=== PATIENT | female | born 1940 | race Caucasian/White ===

== ENCOUNTER → 2016-07-19 | Outpatient (CLI) | payer MEDICARE, OTHER ==
[2016-07-19 15:33] LABS: CH 29.2; CHCM 33.2; HCT 36.2 % (34.0-46.0); HDW 2.39; HGB 12.5 gm/dL (11.4-16.0); MCH 30.4 pg (25.0-35.0); MCHC 34.5 g/dL (31.0-37.0); MCV 88.3 fL (80.0-100.0); Mean Platelet Volume 9.2; RDW 14.2 % (11.5-15.5); WBC 9.3 k/uL (3.8-10.6)
[2016-07-19 15:50] LABS: Anion Gap 10 mmol/L; Blood Urea Nitrogen 36 mg/dL (7-17); Calcium 9.1 mg/dL (8.4-10.2); Carbon Dioxide 27 mmol/L (22-30); Chloride 105 mmol/L (98-107); Glucose 101 mg/dL (74-99); Non-African American GFR(MDRD) >60 (>60 ml/min/1.73 sqM); Potassium 4.3 mmol/L (3.5-5.1); Sodium 142 mmol/L (137-145)
== END | disposition home or self-care (01) ==
LOC: LABWHC1 14:57
PROVIDERS: ATTEND Psychiatry & Neurology Neurology
DX: Z51.81 Encounter for therapeutic drug level monitoring (principal); Z79.899 Other long term (current) drug therapy
CPT/HCPCS: 36415; 80048; 84439; 84443; 85027

== ENCOUNTER 2016-09-16 05:46 | Day surgery (SDC) | payer MEDICARE, OTHER ==
[2016-09-12 16:19] VITALS: BMI 24.5
[~2016-09-16 05:46] MED LIST: DEXAMETHASONE SOD PHOSPHATE 10 MG/ML 1 ML VIAL IV ONE; HEPARIN SODIUM,PORCINE 5,000 UNIT/ML 1 ML VIAL SQ ONE; HYDROmorphone 1 MG/ML 1 ML SYRINGE IVP PRN; LIDOCAINE 1% 20 ML VIAL (10MG/ML) FOR IV START INTRADERMA PRN; ONDANSETRON 4 MG/2 ML VIAL IVP ONE; ceFAZolin 2 GM in SODIUM CHLORIDE 0.9% 100 ML IVPB ONE
[2016-09-16] MEDS: LACTATED RINGERS 1,000 ML IV SCH ×2 (06:36→15:49)
[2016-09-16] MEDS ORDERED: LACTATED RINGERS 1,000 ML IV ONE (06:36)
[2016-09-16] MEDS ORDERED: LIDOCAINE 1% 20 ML VIAL (10MG/ML) FOR IV START INTRADERMA ONE (06:37)
--- NOTE | 2016-09-16 07:44 | P.GSHP ---
History of Present Illness H&P Date: 09/16/16 Chief Complaint: Right inguinal hernia 76 years old female presents with right groin bulge which is reducible. She also notices a bulge in the left groin. No history of bowel obstruction. No nausea or vomiting. - Review of Systems Comment: All negative except stated in history of present illness Past Medical History Past Medical History: Osteoarthritis (OA), Thyroid Disorder Additional Past Medical History / Comment(s): PARKINSONS, LIGHTHEADED AT TIMES, USES CANE FOR BALANCE. History of Any Multi-Drug Resistant Organisms: None Reported Past Surgical History: Hernia Repair, Joint Replacement, Tubal Ligation Additional Past Surgical History / Comment(s): DEIRDRE TOTAL KNEES, UMBILICAL HERNIA , VARICOSE VEINS, PARTIAL THYROIDECTOMY. Nasal surgery. Past Anesthesia/Blood Transfusion Reactions: Previous Problems w/ Anesthesia Additional Past Anesthesia/Blood Transfusion Reaction / Comment(s): STATES KNEE REPLACEMENT MAR 2010 SHE WAS "DELERIOUS ". KNEE REPLACEMENT FEB 2011 HER BLOOD PRESSURE DROPPED AND SHE WAS IN BED FOR 5 DAYS. Smoking Status: Never smoker - Past Family History Sister(s) Family Medical History: Cancer Additional Family Medical History / Comment(s): Melanoma Medications and Allergies Home Medications Medication Instructions Recorded Confirmed Type Carbidopa-Levodopa 25-100 mg 1.5 tab PO TID 08/20/15 09/16/16 History [Sinemet 25-100] Levothyroxine Sodium [Synthroid] 88 mcg PO DAILY 08/20/15 09/16/16 History Allergies Allergy/AdvReac Type Severity Reaction Status Date / Time hydromorphone [From Dilaudid] AdvReac Severe Unknown Verified 09/16/16 07:10 Surgical - Exam Vital Signs Temp Pulse Resp BP Pulse Ox 97.1 F L 71 16 126/65 99 09/16/16 06:26 09/16/16 06:26 09/16/16 06:26 09/16/16 06:26 09/16/16 06:26 General: Patient is alert and oriented to time, place and person and cooperative with exam. HEENT: No pallor, no icterus, Chest: Bilateral equal breath sounds present. No wheezes, no crackles. Cardiovascular: Regular rate and rhythm. Abdomen: Soft, nontender, nondistended. Right inguinal hernia possible left Integumentary: No active ulcers or discharge. Neurologic: Cranial nerves II-XII intact. Strength upper and lower extremities 5/5. No focal neurologic deficits. Gait is normal. Assessment and Plan (1) Inguinal hernia Status: Acute (2) Parkinson disease Status: Acute Plan: 1. Right inguinal hernia possible left 2. Informed consent obtained for robotic-assisted laparoscopic right inguinal hernia repair possible bilateral with mesh and all indicated procedures. 3. The risks, benefits and potential complications including bleeding, infection, possibility of converting to open were discussed with the patient 4. Preoperative antibiotics 5. Bilateral SCDs.
[2016-09-16] MEDS ORDERED: NEOSTIGMINE 1 MG/ML 10 ML VIAL ONE (07:51)
[2016-09-16] MEDS ORDERED: LIDOCAINE 1% INJ 10MG/ML (20 ML MDV) ONE (07:51)
[2016-09-16] MEDS ORDERED: ePHEDrine 50 MG/ML 1 ML AMP ONE (07:51)
[2016-09-16] MEDS ORDERED: GLYCOPYRROLATE 0.2 MG/ML 2 ML VIAL ONE (07:51)
[2016-09-16] MEDS ORDERED: MIDAZOLAM 2 MG/2 ML VIAL ONE (07:51)
[2016-09-16] MEDS ORDERED: PROPOFOL 10 MG/ML 20 ML VIAL IV ONE (07:51)
[2016-09-16] MEDS ORDERED: ROCURONIUM BROMIDE 10 MG/ML 10 ML VIAL IV ONE (07:51)
[2016-09-16] MEDS ORDERED: PHENYLEPHRINE-0.9% NACL SYG 1 MG/10 ML SYRINGE ONE (07:51)
[2016-09-16] MEDS ORDERED: SUCCINYLCHOLINE CHLORIDE 100 MG/5 ML SYR IV ONE (07:51)
[2016-09-16] MEDS ORDERED: fentaNYL (PF) 50 MCG/ML 2 ML AMP ONE (07:51)
[2016-09-16] MEDS ORDERED: ACETAMINOPHEN IV (For NPO) 1,000 MG/100 ML VIAL ONE (07:51)
[2016-09-16] MEDS ORDERED: BUPIVACAIN-EPI 0.5%-1:200,000 30 ML VIAL SQ ONE (08:22)
[2016-09-16] MEDS ORDERED: ACETAMINOPHEN IV (For NPO) 1,000 MG in EMPTY BAG 1 BAG IVPB STA (10:28)
[2016-09-16] MEDS ORDERED: SODIUM CHLORIDE 0.9% 500 ML IV ONE (10:28)
[2016-09-16 11:38] VITALS: RESP 16
[2016-09-16] MEDS ORDERED: ONDANSETRON 4 MG/2 ML VIAL IVP PRN (14:54)
[2016-09-16] MEDS ORDERED: ACETAMINOPHEN TAB 325 MG TAB PO PRN (14:55)
--- NOTE | 2016-09-16 15:11 | P.OP ---
Date of Procedure: 09/16/16 Preoperative Diagnosis: Right inguinal hernia History of Parkinson's disease Postoperative Diagnosis: Bilateral inguinal hernias History of Parkinson disease Procedure(s) Performed: Robotic-assisted laparoscopic bilateral inguinal hernia repair with mesh Implants: Covidien Progrip Lot # [id number] Covidien Progrip Lot # [id number] Anesthesia: GETA, local Estimated Blood Loss (ml): 10 Pathology: none sent Condition: stable Disposition: PACU Indications for Procedure: 76 years old female presents with right inguinal all checked which is reducible. She has recently noticed left inguinal bulge. Informed consent. Patient elected to undergo robotic-assisted laparoscopic bilateral inguinal hernia repair with mesh. Operative Findings: Bilateral inguinal hernia, right larger than left. Both hernias had direct and indirect complement Description of Procedure: The patient was brought to the operating room and placed in supine position. General anesthesia with endotracheal intubation was performed as per anesthesia team. Both arms were tucked against the abdominal wall and a shunt was positioned in lithotomy using yellowfin stirrups. A hollingsworth catheter was inserted under sterile aseptic precautions. Chlorhexidine was used to prep the skin followed by application of sterile drapes and Ioban dressing. A timeout was performed to verify correct patient, correct procedure and correct side. Patient was confirmed to receive perioperative IV antibiotics, subcutaneous heparin 5000 units and bilateral SCDs were placed. A 2 mm skin incision was made in the left subcostal area and Veress needle was inserted to establish pneumoperitoneum to a pressure of 15 mmHg. A 1.5 cm supraumbilical incision was made which was deepened through the subcutaneous tissue . Two additional 8 mm skin incisions were made on either side of the midline approximately 8 cm away. A 5 mm 30 laparoscope was used to enter the peritoneum using direct Optiview technique. A 12 mm robotic trocar was inserted in the supraumbilical area and 8 mm robotic trocars were inserted on either side of the midline. The patient was placed in Trendelenburg position and the robot was brought in between the legs. The robotic arms including the camera arm were docked on the trocars. The robotic prograsp and monopolar scissors were introduced via arm 1 and 2 respectively. Upon inspection of the peritoneal cavity, bilateral direct and indirect inguinal hernias identified. The right indirect hernia was the largest. The guido anatomical landmarks including the pubic symphysis, median and medial umbilical ligaments and bilateral epigastric vessels were identified. Attention was focused on the right side first. Using monopolar scissors a peritoneal flap was created extending medially from the median umbilical ligament and laterally to the direct hernia space. Using gentle traction and countertraction the flap was developed posteriorly. Loose fibrofatty tissue was bluntly dissected. Medially the dissection was carried along the Victoriano's ligament till pubic tubercle was identified. Care was taken to stay away from the urinary bladder. Dissection was carried out to leave the epigastric vessels against the anterior abdominal wall and laterally beyond the hernia defect. The indirect hernia sac was completely reduced. The iliofemoral vessels were identified. The peritoneal reflection overlying the round ligament was also dissected off. Enough inferior dissection was carried out 2 cm below the hernia defect. No direct hernia containing fat was noted. Attention was then focused on the left side where similar dissection was performed to identify the above-mentioned guido anatomical landmarks. Gentle traction and countertraction helped in reduction of the hernia sac. No bleeding was encountered. The iliofemoral vessels, spermatic cord and vas deferens were protected at all times. Covidien progrip mesh was rolled and introduced through the 12mm camera port. The right mesh was placed in the preperitoneal cavity with green portion overlying the pubic tubercle . The mesh was rolled upwards so that the mesh covered the direct , indirect inguinal hernia and the femoral hernia space without any kinks or folds. Similarly left progrip mesh was rolled and introduced through the 8mm camera port and secured over the right direct, indirect and femoral hernia space. The peritoneal flap was then sutured to the cut edge of the peritoneum using continuous 2-0 V lock sutures. The hernia sacs were completely reduced and the mesh lay flat without any kinks or folds. The robotic arms were then undocked and 30 degree laparoscope was inserted. All the needles were removed from the abdominal cavity. The 8mm camera trocar site was closed with 2 transfascial sutures of 0 Vicryl. The sponge, instrument and needle count were correct x2. The skin was closed with interrupted sutures of 4-0 Monocryl. Dermabond skin glue was applied followed by Telfa and Tegaderm dressing. Hollingsworth catheter was removed. .
[2016-09-16] MEDS: KETOROLAC 30 MG/ML 1 ML VIAL IVP SCH (17:28)
[2016-09-17] MEDS: KETOROLAC 30 MG/ML 1 ML VIAL IVP SCH ×2 (02:25→06:29)
[2016-09-17 08:08] VITALS: BP 117/56; PULSE 67; TEMP 97.5
== END 2016-09-17 09:27 | disposition home or self-care (01) ==
LOC: OR 05:46 → 3SUR 11:07 → OR 09-17 09:27
PROVIDERS: ATTEND Surgery
DX: K40.20 Bilateral inguinal hernia, without obstruction or gangrene, not specified as recurrent (principal); M19.90 Unspecified osteoarthritis, unspecified site; E07.9 Disorder of thyroid, unspecified; G20 Parkinson's disease; Z98.51 Tubal ligation status; Z79.899 Other long term (current) drug therapy
CPT/HCPCS: 49650; C1781; J2250; J1644; J1100; J2710; J0690; J2405; J2001; J3010; J1885 ×2; J0131; J2370; J0330; J2704

== ENCOUNTER → 2016-10-06 | Outpatient (CLI) | payer MEDICARE, OTHER ==
[2016-10-06 11:40] LABS: Anion Gap 10 mmol/L; Blood Urea Nitrogen 24 mg/dL (7-17); Calcium 8.9 mg/dL (8.4-10.2); Carbon Dioxide 25 mmol/L (22-30); Chloride 108 mmol/L (98-107); Glucose 71 mg/dL (74-99); Non-African American GFR(MDRD) >60 (>60 ml/min/1.73 sqM); Potassium 4.1 mmol/L (3.5-5.1); Sodium 143 mmol/L (137-145)
[2016-10-06 11:45] LABS: CH 28.9; HCT 36.6 % (34.0-46.0); HDW 2.45; HGB 12.3 gm/dL (11.4-16.0); MCH 29.6 pg (25.0-35.0); MCHC 33.5 g/dL (31.0-37.0); MCV 88.2 fL (80.0-100.0); Mean Platelet Volume 8.7; RBC 4.15 m/uL (3.80-5.40); RDW 14.5 % (11.5-15.5); WBC 10.9 k/uL (3.8-10.6)
== END | disposition home or self-care (01) ==
LOC: LABWHC1 11:07
PROVIDERS: ATTEND Psychiatry & Neurology Neurology
DX: I95.1 Orthostatic hypotension (principal); R53.83 Other fatigue; M62.81 Muscle weakness (generalized)
CPT/HCPCS: 36415; 80048; 85027

== ENCOUNTER → 2016-12-23 | Outpatient (CLI) | payer MEDICARE, OTHER | END | disposition home or self-care (01) | LOC: LABPAT 10:31 | PROVIDERS: ATTEND Obstetrics & Gynecology | DX: Z01.812 Encounter for preprocedural laboratory examination (principal); N81.3 Complete uterovaginal prolapse | CPT/HCPCS: 87086 ==

== ENCOUNTER → 2017-01-31 | Outpatient (CLI) | payer MEDICARE, OTHER ==
--- NOTE | 2017-01-31 15:14 | XR ---
EXAMINATION TYPE: XR facial bones complete DATE OF EXAM: 01/31/2017 COMPARISON: NONE HISTORY: Fall hitting above right orbit, pain TECHNIQUE: Facial bones are examined in 3 projections. These includes the orbits within the field-of- view. FINDINGS: Bilateral hearing aids are evident. Orbits appear intact. There is a left septal deviation. Acute fractures are not identified. Nasal bon e appears intact. Maxillary spine appears intact. Dental fixation metallic areas are present. Sella a ppears unremarkable. IMPRESSION: 1. Facial bones and orbits appear intact
== END ==
LOC: RADXRMAIN 14:24
PROVIDERS: ATTEND Family Medicine
DX: S09.93XA Unspecified injury of face, initial encounter (principal)
CPT/HCPCS: 70150

== ENCOUNTER 2017-02-06 04:52 | Inpatient (IN) | payer MEDICARE, OTHER ==
[2017-02-06] MEDS ORDERED: SODIUM CHLORIDE 0.9% 1,000 ML IV STA (05:25)
--- NOTE | 2017-02-06 05:30 | ED ---
General Adult HPI - General Chief complaint: Syncope Stated complaint: low BP Time Seen by Provider: 02/06/17 04:59 Source: patient, RN notes reviewed Mode of arrival: ambulatory Limitations: no limitations - History of Present Illness Initial comments: 76-year-old female presents with syncopal episode and head injury. Patient states that this evening she collapsed striking the back of her head. She was rushing to the bathroom, raised quickly from sleeping. Patient does have history of multiple falls secondary to orthostatic hypotension. She is on Midrin. Patient has additional past medical history of Parkinson's disease. She is also currently being treated for urinary tract infection with Levaquin. She denies dysuria. Denies fever or chills. Denies diarrhea. States she's had some nausea, no significant vomiting. Patient has had a decreased appetite for the past several weeks. She reports falling approximately one week ago striking the front of her head. Patient has remote history of intracranial hemorrhage status post fall. She is not currently on any anticoagulation. - Related Data Home Medications Medication Instructions Recorded Confirmed Carbidopa-Levodopa 25-100 mg 1.5 tab PO TID 08/20/15 02/06/17 [Sinemet 25-100 mg] Levothyroxine Sodium [Synthroid] 88 mcg PO QAM 08/20/15 02/06/17 Levofloxacin [Levaquin] 500 mg PO DAILY 02/06/17 02/06/17 Midodrine HCl [ProAmatine] 10 mg PO TID 02/06/17 02/06/17 Allergies Allergy/AdvReac Type Severity Reaction Status Date / Time hydromorphone [From Dilaudid] AdvReac Intermediate poss low Verified 02/06/17 04 :59 b/p,confusion post operatively Review of Systems ROS Statement: Those systems with pertinent positive or pertinent negative responses have been documented in the HPI. ROS Other: All systems not noted in ROS Statement are negative. Past Medical History Past Medical History: GERD/Reflux, Hearing Disorder / Deafness, Memory Impairment, Neurologic Disorder, Osteoarthritis (OA), Syncope, Thyroid Disorder Additional Past Medical History / Comment(s): uterine prolapse,having a hard time with uriating and constipation,states "has a sore on uterine prolapse", PARKINSONS, LIGHTHEADED AT TIMES, USES CANE FOR BALANCE,varicose veins, dysautonomia, GERD, syncope, overactive bladder, hypothyroidism, goiter post thyroidectomy. History of Any Multi-Drug Resistant Organisms: None Reported Past Surgical History: Hernia Repair, Hysterectomy, Joint Replacement, Tubal Ligation Additional Past Surgical History / Comment(s): Jean-Paul inguinal hernias repair - 2016,JEAN-PAUL TOTAL KNEES, UMBILICAL HERNIA, PARTIAL THYROIDECTOMY. Hysterectomy 11/2016 Past Anesthesia/Blood Transfusion Reactions: Previous Problems w/ Anesthesia Additional Past Anesthesia/Blood Transfusion Reaction / Comment(s): STATES KNEE REPLACEMENT MAR 2010 SHE WAS "DELERIOUS ". KNEE REPLACEMENT FEB 2011 HER BLOOD PRESSURE DROPPED AND SHE WAS IN BED FOR 5 DAYS. Past Psychological History: Anxiety, Depression Smoking Status: Never smoker Past Alcohol Use History: None Reported Past Drug Use History: None Reported - Past Family History Sister(s) Family Medical History: Cancer, Coronary Artery Disease (CAD) (patient has 2 sisters one of them with cancer the other one with CABG.) Mother Family Medical History: Diabetes Mellitus, Hypertension (mother at age of 73 from acute renal failure she had diabetes hypertension and obesity.), Renal Disease Father Family Medical History: Pneumonia (father at age of 73 from pneumonia.) Daughter(s) Family Medical History: No Reported History (patient has 2 daughters no major medical problems.) Son(s) Family Medical History: No Reported History (patient has 2 sons no major medical problems.) General Exam Limitations: no limitations General appearance: alert, in no apparent distress Head exam: Present: other (Occipital hematoma, forehead ecchymosis) Eye exam: Present: normal appearance, PERRL ENT exam: Present: normal exam, mucous membranes moist Neck exam: Present: normal inspection, full ROM. Absent: tenderness Respiratory exam: Present: normal lung sounds bilaterally. Absent: respiratory distress, wheezes Cardiovascular Exam: Present: regular rate, normal rhythm GI/Abdominal exam: Present: soft. Absent: distended, tenderness Extremities exam: Present: normal inspection, full ROM, normal capillary refill. Absent: pedal edema Neurological exam: Present: alert, oriented X3, CN II-XII intact. Absent: motor sensory deficit Psychiatric exam: Present: normal affect, normal mood Skin exam: Present: warm, dry, intact. Absent: cyanosis, diaphoretic Course Vital Signs 02/06/17 02/06/17 02/06/17 04:55 05:19 06:07 Temperature 97.1 F L Pulse Rate 82 65 Pulse Rate [ 81 Right Sitting Pulse Oximetery ] Pulse Rate [ 89 Right Standing Pulse Oximetery ] Pulse Rate [ 78 Right Supine Pulse Oximetery ] Respiratory 18 18 Rate Blood Pressure 119/56 177/69 Blood Pressure 107/62 [Right Arm Sitting] Blood Pressure 70/47 [Right Arm Standing] Blood Pressure 129/60 [Right Arm Supine] O2 Sat by Pulse 98 95 Oximetry 02/06/17 06:43 Temperature Pulse Rate 71 Pulse Rate [ Right Sitting Pulse Oximetery ] Pulse Rate [ Right Standing Pulse Oximetery ] Pulse Rate [ Right Supine Pulse Oximetery ] Respiratory 18 Rate Blood Pressure 155/67 Blood Pressure [Right Arm Sitting] Blood Pressure [Right Arm Standing] Blood Pressure [Right Arm Supine] O2 Sat by Pulse 98 Oximetry EKG Findings - EKG Comments: EKG Findings:: EKG shows normal sinus rhythm, ventricular rate 60, NJ interval 132, castration 74, QTC 433 no signs of acute ischemia Medical Decision Making - Medical Decision Making 76-year-old female presents with syncopal episode and head injury. Patient is found to have orthostatic hypotension with standing blood pressure in the 70s systolic. Patient is currently taking midodrine 10 mg [address] is obtained, negative for intracranial hemorrhage, CT scan of the cervical spine is negative for fracture or subluxation. Chest x-ray shows no acute process. Laboratory studies reveal normal white blood cell count 9.3, stable hemoglobin 12.4, creatinine is normal 1.0. Troponin negative. EKG shows no arrhythmia or ischemia. Urinalysis does show 9 WBCs, patient is currently being treated for UTI. Patient's is concerned given the multiple falls over the past week. Patient will be admitted for IV hydration, reevaluation, and cardiology consult. Diagnosis: Severe orthostatic hypotension, syncope, closed head injury - Lab Data Result diagrams: 02/06/17 05:09 02/06/17 05:09 Lab Results 02/06/17 02/06/17 02/06/17 Range/Units 05:09 05:09 05:09 WBC 9.3 (3.8-10.6) k/uL RBC 4.28 (3.80-5.40) m/uL Hgb 12.4 (11.4-16.0) gm/dL Hct 37.3 (34.0-46.0) % MCV 87.2 (80.0-100.0) fL MCH 29.0 (25.0-35.0) pg MCHC 33.3 (31.0-37.0) g/dL RDW 15.0 (11.5-15.5) % Plt Count 111 L (150-450) k/uL Neutrophils % 50 % Lymphocytes % 28 % Monocytes % 18 % Eosinophils % 1 % Basophils % 1 % Neutrophils # 4.7 (1.3-7.7) k/uL Lymphocytes # 2.6 (1.0-4.8) k/uL Monocytes # 1.6 H (0-1.0) k/uL Eosinophils # 0.1 (0-0.7) k/uL Basophils # 0.1 (0-0.2) k/uL Manual Slide Review Performed Large Platelets Present PT (9.0-12.0) sec INR (<1.2) APTT (22.0-30.0) sec Sodium 141 (137-145) mmol/L Potassium 4.2 (3.5-5.1) mmol/L Chloride 106 (98-107) mmol/L Carbon Dioxide 26 (22-30) mmol/L Anion Gap 9 mmol/L BUN 35 H (7-17) mg/dL Creatinine 1.00 (0.52-1.04) mg/dL Est GFR (MDRD) Af Amer >60 (>60 ml/min/1.73 sqM) Est GFR (MDRD) Non-Af 54 (>60 ml/min/1.73 sqM) Glucose 97 (74-99) mg/dL Calcium 9.7 (8.4-10.2) mg/dL Magnesium 2.0 (1.6-2.3) mg/dL Total Bilirubin 0.4 (0.2-1.3) mg/dL AST 20 (14-36) U/L ALT 13 (9-52) U/L Alkaline Phosphatase 82 (38-126) U/L Total Creatine Kinase 24 L (30-135) U/L CK-MB (CK-2) 0.9 (0.0-2.4) ng/mL CK-MB (CK-2) Rel Index 3.8 Troponin I <0.012 (0.000-0.034) ng/mL Total Protein 7.4 (6.3-8.2) g/dL Albumin 4.3 (3.5-5.0) g/dL TSH 2.240 (0.465-4.680) mIU/L Urine Color Urine Appearance (Clear) Urine pH (5.0-8.0) Ur Specific [place] (1.001-1.035) Urine Protein (Negative) Urine Glucose (UA) (Negative) Urine Ketones (Negative) Urine Blood (Negative) Urine Nitrite (Negative) Urine Bilirubin (Negative) Urine Urobilinogen (<2.0) mg/dL Ur Leukocyte Esterase (Negative) Urine RBC (0-5) /hpf Urine WBC (0-5) /hpf Ur Squamous Epith Cells (0-4) /hpf Urine Mucus (None) /hpf 02/06/17 02/06/17 Range/Units 05:09 06:36 WBC (3.8-10.6) k/uL RBC (3.80-5.40) m/uL Hgb (11.4-16.0) gm/dL Hct (34.0-46.0) % MCV (80.0-100.0) fL MCH (25.0-35.0) pg MCHC (31.0-37.0) g/dL RDW (11.5-15.5) % Plt Count (150-450) k/uL Neutrophils % % Lymphocytes % % Monocytes % % Eosinophils % % Basophils % % Neutrophils # (1.3-7.7) k/uL Lymphocytes # (1.0-4.8) k/uL Monocytes # (0-1.0) k/uL Eosinophils # (0-0.7) k/uL Basophils # (0-0.2) k/uL Manual Slide Review Large Platelets PT 10.1 (9.0-12.0) sec INR 1.0 (<1.2) APTT 24.3 (22.0-30.0) sec Sodium (137-145) mmol/L Potassium (3.5-5.1) mmol/L Chloride (98-107) mmol/L Carbon Dioxide (22-30) mmol/L Anion Gap mmol/L BUN (7-17) mg/dL Creatinine (0.52-1.04) mg/dL Est GFR (MDRD) Af Amer (>60 ml/min/1.73 sqM) Est GFR (MDRD) Non-Af (>60 ml/min/1.73 sqM) Glucose (74-99) mg/dL Calcium (8.4-10.2) mg/dL Magnesium (1.6-2.3) mg/dL Total Bilirubin (0.2-1.3) mg/dL AST (14-36) U/L ALT (9-52) U/L Alkaline Phosphatase (38-126) U/L Total Creatine Kinase (30-135) U/L CK-MB (CK-2) (0.0-2.4) ng/mL CK-MB (CK-2) Rel Index Troponin I (0.000-0.034) ng/mL Total Protein (6.3-8.2) g/dL Albumin (3.5-5.0) g/dL TSH (0.465-4.680) mIU/L Urine Color Light Yellow Urine Appearance Clear (Clear) Urine pH 6.5 (5.0-8.0) Ur Specific [place] 1.007 (1.001-1.035) Urine Protein Negative (Negative) Urine Glucose (UA) Negative (Negative) Urine Ketones Negative (Negative) Urine Blood Negative (Negative) Urine Nitrite Negative (Negative) Urine Bilirubin Negative (Negative) Urine Urobilinogen <2.0 (<2.0) mg/dL Ur Leukocyte Esterase Moderate H (Negative) Urine RBC 1 (0-5) /hpf Urine WBC 9 H (0-5) /hpf Ur Squamous Epith Cells 1 (0-4) /hpf Urine Mucus Rare H (None) /hpf Disposition Clinical Impression: Syncope due to orthostatic hypotension Disposition: ADMITTED IP TO THIS [facility] Condition: Stable Referrals: Jose Petersen DO [Primary Care Provider] - 1-2 days Decision to Admit Reason: Admit from EC Decision Date: 02/06/17 Decision Time: 07:20
[2017-02-06] MEDS: SODIUM CHLORIDE 0.9% 1,000 ML IV SCH ×2 (05:34→20:59)
[2017-02-06 05:38] LABS: Basophils # (A) 0.1 k/uL (0-0.2); Basophils % (A) 1 %; CH 28.8; CHCM 33.1; Eosinophils # (A) 0.1 k/uL (0-0.7); Eosinophils % (A) 1 %; HCT 37.3 % (34.0-46.0); HGB 12.4 gm/dL (11.4-16.0); Luc # (Auto) 0.26; Luc % (Auto) 3; Lymphocytes # (A) 2.6 k/uL (1.0-4.8); Lymphocytes % (A) 28 %; MCHC 33.3 g/dL (31.0-37.0); MCV 87.2 fL (80.0-100.0); Mean Platelet Volume 9.6; Monocytes # (A) 1.6 k/uL (0-1.0); Monocytes % (A) 18 %; Neutrophils # (A) 4.7 k/uL (1.3-7.7); Neutrophils % (A) 50 %; RBC 4.28 m/uL (3.80-5.40); WBC 9.3 k/uL (3.8-10.6)
[2017-02-06 05:46] LABS: ALT 13 U/L (9-52); AST 20 U/L (14-36); Alkaline Phosphatase 82 U/L (38-126); Anion Gap 9 mmol/L; Blood Urea Nitrogen 35 mg/dL (7-17); Calcium 9.7 mg/dL (8.4-10.2); Carbon Dioxide 26 mmol/L (22-30); Chloride 106 mmol/L (98-107); Glucose 97 mg/dL (74-99); Non-African American GFR(MDRD) 54 (>60 ml/min/1.73 sqM); Potassium 4.2 mmol/L (3.5-5.1); Sodium 141 mmol/L (137-145); Total Bilirubin 0.4 mg/dL (0.2-1.3); Total Protein 7.4 g/dL (6.3-8.2)
[2017-02-06 05:54] LABS: Manual Review Performed
[2017-02-06 05:55] LABS: Large Platelets Present; Partial Thromboplastin Time 24.3 sec (22.0-30.0); Prothrombin Time 10.1 sec (9.0-12.0)
[2017-02-06 05:56] LABS: Creatine Kinase 24 U/L (30-135)
[2017-02-06 06:09] LABS: Creatine Kinase MB 0.9 ng/mL (0.0-2.4); Troponin I <0.012 ng/mL (0.000-0.034)
--- NOTE | 2017-02-06 06:14 | XR ---
EXAM: XR Chest, 2 Views CLINICAL HISTORY: Syncope. TECHNIQUE: Frontal and lateral views of the chest. COMPARISON: 06/01/2015. FINDINGS: Lungs: Stable chronic interstitial lung changes are again noted. Pleural space: Unremarkable. No pneumothorax. Heart: Unremarkable. No cardiomegaly. Mediastinum: Unremarkable. Bones/joints: Unchanged osseous structures. Upper abdomen: Mild elevation of the right hemidiaphragm is again noted. IMPRESSION: Chronic interstitial lung changes without evidence of acute cardiopulmonary process.
[2017-02-06 06:50] LABS: Appearance,Urine Clear (Clear); Bilirubin,Urine Negative (Negative); Glucose,Urine (UA) Negative (Negative); Ketones,Urine Negative (Negative); Leukocyte Esterase,Urine Moderate (Negative); Mucus,Urine Rare /hpf; Nitrite,Urine Negative (Negative); PH, Urine 6.5 (5.0-8.0); Particle Count 1028; Protein,Urine Negative (Negative); RBC,Urine 1 /hpf (0-5); Specific Gravity,Urine 1.007 (1.001-1.035); Squamous Epithelial Cell,Urine 1 /hpf (0-4); UA Billing (MACRO vs. MICRO) MICRO; Urobilinogen,Urine <2.0 mg/dL (<2.0); WBC,Urine 9 /hpf (0-5)
--- NOTE | 2017-02-06 07:11 | CT ---
EXAM: CT Head Without Intravenous Contrast CLINICAL HISTORY: Syncope TECHNIQUE: Axial computed tomography images of the head/brain without intravenous contrast. DLP is 1000.20 mGy-cm. This CT exam was performed using one or more of the following dose reduction techniques: automated exposure control, adjustment of the mA and/or kV according to patient size, and/or use of iterative reconstruction technique. COMPARISON: 08/20/2015 FINDINGS: Brain: Patchy and confluent areas of decreased attenuation are again seen involving the bilateral periventricular and subcortical white matter, likely representing moderate microangiopathy, essentially unchanged. No hemorrhage. No edema. Ventricles: Unremarkable. No ventriculomegaly. Bones/joints: Unremarkable. No acute fracture. Soft tissues: Scalp soft tissue swelling with small hematoma overlies the posterior calvarium. Sinuses: Right sphenoid chronic sinusitis again seen. Mastoid air cells: Unremarkable as visualized. No mastoid effusion. IMPRESSION: 1. No evidence of acute transcortical infarct or acute intracranial hemorrhage. 2. Moderate microangiopathy. 3. Scalp soft tissue swelling with small hematoma overlies the posterior calvarium. 4. Right sphenoid chronic sinusitis. EXAM: CT Cervical Spine Without Intravenous Contrast CLINICAL HISTORY: Syncope TECHNIQUE: Axial computed tomography images of the cervical spine without intravenous contrast. DLP is 341.80 mGy-cm. This CT exam was performed using one or more of the following dose reduction techniques: automated exposure control, adjustment of the mA and/or kV according to patient size, and/or use of iterative reconstruction technique. COMPARISON: No relevant prior studies available. FINDINGS: Vertebrae: Note is made of multilevel cervical spondylosis with varying degrees of central canal and foramina stenoses, most notable at C5-C6 with there is mild narrowing. No acute fracture. Discs/spinal canal/neural foramina: Moderate/severe narrowing of the C5-C6 intervertebral disc space is seen. Soft tissues: Unremarkable. Lung apices: Unremarkable as visualized. IMPRESSION: 1. No acute findings. 2. Multilevel cervical spondylosis with varying degrees of central canal and foramina stenoses, most notable at C5-C6 with there is mild narrowing. Moderate/severe narrowing of the C5-C6 intervertebral disc space is also seen. Further evaluation with MRI of the cervical spine may be obtained.
[2017-02-06] MEDS ORDERED: NALOXONE 0.4 MG/ML 1 ML VIAL IV PRN (07:20)
[2017-02-06] MEDS ORDERED: ACETAMINOPHEN TAB 325 MG TAB PO PRN (07:20)
[2017-02-06] MEDS ORDERED: LEVOFLOXACIN 500 MG TAB PO SCH (09:00)
[2017-02-06] MEDS: MIDODRINE 5 MG TAB PO SCH ×3 (10:35→17:25)
[2017-02-06] MEDS: CARBIDOPA-LEVODOPA 25-100 MG 1 EACH TAB PO SCH ×3 (10:36→21:00)
[2017-02-06] MEDS: LEVOTHYROXINE 88 MCG TAB PO SCH (10:38)
--- NOTE | 2017-02-06 12:05 | P.HPIM ---
History of Present Illness H&P Date: 02/06/17 Chief Complaint: fall 76 years old very pleasant female patient of Dr. Petersen presents with orthostatic hypotension and fall. Patient has past medical history of reflux, Parkinson disease, osteoarthritis, syncope, hypothyroidism. Patient was getting treated for urinary tract infection with levofloxacin as outpatient. She states she woke up in the middle of night hurried to the bathroom leading to lightheadedness when she stood suddenly leading to the fall on the back of her head. According to the bedside patient and multiple falls in the past 1 month due to orthostatic hypertension for which she is currently taking midodrine 10 mg 3 times a day with no improvement. Patient hit her forehead last week from similar presentation. She otherwise denies any chest pain, palpitation, weakness,, sensory deficit, seizures or loss of consciousness. Patient does remember the incidents this time but do not recall her fall last week. She does not use a walker at home and have a wide-based gait. Orthostatic done in the ED were positive and improved with fluid resuscitation. Orthostatic done on the floor today was also positive suggesting autonomic dysfunction secondary to Parkinson disease. Patient to see cardiology for syncope, pending echo. Fludrocortisone started at 0.5 mg in addition to midodrine 10 mg 3 times a day for autonomic hypo-tension. Cortisol level will be checked in the morning to rule out adrenal insufficiency. Review of Systems Constitutional: Denies chills, Denies fever, Denies lethargy, Denies malaise, Denies poor appetite, Denies weakness, Denies weight loss Eyes: denies decreased vision, denies diplopia, denies discharge, denies pain Ears: deny: decreased hearing Ears, nose, mouth and throat: Denies dental pain, Denies headache, Denies nasal discharge, Denies nose pain Cardiovascular: Denies chest pain, Denies decreased exercise tolerance, Denies edema, Denies high blood pressure, Denies irregular heart beat, Denies palpitations, Denies paroxysmal nocturnal dyspnea, Denies rapid heart beat, Denies shortness of breath Respiratory: Denies congestion, Denies cough, Denies cough with sputum, Denies dyspnea, Denies home oxygen, Denies wheezing Gastrointestinal: Denies abdominal pain, Denies change in bowel habits, Denies coffee ground emesis, Denies early satiety, Denies excessive gas, Denies heartburn, Denies hematemesis, Denies hematochezia, Denies loss of appetite, Denies nausea, Denies vomiting Genitourinary: Denies dysuria, Denies flank pain, Denies kidney stones, Denies menorrhagia, Denies urgency, Denies urinary frequency Musculoskeletal: Denies gait dysfunction, Denies limitation of motion, Denies morning stiffness, Denies muscle cramps Integumentary: Denies rash, Denies wounds, Denies brittle nails, Denies change in hair/nails, Denies darkening of skin Neurological: Denies balance difficulties, Denies change in speech, Denies double vision, endorses gait dysfunction, Denies loss of vision, Denies motor disturbance, Denies numbness, Denies paralysis, Denies paresthesias, Denies seizures endorses dizziness on standing Psychiatric: Denies anxiety, Denies depression Endocrine: Denies excessive sweating, Denies excessive thirst, Denies high blood sugars, Denies palpitations Hematologic/Lymphatic: Denies easy bruising, Denies lymphadenopathy Past Medical History Past Medical History: GERD/Reflux, Hearing Disorder / Deafness, Memory Impairment, Neurologic Disorder, Osteoarthritis (OA), Syncope, Thyroid Disorder Additional Past Medical History / Comment(s): Current UTI, PARKINSONS, orthostatic hypotension, balance issues, dysautonomia, falls, past intracranial hemorrhage rt fall, overactive bladder, PORT LIONS bilaterally, arthritis in hands, back, chronic back pain, n/t bilateral hands, cataracts bilaterally, hypothyroidism, goiter post thyroidectomy. History of Any Multi-Drug Resistant Organisms: None Reported Past Surgical History: Bladder Surgery, Hernia Repair, Hysterectomy, Joint Replacement, Tubal Ligation Additional Past Surgical History / Comment(s): Jean-Paul inguinal hernias repair - 2016,JEAN-PAUL TOTAL KNEES, UMBILICAL HERNIA, PARTIAL THYROIDECTOMY, cystocele/ rectocele, hysterectomy 01/02/2017, colonoscopy, sinus polypectomy, L wrist ganglion cyst removal. Past Anesthesia/Blood Transfusion Reactions: Previous Problems w/ Anesthesia Additional Past Anesthesia/Blood Transfusion Reaction / Comment(s): STATES KNEE REPLACEMENT MAR 2010 SHE WAS "DELERIOUS ". KNEE REPLACEMENT FEB 2011 HER BLOOD PRESSURE DROPPED AND SHE WAS IN BED FOR 5 DAYS. Past Psychological History: Anxiety, Depression Additional Psychological History / Comment(s): Pt states she has had depression yrs ago but none lately. Pt resides with her spouse. She uses a cane when she goes out. She drives minimally. Her spouse also drives. Smoking Status: Never smoker Past Alcohol Use History: None Reported Past Drug Use History: None Reported - Past Family History Sister(s) Family Medical History: Cancer (Sister had skin cancer, other sister had coronary artery disease and at the age of 73), Coronary Artery Disease (CAD ) Mother Family Medical History: Diabetes Mellitus, Hypertension, Renal Disease Additional Family Medical History / Comment(s): Mother had an enlarged heart. She of renal failure at the age of 73 yrs. Father Family Medical History: Pneumonia Additional Family Medical History / Comment(s): Father of pneumonia a the age of 73 yrs. Daughter(s) Family Medical History: No Reported History Son(s) Family Medical History: No Reported History Medications and Allergies Home Medications Medication Instructions Recorded Confirmed Type Carbidopa-Levodopa 25-100 mg 1.5 tab PO TID 08/20/15 02/06/17 History [Sinemet 25-100 mg] Levothyroxine Sodium [Synthroid] 88 mcg PO QAM 08/20/15 02/06/17 History Levofloxacin [Levaquin] 500 mg PO DAILY 02/06/17 02/06/17 History Midodrine HCl [ProAmatine] 10 mg PO TID 02/06/17 02/06/17 History Allergies Allergy/AdvReac Type Severity Reaction Status Date / Time hydromorphone [From Dilaudid] AdvReac Intermediate poss low Verified 02/06/17 04 :59 b/p,confusion post operatively Physical Exam Vitals: Vital Signs Temp Pulse Pulse Pulse Pulse Pulse Resp 02/06/17 08:55 98.0 F 76 80 108 H 71 18 02/06/17 07:49 97.3 F L 72 16 02/06/17 06:43 71 18 02/06/17 06:07 65 18 02/06/17 05:19 81 89 78 02/06/17 04:55 97.1 F L 82 18 BP BP BP BP BP Pulse Ox 02/06/17 08:55 125/58 106/63 147/67 139/64 99 02/06/17 07:49 144/65 98 02/06/17 06:43 155/67 98 02/06/17 06:07 177/69 95 02/06/17 05:19 107/62 70/47 129/60 02/06/17 04:55 119/56 98 Intake and Output 02/05/17 02/06/17 02/06/17 22:59 06:59 14:59 Output Total 560 Balance -560 Output: Urine 560 Other: Weight 54.431 kg - Constitutional General appearance: cooperative, no acute distress, obese - EENT Eyes: anicteric sclerae, PERRLA, normal appearance ENT: hearing grossly normal - Neck Neck: no lymphadenopathy, normal ROM, no other, no rigidity, no stridor, no thyromegaly - Respiratory Respiratory: bilateral: CTA, negative: diminished, dullness, rales, rhonchi - Cardiovascular Rhythm: regular Heart sounds: normal: S1, S2 Abnormal Heart Sounds: no systolic murmur, no diastolic murmur, no rub, no S3 Gallop, no S4 Gallop, no click, no other - Gastrointestinal General gastrointestinal: normal bowel sounds, soft - Integumentary Integumentary: no rash - Neurologic Neurologic: CNII-XII intact - Musculoskeletal Musculoskeletal: gait normal, strength equal bilaterally - Psychiatric Psychiatric: A&O x's 3, appropriate affect Results CBC & Chem 7: 02/06/17 05:09 02/06/17 05:09 Labs: Abnormal Lab Results - Last 24 Hours (Table) 02/06/17 02/06/17 02/06/17 Range/Units 05:09 05:09 05:09 Plt Count 111 L (150-450) k/uL Monocytes # 1.6 H (0-1.0) k/uL BUN 35 H (7-17) mg/dL Total Creatine Kinase 24 L (30-135) U/L Ur Leukocyte Esterase (Negative) Urine WBC (0-5) /hpf Urine Mucus (None) /hpf 02/06/17 Range/Units 06:36 Plt Count (150-450) k/uL Monocytes # (0-1.0) k/uL BUN (7-17) mg/dL Total Creatine Kinase (30-135) U/L Ur Leukocyte Esterase Moderate H (Negative) Urine WBC 9 H (0-5) /hpf Urine Mucus Rare H (None) /hpf Thrombosis Risk Factor Assmnt - DVT/VTE Prophylaxis DVT/VTE Prophylaxis: Pharmacologic Prophylaxis ordered, Mechanical Prophylaxis ordered - Choose All That Apply Any of the Below Risk Factors Present?: Yes Other Risk Factors: Yes Each Risk Factor Represents 3 Points: Age 75 years or older Other congenital or acquired thrombophilia - If yes, enter type in comment: No Thrombosis Risk Factor Assessment Total Risk Factor Score: 3 Thrombosis Risk Factor Assessment Level: Moderate Risk Assessment and Plan Plan: #1 multiple fall with small occipital hematoma- secondary to low blood pressure/ syncope, PT evaluation, CT head negative for intracranial bleed, neuro exam negative for any weakness or numbness concerning for stroke, stable #2 orthostatic hypotension with autonomic hypotension- patient's orthostatic hypotension is likely secondary to autonomic hypotension from Parkinson disease , other differential includes syncope, dehydration from urinary tract infection , and would need both midodrine and fludrocortisone for symptom control. continue fluids at 75 mL/hr .orthostatic vitals daily #3 Parkinson's disease continue Sinemet 1.5 tablet 3 times a day #4 syncope- EKG negative for any arrhythmia, echo pending, cardiology evaluation pending #5 hypothyroidism continue levothyroxine at 88 g by mouth daily #6 osteoarthritis continue Tylenol 650 mg every 6 hours when necessary pain #7 DVT prophylaxis continue heparin 5000 every 12, platelet on the lower side, repeat CBC in a.m. #8 UTI continue levofloxacin 500 mg by mouth daily- #9 CODE STATUS full code #10 disposition-PTOT evaluation pending, disposition depends on patient's ability to walk by herself without fall. Patient may require 1-2 nights inpatient
[2017-02-06] MEDS: FLUDROCORTISONE 0.1 MG TAB PO SCH (12:19)
--- NOTE | 2017-02-06 13:12 | CONS ---
CONSULTATION Shy Lacey is a 76-year-old lady with a known history of orthostatic hypotension, who has had previous episodes of falls. I am seeing her mainly because of what seems to be an episode of syncope. This lady apparently about a week ago got out of the bed in a hurry and try to go to the bathroom and fell and hurt herself. She is on midodrine. Again last night she had an episode when she tried to get out of the bed in a hurry and rushed to the bathrooms and then she passed out and hurt her scalp area. She did not lose consciousness. She did not lose control of bladder or bowel. She is known to have orthostatic hypotension and underlying parkinsonism and takes midodrine. At the time of my evaluation, she is resting comfortably without symptoms and history was obtained both from the patient and her . So far, no evidence of any significant arrhythmia. EKG was unremarkable. PAST MEDICAL HISTORY: 1. Parkinsonism. 2. Orthostatic hypotension. 3. Hypertension. 4. Hypothyroidism. MEDICATIONS: Midodrine 10 mg t.i.d., Synthroid 88 mcg daily. Carbidopa/levodopa 25/100 1 1/2 tablet t.i.d. ALLERGIES: DILAUDID. REVIEW OF SYSTEMS: Unremarkable other than above-mentioned facts. INVESTIGATIONS: EKG revealed a sinus mechanism without significant ST-T changes. PHYSICAL EXAMINATION: Blood pressure is 140/60, pulse rate 72 per minute. There are no significant orthostatic changes. HEENT: Unremarkable. Fundus was not examined by me. Neck is supple. There is no JVD. I do not hear a carotid bruit. Heart exam reveals S1, S2 with a short systolic murmur. Lungs reveal diminished air entry bilateral lung ken. Abdomen is soft, nontender. Lower extremities reveal normal pulses. No edema. Central nervous system is normal. EKG revealed sinus mechanism with without acute changes. LABORATORY DATA: Revealed unremarkable troponin. Normal TSH. No other electrolyte abnormalities and hemoglobin is normal. IMPRESSION: 1. Probable orthostatic hypotension with syncope in a patient who changed her position very quickly. 2. History of hypothyroidism. 3. Known history of autonomic dysfunction with orthostatic hypotension. RECOMMENDATION: I am recommending that we will continue telemetry monitoring for 24 hours and also perform echocardiogram and based on this, I will make further recommendations. I have advised the patient regarding situational modification to prevent these episodes and altered use a bedside commode if necessary. Prognosis remains guarded. We will see how her rhythms demonstrates over 24 hours and then we will also obtain echocardiogram. Thank you very much for the consult. BETZAIDA / IJN: [id number] /
[2017-02-06] MEDS: HEPARIN SODIUM,PORCINE 5,000 UNIT/ML 1 ML VIAL SQ SCH (20:59)
[2017-02-07] MEDS: LEVOTHYROXINE 88 MCG TAB PO SCH (06:29)
[2017-02-07] MEDS: MIDODRINE 5 MG TAB PO SCH ×3 (06:32→18:27)
--- NOTE | 2017-02-07 10:05 | ECHOF ---
Referral Reason:syncope MEASUREMENTS -------- HEIGHT: 154.9 cm WEIGHT: 54.4 kg BP: 144/65 RVIDd: 2.9 cm (< 3.3) IVSd: 0.7 cm (0.6 - 1.1) LVIDd: 4.2 cm (3.9 - 5.3) LVPWd: 0.9 cm (0.6 - 1.1) IVSs: 1.0 cm LVIDs: 3.3 cm LVPWs: 1.1 cm LAESV Index (A-L): 24.36 ml/m Ao Diam: 3.0 cm (2.0 - 3.7) AV Cusp: 1.7 cm (1.5 - 2.6) LA Diam: 3.2 cm (2.7 - 3.8) EPSS: 0.7 cm MV E Livan: 0.50 m/s MV DecT: 299 ms MV A Livan: 0.85 m/s MV E/A Ratio: 0.59 RAP: 5.00 mmHg RVSP: 16.55 mmHg MV EF SLOPE: 55.49 mm/s (70 - 150) MV EXCURSION: 1.06 cm (> 18.000) FINDINGS -------- Sinus rhythm. This was a technically adequate study. The left ventricular size is normal. Left ventricular wall thickness is normal. Overall left vent ricular systolic function is normal with, an EF between 55 - 60 %. The right ventricle is normal in size and function. Normal LA size by volume 22+/-6 ml/m2. The right atrium is normal in size. Aortic valve is trileaflet and is mildly thickened. There is no evidence of aortic regurgitation. There is no evidence of aortic stenosis. The mitral valve leaflets are mildly thickened. There is trace to mild mitral regurgitation. Trace tricuspid regurgitation present. Right ventricular systolic pressure is normal at < 35 mmHg. There is no evidence of pulmonary hypertension. The pulmonic valve was not well visualized. The aortic root size is normal. Normal inferior vena cava with normal inspiratory collapse consistent with estimated right atrial pre ssure of 5 mmHg. The pericardium is normal. There is no pericardial effusion. CONCLUSIONS -------- 1. Sinus rhythm. 2. This was a technically adequate study. 3. The left ventricular size is normal. 4. Left ventricular wall thickness is normal. 5. Overall left ventricular systolic function is normal with, an EF between 55 - 60 %. 6. Normal LA size by volume 22+/-6 ml/m2. 7. Aortic valve is trileaflet and is mildly thickened. 8. The mitral valve leaflets are mildly thickened. 9. There is trace to mild mitral regurgitation. 10. Trace tricuspid regurgitation present. 11. Right ventricular systolic pressure is normal at < 35 mmHg. 12. There is no evidence of pulmonary hypertension. 13. The pulmonic valve was not well visualized. 14. The aortic root size is normal. 15. There is no pericardial effusion. WEIGHER AND CRUSHER: Abdirahman Franco RDCS
[2017-02-07] MEDS: HEPARIN SODIUM,PORCINE 5,000 UNIT/ML 1 ML VIAL SQ SCH ×2 (10:10→21:49)
[2017-02-07] MEDS: CARBIDOPA-LEVODOPA 25-100 MG 1 EACH TAB PO SCH ×3 (10:10→21:48)
[2017-02-07] MEDS: FLUDROCORTISONE 0.1 MG TAB PO SCH (10:11)
[2017-02-07] MEDS: LEVOFLOXACIN 250 MG TAB PO SCH (10:11)
[2017-02-07] MEDS: SODIUM CHLORIDE 0.9% 1,000 ML IV SCH ×2 (10:14→21:50)
--- NOTE | 2017-02-07 12:29 | PN ---
PROGRESS NOTE Shy Lacey is a lady with significant autonomic dysfunction with orthostatic hypotension and Parkinson's. Yesterday she did not receive midodrine since the systolic was higher and this morning she had significant orthostatic changes. Florinef has also been started and I agree with this. We have also given her some stockings to help the venous return as well. We will therefore continue midodrine and also Florinef and compression stockings. It is quite possible she may be a bit , but as long as her standing systolic blood pressure is more than 100, she will not be symptomatic. Vital signs are stable. Last blood pressure was 147/80. S1 and S2 heard normally. Lungs are clear. Abdomen and lower extremity exam unchanged. Plan is to continue current medical regimen and not hold midodrine. We will increase activity and see how she does and hopefully she can be discharged tomorrow. MMJAMIEL / ODETTEN: [id number] /
--- NOTE | 2017-02-07 13:42 | P.DS ---
Providers Date of admission: 02/06/17 07:20 Expected date of discharge: 02/07/17 Attending physician: Bela Payton MD Consults: 02/06/17 07:21 Consult Physician Urgent Consulting Provider: Thiago De La Fuente Consult Reason/Comments: Orthostatic hypotension, syncope Do you want consulting provider notified?: Yes, Notify in am Primary care physician: Jose Petersen [facility] Course: 76 years old very pleasant female patient of Dr. Petersen presents with orthostatic hypotension and fall. Patient has past medical history of reflux, Parkinson disease, osteoarthritis, syncope, hypothyroidism. Patient was getting treated for urinary tract infection with levofloxacin as outpatient. She states she woke up in the middle of night hurried to the bathroom leading to lightheadedness when she stood suddenly leading to the fall on the back of her head. According to the bedside patient and multiple falls in the past 1 month due to orthostatic hypertension for which she is currently taking midodrine 10 mg 3 times a day with no improvement. Patient hit her forehead last week from similar presentation. She otherwise denies any chest pain, palpitation, weakness,, sensory deficit, seizures or loss of consciousness. Patient does remember the incidents this time but do not recall her fall last week. She does not use a walker at home and have a wide-based gait. Orthostatic done in the ED were positive and improved with fluid resuscitation. Orthostatic done on the floor today was also positive suggesting autonomic dysfunction secondary to Parkinson disease. Patient to see cardiology for syncope, pending echo. Fludrocortisone started at 0.5 mg in addition to midodrine 10 mg 3 times a day for autonomic hypo-tension. Cortisol level will be checked in the morning to rule out adrenal insufficiency. 02/07: Patient has been seen by Dr. AAD Swain for probable orthostatic hypotension. Echocardiogram reveals EF 55-60%, mild mitral regurgitation, trace tricuspid regurgitation. No evidence of pulmonary hypertension. CTA of the head and neck shows no evidence of acute transcortical infarct or acute intracranial hemorrhage. Moderate micro-angiopathy scalp soft tissue swelling with small hematoma overlies posterior calvarium. Right sphenoid chronic sinusitis. CT cervical spine shows no acute findings. Multilevel cervical spondylosis with varying degrees of central canal and foraminal stenosis most notably at C5-C6 with mild narrowing. Moderate severe narrowing of the C5-C6 and her vertebral disc space. Patient is again orthostatic positive this morning but admitted training and Florinef were held by nursing staff due to patient's blood pressure being elevated in the supine position. They have subsequently been instructed to give the medication well the patient is in the seated position. Patient's subsequent blood pressure readings are improved. Patient will be discharged home today in stable condition with planned follow- up with Dr. Lee. Patient will be discharged home on both admitted training and Florinef. Patient has been instructed to change position slowly and take medication while she is in a sitting position. Patient will be discharged home today in stable condition. Discharge diagnoses: #1 multiple fall with small occipital hematoma- secondary to low blood pressure #2 orthostatic hypotension with autonomic hypotension- patient's orthostatic hypotension is likely secondary to autonomic hypotension from Parkinson disease and mild dehydration from urinary tract infection #3 Parkinson's disease #4 syncope- EKG negative for any arrhythmia #5 hypothyroidism #6 osteoarthritis generalized #7 UTI Discharge plan: Home Impression and plan of care have been directed as dictated by the signing physician. Shawanda Virk nurse practitioner acting as scribe for signing physician. Patient Condition at Discharge: Good Plan - Discharge Summary Discharge Rx Participant: No New Discharge Prescriptions: New Fludrocortisone [Florinef] 0.1 mg PO DAILY #30 tab Continue Levothyroxine Sodium [Synthroid] 88 mcg PO QAM Carbidopa-Levodopa 25-100 mg [Sinemet 25-100 mg] 1.5 tab PO TID Midodrine HCl [ProAmatine] 10 mg PO TID Levofloxacin [Levaquin] 500 mg PO DAILY Discharge Medication List Carbidopa-Levodopa 25-100 mg [Sinemet 25-100 mg] 1.5 tab PO TID 08/20/15 [ History] Levothyroxine Sodium [Synthroid] 88 mcg PO QAM 08/20/15 [History] Levofloxacin [Levaquin] 500 mg PO DAILY 02/06/17 [History] Midodrine HCl [ProAmatine] 10 mg PO TID 02/06/17 [History] Fludrocortisone [Florinef] 0.1 mg PO DAILY #30 tab 02/07/17 [Rx] Follow up Appointment(s)/Referral(s): Jose Petersen DO [Primary Care Provider] - 1 Week Shalom Lee DO [STAFF PHYSICIAN] - 1 Week Activity/Diet/Wound Care/Special Instructions: Continue Mariusz hose. Discharge Disposition: HOME SELF-CARE
[2017-02-08] MEDS: LEVOTHYROXINE 88 MCG TAB PO SCH (07:03)
[2017-02-08] MEDS: MIDODRINE 5 MG TAB PO SCH ×3 (07:03→17:37)
[2017-02-08] MEDS: CARBIDOPA-LEVODOPA 25-100 MG 1 EACH TAB PO SCH ×3 (09:29→20:30)
[2017-02-08] MEDS: HEPARIN SODIUM,PORCINE 5,000 UNIT/ML 1 ML VIAL SQ SCH ×2 (09:30→20:30)
[2017-02-08] MEDS: FLUDROCORTISONE 0.1 MG TAB PO SCH (09:30)
[2017-02-08] MEDS: LEVOFLOXACIN 250 MG TAB PO SCH (09:30)
[2017-02-08] MEDS ORDERED: RX INFO: IV CONTRAST WAS GIVEN 1 EACH MISC MISCELLANE PRN (11:40)
[2017-02-08] MEDS: SODIUM CHLORIDE 0.9% 1,000 ML IV SCH (12:31)
[2017-02-08 12:32] LABS: Basophils % (A) 0 %; CH 29.5; Eosinophils # (A) 0.1 k/uL (0-0.7); Eosinophils % (A) 1 %; HCT 37.5 % (34.0-46.0); HDW 2.39; HGB 12.1 gm/dL (11.4-16.0); Luc # (Auto) 0.29; Luc % (Auto) 3; Lymphocytes # (A) 1.5 k/uL (1.0-4.8); Lymphocytes % (A) 14 %; MCH 28.9 pg (25.0-35.0); MCHC 32.3 g/dL (31.0-37.0); MCV 89.6 fL (80.0-100.0); Mean Platelet Volume 9.1; Monocytes # (A) 1.6 k/uL (0-1.0); Monocytes % (A) 15 %; Neutrophils # (A) 7.2 k/uL (1.3-7.7); Neutrophils % (A) 68 %; RBC 4.19 m/uL (3.80-5.40); RDW 13.5 % (11.5-15.5); WBC 10.6 k/uL (3.8-10.6); WBC (Perox) 11.33
[2017-02-08 12:52] LABS: Anion Gap 10 mmol/L; Blood Urea Nitrogen 32 mg/dL (7-17); Carbon Dioxide 26 mmol/L (22-30); Chloride 103 mmol/L (98-107); Glucose 99 mg/dL (74-99); Non-African American GFR(MDRD) 54 (>60 ml/min/1.73 sqM); Potassium 4.2 mmol/L (3.5-5.1); Sodium 139 mmol/L (137-145)
--- NOTE | 2017-02-08 14:28 | CT ---
EXAMINATION TYPE: CT angio head neck DATE OF EXAM: 02/08/2017 HISTORY: Dizziness, CVA COMPARISON: NONE CT DLP: 195.4 mGycm. Automated Exposure Control for Dose Reduction was Utilized. TECHNIQUE: CTA scan of the neck is performed with IV Contrast, patient injected with 65 mL of Visipa que 320, axial images are obtained, coronal and sagittal reformatted images are reviewed. Three-D rec onstructed images are created on an independent workstation and reviewed. FINDINGS: Intracranial vascularity demonstrates normal enhancement of the carotid systems, the basila r artery is patent. Right vertebral artery is dominant. Anterior cerebral posterior cerebral arteries enhance normally. Posterior cerebral arteries enhance normally with the right SKIVER BLOCKERS originating from t he carotid circulation. No sizable aneurysm or vascular malformation. There is a suggestion of a common origin of the brachiocephalic artery and left common carotid artery . Mild plaque at the origin of the left subclavian artery. Generalized degenerative change with periventricular low attenuation compatible with remote microvasc ular ischemia. Multilevel degenerative disc disease of the cervical spine. Hyperostosis of the calvarium. Changes of chronic sinusitis noted. There is mild plaque at the origin of the left internal carotid artery with the bifurcation widely pa tent and no significant stenosis. No significant plaque formation is noted involving the right carotid bifurcation. There is no signifi cant stenosis. Carotid artery is widely patent. IMPRESSION: 1. No sizable aneurysm. 2. No significant stenosis involving the carotid bifurcations. 3. Degenerative and nonspecific white matter changes most typical remote ischemia. There is improving posterior scalp hematoma.
--- NOTE | 2017-02-08 14:30 | P.PN ---
Subjective Progress Note Date: 02/08/17 This is a 76-year-old female with known history of orthostatic hypotension and previous history of falls. Cardiology consultation was initially requested because of her episode of syncope. She was found to have significant orthostatic changes here as well. Patient is on midodrine and was added on Florinef. She also was recommended to have MARIUSZ hose stockings on bilaterally which are in place. Blood pressures today 137/60 lying, 119/56 sitting, 69/42 standing. Patient is sitting up in the chair at the time of her examination today, it was explained to her by Dr. Cuauhtemoc Swain that it would take some time for the Florinef to work. We will continue current medications. Objective - Vital Signs Vital signs: Vital Signs Temp 97.4 F L 02/08/17 08:00 Pulse 74 02/08/17 08:00 Resp 16 02/08/17 08:00 BP 137/61 02/08/17 08:00 Pulse Ox 96 02/08/17 08:00 Intake & Output 02/07/17 02/08/17 02/08/17 18:59 06:59 18:59 Intake Total 960 75 480 Output Total 400 700 Balance 560 -625 480 Weight 53 kg Intake: Intake, IV Titration 75 Amount Sodium Chloride 0.9% 1, 75 000 ml @ 75 mls/hr IV . [id number] [facility] Rx#:[id number] Oral 960 480 Output: Urine 400 700 Other: Voiding Method Bedpan Bedpan # Voids 3 4 # Bowel Movements 0 - Exam PHYSICAL EXAMINATION: HEENT: [Head is atraumatic, normocephalic. Pupils equal, round. Neck is supple. There is no elevated jugular venous pressure.] HEART EXAMINATION: [Heart S1, S2 normal. No murmur or gallop heard.] CHEST EXAMINATION:[ Lungs are clear to auscultation and precussion. No chest wall tenderness is noted on palpation or with deep breathing.] ABDOMEN: [ Soft, nontender. Bowel sounds are heard. No organomegaly noted]. EXTREMITIES:[ 2+ peripheral pulses with no evidence of peripheral edema and no calf tenderness noted]. NEUROLOGIC [patient is awake, alert and oriented -3.] . - Labs CBC & Chem 7: 02/08/17 12:09 02/08/17 12:09 Labs: Abnormal Lab Results - Last 24 Hours (Table) 02/08/17 02/08/17 Range/Units 12:09 12:09 Plt Count 112 L (150-450) k/uL Monocytes # 1.6 H (0-1.0) k/uL BUN 32 H (7-17) mg/dL Assessment and Plan Plan: Assessment and Plan #1 multiple falls and syncope with small occipital hematoma- secondary to low blood pressure, positive orthos. On midodrine and Florinef, mariusz hose in place #2Parkinsons #3hypothyroidism Plan Continue Midodrine, Florinef and Mariusz Hose stockings.
[2017-02-08 14:43] VITALS: BMI 22.1
--- NOTE | 2017-02-08 14:54 | P.PN ---
Subjective Progress Note Date: 02/08/17 76 years old very pleasant female patient of Dr. Petersen presents with orthostatic hypotension and fall. Patient has past medical history of reflux, Parkinson disease, osteoarthritis, syncope, hypothyroidism. Patient was getting treated for urinary tract infection with levofloxacin as outpatient. She states she woke up in the middle of night hurried to the bathroom leading to lightheadedness when she stood suddenly leading to the fall on the back of her head. According to the bedside patient and multiple falls in the past 1 month due to orthostatic hypertension for which she is currently taking midodrine 10 mg 3 times a day with no improvement. Patient hit her forehead last week from similar presentation. She otherwise denies any chest pain, palpitation, weakness,, sensory deficit, seizures or loss of consciousness. Patient does remember the incidents this time but do not recall her fall last week. She does not use a walker at home and have a wide-based gait. Orthostatic done in the ED were positive and improved with fluid resuscitation. Orthostatic done on the floor today was also positive suggesting autonomic dysfunction secondary to Parkinson disease. Patient to see cardiology for syncope, pending echo. Fludrocortisone started at 0.5 mg in addition to midodrine 10 mg 3 times a day for autonomic hypo-tension. Cortisol level will be checked in the morning to rule out adrenal insufficiency 02/07: Patient has been seen by Dr. ADA Swain for probable orthostatic hypotension. Echocardiogram reveals EF 55-60%, mild mitral regurgitation, trace tricuspid regurgitation. No evidence of pulmonary hypertension. CTA of the head and neck shows no evidence of acute transcortical infarct or acute intracranial hemorrhage. Moderate micro-angiopathy scalp soft tissue swelling with small hematoma overlies posterior calvarium. Right sphenoid chronic sinusitis. CT cervical spine shows no acute findings. Multilevel cervical spondylosis with varying degrees of central canal and foraminal stenosis most notably at C5-C6 with mild narrowing. Moderate severe narrowing of the C5-C6 and her vertebral disc space. Patient is again orthostatic positive this morning but admitted training and Florinef were held by nursing staff due to patient's blood pressure being elevated in the supine position. They have subsequently been instructed to give the medication well the patient is in the seated position. Patient's subsequent blood pressure readings are improved. Patient will be discharged home today in stable condition with planned follow- up with Dr. Lee. Patient will be discharged home on both admitted training and [facility]. Patient has been instructed to change position slowly and take medication while she is in a sitting position. Patient will be discharged home today in stable condition. Patient was prepared for discharge but did not go home as patient states that her blood pressure was low. Objective - Vital Signs Vital signs: Vital Signs Temp 97.4 F L 02/08/17 08:00 Pulse 71 02/08/17 08:00 Resp 18 02/08/17 08:00 BP 137/61 02/08/17 08:00 Pulse Ox 96 02/08/17 08:00 Intake & Output 02/07/17 02/08/17 02/08/17 18:59 06:59 18:59 Intake Total 960 75 480 Output Total 400 700 Balance 560 -625 480 Weight 53 kg 53 kg Intake: Intake, IV Titration 75 Amount Sodium Chloride 0.9% 1, 75 000 ml @ 75 mls/hr IV . [id number] [facility] Rx#:[id number] Oral 960 480 Output: Urine 400 700 Other: Voiding Method Bedpan Bedpan # Voids 3 4 # Bowel Movements 0 - Exam - Constitutional General appearance: cooperative, no acute distress, obese - EENT Eyes: anicteric sclerae, PERRLA, normal appearance ENT: hearing grossly normal - Neck Neck: no lymphadenopathy, normal ROM, no other, no rigidity, no stridor, no thyromegaly - Respiratory Respiratory: bilateral: CTA, negative: diminished, dullness, rales, rhonchi - Cardiovascular Rhythm: regular Heart sounds: normal: S1, S2 Abnormal Heart Sounds: no systolic murmur, no diastolic murmur, no rub, no S3 Gallop, no S4 Gallop, no click, no other - Gastrointestinal General gastrointestinal: normal bowel sounds, soft - Integumentary Integumentary: no rash - Neurologic Neurologic: CNII-XII intact - Musculoskeletal Musculoskeletal: gait normal, strength equal bilaterally - Psychiatric Psychiatric: A&O x's 3, appropriate affect - Labs CBC & Chem 7: 02/08/17 12:09 02/08/17 12:09 Labs: Abnormal Lab Results - Last 24 Hours (Table) 02/08/17 02/08/17 Range/Units 12:09 12:09 Plt Count 112 L (150-450) k/uL Monocytes # 1.6 H (0-1.0) k/uL BUN 32 H (7-17) mg/dL Assessment and Plan Plan: #1 multiple fall with small occipital hematoma- secondary to low blood pressure/ syncope, PT evaluation, CT head negative for intracranial bleed, neuro exam negative for any weakness or numbness concerning for stroke, stable #2 orthostatic hypotension with autonomic hypotension- patient's orthostatic hypotension is likely secondary to autonomic hypotension from Parkinson disease , other differential includes syncope, dehydration from urinary tract infection , and would need both midodrine and fludrocortisone for symptom control. continue fluids at 75 mL/hr .orthostatic vitals daily #3 Parkinson's disease continue Sinemet 1.5 tablet 3 times a day #4 syncope- EKG negative for any arrhythmia, echo pending, cardiology evaluation pending #5 hypothyroidism continue levothyroxine at 88 g by mouth daily #6 osteoarthritis continue Tylenol 650 mg every 6 hours when necessary pain #7 DVT prophylaxis continue heparin 5000 every 12, platelet on the lower side, repeat CBC in a.m. #8 UTI continue levofloxacin 500 mg by mouth daily- #9 CODE STATUS full code #10 disposition-PTOT evaluation pending, disposition depends on patient's ability to walk by herself without fall. Patient may require 1-2 nights inpatient Impression and plan of care have been directed as dictated by the signing physician. Shawanda Virk nurse practitioner acting as scribe for signing physician.
--- NOTE | 2017-02-08 14:59 | P.PN ---
Subjective Progress Note Date: 02/08/17 76 years old very pleasant female patient of Dr. Petersen presents with orthostatic hypotension and fall. Patient has past medical history of reflux, Parkinson disease, osteoarthritis, syncope, hypothyroidism. Patient was getting treated for urinary tract infection with levofloxacin as outpatient. She states she woke up in the middle of night hurried to the bathroom leading to lightheadedness when she stood suddenly leading to the fall on the back of her head. According to the bedside patient and multiple falls in the past 1 month due to orthostatic hypertension for which she is currently taking midodrine 10 mg 3 times a day with no improvement. Patient hit her forehead last week from similar presentation. She otherwise denies any chest pain, palpitation, weakness,, sensory deficit, seizures or loss of consciousness. Patient does remember the incidents this time but do not recall her fall last week. She does not use a walker at home and have a wide-based gait. Orthostatic done in the ED were positive and improved with fluid resuscitation. Orthostatic done on the floor today was also positive suggesting autonomic dysfunction secondary to Parkinson disease. Patient to see cardiology for syncope, pending echo. Fludrocortisone started at 0.5 mg in addition to midodrine 10 mg 3 times a day for autonomic hypo-tension. Cortisol level will be checked in the morning to rule out adrenal insufficiency 02/07: Patient has been seen by Dr. ADA Swain for probable orthostatic hypotension. Echocardiogram reveals EF 55-60%, mild mitral regurgitation, trace tricuspid regurgitation. No evidence of pulmonary hypertension. CTA of the head and neck shows no evidence of acute transcortical infarct or acute intracranial hemorrhage. Moderate micro-angiopathy scalp soft tissue swelling with small hematoma overlies posterior calvarium. Right sphenoid chronic sinusitis. CT cervical spine shows no acute findings. Multilevel cervical spondylosis with varying degrees of central canal and foraminal stenosis most notably at C5-C6 with mild narrowing. Moderate severe narrowing of the C5-C6 and her vertebral disc space. Patient is again orthostatic positive this morning but admitted training and Florinef were held by nursing staff due to patient's blood pressure being elevated in the supine position. They have subsequently been instructed to give the medication well the patient is in the seated position. Patient's subsequent blood pressure readings are improved. Patient will be discharged home today in stable condition with planned follow- up with Dr. Lee. Patient will be discharged home on both [facility] and [facility]. Patient has been instructed to change position slowly and take medication while she is in a sitting position. Patient will be discharged home today in stable condition. Patient was prepared for discharge but did not go home as patient states that her blood pressure was low. 02/08: Patient was noted to have nystagmus this morning and consult placed with neurology. Occupational therapy is recommended subacute rehab or home with home care. Patient is willing to go to [facility] for rehab. CTA showed no sizable aneurysm. No smoking stenosis involving the carotid bifurcations. Degenerative and nonspecific white matter changes most typical of remote ischemia. Improving posterior scalp hematoma. Social work consult for discharge to [facility] tomorrow Objective - Vital Signs Vital signs: Vital Signs Temp 97.8 F 02/08/17 12:00 Pulse 82 02/08/17 12:00 Resp 18 02/08/17 12:00 BP 116/60 02/08/17 12:00 Pulse Ox 96 02/08/17 12:00 Intake & Output 02/07/17 02/08/17 02/08/17 18:59 06:59 18:59 Intake Total 960 75 630 Output Total 400 700 Balance 560 -625 630 Weight 53 kg 53 kg Intake: Intake, IV Titration 75 150 Amount Sodium Chloride 0.9% 1, 75 150 000 ml @ 75 mls/hr IV . [id number] [facility] Rx#:[id number] Oral 960 480 Output: Urine 400 700 Other: Voiding Method Bedpan Bedpan # Voids 3 4 3 # Bowel Movements 0 - Exam - Constitutional General appearance: cooperative, no acute distress, obese - EENT Eyes: anicteric sclerae, PERRLA, normal appearance ENT: hearing grossly normal - Neck Neck: no lymphadenopathy, normal ROM, no other, no rigidity, no stridor, no thyromegaly - Respiratory Respiratory: bilateral: CTA, negative: diminished, dullness, rales, rhonchi - Cardiovascular Rhythm: regular Heart sounds: normal: S1, S2 Abnormal Heart Sounds: no systolic murmur, no diastolic murmur, no rub, no S3 Gallop, no S4 Gallop, no click, no other - Gastrointestinal General gastrointestinal: normal bowel sounds, soft - Integumentary Integumentary: no rash - Neurologic Neurologic: CNII-XII intact, positive nystagmus - Musculoskeletal Musculoskeletal: gait normal, strength equal bilaterally - Psychiatric Psychiatric: A&O x's 3, appropriate affect - Labs CBC & Chem 7: 02/08/17 12:09 02/08/17 12:09 Labs: Abnormal Lab Results - Last 24 Hours (Table) 02/08/17 02/08/17 Range/Units 12:09 12:09 Plt Count 112 L (150-450) k/uL Monocytes # 1.6 H (0-1.0) k/uL BUN 32 H (7-17) mg/dL Assessment and Plan Plan: #1 multiple fall with small occipital hematoma ruled out of posterior CVA by CAT scan- secondary to low blood pressure/syncope, PT evaluation, CT head negative for intracranial bleed, neuro exam negative for any weakness or numbness concerning for stroke, stable. Consult neurology #2 orthostatic hypotension with autonomic hypotension- patient's orthostatic hypotension is likely secondary to autonomic hypotension from Parkinson disease , continue both midodrine and fludrocortisone for symptom control. orthostatic vitals daily #3 Parkinson's disease continue Sinemet 1.5 tablet 3 times a day #4 syncope- EKG negative for any arrhythmia, echo pending, cardiology evaluation pending #5 hypothyroidism continue levothyroxine at 88 g by mouth daily #6 osteoarthritis continue Tylenol 650 mg every 6 hours when necessary pain #7 DVT prophylaxis continue heparin 5000 every 12, platelet on the lower side, repeat CBC in a.m. #8 UTI continue levofloxacin 500 mg by mouth daily- #9 CODE STATUS full code #10 [place] tomorrow. Social work consult Impression and plan of care have been directed as dictated by the signing physician. Shawanda Virk nurse practitioner acting as scribe for signing physician.
--- NOTE | 2017-02-08 20:08 | P.CNNES ---
History of Present Illness Consult date: 02/08/17 History of Present Illness: Is a 76-year-old right-handed white female with history of multiple falls who presented to the hospital after having episode where she had to hurry to the bathroom and fell and tripped and hit her head. 1 week earlier she had another fall and she fell forward and hit her head. The patient has a history of orthostatic hypotension she also has a history of Parkinson's disease, dysautonomia balance issues and past history of intracranial hemorrhage after a fall. The patient presented to [facility] emergency room. In the emergency department department orthostatic was done and positive. Patient is on Sinemet 25/103 times a day for her Parkinson's. Patient sees Dr. Lee in the outpatient setting. The patient had a CAT scan on admission February 06 showed a scalp soft hematoma. Patient had a CTA angiogram today. Which showed nonspecific white matter changes and reduction in size of her hematoma. The patient denies any headache or dizziness. Review of Systems Eyes: denies blurred vision, denies pain Cardiovascular: Denies chest pain, Denies shortness of breath Respiratory: Denies cough Gastrointestinal: Denies abdominal pain, Denies diarrhea, Denies nausea, Denies vomiting Genitourinary: Denies dysuria, Denies hematuria Musculoskeletal: Denies myalgias Neurological: Denies numbness, Denies weakness Psychiatric: Reports as per HPI Past Medical History Past Medical History: GERD/Reflux, Hearing Disorder / Deafness, Memory Impairment, Neurologic Disorder, Osteoarthritis (OA), Syncope, Thyroid Disorder Additional Past Medical History / Comment(s): Current UTI, PARKINSONS, orthostatic hypotension, balance issues, dysautonomia, falls, past intracranial hemorrhage rt fall, overactive bladder, SENECA-[place]UGA bilaterally, arthritis in hands, back, chronic back pain, n/t bilateral hands, cataracts bilaterally, hypothyroidism, goiter post thyroidectomy. History of Any Multi-Drug Resistant Organisms: None Reported Past Surgical History: Bladder Surgery, Hernia Repair, Hysterectomy, Joint Replacement, Tubal Ligation Additional Past Surgical History / Comment(s): Jean-Paul inguinal hernias repair - 2016,JEAN-PAUL TOTAL KNEES, UMBILICAL HERNIA, PARTIAL THYROIDECTOMY, cystocele/ rectocele, hysterectomy 01/02/2017, colonoscopy, sinus polypectomy, L wrist ganglion cyst removal. Past Anesthesia/Blood Transfusion Reactions: Previous Problems w/ Anesthesia Additional Past Anesthesia/Blood Transfusion Reaction / Comment(s): STATES KNEE REPLACEMENT MAR 2010 SHE WAS "DELERIOUS ". KNEE REPLACEMENT FEB 2011 HER BLOOD PRESSURE DROPPED AND SHE WAS IN BED FOR 5 DAYS. Past Psychological History: Anxiety, Depression Additional Psychological History / Comment(s): Pt states she has had depression yrs ago but none lately. Pt resides with her spouse. She uses a cane when she goes out. She drives minimally. Her spouse also drives. Smoking Status: Never smoker Past Alcohol Use History: None Reported Past Drug Use History: None Reported - Past Family History Sister(s) Family Medical History: Cancer (Sister had skin cancer, other sister had coronary artery disease and at the age of 73), Coronary Artery Disease (CAD ) Mother Family Medical History: Diabetes Mellitus, Hypertension, Renal Disease Additional Family Medical History / Comment(s): Mother had an enlarged heart. She of renal failure at the age of 73 yrs. Father Family Medical History: Pneumonia Additional Family Medical History / Comment(s): Father of pneumonia a the age of 73 yrs. Daughter(s) Family Medical History: No Reported History Son(s) Family Medical History: No Reported History Medications and Allergies Home Medications Medication Instructions Recorded Confirmed Type Carbidopa-Levodopa 25-100 mg 1.5 tab PO TID 08/20/15 02/06/17 History [Sinemet 25-100 mg] Levothyroxine Sodium [Synthroid] 88 mcg PO QAM 08/20/15 02/06/17 History Levofloxacin [Levaquin] 500 mg PO DAILY 02/06/17 02/06/17 History Midodrine HCl [ProAmatine] 10 mg PO TID 02/06/17 02/06/17 History Fludrocortisone [Florinef] 0.1 mg PO DAILY #30 tab 02/07/17 Rx Allergies Allergy/AdvReac Type Severity Reaction Status Date / Time hydromorphone [From Dilaudid] AdvReac Intermediate poss low Verified 02/06/17 04 :59 b/p,confusion post operatively Physical Examination - Vital Signs Vital Signs: Vital Signs Temp Pulse Pulse Pulse Resp BP BP 02/08/17 16:00 97.5 F L 58 L 18 02/08/17 12:00 97.8 F 82 18 02/08/17 08:00 97.4 F L 82 74 71 18 119/56 69/42 02/08/17 04:00 97.8 F 59 L 16 130/60 02/07/17 20:00 98.0 F 84 16 116/59 BP BP Pulse Ox 02/08/17 16:00 183/88 98 02/08/17 12:00 116/60 96 02/08/17 08:00 137/61 96 02/08/17 04:00 96 02/07/17 20:00 96 Intake and Output 02/08/17 02/08/17 02/08/17 06:59 14:59 22:59 Intake Total 630 Output Total 300 200 Balance -300 630 -200 Intake: Intake, IV Titration 150 Amount Sodium Chloride 0.9% 1, 150 000 ml @ 75 mls/hr IV . [id number] [facility] Rx#:[id number] Oral 480 Output: Urine 300 200 Other: # Voids 3 1 # Bowel Movements 1 Weight 53 kg 53 kg Patient Weight 02/09/17 06:59 Weight 53 kg - Constitutional General appearance: average body habitus - EENT EENT: PERRL - Respiratory Respiratory: lungs clear - Cardiovascular Cardiovascular: regular rate, normal S1, normal S2 - Neurologic Cranial nerve examination: PERRL, EOMI, VFF, face symmetric, tongue midline Speech examination: intact Detailed motor examination: grossly full strength in all extremities Results - Laboratory Findings CBC and BMP: 02/08/17 12:09 02/08/17 12:09 Abnormal Lab Findings: Abnormal Labs 02/06/17 02/06/17 02/06/17 05:09 05:09 05:09 Plt Count 111 L Monocytes # 1.6 H BUN 35 H Total Creatine Kinase 24 L Ur Leukocyte Esterase Urine WBC Urine Mucus 02/06/17 02/08/17 02/08/17 06:36 12:09 12:09 Plt Count 112 L Monocytes # 1.6 H BUN 32 H Total Creatine Kinase Ur Leukocyte Esterase Moderate H Urine WBC 9 H Urine Mucus Rare H Assessment and Plan (1) Syncope due to orthostatic hypotension Current Visit: Yes Status: Acute SNOMED Code(s): 257463978 (2) Head concussion Current Visit: Yes Status: Acute SNOMED Code(s): 371378127 (3) Parkinson disease Current Visit: No Status: Acute SNOMED Code(s): 34913381 Plan: The patient is a 76-year-old woman with Parkinson's disease is admitted to the hospital after having 2 falls in the past 1 week. She is currently taking medication for orthostatic hypotension. The patient has been started on fludrocortisone in addition for further management of her orthostatic hypotension. Her orthostatic hypotension likely a result of her Parkinson's disease. The patient had an episode of nystagmus earlier today. There is no evidence currently for nystagmus. She has no other symptoms to suggest posterior circulation event.
[2017-02-09] MEDS: SODIUM CHLORIDE 0.9% 1,000 ML IV SCH ×4 (03:00→20:32)
[2017-02-09] MEDS: MIDODRINE 5 MG TAB PO SCH ×3 (06:54→17:28)
[2017-02-09] MEDS: LEVOTHYROXINE 88 MCG TAB PO SCH (06:54)
[2017-02-09] MEDS: CARBIDOPA-LEVODOPA 25-100 MG 1 EACH TAB PO SCH ×3 (08:20→20:32)
[2017-02-09] MEDS: FLUDROCORTISONE 0.1 MG TAB PO SCH (08:20)
[2017-02-09] MEDS: LEVOFLOXACIN 250 MG TAB PO SCH (08:20)
[2017-02-09] MEDS: HEPARIN SODIUM,PORCINE 5,000 UNIT/ML 1 ML VIAL SQ SCH ×2 (08:20→20:32)
--- NOTE | 2017-02-09 11:20 | P.DS ---
Providers Date of admission: 02/06/17 07:20 Expected date of discharge: 02/10/17 Attending physician: Bela Payton MD Consults: 02/06/17 07:21 Consult Physician Urgent Consulting Provider: Thiago De La Fuente Consult Reason/Comments: Orthostatic hypotension, syncope Do you want consulting provider notified?: Yes, Notify in am 02/08/17 11:39 Consult Physician Routine Consulting Provider: Alena Hsu Consult Reason/Comments: +nystagmus, r/o cva Do you want consulting provider notified?: Yes Primary care [facility] Course: 76 years old very pleasant female patient of Dr. Petersen presents with orthostatic hypotension and fall. Patient has past medical history of reflux, Parkinson disease, osteoarthritis, syncope, hypothyroidism. Patient was getting treated for urinary tract infection with levofloxacin as outpatient. She states she woke up in the middle of night hurried to the bathroom leading to lightheadedness when she stood suddenly leading to the fall on the back of her head. According to the bedside patient and multiple falls in the past 1 month due to orthostatic hypertension for which she is currently taking midodrine 10 mg 3 times a day with no improvement. Patient hit her forehead last week from similar presentation. She otherwise denies any chest pain, palpitation, weakness,, sensory deficit, seizures or loss of consciousness. Patient does remember the incidents this time but do not recall her fall last week. She does not use a walker at home and have a wide-based gait. Orthostatic done in the ED were positive and improved with fluid resuscitation. Orthostatic done on the floor today was also positive suggesting autonomic dysfunction secondary to Parkinson disease. Patient to see cardiology for syncope, pending echo. Fludrocortisone started at 0.5 mg in addition to midodrine 10 mg 3 times a day for autonomic hypo-tension. Cortisol level will be checked in the morning to rule out adrenal insufficiency 02/07: Patient has been seen by Dr. ADA Swain for probable orthostatic hypotension. Echocardiogram reveals EF 55-60%, mild mitral regurgitation, trace tricuspid regurgitation. No evidence of pulmonary hypertension. CTA of the head and neck shows no evidence of acute transcortical infarct or acute intracranial hemorrhage. Moderate micro-angiopathy scalp soft tissue swelling with small hematoma overlies posterior calvarium. Right sphenoid chronic sinusitis. CT cervical spine shows no acute findings. Multilevel cervical spondylosis with varying degrees of central canal and foraminal stenosis most notably at C5-C6 with mild narrowing. Moderate severe narrowing of the C5-C6 and her vertebral disc space. Patient is again orthostatic positive this morning but admitted training and Florinef were held by nursing staff due to patient's blood pressure being elevated in the supine position. They have subsequently been instructed to give the medication well the patient is in the seated position. Patient's subsequent blood pressure readings are improved. Patient will be discharged home today in stable condition with planned follow- up with Dr. Lee. Patient will be discharged home on both admitted training and Florinef. Patient has been instructed to change position slowly and take medication while she is in a sitting position. Patient will be discharged home today in stable condition. Patient was prepared for discharge but did not go home as patient states that her blood pressure was low. 02/08: Patient was noted to have nystagmus this morning and consult placed with neurology. Occupational therapy is recommended subacute rehab or home with home care. Patient is willing to go to [facility] for rehab. CTA showed no sizable aneurysm. No smoking stenosis involving the carotid bifurcations. Degenerative and nonspecific white matter changes most typical of remote ischemia. Improving posterior scalp hematoma. Social work consult for discharge to [facility] tomorrow 02/09: Patient was seen by Dr. Hsu and she is in agreement to continue current medications for the orthostatic hypotension secondary to her Parkinson' s disease. She did not find any evidence of nystagmus during her examination. We prepared the patient for discharge but Dr. ADA Swain has told the patient and started her on IV fluid bolus followed by 75 mL per hour. She continues to have orthostatic hypotension secondary to Parkinson's. We will plan to increase Florinef to 0.2 mg daily. Patient will be discharged to [facility] tomorrow. 02/10: patient continues to have orthostatic changes but basline blood pressure is higher. She will be continued on the higher dose of florinef. Patient knows she will continue to have changes in the blood pressure because of the Parkinsons and will need to make all changes in position slowly. Patient will be discharged to [facility] today in stable condition. Discharge diagnoses: #1 multiple fall with small occipital hematoma- secondary to low blood pressure #2 orthostatic hypotension with autonomic hypotension- patient's orthostatic hypotension is likely secondary to autonomic hypotension from Parkinson disease and mild dehydration from urinary tract infection #3 Parkinson's disease #4 syncope- EKG negative for any arrhythmia #5 hypothyroidism #6 osteoarthritis generalized #7 UTI Discharge plan: [facility] Impression and plan of care have been directed as dictated by the signing physician. Shawanda Virk nurse practitioner acting as scribe for signing physician. Patient Condition at Discharge: Good Plan - Discharge Summary Discharge Rx Participant: No New Discharge Prescriptions: New Fludrocortisone [Florinef] 0.2 mg PO DAILY tab Continue Levothyroxine Sodium [Synthroid] 88 mcg PO QAM Carbidopa-Levodopa 25-100 mg [Sinemet 25-100 mg] 1.5 tab PO TID Midodrine HCl [ProAmatine] 10 mg PO TID Levofloxacin [Levaquin] 500 mg PO DAILY #3 Discharge Medication List Carbidopa-Levodopa 25-100 mg [Sinemet 25-100 mg] 1.5 tab PO TID 08/20/15 [ History] Levothyroxine Sodium [Synthroid] 88 mcg PO QAM 08/20/15 [History] Midodrine HCl [ProAmatine] 10 mg PO TID 02/06/17 [History] Levofloxacin [Levaquin] 500 mg PO DAILY #3 02/09/17 [Rx] Fludrocortisone [Florinef] 0.2 mg PO DAILY tab 02/10/17 [Rx] Follow up Appointment(s)/Referral(s): Sheila Guillermo MD [STAFF PHYSICIAN] - 2 Weeks Jose Petersen DO [Primary Care Provider] - 1 Week (after discharge from [facility]) Shalom Lee DO [STAFF PHYSICIAN] - 1 Week Patient Instructions/Handouts: Syncope (DC), Hypotension (DC) Activity/Diet/Wound Care/Special Instructions: Continue Mariusz hose. Discharge Disposition: TRANSFER TO SNF/ECF
[2017-02-09] MEDS ORDERED: FLUDROCORTISONE 0.1 MG TAB PO STA (11:53)
--- NOTE | 2017-02-09 14:42 | P.PN ---
Subjective Progress Note Date: 02/09/17 76 years old very pleasant female patient of Dr. Petersen presents with orthostatic hypotension and fall. Patient has past medical history of reflux, Parkinson disease, osteoarthritis, syncope, hypothyroidism. Patient was getting treated for urinary tract infection with levofloxacin as outpatient. She states she woke up in the middle of night hurried to the bathroom leading to lightheadedness when she stood suddenly leading to the fall on the back of her head. According to the bedside patient and multiple falls in the past 1 month due to orthostatic hypertension for which she is currently taking midodrine 10 mg 3 times a day with no improvement. Patient hit her forehead last week from similar presentation. She otherwise denies any chest pain, palpitation, weakness,, sensory deficit, seizures or loss of consciousness. Patient does remember the incidents this time but do not recall her fall last week. She does not use a walker at home and have a wide-based gait. Orthostatic done in the ED were positive and improved with fluid resuscitation. Orthostatic done on the floor today was also positive suggesting autonomic dysfunction secondary to Parkinson disease. Patient to see cardiology for syncope, pending echo. Fludrocortisone started at 0.5 mg in addition to midodrine 10 mg 3 times a day for autonomic hypo-tension. Cortisol level will be checked in the morning to rule out adrenal insufficiency 02/07: Patient has been seen by Dr. ADA Swain for probable orthostatic hypotension. Echocardiogram reveals EF 55-60%, mild mitral regurgitation, trace tricuspid regurgitation. No evidence of pulmonary hypertension. CTA of the head and neck shows no evidence of acute transcortical infarct or acute intracranial hemorrhage. Moderate micro-angiopathy scalp soft tissue swelling with small hematoma overlies posterior calvarium. Right sphenoid chronic sinusitis. CT cervical spine shows no acute findings. Multilevel cervical spondylosis with varying degrees of central canal and foraminal stenosis most notably at C5-C6 with mild narrowing. Moderate severe narrowing of the C5-C6 and her vertebral disc space. Patient is again orthostatic positive this morning but admitted training and Florinef were held by nursing staff due to patient's blood pressure being elevated in the supine position. They have subsequently been instructed to give the medication well the patient is in the seated position. Patient's subsequent blood pressure readings are improved. Patient will be discharged home today in stable condition with planned follow- up with Dr. Lee. Patient will be discharged home on both admitted training and Florinef. Patient has been instructed to change position slowly and take medication while she is in a sitting position. Patient will be discharged home today in stable condition. Patient was prepared for discharge but did not go home as patient states that her blood pressure was low. 02/08: Patient was noted to have nystagmus this morning and consult placed with neurology. Occupational therapy is recommended subacute rehab or home with home care. Patient is willing to go to [facility] for rehab. CTA showed no sizable aneurysm. No smoking stenosis involving the carotid bifurcations. Degenerative and nonspecific white matter changes most typical of remote ischemia. Improving posterior scalp hematoma. Social work consult for discharge to [facility] tomorrow. 02/09: Patient was seen by Dr. Hsu and she is in agreement to continue current medications for the orthostatic hypotension secondary to her Parkinson' s disease. She did not find any evidence of nystagmus during her examination. We prepared the patient for discharge but Dr. ADA Swain has told the patient and started her on IV fluid bolus followed by 75 mL per hour. She continues to have orthostatic hypotension secondary to Parkinson's. We will plan to increase Florinef to 0.2 mg daily. Patient will be discharged to [facility] tomorrow. Objective - Vital Signs Vital signs: Vital Signs Temp 97.4 F L 02/09/17 08:00 Pulse 95 02/09/17 08:00 Resp 20 02/09/17 08:00 BP 115/53 02/09/17 08:00 Pulse Ox 99 02/09/17 08:00 Intake & Output 02/08/17 02/09/17 02/09/17 18:59 06:59 18:59 Intake Total 630 375 180 Output Total 200 400 800 Balance 498 -55 -680 Weight 53 kg 53.1 kg Intake: IV 375 0.9@75mls/hr 375 Intake, IV Titration 150 Amount Sodium Chloride 0.9% 1, 150 000 ml @ 75 mls/hr IV . [id number] HECTOR Rx#:[id number] Oral 480 0 180 Output: Urine 200 400 800 Other: Voiding Method Bedside Commode # Voids 1 1 # Bowel Movements 1 1 - Exam - Constitutional General appearance: cooperative, no acute distress, obese - EENT Eyes: anicteric sclerae, PERRLA, normal appearance ENT: hearing grossly normal - Neck Neck: no lymphadenopathy, normal ROM, no other, no rigidity, no stridor, no thyromegaly - Respiratory Respiratory: bilateral: CTA, negative: diminished, dullness, rales, rhonchi - Cardiovascular Rhythm: regular Heart sounds: normal: S1, S2 Abnormal Heart Sounds: no systolic murmur, no diastolic murmur, no rub, no S3 Gallop, no S4 Gallop, no click, no other - Gastrointestinal General gastrointestinal: normal bowel sounds, soft - Integumentary Integumentary: no rash - Neurologic Neurologic: CNII-XII intact, positive nystagmus - Musculoskeletal Musculoskeletal: gait normal, strength equal bilaterally - Psychiatric Psychiatric: A&O x's 3, appropriate affect - Labs CBC & Chem 7: 02/08/17 12:09 02/08/17 12:09 Labs: Abnormal Lab Results - Last 24 Hours (Table) 02/08/17 02/08/17 Range/Units 12:09 12:09 Plt Count 112 L (150-450) k/uL Monocytes # 1.6 H (0-1.0) k/uL BUN 32 H (7-17) mg/dL Assessment and Plan Plan: #1 multiple fall with small occipital hematoma ruled out of posterior CVA by CAT scan- secondary to low blood pressure/syncope, PT evaluation, CT head negative for intracranial bleed, neuro exam negative for any weakness or numbness concerning for stroke, stable. Consult neurology #2 orthostatic hypotension with autonomic hypotension- patient's orthostatic hypotension is likely secondary to autonomic hypotension from Parkinson disease , continue both midodrine and fludrocortisone increased. orthostatic vitals daily #3 Parkinson's disease continue Sinemet 1.5 tablet 3 times a day #4 syncope- EKG negative for any arrhythmia, echo pending, cardiology evaluation pending #5 hypothyroidism continue levothyroxine at 88 g by mouth daily #6 osteoarthritis continue Tylenol 650 mg every 6 hours when necessary pain #7 DVT prophylaxis continue heparin 5000 every 12, platelet on the lower side, repeat CBC in a.m. #8 UTI continue levofloxacin 500 mg by mouth daily- #9 CODE STATUS full code #10 [place] tomorrow. Social work consult Impression and plan of care have been directed as dictated by the signing physician. Shawanda Virk nurse practitioner acting as scribe for signing physician.
--- NOTE | 2017-02-09 21:19 | CONS ---
CONSULTATION Mrs. Lacey remains hypotensive when she stands up. Significant orthostatic hypotension is noted. She is already on midodrine and Florinef, but Florinef takes some time to kick in with the effect. In the meantime, I will hydrate the patient today, continue with the 3 medications, pressures stockings as well for lower extremities and will see if she can tolerate sitting up for a while and since this may also help adjust to the orthostatic hypotension better. We will have her sit up in the chair, hydrate her, continue other measures and see how she does. Blood pressure today on lying down is 110/70, on standing is 80 systolic. S1, S2 heard normally. Short systolic murmur noted. LUNGS: Clear. ABDOMEN AND LOWER EXTREMITIES: Otherwise are unchanged. MMODL / IJN: [id number] /
[2017-02-10] MEDS: SODIUM CHLORIDE 0.9% 1,000 ML IV SCH ×2 (04:03→06:59)
[2017-02-10] MEDS: LEVOTHYROXINE 88 MCG TAB PO SCH (06:59)
[2017-02-10] MEDS: MIDODRINE 5 MG TAB PO SCH ×2 (06:59→12:16)
[2017-02-10] MEDS: HEPARIN SODIUM,PORCINE 5,000 UNIT/ML 1 ML VIAL SQ SCH (08:20)
[2017-02-10] MEDS: CARBIDOPA-LEVODOPA 25-100 MG 1 EACH TAB PO SCH (08:20)
[2017-02-10] MEDS ORDERED: FLUDROCORTISONE 0.1 MG TAB PO SCH (09:00)
[2017-02-10 09:14] VITALS: RESP 20; TEMP 97.4
[2017-02-10 10:36] VITALS: BP 136/66; PULSE 71
--- NOTE | 2017-02-10 15:08 | P.PN ---
Subjective Progress Note Date: 02/10/17 This is a 76-year-old female with known history of orthostatic hypotension and previous history of falls. Cardiology consultation was initially requested because of her episode of syncope. She was found to have significant orthostatic changes here as well. Patient is on midodrine and was added on Florinef. She also was recommended to have LISA hose stockings on bilaterally which are in place. Blood pressures today 137/60 lying, 119/56 sitting, 69/42 standing. Patient is sitting up in the chair at the time of her examination today, it was explained to her by Dr. Cuauhtemoc Swain that it would take some time for the Florinef to work. We will continue current medications. 10/10/2016 Seen and examined this morning, Orthostatics are much improved, her standing blood pressure today is 92/50. Patient again has been encouraged to try to be up sitting in a chair as much as possible. Objective - Vital Signs Vital signs: Vital Signs Temp 97.4 F L 02/10/17 08:00 Pulse 71 02/10/17 10:34 Resp 20 02/10/17 10:34 BP 136/66 02/10/17 10:34 Pulse Ox 95 02/10/17 08:00 Intake & Output 02/09/17 02/10/17 02/10/17 18:59 06:59 18:59 Intake Total 596 500 180 Output Total 1200 700 300 Balance -604 -200 -120 Weight 53 kg Intake: IV 500 Sodium Chloride 0.9% 1, 500 000 ml @ 100 mls/hr IV . Q10H HECTOR Rx#:[id number] Oral 596 0 180 Output: Urine 1200 700 300 Other: Voiding Method Bedside Commode # Voids 1 1 # Bowel Movements 1 - Exam PHYSICAL EXAMINATION: HEENT: [Head is atraumatic, normocephalic. Pupils equal, round. Neck is supple. There is no elevated jugular venous pressure.] HEART EXAMINATION: [Heart S1, S2 normal. No murmur or gallop heard.] CHEST EXAMINATION:[ Lungs are clear to auscultation and precussion. No chest wall tenderness is noted on palpation or with deep breathing.] ABDOMEN: [ Soft, nontender. Bowel sounds are heard. No organomegaly noted]. EXTREMITIES:[ 2+ peripheral pulses with no evidence of peripheral edema and no calf tenderness noted]. NEUROLOGIC [patient is awake, alert and oriented -3.] . - Labs CBC & Chem 7: 02/08/17 12:09 02/08/17 12:09 Assessment and Plan Plan: Assessment and Plan #1 multiple falls and syncope with small occipital hematoma- secondary to low blood pressure, positive orthos. On midodrine and Florinef, lisa hose in place #2Parkinsons #3hypothyroidism Plan Continue Midodrine, Florinef and Lisa Hose stockings. plan for possible discharge home in 24 hours if stable. DNP note has been reviewed, I agree with a documented findings and plan of care. Patient was seen and examined.
== END 2017-02-10 14:01 | DRG 312 ==
LOC: EC 04:52 → 6SEL 07:20
PROVIDERS: ADMIT Internal Medicine; ATTEND Internal Medicine
DX: I95.1 Orthostatic hypotension (principal); G20 Parkinson's disease; N39.0 Urinary tract infection, site not specified; E86.0 Dehydration; S06.0X9A Concussion with loss of consciousness of unspecified duration, initial encounter; M48.02 Spinal stenosis, cervical region; G90.1 Familial dysautonomia [Riley-Day]; K21.9 Gastro-esophageal reflux disease without esophagitis; E89.0 Postprocedural hypothyroidism; H91.90 Unspecified hearing loss, unspecified ear; N32.81 Overactive bladder; I10 Essential (primary) hypertension; S00.83XA Contusion of other part of head, initial encounter; M19.042 Primary osteoarthritis, left hand; M19.041 Primary osteoarthritis, right hand; M47.812 Spondylosis without myelopathy or radiculopathy, cervical region; R29.6 Repeated falls; Z79.899 Other long term (current) drug therapy; Z91.81 History of falling; Z90.710 Acquired absence of both cervix and uterus; Z96.653 Presence of artificial knee joint, bilateral; Z86.59 Personal history of other mental and behavioral disorders; Z88.5 Allergy status to narcotic agent; W01.0XXA Fall on same level from slipping, tripping and stumbling without subsequent striking against object, initial encounter; G89.29 Other chronic pain; I83.90 Asymptomatic varicose veins of unspecified lower extremity
CPT/HCPCS: 36415; 70450; 70496; 70498; 71020; 72125; 80048; 80053; 81001; 82533; 82550; 82553; 82607; 83735; 84443; 84484; 85025; 85610; 85730; 93005; 93306; 96360; 96361; 99285

== ENCOUNTER → 2017-06-06 | Outpatient (CLI) | payer MEDICARE, OTHER ==
[2017-06-06 13:23] LABS: HGB 12.1 gm/dL (11.4-16.0); MCH 29.2 pg (25.0-35.0); MCHC 34.4 g/dL (31.0-37.0); MCV 84.6 fL (80.0-100.0); Mean Platelet Volume 9.4; RBC 4.14 m/uL (3.80-5.40); WBC 9.3 k/uL (3.8-10.6)
[2017-06-06 13:33] LABS: ALT 12 U/L (9-52); AST 17 U/L (14-36); Albumin 4.4 g/dL (3.5-5.0); Alkaline Phosphatase 94 U/L (38-126); Anion Gap 11 mmol/L; Blood Urea Nitrogen 20 mg/dL (7-17); Calcium 9.4 mg/dL (8.4-10.2); Carbon Dioxide 32 mmol/L (22-30); Chloride 101 mmol/L (98-107); Glucose 93 mg/dL (74-99); Potassium 3.4 mmol/L (3.5-5.1); Sodium 144 mmol/L (137-145); Total Bilirubin 0.9 mg/dL (0.2-1.3); Total Protein 7.2 g/dL (6.3-8.2)
[2017-06-06 14:08] LABS: Platelet Count 90 k/uL (150-450)
[2017-06-06 14:36] LABS: Appearance,Urine Cloudy (Clear); Bilirubin,Urine Negative (Negative); Blood,Urine Negative (Negative); Calcium Oxalate Crystals,Urine Many /hpf; Color,Urine Yellow; Glucose,Urine (UA) Negative (Negative); Hyaline Casts,Urine 8 /lpf (0-2); Ketones,Urine Trace (Negative); Leukocyte Esterase,Urine Small (Negative); Mucus,Urine Occasional /hpf; Nitrite,Urine Negative (Negative); PH, Urine 6.5 (5.0-8.0); Protein,Urine 1+ (Negative); RBC,Urine 7 /hpf (0-5); Specific Gravity,Urine 1.019 (1.001-1.035); Squamous Epithelial Cell,Urine 1 /hpf (0-4); WBC,Urine 5 /hpf (0-5)
== END | disposition home or self-care (01) ==
LOC: LABWHC1 12:21
PROVIDERS: ATTEND Psychiatry & Neurology Neurology
DX: N39.0 Urinary tract infection, site not specified (principal); Z51.81 Encounter for therapeutic drug level monitoring; Z79.51 Long term (current) use of inhaled steroids
CPT/HCPCS: 36415; 80053; 81001; 85027; 87086

== ENCOUNTER → 2017-06-21 | Outpatient (CLI) | payer MEDICARE, OTHER ==
--- NOTE | 2017-06-22 07:43 | MR ---
EXAMINATION TYPE: MR brain wo/w con DATE OF EXAM: 06/21/2017 COMPARISON: CT brain 02/06/2017 HISTORY: syncopal episodes, Parkinson's TECHNIQUE: Multiplanar, multisequence images of the brain and brainstem is performed without and with IV contras t, utilizing 5.5 mL intravenous Gadavist . FINDINGS: Diffusion weighted images demonstrate no evidence of a recent infarct or other diffusion ab normality. There is no extra-axial fluid collection. Periventricular, subcortical white matter hyper intensity is noted, there are scattered and confluent areas on inversion recovery and T2-weighted seq uences as noted on patient's CT. Suspect some minimal encephalomalacia present within the right cereb ral peduncle greater than left The ventricular system and cisternal spaces are normal in size and taty earance for degree of atrophy. The brain volume is age appropriate, there is cortical atrophy. Midline structures demonstrate normal morphology, partially empty sella is present. The craniocervic al junction appears within normal limits. Post contrast images demonstrate no abnormal enhancement. The dural venous sinuses appear patent. The visualized sinuses are remarkable for inflammatory change within the sphenoid sinus and ethmoid air cells and the globes are intact. IMPRESSION: Age-related atrophy, probable chronic small vessel ischemia. Sinus disease. Encephalomala heather as described within the brainstem.
== END | disposition home or self-care (01) ==
LOC: RADMRIMAIN 20:09
PROVIDERS: ATTEND Psychiatry & Neurology Neurology
DX: G31.1 Senile degeneration of brain, not elsewhere classified (principal); G93.89 Other specified disorders of brain
CPT/HCPCS: 70553; A9581

== ENCOUNTER → 2017-06-27 | Outpatient (CLI) | payer MEDICARE, OTHER ==
--- NOTE | 2017-06-28 08:40 | US ---
EXAMINATION TYPE: US renals and bladder DATE OF EXAM: 06/27/2017 COMPARISON: NONE CLINICAL HISTORY: 76-year-old female N39.0 chronic UTI. Pain Technique: Multiple sonographic images of the kidneys and bladder are obtained. FINDINGS: Right Kidney: 8.7 x 5.3 x 4.3 cm with a 2.3 cm central parapelvic cyst or extrarenal pelvis. No travis ceal dilatation to suggest hydronephrosis. Left Kidney: 10.0 x 4.3 x 4.0 cm without hydronephrosis. There is a 2.5 x 2.1 x 1.0 cm hypoechoic are a at the upper pole. Possible prominent renal pyramid and artifact. Three-month follow-up ultrasound recommended to reassess this area. Bladder: There appears to be slightly thickened and trabeculated appearance to the bladder wall. Bilateral Jets seen: Yes IMPRESSION: 1. No hydronephrosis. A 2.3 cm cystic area in the central right kidney could represent a parapelvic c yst or extrarenal pelvis. 2. A 2.5 cm hypoechoic area upper pole left kidney could represent a prominent renal pyramid/artifact . Three-month follow-up ultrasound recommended to reassess this area and exclude a solid mass. 3. Slightly thickened and trabeculated appearance to the bladder wall represent sequela of the patien t's chronic UTI.
== END | disposition home or self-care (01) ==
LOC: RADUSMAIN 17:47
PROVIDERS: ATTEND Urology
DX: N28.1 Cyst of kidney, acquired (principal); N39.0 Urinary tract infection, site not specified
CPT/HCPCS: 76770

== ENCOUNTER → 2017-07-10 | Outpatient (CLI) | payer MEDICARE, OTHER ==
[2017-07-10 16:03] LABS: Anion Gap 14 mmol/L; Blood Urea Nitrogen 30 mg/dL (7-17); Calcium 9.1 mg/dL (8.4-10.2); Carbon Dioxide 27 mmol/L (22-30); Chloride 104 mmol/L (98-107); Glucose 97 mg/dL (74-99); Potassium 4.4 mmol/L (3.5-5.1); Sodium 145 mmol/L (137-145)
[2017-07-10 16:19] LABS: T4, Free (Free Thyroxine) 1.34 ng/dL (0.78-2.19)
[2017-07-11 00:50] LABS: Vitamin D 25 Hydroxy 25.6 ng/mL (30.0-100.0)
== END | disposition home or self-care (01) ==
LOC: LABWHC1 15:19
PROVIDERS: ATTEND Psychiatry & Neurology Neurology
DX: E87.6 Hypokalemia (principal); E03.9 Hypothyroidism, unspecified; I95.9 Hypotension, unspecified; R53.83 Other fatigue; Z79.899 Other long term (current) drug therapy
CPT/HCPCS: 36415; 80048; 82306; 82607; 84439; 84443

== ENCOUNTER → 2017-08-18 | Outpatient (CLI) | payer MEDICARE, OTHER ==
--- NOTE | 2017-08-18 16:08 | CT ---
EXAMINATION TYPE: CT abdomen pelvis wo con DATE OF EXAM: 08/18/2017 COMPARISON: 07/10/2015 HISTORY: Dark stools and generalized pain for 1-[address] DLP: 682 mGycm Automated exposure control for dose reduction was used. TECHNIQUE: Helical acquisition of images was performed from the lung bases through the pelvis. FINDINGS: Evaluation of the hollow and solid viscera are limited without the utilization of intraveno us or oral contrast. LUNG BASES: Pleural parenchymal scarring and atelectasis is seen at the lung bases. LIVER/GB: There are scattered hepatic cysts measuring up to 1.2 cm and other smaller hypoattenuated h epatic lesions that are too small to accurately characterize. Common bile duct is upper limits of nor mal size. No cholelithiasis is seen. PANCREAS: Pancreas appears atrophic without dilatation of the main pancreatic duct. SPLEEN: Unremarkable unenhanced morphology. ADRENALS: No focal nodule is seen. KIDNEYS: No nephrolithiasis. Kidneys are symmetric in morphology. No gross hydronephrosis. FREE AIR: No free air is visualized ADENOPATHY: Evaluation for adenopathy is limited without the utilization of intravenous contrast. No gross evidence of lymph nodes greater than 1 cm short axis seen within the abdomen or pelvis. REPRODUCTIVE ORGANS: Uterus is either significantly atrophic or surgically absent. 1.8 cm cystic lesi on is seen within the right adnexa. Further evaluation with pelvic ultrasound could be performed. URINARY BLADDER: No significant abnormality is seen. OSSEOUS STRUCTURES: Levoscoliosis of the lumbar spine is present with extensive multilevel degenerat marc disc disease and moderate femoral acetabular arthropathy. BOWEL: There appears to be pelvic floor relaxation and rectal prolapse. Circumferential distal recta l thickening could be related to incomplete distention although limited in evaluation without contras t. Numerous colonic diverticula are noted without pericolonic fat stranding. Large amount retained st ool seen throughout the entirety of the colon, also limiting evaluation. Small bowel feces sign is in dicative of increased transit time. No evidence of bowel obstruction. OTHER: Small fat filled periumbilical hernia is noted. There is tortuosity of the abdominal aorta alt nelson the abdominal aorta is of normal caliber measuring up to 2.3 cm in transverse dimension. Modera te calcific atheromatous plaquing is seen. IMPRESSION: 1. NO OBSTRUCTING COLONIC MASS IN THIS PATIENT WITH A HISTORY OF DARK STOOLS. HOWEVER COLONOSCOPY IS RECOMMENDED. ADDITIONALLY THERE IS THE APPEARANCE OF PELVIC FLOOR RELAXATION AND RECTAL PROLAPSE WITH CIRCUMFERENTIAL DISTAL RECTAL THICKENING THAT COULD RELATE TO NONDISTENTION ALTHOUGH SUBOPTIMALLY EV ALUATED WITHOUT CONTRAST. DIRECT VISUALIZATION IS RECOMMENDED TO EXCLUDE NEOPLASM. ADDITIONAL FINDING S INDICATE INCREASE TRANSIT TIME LIKELY OF CONSTIPATION/ILEUS. 2. 1.8 CM RIGHT ADNEXAL CYSTIC LESION. PELVIC ULTRASOUND COULD BE PERFORMED FOR FURTHER EVALUATE.
== END | disposition home or self-care (01) ==
LOC: RADCTMAIN 15:22
PROVIDERS: ATTEND Family Medicine
DX: K62.3 Rectal prolapse (principal); K62.89 Other specified diseases of anus and rectum; N83.201 Unspecified ovarian cyst, right side
CPT/HCPCS: 74176

== ENCOUNTER → 2017-09-01 | Outpatient (CLI) | payer MEDICARE, OTHER ==
--- NOTE | 2017-09-01 13:24 | US ---
EXAMINATION TYPE: US pelvic complete DATE OF EXAM: 09/01/2017 COMPARISON: CT 08/18/2017 CLINICAL HISTORY: N83.8 Cystic Lesion right adnexa. TECHNIQUE: Transabdominal sonographic images of the pelvis were acquired. Date of LMP: About 25-30 years ago EXAM MEASUREMENTS: Uterus: Surgically absent Endometrial Stripe: Surgically absent Right Ovary: 3.5 x 2.1 x 2.0 cm Left Ovary: Not visualized due to overlying bowel 1. Uterus: Surgically absent 2. Endometrium: Surgically absent 3. Right Ovary: Bilobed cystic area measuring 2.9 x 1.6 x 2.0 cm with a single thin internal septum and peripheral vascular flow. 4. Left Ovary: Not visualized due to overlying bowel gas 5. Bilateral Adnexa: wnl as visualized, large amount of peristalsing bowel limits exam 6. Posterior cul-de-sac: wnl IMPRESSION: Minimally complex right ovarian 2.9 cm cyst. Per consensus criteria a annual surveillance is recommended in postmenopausal female for cystic lesions of the size to assess for interval growth .
== END | disposition home or self-care (01) ==
LOC: RADUSWWP 12:04
PROVIDERS: ATTEND Family Medicine
DX: N83.201 Unspecified ovarian cyst, right side (principal)
CPT/HCPCS: 76856

== ENCOUNTER 2017-09-08 09:46 | Day surgery (SDC) | payer MEDICARE, OTHER ==
[2017-09-06 15:04] VITALS: BMI 22.4
[~2017-09-08 09:46] MED LIST changes: +CEFEPIME 1 GM in SODIUM CHLORIDE 0.9% 50 ML IVPB ONE; -DEXAMETHASONE SOD PHOSPHATE 10 MG/ML 1 ML VIAL IV ONE; -HEPARIN SODIUM,PORCINE 5,000 UNIT/ML 1 ML VIAL SQ ONE; -HYDROmorphone 1 MG/ML 1 ML SYRINGE IVP PRN; -LIDOCAINE 1% 20 ML VIAL (10MG/ML) FOR IV START INTRADERMA PRN; -ONDANSETRON 4 MG/2 ML VIAL IVP ONE; -ceFAZolin 2 GM in SODIUM CHLORIDE 0.9% 100 ML IVPB ONE
[2017-09-08 10:31] VITALS: BP 183/80; PULSE 51; RESP 18; TEMP 97.6
[2017-09-08] MEDS ORDERED: LIDOCAINE 2% INJ 20 MG/ML SQ ONE (12:18)
--- NOTE | 2017-09-08 12:44 | IR ---
EXAMINATION TYPE: IR cvc insert >=5 years DATE OF EXAM: 09/08/2017 COMPARISON: NONE CLINICAL HISTORY: Urinary tract infection Needs long-term intravenous access for antibiotics. PROCEDURE: After informed consent, the skin overlying the left brachial vein was localized with ultrasound and n oted to be compressible and patent. An ultrasound image was obtained and submitted on the patient's chart. The overlying skin was prepped and draped and Lidocaine was used for local anesthesia. A ski n sara was made with a scalpel. Access was gained to the vein under ultrasound guidance with a 21 ga uge needle and a 0.018 inch wire was advanced. Access site was dilated with Peel-Away sheath and cat heter tailored to the appropriate length and advanced such that the distal tip is at the cavoatrial j unction. Spot image was obtained verifying placement. Catheter was fixed to the skin and a sterile dressing was placed following hemostasis. Catheter was aspirated and flushed with saline. Patient was discharged in stable condition without complication. Maximal barrier technique is utilized. Ult rasound image is documented on the chart. Ultrasound used with sterile technique. Fluoro time and fluoroscopic images submitted to document procedure: 132 intraoperative images, 0.2 m inutes fluoroscopy time IMPRESSION: STATUS POST ULTRASOUND AND FLUOROSCOPIC GUIDED PICC LINE PLACEMENT, READY FOR USE. THIS PROCEDURE WAS PERFORMED BY THE UNDERSIGNED.
== END 2017-09-08 13:58 | disposition home or self-care (01) ==
LOC: CATHCVL 09:46
PROVIDERS: ATTEND Radiology Diagnostic Radiology
DX: N39.0 Urinary tract infection, site not specified (principal); B96.5 Pseudomonas (aeruginosa) (mallei) (pseudomallei) as the cause of diseases classified elsewhere; G20 Parkinson's disease; I83.90 Asymptomatic varicose veins of unspecified lower extremity; J30.2 Other seasonal allergic rhinitis; L30.9 Dermatitis, unspecified; K57.90 Diverticulosis of intestine, part unspecified, without perforation or abscess without bleeding; K21.9 Gastro-esophageal reflux disease without esophagitis; K58.1 Irritable bowel syndrome with constipation; H26.9 Unspecified cataract; H91.90 Unspecified hearing loss, unspecified ear; M19.90 Unspecified osteoarthritis, unspecified site; M85.80 Other specified disorders of bone density and structure, unspecified site; F41.9 Anxiety disorder, unspecified; F32.9 Major depressive disorder, single episode, unspecified; R41.3 Other amnesia; E89.0 Postprocedural hypothyroidism; Z96.651 Presence of right artificial knee joint; Z79.899 Other long term (current) drug therapy; Z79.890 Hormone replacement therapy; Z88.5 Allergy status to narcotic agent; Z90.710 Acquired absence of both cervix and uterus; Z98.51 Tubal ligation status
CPT/HCPCS: 36569; 76937; 77001; C1751; C1769; J2001; J0692

== ENCOUNTER → 2017-09-15 | Outpatient (CLI) | payer MEDICARE, OTHER ==
--- NOTE | 2017-09-15 10:18 | US ---
EXAMINATION TYPE: US carotid duplex BILAT DATE OF EXAM: 09/15/2017 COMPARISON: MRI CLINICAL HISTORY: I65.23 Occlusion and stenosis of bilateral carotid. EXAM MEASUREMENTS: RIGHT: Peak Systolic Velocity (PSV) cm/sec ----- Right CCA: 59.0 ----- Right ICA: 78.6 ----- Right ECA: 45.3 ICA/CCA ratio: 1.3 RIGHT: End Diastole cm/sec ----- Right CCA: 0.0 ----- Right ICA: 16.7 ----- Right ECA: 0.0 LEFT: Peak Systolic Velocity (PSV) cm/sec ----- Left CCA: 63.3 ----- Left ICA: 61.6 ----- Left ECA: 78.7 ICA/CCA ratio: 1.0 LEFT: End Diastole cm/sec ----- Left CCA: 0.0 ----- Left ICA: 17.1 ----- Left ECA: 2.9 VERTEBRALS (direction of flow): Right Vertebral: Antegrade Left Vertebral: Antegrade Rhythm: Normal Mild to moderate mixed plaque is noted at bilateral carotid bifurcation, but PSV is wnl bilaterally. Higher resistive waveform is noted of bilateral ICA waveform and suggests distal cerebral bed disease IMPRESSION: 1. Bilateral atheromatous plaquing without significant flow-limiting stenosis. 2. More distal stenosis out of the [id number] is not excluded. Consider MRA or CTA of the carotid vessels and lower brule of [place] if additional evaluation be of benefit. Criteria for Assigning % of Stenosis / Diameter reduction (Estimation based on the indirect measurements of the internal carotid artery velocities (ICA PSV). 1. Normal (no stenosis)=ICA PSV < 125 cm/s: ratio < 2.0: ICA EDV<40 cm/s. 2. Less than 50% stenosis=ICA PSV < 125 cm/s: ratio < 2.0: ICA EDV<40 cm/s. 3. 50 to 69% stenosis=ICA PSV of 125 to 230 cm/s: ration 2.0 ? 4.0: ICA EDV 40-100 cm/s. 4. Greater than 70% stenosis to near occlusion= ICA PSV > 230 cm/s: ratio > 4.0: ICA EDV > 100 cm/s. 5. Near occlusion= ICA PSV velocities may be low or undetectable: variable ratio and ICA EDV. 6. Total occlusion=unable to detect flow.
== END | disposition home or self-care (01) ==
LOC: RADUSWWP 08:44
PROVIDERS: ATTEND Psychiatry & Neurology Neurology
DX: I65.23 Occlusion and stenosis of bilateral carotid arteries (principal)
CPT/HCPCS: 93880

== ENCOUNTER 2017-10-04 15:52 | Emergency (ER) | payer MEDICARE, OTHER ==
[2017-10-04 16:29] VITALS: TEMP 97.7
[2017-10-04] MEDS ORDERED: SODIUM CHLORIDE 0.9% 500 ML IV STA (18:05)
--- NOTE | 2017-10-04 18:43 | ED ---
Fall HPI - General Chief Complaint: Fall Stated Complaint: Fall Time Seen by Provider: 10/04/17 17:54 Source: patient Mode of arrival: wheelchair Limitations: no limitations - History of Present Illness Initial Comments: This is a 77-year-old female presents emergency Department for a fall. Patient' s states that she's been more weak over the last few days and is not as active as her normal self. Patient states that she went to sit down yesterday and fell. She states that she does not believe she lost consciousness but is not exactly sure how she fell but she believes she missed the chair. Patient denies any head injury no loss conscious. Denies any neck or upper back pain. She does complain of left low back pain and states that there is a small aliya where she hit her back. Patient has no current chest pain or shortness of breath. Patient denies any dysuria, hematuria, melena or hematochezia - Related Data Home Medications Medication Instructions Recorded Confirmed Carbidopa-Levodopa 25-100 mg 0.5 tab PO DAILY@0700 08/20/15 10/04/17 [Sinemet 25-100 mg] Levothyroxine Sodium [Synthroid] 88 mcg PO DAILY@0700 08/20/15 10/04/17 Midodrine HCl [ProAmatine] 10 mg PO TID@0700,1300,1700 PRN 02/06/17 10/04/17 Fludrocortisone [Florinef] 0.2 mg PO DAILY@0900 03/08/17 10/04/17 Carbidopa/Levodopa [Sinemet CR 1 tab PO BID 09/06/17 10/04/17 50-200 mg] Ergocalciferol (Vitamin D2) 50,000 unit PO SA 09/06/17 10/04/17 [Vitamin D2] Ferrous Sulfate [Feosol] 325 mg PO DAILY@1300 09/06/17 10/04/17 Fludrocortisone [Florinef] 0.1 mg PO DAILY@1700 09/06/17 10/04/17 Oxybutynin Chloride [Ditropan] 5 mg PO DAILY@0700 09/06/17 10/04/17 Potassium Chloride [Klor-Con 20] 20 meq PO Q48H 09/06/17 10/04/17 Previous Rx's Medication Instructions Recorded Ciprofloxacin HCl [Cipro] 500 mg PO Q12HR #14 tablet 10/04/17 Allergies Allergy/AdvReac Type Severity Reaction Status Date / Time hydromorphone [From Dilaudid] AdvReac Intermediate poss low Verified 10/04/17 18 :11 b/p,confusion post operatively Review of Systems ROS Statement: Those systems with pertinent positive or pertinent negative responses have been documented in the HPI. ROS Other: All systems not noted in ROS Statement are negative. Past Medical History Past Medical History: GERD/Reflux, Hearing Disorder / Deafness, Memory Impairment, Neurologic Disorder, Osteoarthritis (OA), Syncope, Thyroid Disorder Additional Past Medical History / Comment(s): Current UTI, P[place]INSONS, orthostatic hypotension, balance issues, dysautonomia, falls, past intracranial hemorrhage rt fall, overactive bladder, [place] bilaterally, arthritis in hands, back, chronic back pain, n/t bilateral hands, cataracts bilaterally, hypothyroidism, goiter post thyroidectomy. History of Any Multi-Drug Resistant Organisms: None Reported Past Surgical History: Bladder Surgery, Hernia Repair, Hysterectomy, Joint Replacement, Tubal Ligation Additional Past Surgical History / Comment(s): Jean-Paul inguinal hernias repair 2016,JEAN-PAUL TOTAL KNEES, UMBILICAL HERNIA, PARTIAL THYROIDECTOMY, cystocele/ rectocele, hysterectomy 01/02/2017, colonoscopy, sinus polypectomy, L wrist ganglion cyst removal. Past Anesthesia/Blood Transfusion Reactions: Previous Problems w/ Anesthesia Additional Past Anesthesia/Blood Transfusion Reaction / Comment(s): STATES KNEE REPLACEMENT MAR 2010 SHE WAS "DELERIOUS ". KNEE REPLACEMENT FEB 2011 HER BLOOD PRESSURE DROPPED AND SHE WAS IN BED FOR 5 DAYS. Past Psychological History: Anxiety, Depression Smoking Status: Never smoker Past Alcohol Use History: None Reported Past Drug Use History: None Reported - Past Family History Sister(s) Family Medical History: Cancer Additional Family Medical History / Comment(s): skin cancer Mother Family Medical History: Diabetes Mellitus, Hypertension, Renal Disease Additional Family Medical History / Comment(s): Mother had an enlarged heart. She of renal failure at the age of 73 yrs. Father Family Medical History: Pneumonia Additional Family Medical History / Comment(s): Father of pneumonia a the age of 73 yrs. Daughter(s) Family Medical History: No Reported History Son(s) Family Medical History: No Reported History General Exam Limitations: no limitations General appearance: alert, in no apparent distress Head exam: Present: atraumatic, normocephalic, normal inspection Respiratory exam: Present: normal lung sounds bilaterally. Absent: respiratory distress, wheezes, rales, rhonchi, stridor Cardiovascular Exam: Present: regular rate, normal rhythm, normal heart sounds. Absent: systolic murmur, diastolic murmur, rubs, gallop, clicks GI/Abdominal exam: Present: soft, normal bowel sounds. Absent: distended, tenderness, guarding, rebound, rigid Extremities exam: Present: normal inspection, full ROM, normal capillary refill. Absent: tenderness, pedal edema, joint swelling, calf tenderness Back exam: Present: full ROM, tenderness (Tenderness to left low back), paraspinal tenderness. Absent: vertebral tenderness Neurological exam: Present: alert, oriented X3, CN II-XII intact, reflexes normal. Absent: motor sensory deficit Skin exam: Present: warm, dry, intact, normal color. Absent: rash Course Vital Signs 10/04/17 10/04/17 16:24 19:36 Temperature 97.7 F Pulse Rate 54 L 62 Respiratory 18 16 Rate Blood Pressure 159/70 173/79 O2 Sat by Pulse 98 98 Oximetry Medical Decision Making - Lab Data Result diagrams: 10/04/17 18:32 10/04/17 18:32 Lab Results 10/04/17 10/04/17 10/04/17 Range/Units 18:32 18:32 18:32 WBC 9.6 (3.8-10.6) k/uL RBC 4.23 (3.80-5.40) m/uL Hgb 12.2 (11.4-16.0) gm/dL Hct 36.3 (34.0-46.0) % MCV 85.8 (80.0-100.0) fL MCH 28.8 (25.0-35.0) pg MCHC 33.5 (31.0-37.0) g/dL RDW 14.4 (11.5-15.5) % Plt Count 94 L (150-450) k/uL Neutrophils % 58 % Lymphocytes % 18 % Monocytes % 19 % Eosinophils % 0 % Basophils % 0 % Neutrophils # 5.5 (1.3-7.7) k/uL Lymphocytes # 1.7 (1.0-4.8) k/uL Monocytes # 1.9 H (0-1.0) k/uL Eosinophils # 0.0 (0-0.7) k/uL Basophils # 0.0 (0-0.2) k/uL Manual Slide Review Performed Ovalocytes Present Fragmented RBCs Present PT 10.4 (9.0-12.0) sec INR 1.1 (<1.2) APTT 26.5 (22.0-30.0) sec Sodium 140 (137-145) mmol/L Potassium 3.6 (3.5-5.1) mmol/L Chloride 101 (98-107) mmol/L Carbon Dioxide 29 (22-30) mmol/L Anion Gap 10 mmol/L BUN 27 H (7-17) mg/dL Creatinine 0.60 (0.52-1.04) mg/dL Est GFR (CKD-EPI)AfAm >90 (>60 ml/min/1.73 sqM) Est GFR (CKD-EPI)NonAf 87 (>60 ml/min/1.73 sqM) Glucose 89 (74-99) mg/dL Calcium 8.9 (8.4-10.2) mg/dL Total Bilirubin 0.8 (0.2-1.3) mg/dL AST 21 (14-36) U/L ALT 16 (9-52) U/L Alkaline Phosphatase 101 (38-126) U/L Troponin I (0.000-0.034) ng/mL Total Protein 6.9 (6.3-8.2) g/dL Albumin 4.3 (3.5-5.0) g/dL Urine Color Urine Appearance (Clear) Urine pH (5.0-8.0) Ur Specific [place] (1.001-1.035) Urine Protein (Negative) Urine Glucose (UA) (Negative) Urine Ketones (Negative) Urine Blood (Negative) Urine Nitrite (Negative) Urine Bilirubin (Negative) Urine Urobilinogen (<2.0) mg/dL Ur Leukocyte Esterase (Negative) Urine RBC (0-5) /hpf Urine WBC (0-5) /hpf Ur Squamous Epith Cells (0-4) /hpf Calcium Oxalate Crystal (None) /hpf Urine Bacteria (None) /hpf Hyaline Casts (0-2) /lpf Urine Mucus (None) /hpf 07/11/18 07/11/18 Range/Units 18:32 18:32 WBC (3.8-10.6) k/uL RBC (3.80-5.40) m/uL Hgb (11.4-16.0) gm/dL Hct (34.0-46.0) % MCV (80.0-100.0) fL MCH (25.0-35.0) pg MCHC (31.0-37.0) g/dL RDW (11.5-15.5) % Plt Count (150-450) k/uL Neutrophils % % Lymphocytes % % Monocytes % % Eosinophils % % Basophils % % Neutrophils # (1.3-7.7) k/uL Lymphocytes # (1.0-4.8) k/uL Monocytes # (0-1.0) k/uL Eosinophils # (0-0.7) k/uL Basophils # (0-0.2) k/uL Manual Slide Review Ovalocytes Fragmented RBCs PT (9.0-12.0) sec INR (<1.2) APTT (22.0-30.0) sec Sodium (137-145) mmol/L Potassium (3.5-5.1) mmol/L Chloride (98-107) mmol/L Carbon Dioxide (22-30) mmol/L Anion Gap mmol/L BUN (7-17) mg/dL Creatinine (0.52-1.04) mg/dL Est GFR (CKD-EPI)AfAm (>60 ml/min/1.73 sqM) Est GFR (CKD-EPI)NonAf (>60 ml/min/1.73 sqM) Glucose (74-99) mg/dL Calcium (8.4-10.2) mg/dL Total Bilirubin (0.2-1.3) mg/dL AST (14-36) U/L ALT (9-52) U/L Alkaline Phosphatase (38-126) U/L Troponin I <0.012 (0.000-0.034) ng/mL Total Protein (6.3-8.2) g/dL Albumin (3.5-5.0) g/dL Urine Color Yellow Urine Appearance Cloudy H (Clear) Urine pH 6.0 (5.0-8.0) Ur Specific [place] 1.019 (1.001-1.035) Urine Protein Trace H (Negative) Urine Glucose (UA) Negative (Negative) Urine Ketones Trace H (Negative) Urine Blood Small H (Negative) Urine Nitrite Positive H (Negative) Urine Bilirubin Negative (Negative) Urine Urobilinogen 2.0 (<2.0) mg/dL Ur Leukocyte Esterase Large H (Negative) Urine RBC 13 H (0-5) /hpf Urine WBC >182 H (0-5) /hpf Ur Squamous Epith Cells <1 (0-4) /hpf Calcium Oxalate Crystal Occasional H (None) /hpf Urine Bacteria Many H (None) /hpf Hyaline Casts 1 (0-2) /lpf Urine Mucus Few H (None) /hpf - EKG Data EKG Comments: EKG performed at 19:50 sinus bradycardia with a rate of 57 AL 150 QRS 80 QT/QTC 454/441 Disposition Clinical Impression: Fall, Back contusion, UTI (urinary tract infection) Disposition: HOME SELF-CARE Condition: Stable Instructions: Back Pain (ED) Additional Instructions: Please return to the Emergency Department if symptoms worsen or any other concerns. Prescriptions: Ciprofloxacin HCl [Cipro] 500 mg PO Q12HR #14 tablet Is patient prescribed a controlled substance at d/c from ED?: No Referrals: Jose Petersen DO [Primary Care Provider] - 1-2 days Time of Disposition: 19:52
[2017-10-04 18:53] LABS: INR 1.1 (<1.2); Partial Thromboplastin Time 26.5 sec (22.0-30.0); Prothrombin Time 10.4 sec (9.0-12.0)
[2017-10-04 18:55] LABS: ALT 16 U/L (9-52); AST 21 U/L (14-36); Albumin 4.3 g/dL (3.5-5.0); Alkaline Phosphatase 101 U/L (38-126); Anion Gap 10 mmol/L; Blood Urea Nitrogen 27 mg/dL (7-17); Calcium 8.9 mg/dL (8.4-10.2); Carbon Dioxide 29 mmol/L (22-30); Chloride 101 mmol/L (98-107); Glucose 89 mg/dL (74-99); Potassium 3.6 mmol/L (3.5-5.1); Sodium 140 mmol/L (137-145); Total Bilirubin 0.8 mg/dL (0.2-1.3); Total Protein 6.9 g/dL (6.3-8.2)
[2017-10-04 19:08] LABS: Appearance,Urine Cloudy (Clear); Bacteria,Urine Many /hpf; Bilirubin,Urine Negative (Negative); Blood,Urine Small (Negative); Calcium Oxalate Crystals,Urine Occasional /hpf; Color,Urine Yellow; Glucose,Urine (UA) Negative (Negative); Hyaline Casts,Urine 1 /lpf (0-2); Ketones,Urine Trace (Negative); Leukocyte Esterase,Urine Large (Negative); Mucus,Urine Few /hpf; Nitrite,Urine Positive (Negative); Protein,Urine Trace (Negative); RBC,Urine 13 /hpf (0-5); Specific Gravity,Urine 1.019 (1.001-1.035); Squamous Epithelial Cell,Urine <1 /hpf (0-4); WBC,Urine >182 /hpf (0-5)
[2017-10-04 19:13] LABS: Basophils % (A) 0 %; Eosinophils % (A) 0 %; HCT 36.3 % (34.0-46.0); HGB 12.2 gm/dL (11.4-16.0); Lymphocytes # (A) 1.7 k/uL (1.0-4.8); Lymphocytes % (A) 18 %; MCH 28.8 pg (25.0-35.0); MCHC 33.5 g/dL (31.0-37.0); MCV 85.8 fL (80.0-100.0); Mean Platelet Volume 8.9; Monocytes # (A) 1.9 k/uL (0-1.0); Monocytes % (A) 19 %; Neutrophils # (A) 5.5 k/uL (1.3-7.7); Neutrophils % (A) 58 %; RBC 4.23 m/uL (3.80-5.40); RDW 14.4 % (11.5-15.5); WBC 9.6 k/uL (3.8-10.6)
[2017-10-04] MEDS ORDERED: cefTRIAXone IN SWFI 1,000 MG/10 ML SYRINGE IVP STA (19:23)
--- NOTE | 2017-10-04 19:36 | XR ---
EXAMINATION TYPE: XR lumbar spine 2 or 3V DATE OF EXAM: 10/04/2017 COMPARISON: NONE HISTORY: Left side back pain TECHNIQUE: 3 views FINDINGS: There is thoracolumbar mild levoscoliosis. There is degenerative disc space narrowing throu ghout the lumbar spine with spurring and sclerosis. Abdominal aorta is atheromatous. Sacroiliac joint s appear intact. I see no compression fracture. IMPRESSION: Multilevel spondylosis. No fracture. No significant change compared to abdomen x-ray of . Stable levoscoliosis.
[2017-10-04 19:37] VITALS: BP 173/79; PULSE 62; RESP 16
--- NOTE | 2017-10-04 19:37 | XR ---
EXAMINATION TYPE: XR chest 2V DATE OF EXAM: 10/04/2017 COMPARISON: 03/09/2017 HISTORY: Weakness TECHNIQUE: Frontal and lateral views of the chest are obtained. FINDINGS: There is no heart failure nor confluent pneumonic infiltrate. There is slight blunting of left costophrenic angle. There are no hilar masses. Bony thorax is intact. IMPRESSION: There is new mild pleural reaction at the left costophrenic angle compared to old exam.
[2017-10-04 19:42] LABS: Ovalocytes Present; Platelet Count 94 k/uL (150-450)
[2017-10-04 19:43] LABS: RBC Fragments Present
[2017-10-04] MEDS ORDERED: ACETAMINOPHEN TAB 325 MG TAB PO STA (19:50)
== END 2017-10-04 20:25 | disposition home or self-care (01) ==
LOC: EC 15:52
DX: S30.0XXA Contusion of lower back and pelvis, initial encounter (principal); N39.0 Urinary tract infection, site not specified; G20 Parkinson's disease; E03.9 Hypothyroidism, unspecified; F32.9 Major depressive disorder, single episode, unspecified; F41.9 Anxiety disorder, unspecified; Z79.899 Other long term (current) drug therapy; Z88.5 Allergy status to narcotic agent; W19.XXXA Unspecified fall, initial encounter
CPT/HCPCS: 36415; 93005; 80053; 84484; 85025; 85610; 85730; 81001; 87086; 72100; 71046; 99284; 96374; 96361; J0696; 87077; 87186

== ENCOUNTER 2017-11-05 22:47 | Emergency (ER) | payer MEDICARE, OTHER ==
[2017-11-05 22:57] VITALS: TEMP 97.7
[2017-11-05] MEDS ORDERED: DIPH,PERTUS(ACELL)TETVAC-LF 0.5 ML VIAL IM ONE (23:30)
--- NOTE | 2017-11-05 23:35 | ED ---
Fall HPI - General Chief Complaint: Fall Stated Complaint: Fall, arm lac Time Seen by Provider: 11/05/17 23:04 Source: patient, family Mode of arrival: wheelchair - History of Present Illness Initial Comments: 77-year-old female patient presents to the emergency department today for evaluation of a skin tear to the right forearm after expressing a fall at home. Patient states that about an hour prior to arrival she was bending over a clothes basket when she lost her balance fell backwards. Patient states that she has been having a lot of falls recently. States that it is related to history of hypotension. She states that her physicians are well aware of the low blood pressure and are starting her on a medication from a clinical trial to aid with this. Patient states that she did fall backwards and did strike her head on the carpeted floor however states it is a very light bump. She denies any loss of consciousness. She denies any current headache, neck pain, blurred vision, double vision, dizziness, or weakness. Patient denies any headache, neck pain, back pain, chest pain, shortness of breath, abdominal pain , nausea, vomiting, or difficulties with bowel movements or urination. - Related Data Home Medications Medication Instructions Recorded Confirmed Carbidopa-Levodopa 25-100 mg 0.5 tab PO DAILY@0708/20/15 10/04/17 [Sinemet 25-100 mg] Levothyroxine Sodium [Synthroid] 88 mcg PO DAILY@0708/20/15 10/04/17 Midodrine HCl [ProAmatine] 10 mg PO TID@0700,1300,1700 PRN 02/06/17 10/04/17 Fludrocortisone [Florinef] 0.2 mg PO DAILY@0900 03/08/17 10/04/17 Carbidopa/Levodopa [Sinemet CR 1 tab PO BID 09/06/17 10/04/17 50-200 mg] Ergocalciferol (Vitamin D2) 50,000 unit PO SA 09/06/17 10/04/17 [Vitamin D2] Ferrous Sulfate [Feosol] 325 mg PO DAILY@1300 09/06/17 10/04/17 Fludrocortisone [Florinef] 0.1 mg PO DAILY@1700 09/06/17 10/04/17 Oxybutynin Chloride [Ditropan] 5 mg PO DAILY@0700 06/13/18 07/11/18 Potassium Chloride [Klor-Con 20] 20 meq PO Q48H 09/06/17 10/04/17 Previous Rx's Medication Instructions Recorded Ciprofloxacin HCl [Cipro] 500 mg PO Q12HR #14 tablet 10/04/17 Allergies Allergy/AdvReac Type Severity Reaction Status Date / Time hydromorphone [From Dilaudid] AdvReac Intermediate poss low Verified 11/05/17 22 :57 b/p,confusion post operatively Review of Systems ROS Statement: Those systems with pertinent positive or pertinent negative responses have been documented in the HPI. ROS Other: All systems not noted in ROS Statement are negative. Past Medical History Past Medical History: GERD/Reflux, Hearing Disorder / Deafness, Memory Impairment, Neurologic Disorder, Osteoarthritis (OA), Syncope, Thyroid Disorder Additional Past Medical History / Comment(s): Current UTI, PARKINSONS, orthostatic hypotension, balance issues, dysautonomia, falls, past intracranial hemorrhage rt fall, overactive bladder, [place] bilaterally, arthritis in hands, back, chronic back pain, n/t bilateral hands, cataracts bilaterally, hypothyroidism, goiter post thyroidectomy. History of Any Multi-Drug Resistant Organisms: None Reported Past Surgical History: Bladder Surgery, Hernia Repair, Hysterectomy, Joint Replacement, Tubal Ligation Additional Past Surgical History / Comment(s): Jean-Paul inguinal hernias repair 2016,JEAN-PAUL TOTAL KNEES, UMBILICAL HERNIA, PARTIAL THYROIDECTOMY, cystocele/ rectocele, hysterectomy 01/02/2017, colonoscopy, sinus polypectomy, L wrist ganglion cyst removal. Past Anesthesia/Blood Transfusion Reactions: Previous Problems w/ Anesthesia Additional Past Anesthesia/Blood Transfusion Reaction / Comment(s): STATES KNEE REPLACEMENT MAR 2010 SHE WAS "DELERIOUS ". KNEE REPLACEMENT FEB 2011 HER BLOOD PRESSURE DROPPED AND SHE WAS IN BED FOR 5 DAYS. Past Psychological History: Anxiety, Depression Smoking Status: Never smoker Past Alcohol Use History: None Reported Past Drug Use History: None Reported - Past Family History Sister(s) Family Medical History: Cancer Additional Family Medical History / Comment(s): skin cancer Mother Family Medical History: Diabetes Mellitus, Hypertension, Renal Disease Additional Family Medical History / Comment(s): Mother had an enlarged heart. She of renal failure at the age of 73 yrs. Father Family Medical History: Pneumonia Additional Family Medical History / Comment(s): Father of pneumonia a the age of 73 yrs. Daughter(s) Family Medical History: No Reported History Son(s) Family Medical History: No Reported History General Exam Limitations: no limitations General appearance: alert, in no apparent distress, other (This is a well- developed, well-nourished elderly female patient in no acute distress. Vital signs upon presentation are temperature 97.7F, pulse 76, respiration 16, blood pressure 151/76, pulse ox 98% on room air.) Head exam: Present: atraumatic, normocephalic, normal inspection Eye exam: Present: normal appearance, PERRL, EOMI. Absent: scleral icterus, conjunctival injection, periorbital swelling ENT exam: Present: normal exam, normal oropharynx, mucous membranes moist Neck exam: Present: normal inspection, full ROM, other (Nontender, no step-off, no deformity to firm midline palpation of the posterior cervical spine. Full range of motion without pain or limitation.). Absent: tenderness, meningismus, lymphadenopathy Respiratory exam: Present: normal lung sounds bilaterally. Absent: respiratory distress, wheezes, rales, rhonchi, stridor Cardiovascular Exam: Present: regular rate, normal rhythm, normal heart sounds. Absent: systolic murmur, diastolic murmur, rubs, gallop, clicks GI/Abdominal exam: Present: soft, normal bowel sounds. Absent: distended, tenderness, guarding, rebound, rigid Extremities exam: Present: full ROM, normal capillary refill, other (Patient has a 3 cm x 4 cm skin tear to the right forearm. Bleeding is controlled at this time. There are 3 purple areas of ecchymosis noted to the right forearm and in 1 to the right upper arm. There is no tenderness to the right shoulder right elbow. Patient has full range of motion to both joints without pain or limitation. Remainder of skin is pink, warm, and dry. Cap refills less than 3 seconds. Radial pulses 2+ and equal bilaterally.). Absent: normal inspection, tenderness, pedal edema, joint swelling, calf tenderness Back exam: Present: normal inspection, other (Nontender, no step-off, no deformity to firm midline palpation of the thoracic and lumbar vertebrae. Full range of motion without pain or limitation.). Absent: vertebral tenderness Neurological exam: Present: alert, oriented X3, CN II-XII intact Psychiatric exam: Present: normal affect, normal mood Skin exam: Present: warm, dry, intact, normal color. Absent: rash Course Vital Signs 11/05/17 11/05/17 22:55 23:59 Temperature 97.7 F Pulse Rate 76 59 L Respiratory 16 18 Rate Blood Pressure 151/76 165/69 O2 Sat by Pulse 98 98 Oximetry Medical Decision Making - Medical Decision Making 77-year-old female patient presented to the emergency department today for evaluation of skin tear to the right forearm. Physical examination did reveal a 3 cm x 4 cm skin tear to the right forearm. Bleeding is controlled. Patient states that she did sustain a fall due to some mild dizziness which she has been dealing with with her primary care physician. I did offer to perform labs and given IV fluids for the dizziness however patient states that her physician and her mail opener have this while under control. We did update her tetanus. She declined pain medications. They're instructed to follow-up with the primary care physician for recheck tomorrow. Return parameters discussed in detail. She verbalizes understanding and agrees with this plan. Disposition Clinical Impression: Skin tear of right forearm without complication Disposition: HOME SELF-CARE Condition: Good Instructions: Fall Prevention for Older Adults (ED), Skin Tear (ED) Additional Instructions: Keep wound clean and dry. Monitor for signs or symptoms of infection including but not limited to redness, swelling, drainage of pus, fever, or chills. Follow -up with your primary care physician for recheck in 1-2 days. Return here immediately for any new, worsening, or concerning symptoms. Is patient prescribed a controlled substance at d/c from ED?: No Referrals: Jose Petersen DO [Primary Care Provider] - 1-2 days Time of Disposition: 23:35
[2017-11-06] VITALS: BP 165/69; PULSE 59; RESP 18
== END 2017-11-06 00:13 | disposition home or self-care (01) ==
LOC: EC 22:47
DX: S51.811A Laceration without foreign body of right forearm, initial encounter (principal); S40.021A Contusion of right upper arm, initial encounter; R42 Dizziness and giddiness; G20 Parkinson's disease; E03.9 Hypothyroidism, unspecified; E04.9 Nontoxic goiter, unspecified; N32.81 Overactive bladder; Z96.653 Presence of artificial knee joint, bilateral; Z79.52 Long term (current) use of systemic steroids; Z79.899 Other long term (current) drug therapy; Z88.5 Allergy status to narcotic agent; Z23 Encounter for immunization; Z53.29 Procedure and treatment not carried out because of patient's decision for other reasons; W01.198A Fall on same level from slipping, tripping and stumbling with subsequent striking against other object, initial encounter; Y92.009 Unspecified place in unspecified non-institutional (private) residence as the place of occurrence of the external cause
CPT/HCPCS: 90471; 90715; 99283

== ENCOUNTER 2018-02-06 13:44 | Inpatient (IN) | payer MEDICARE, OTHER ==
--- NOTE | 2018-02-06 15:37 | ED ---
General Adult HPI - General Chief complaint: Fall Stated complaint: fall/hip pain Source: patient, RN notes reviewed, old records reviewed Mode of arrival: wheelchair Limitations: physical limitation - History of Present Illness Initial comments: 77-year-old female patient presents to ED after fall sustained a residential. Patient normally uses walker to assist ambulation. Patient got up without her walker, became unsteady, and fell onto her left side. Patient head hit the tile floor, and the L side of her body experienced the trauma. Patient had a complaint of left femur/hip pain after fall. Patient has beared partial weight after fall but not full weight. Patient has been non ambulatory in ED. Pt denies LOC in trauma. Denies headache or neck pain. Patient takes no blood thinners. Patient states that she feels at baseline. Patient's also states that patient is at baseline mentally. Patient denies difficulty breathing, chest pain, shortness of breath, abdominal pain. Systemic: Pt denies fatigue, myalgia, fever/chills, rash. Pt denies weakness, night sweats, weight loss. Neuro: Pt denies headache, visual disturbances, syncope or pre-syncope. HEENT: Pt denies ocular discharge or irritation, otalgia, rhinorrhea, pharyngitis or notable lymphadenopathy. Cardiopulmonary: Pt denies chest pain, SOB, heart palpitations, dyspnea on exertion. Abdominal/GI: Pt denies abdominal pain, n/v/d. : Pt denies dysuria, burning w/ urination, frequency/urgency. Denies new onset urinary or bowel incontinence. MSK: Pt denies myalgia, loss of strength or function in extremities. - Related Data Home Medications Medication Instructions Recorded Confirmed Carbidopa-Levodopa 25-100 mg 0.5 tab PO DAILY@0700 08/20/15 02/06/18 [Sinemet 25-100 mg] Levothyroxine Sodium [Synthroid] 88 mcg PO DAILY@0700 08/20/15 02/06/18 Fludrocortisone [Florinef] 0.2 mg PO DAILY@0900 03/08/17 02/06/18 Carbidopa/Levodopa [Sinemet CR 1 tab PO BID@0700,1300 09/06/17 02/06/18 50-200 mg] Ergocalciferol (Vitamin D2) 50,000 unit PO SA 09/06/17 02/06/18 [Vitamin D2] Ferrous Sulfate [Feosol] 325 mg PO DAILY@1300 09/06/17 02/06/18 Fludrocortisone [Florinef] 0.1 mg PO HS@1700 09/06/17 02/06/18 Oxybutynin Chloride [Ditropan] 5 mg PO BID@0700,1700 09/06/17 02/06/18 Potassium Chloride [Klor-Con 20] 20 meq PO Q48H 09/06/17 02/06/18 Carbidopa-Levodopa 25-100 mg 1 tab PO HS PRN 02/06/18 02/06/18 [Sinemet 25-100] Donepezil HCl [Aricept] 5 mg PO HS@1700 02/06/18 02/06/18 Droxidopa [Northera] 200 mg PO TID@0700,1300,1700 02/06/18 02/06/18 Fluorometholone 0.1% Ophth Cindy 1 drops BOTH EYES TID 02/06/18 02/06/18 [Fml] Allergies Allergy/AdvReac Type Severity Reaction Status Date / Time hydromorphone [From Dilaudid] AdvReac Intermediate poss low Verified 02/06/18 23 :43 b/p,confusion post operatively Review of Systems ROS Statement: Those systems with pertinent positive or pertinent negative responses have been documented in the HPI. ROS Other: All systems not noted in ROS Statement are negative. Past Medical History Past Medical History: GERD/Reflux, Hearing Disorder / Deafness, Memory Impairment, Neurologic Disorder, Osteoarthritis (OA), Syncope, Thyroid Disorder Additional Past Medical History / Comment(s): Current UTI, PARKINSONS, orthostatic hypotension, balance issues, dysautonomia, falls, past intracranial hemorrhage rt fall, overactive bladder, [place] bilaterally, arthritis in hands, back, chronic back pain, n/t bilateral hands, cataracts bilaterally, hypothyroidism, goiter post thyroidectomy. History of Any Multi-Drug Resistant Organisms: None Reported Past Surgical History: Bladder Surgery, Hernia Repair, Hysterectomy, Joint Replacement, Tubal Ligation Additional Past Surgical History / Comment(s): Jean-Paul inguinal hernias repair 2016,JEAN-PAUL TOTAL KNEES, UMBILICAL HERNIA, PARTIAL THYROIDECTOMY, cystocele/ rectocele, hysterectomy 01/02/2017, colonoscopy, sinus polypectomy, L wrist ganglion cyst removal. Past Anesthesia/Blood Transfusion Reactions: Previous Problems w/ Anesthesia Additional Past Anesthesia/Blood Transfusion Reaction / Comment(s): STATES KNEE REPLACEMENT MAR 2010 SHE WAS "DELERIOUS ". KNEE REPLACEMENT FEB 2011 HER BLOOD PRESSURE DROPPED AND SHE WAS IN BED FOR 5 DAYS. Past Psychological History: Anxiety, Depression Smoking Status: Never smoker Past Alcohol Use History: None Reported Past Drug Use History: None Reported - Past Family History Sister(s) Family Medical History: Cancer Additional Family Medical History / Comment(s): skin cancer Mother Family Medical History: Diabetes Mellitus, Hypertension, Renal Disease Additional Family Medical History / Comment(s): Mother had an enlarged heart. She of renal failure at the age of 73 yrs. Father Family Medical History: Pneumonia Additional Family Medical History / Comment(s): Father of pneumonia a the age of 73 yrs. Daughter(s) Family Medical History: No Reported History Son(s) Family Medical History: No Reported History General Exam - General Exam Comments Initial Comments: Constitutional: NAD, AOX3, Pt has pleasant affect. HEENT: NC/AT, trachea midline, neck supple, no lymphadenopathy. Posterior pharynx non erythematous, without exudates. External ears appear normal, without discharge. Mucous membranes moist. Eyes PERRLA, EOM intact. There is no scleral icterus. No pallor noted. Cardiopulmonary: RRR, no murmurs, rubs or gallops, no JVD noted. Lungs CTAB in anterior and posterior ken. No peripheral edema. Abdominal exam: Abdomen soft and non-distended. Abdomen non-tender to palpation in all 4 quadrants. Bowel sounds active in LLQ. No hepatosplenomegaly. Neuro: CN II-XII intact, no cranial nerve deficit. Range of motion intact in all extremities, sensation intact in all extremities. MSK: Full range of motion in upper extremities. Neurovascularly intact, radial pulse +2 bilaterally. Full range of motion in right lower extremity. Limited range of motion in left lower extremity secondary to pain. Patient lower extremities bilaterally are neurovascularly intact, dorsalis pedis and posterior tibialis pulses +2 bilaterally. No cervical spine tenderness. Full active range of motion of neck. Limitations: physical limitation Course Vital Signs 02/06/18 02/06/18 02/06/18 13:46 17:32 17:49 Temperature 97.5 F L Pulse Rate 78 55 L 60 Respiratory 20 18 Rate Blood Pressure 181/83 180/83 O2 Sat by Pulse 98 98 Oximetry 02/06/18 02/06/18 02/06/18 20:02 21:25 23:39 Temperature 97.1 F L 98.7 F Pulse Rate 60 75 69 Respiratory 18 18 18 Rate Blood Pressure 167/84 149/87 159/74 O2 Sat by Pulse 97 97 95 Oximetry Medical Decision Making - Medical Decision Making 77-year-old female patient presents to ED after sustaining a mechanical fall striking her head, left-sided. Physical exam did not reveal any gross abnormality. Neuro exam was within normal limits. Patient had no cervical spinal tenderness, full active range of motion of neck. Musculoskeletal: Exam displayed pain with flexion of left lower extremity. All extremities are neurovascularly intact. Imaging modalities were conducted including, CT of head and neck which was negative for bleed or acute fracture. Further imaging was done including a chest x-ray, x-ray of her knee which were negative. Film of her hip and her femur and displayed a left small neck fracture. Patient admitted for left femoral neck fracture. Case discussed with Dr. Bianchi. - Lab Data Result diagrams: 02/06/18 17:57 02/06/18 17:57 Lab Results 02/06/18 02/06/18 02/06/18 Range/Units 17:57 17:57 19:27 WBC 11.7 H (3.8-10.6) k/uL RBC 4.00 (3.80-5.40) m/uL Hgb 11.8 (11.4-16.0) gm/dL Hct 34.9 (34.0-46.0) % MCV 87.2 (80.0-100.0) fL MCH 29.6 (25.0-35.0) pg MCHC 33.9 (31.0-37.0) g/dL RDW 14.8 (11.5-15.5) % Plt Count 73 L (150-450) k/uL Neutrophils % (Manual) 56 % Band Neutrophils % 5 % Lymphocytes % (Manual) 24 % Monocytes % (Manual) 13 % Basophils % (Manual) 2 % Neutrophils # (Manual) 7.10 (1.3-7.7) k/uL Lymphocytes # (Manual) 2.81 (1.0-4.8) k/uL Monocytes # (Manual) 1.52 H (0-1.0) k/uL Basophils # (Manual) 0.23 H (0-0.2) k/uL Nucleated RBCs 0 (0-0) /100 WBC Manual Slide Review Performed PT 10.1 (9.0-12.0) sec INR 1.0 (<1.2) Sodium 139 (137-145) mmol/L Potassium 3.6 (3.5-5.1) mmol/L Chloride 104 (98-107) mmol/L Carbon Dioxide 29 (22-30) mmol/L Anion Gap 6 mmol/L BUN 19 H (7-17) mg/dL Creatinine 0.66 (0.52-1.04) mg/dL Est GFR (CKD-EPI)AfAm >90 (>60 ml/min/1.73 sqM) Est GFR (CKD-EPI)NonAf 84 (>60 ml/min/1.73 sqM) Glucose 78 (74-99) mg/dL Calcium 8.5 (8.4-10.2) mg/dL Total Bilirubin 0.6 (0.2-1.3) mg/dL AST 20 (14-36) U/L ALT 19 (9-52) U/L Alkaline Phosphatase 92 (38-126) U/L Total Protein 6.5 (6.3-8.2) g/dL Albumin 3.8 (3.5-5.0) g/dL Disposition Clinical Impression: Femoral neck fracture Disposition: ADMITTED IP TO THIS [facility] Condition: Good
--- NOTE | 2018-02-06 16:16 | CT ---
EXAMINATION TYPE: CT brain alejandra marin DATE OF EXAM: 02/06/2018 COMPARISON: NONE HISTORY: Fall today. Left sided head injury. CT DLP: 1751.8 mGycm. Automated Exposure Control for Dose Reduction was Utilized. TECHNIQUE: CT scan of the head and cervical spine are performed without contrast. FINDINGS: There is no acute intracranial hemorrhage or midline shift identified. There is diffuse v entricular and sulcal prominence consistent with diffuse age-related cerebral atrophy. There is conf luent low-attenuation in the periventricular white matter consistent with chronic small vessel ischem ic change. The globes are intact. There is mucoperiosteal thickening with near complete occlusion of the sphenoid sinuses. Remaining paranasal sinuses and mastoid air cells are well aerated. Cervical spine is visualized in its entirety from C1 through upper thoracic levels and demonstrates s atisfactory alignment without evidence of acute fracture or dislocation. Prevertebral soft tissue ap pears within normal limits. The C1-C2 articulation is unremarkable. Small posterior disc osteophyte complexes seen at C5-C6. Lucency within the C4 vertebral body may relate to a hemangioma on axial im aging is there is some internal trabeculation. There is a suspected central disc herniation at C4-C5 minimally impressing the ventral subarachnoid space creating mild spinal canal stenosis. Mild multile carlyle uncovertebral hypertrophy and facet arthropathy are seen throughout the cervical spine. IMPRESSION: 1. There is no acute fracture or dislocation evident in the cervical spine. 2. No acute intracranial hemorrhage or midline shift. There is diffuse age-related cerebral atrophy and extensive confluent white matter change, most commonly on the basis of chronic microangiopathy. 3. Acute on chronic sphenoid paranasal sinus disease. 4. Suspicion for a small central disc herniation at C4-C5 creating mild spinal canal stenosis.
--- NOTE | 2018-02-06 16:41 | XR ---
EXAMINATION TYPE: XR chest 2V DATE OF EXAM: 02/06/2018 COMPARISON: 10/04/2017 HISTORY: Chest pain after a fall TECHNIQUE: Frontal and lateral views of the chest are obtained. FINDINGS: There is no focal air space opacity, pleural effusion, or pneumothorax seen. The cardiac silhouette size is enlarged. There is osseous demineralization severely limiting evaluation for compr ession deformity on the lateral view. IMPRESSION: No acute cardiopulmonary process. Osseous demineralization is seen throughout limiting e valuation for compression deformities.
--- NOTE | 2018-02-06 16:43 | XR ---
PROCEDURE: XR femur LT - 4V DATE AND TIME: 02/06/2018 4:26 PM CLINICAL INDICATION: Pain following injury TECHNIQUE: Orthogonal views from the hip to the knee, 4 total. COMPARISON: 03/08/1970 FINDINGS: Stratton lines are disrupted, consistent with subcapital minimally-displaced femoral neck fr acture. The left femoral head is well-seated within the acetabulum. The remainder of the femur is intact. No other fractures. The TKR is intact. No acute knee findings. IMPRESSION: LEFT FEMORAL NECK FRACTURE.
--- NOTE | 2018-02-06 16:45 | XR ---
EXAMINATION TYPE: XR Hip Bilateral Complete DATE OF EXAM: 02/06/2018 CLINICAL HISTORY: Hip pain after fall TECHNIQUE: AP and frogleg views of the both hips were obtained. COMPARISON: None. FINDINGS: There is no evidence of acute fracture or dislocation of the right hip. There is lateral co rtical discontinuity of the left hip that may be secondary to rotation as no continuous defect is see n throughout the femoral neck or intramural surface. Mild bilateral femoral acetabular arthropathy is seen as well as generalized osseous demineralization. IMPRESSION: There is no acute fracture or dislocation in the right hip. Lateral left femoral neck co rtical defect is likely due to patient positioning. Repeat left hip radiographs could be performed if there is further concern.
--- NOTE | 2018-02-06 16:47 | XR ---
EXAMINATION TYPE: XR knee complete LT DATE OF EXAM: 02/06/2018 CLINICAL HISTORY: Left knee pain after a fall TECHNIQUE: Three views of the left knee are obtained. COMPARISON: None. FINDINGS: There is no acute fracture/dislocation evident in left knee. Left knee arthroplasty [place]ta ins normal alignment. Surgical clips are seen of the lateral compartment soft tissues. The tri-mauricio rtment joint spaces appear within normal limits. The overlying soft tissue appears unremarkable. IMPRESSION: There is no acute fracture or dislocation in the left knee [place] bone or arthroplasty.
[2018-02-06] MEDS ORDERED: NALOXONE 0.4 MG/ML 1 ML VIAL IV PRN (17:56)
[2018-02-06 18:17] LABS: HCT 34.9 % (34.0-46.0); HGB 11.8 gm/dL (11.4-16.0); MCH 29.6 pg (25.0-35.0); MCHC 33.9 g/dL (31.0-37.0); MCV 87.2 fL (80.0-100.0); Mean Platelet Volume 8.9; Platelet Count 73 k/uL (150-450); RDW 14.8 % (11.5-15.5); WBC 11.7 k/uL (3.8-10.6)
[2018-02-06 18:20] LABS: ALT 19 U/L (9-52); AST 20 U/L (14-36); Albumin 3.8 g/dL (3.5-5.0); Alkaline Phosphatase 92 U/L (38-126); Anion Gap 6 mmol/L; Blood Urea Nitrogen 19 mg/dL (7-17); Calcium 8.5 mg/dL (8.4-10.2); Carbon Dioxide 29 mmol/L (22-30); Chloride 104 mmol/L (98-107); Glucose 78 mg/dL (74-99); Potassium 3.6 mmol/L (3.5-5.1); Sodium 139 mmol/L (137-145); Total Bilirubin 0.6 mg/dL (0.2-1.3); Total Protein 6.5 g/dL (6.3-8.2)
[2018-02-06 18:33] LABS: Band Neutrophils % 5 %; Basophils # (M) 0.23 k/uL (0-0.2); Lymphocytes # (M) 2.81 k/uL (1.0-4.8); Monocytes # (M) 1.52 k/uL (0-1.0); Neutrophils % (M) 56 %; Nucleated Red Blood Cells 0 /100 WBC (0-0); Total Cells Counted 100
--- NOTE | 2018-02-06 19:35 | XR ---
PROCEDURE: XR pelvis AP view DATE AND TIME: 02/06/2018 6:22 PM CLINICAL INDICATION: PHH Pain TECHNIQUE: AP view of COMPARISON: None FINDINGS: The previously noted left subcapital femoral neck fracture is redemonstrated, with evidence of associated soft tissue swelling. No other findings. IMPRESSION: Left subcapital femoral neck fracture.
[2018-02-06] MEDS ORDERED: ACETAMINOPHEN TAB 325 MG TAB PO STA (19:41)
[2018-02-06 19:58] LABS: Prothrombin Time 10.1 sec (9.0-12.0)
[2018-02-06] MEDS ORDERED: HYDROcodone/APAP 5-325MG 1 EACH TAB PO STA ×2 (21:10→22:49)
[2018-02-07] MEDS: ACETAMINOPHEN TAB 325 MG TAB PO PRN ×3 (03:39→23:25)
[2018-02-07] MEDS: DROXIDOPA 200 MG PO SCH ×3 (07:14→15:54)
[2018-02-07] MEDS: CARBIDOPA-LEVODOPA 25-100 MG 1 EACH TAB PO SCH (07:43)
[2018-02-07] MEDS: LEVOTHYROXINE 88 MCG TAB PO SCH (07:43)
[2018-02-07] MEDS: PANTOPRAZOLE 40 MG TABLET PO SCH (07:43)
[2018-02-07] MEDS: FLUDROCORTISONE 0.1 MG TAB PO SCH ×2 (07:44→15:25)
[2018-02-07] MEDS: CARBIDOPA-LEVODOPA ER 50-200MG 1 EACH TABLET.ER PO SCH ×2 (07:44→11:44)
--- NOTE | 2018-02-07 09:05 | P.HPOR ---
History of Present Illness H&P Date: 02/07/18 This is a 77-year-old female who is admitted after a fall. Per the nurse the patient was at a presentation in town and had a fall. Nursing staff states that the patient does live at home with her . X-rays taken in the emergency room of the left femur, hip and pelvis showed possible left hip fracture. A CT scan of the brain and cervical spine was negative for any acute process. X-rays of the left knee are negative for any fracture or dislocation. Patient has a history of dementia and is a poor historian. No family is present in the room. Patient's past medical history is significant for Parkinson's disease, hypothyroidism and GERD. Patient denies any fever/chills, numbness, weakness, tingling, abdominal pain, shortness of breath or chest pain. Review of Systems See HPI. Past Medical History Past Medical History: GERD/Reflux, Hearing Disorder / Deafness, Memory Impairment, Neurologic Disorder, Osteoarthritis (OA), Syncope, Thyroid Disorder Additional Past Medical History / Comment(s): Current UTI, PARKINSONS, orthostatic hypotension, balance issues, dysautonomia, falls, past intracranial hemorrhage rt fall, overactive bladder, [place] bilaterally, arthritis in hands, back, chronic back pain, n/t bilateral hands, cataracts bilaterally, hypothyroidism, goiter post thyroidectomy. History of Any Multi-Drug Resistant Organisms: None Reported Past Surgical History: Bladder Surgery, Hernia Repair, Hysterectomy, Joint Replacement, Tubal Ligation Additional Past Surgical History / Comment(s): Jean-Paul inguinal hernias repair - 2016,JEAN-PAUL TOTAL KNEES, UMBILICAL HERNIA, PARTIAL THYROIDECTOMY, cystocele/ rectocele, hysterectomy 01/02/2017, colonoscopy, sinus polypectomy, L wrist ganglion cyst removal. Past Anesthesia/Blood Transfusion Reactions: Previous Problems w/ Anesthesia Additional Past Anesthesia/Blood Transfusion Reaction / Comment(s): STATES KNEE REPLACEMENT MAR 2010 SHE WAS "DELERIOUS ". KNEE REPLACEMENT FEB 2011 HER BLOOD PRESSURE DROPPED AND SHE WAS IN BED FOR 5 DAYS. Past Psychological History: Anxiety, Depression Smoking Status: Never smoker Past Alcohol Use History: None Reported Past Drug Use History: None Reported - Past Family History Sister(s) Family Medical History: Cancer Additional Family Medical History / Comment(s): skin cancer Mother Family Medical History: Diabetes Mellitus, Hypertension, Renal Disease Additional Family Medical History / Comment(s): Mother had an enlarged heart. She of renal failure at the age of 73 yrs. Father Family Medical History: Pneumonia Additional Family Medical History / Comment(s): Father of pneumonia a the age of 73 yrs. Daughter(s) Family Medical History: No Reported History Son(s) Family Medical History: No Reported History Medications and Allergies Home Medications Medication Instructions Recorded Confirmed Type Carbidopa-Levodopa 25-100 mg 0.5 tab PO DAILY@0700 08/20/15 02/06/18 History [Sinemet 25-100 mg] Levothyroxine Sodium [Synthroid] 88 mcg PO DAILY@0700 08/20/15 02/06/18 History Fludrocortisone [Florinef] 0.2 mg PO DAILY@0900 03/08/17 02/06/18 History Carbidopa/Levodopa [Sinemet CR 1 tab PO BID@0700,1300 09/06/17 02/06/18 History 50-200 mg] Ergocalciferol (Vitamin D2) 50,000 unit PO SA 09/06/17 02/06/18 History [Vitamin D2] Ferrous Sulfate [Feosol] 325 mg PO DAILY@1300 09/06/17 02/06/18 History Fludrocortisone [Florinef] 0.1 mg PO HS@1700 09/06/17 02/06/18 History Oxybutynin Chloride [Ditropan] 5 mg PO BID@0700,1700 09/06/17 02/06/18 History Potassium Chloride [Klor-Con 20] 20 meq PO Q48H 09/06/17 02/06/18 History Carbidopa-Levodopa 25-100 mg 1 tab PO HS PRN 02/06/18 02/06/18 History [Sinemet 25-100] Donepezil HCl [Aricept] 5 mg PO HS@1700 02/06/18 02/06/18 History Droxidopa [Northera] 200 mg PO TID@0700,1300,1700 02/06/18 02/06/18 History Fluorometholone 0.1% Ophth Cindy 1 drops BOTH EYES TID 02/06/18 02/06/18 History [Fml] Allergies Allergy/AdvReac Type Severity Reaction Status Date / Time hydromorphone [From Dilaudid] AdvReac Intermediate poss low Verified 02/06/18 23 :43 b/p,confusion post operatively Physical Examination On exam patient is lying comfortably in bed in no acute distress. There is no tenderness to palpation over the left hip. Patient does have pain with range of motion of the left hip. There is no deformity of the left lower extremity. Calf is soft and nontender to palpation. Left lower extremity is warm and well perfused. Sensation is intact. Exams of the head, neck, bilateral upper extremities and right lower extremity are within normal limits. Neurovascular status and circulatory status are intact. Results X-rays of the left femur, left hip and pelvis show possible femoral neck fracture. X-rays of the left knee are negative for any fracture or dislocation. A CT of the brain and cervical spine is negative for any acute process. A CT scan of the left hip shows a femoral neck fracture. - Labs Labs: Abnormal Lab Results - Last 24 Hours (Table) 02/06/18 02/06/18 Range/Units 17:57 17:57 WBC 11.7 H (3.8-10.6) k/uL Plt Count 73 L (150-450) k/uL Monocytes # (Manual) 1.52 H (0-1.0) k/uL Basophils # (Manual) 0.23 H (0-0.2) k/uL BUN 19 H (7-17) mg/dL H & H 02/06/18 Range/Units 17:57 Hgb 11.8 (11.4-16.0) gm/dL Hct 34.9 (34.0-46.0) % Coagulation 02/06/18 Range/Units 19:27 INR 1.0 (<1.2) Result Diagrams: 02/06/18 17:57 02/06/18 17:57 Assessment and Plan Assessment: Parkinson's Hypothyroidism GERD (1) Fall Current Visit: Yes Status: Acute Code(s): W19.XXXA - UNSPECIFIED FALL, INITIAL ENCOUNTER SNOMED Code(s): 5229501 (2) Left hip pain Current Visit: Yes Status: Acute Code(s): M25.552 - PAIN IN LEFT HIP SNOMED Code(s): 14084523 (3) Femoral neck fracture Current Visit: Yes Status: Acute Code(s): S72.009A - FRACTURE OF UNSP PART OF NECK OF UNSP FEMUR, INIT SNOMED Code(s): 9637048 Plan: 1. NPO. 2. Nonweightbearing to the left lower extremity. 3. A CT scan of the left hip shows a fracture of the femoral neck, left hip. 4. Appreciate input from medicine. 5. Continue pain control. 6. Left hip hemiarthroplasty is scheduled for today pending medical clearance and consent.
[2018-02-07] MEDS: FLUOROMETHOLONE 0.1% OPHTH DROPS 5 ML BTL BOTH EYES SCH ×3 (09:17→20:34)
--- NOTE | 2018-02-07 10:05 | CT ---
EXAMINATION TYPE: CT hip LT wo con DATE OF EXAM: 02/07/2018 COMPARISON: Pelvic and left femur as well as bilateral hip x-rays from yesterday. CT abdomen and pelv is August 18, 2017 HISTORY: Left hip pain, rule out fracture CT DLP: 310.1 mGycm Automated exposure control for dose reduction was used. FINDINGS: New from August 18, 2017 CT there is irregular lucency with step-off is some irregular sclerosis suggest ing acute or subacute minimally displaced subcapital fracture left proximal femur as there is slight impaction and anterior displacement of distal fracture fragment. No hip joint dislocation is seen. There is new mild subcutaneous edema or injury over lateral aspect of posterior gluteal region. Muscl e bulk left thigh is maintained. There are prominent diverticula in visualized portion of the sigmoid colon in the left pelvis. IMPRESSION: THERE IS ACUTE OR SUBACUTE MINIMALLY DISPLACED SUBCAPITAL FRACTURE OF THE LEFT PROXIMAL FEMUR. ACUTE FRACTURE FAVORED GIVEN HISTORY OF RECENT TRAUMA. CORRELATE CLINICALLY.
[2018-02-07] MEDS: traMADol 50 MG TAB PO PRN ×2 (10:10→22:44)
[2018-02-07] MEDS: FERROUS SULFATE 325 MG TAB PO SCH (11:35)
[2018-02-07] MEDS ORDERED: SODIUM CHLORIDE 0.9% 1,000 ML IV SCH (11:45)
--- NOTE | 2018-02-07 13:20 | P.CONS ---
History of Present Illness - Reason for Consult Consult date: 02/07/18 Medical management Requesting physician: Len Alejandra - Chief Complaint Left Femur neck fracture. - History of Present Illness This is a 77 years old very pleasant female patient of Dr. Petersen , Patient has past medical history of reflux, Parkinson disease, osteoarthritis , syncope, hypothyroidism, patient presented to the Emergency department at [facility] after a fall she sustained at the care home were she was trying to walk with using her walker, and unfortunately she lost her balance and landed on her left side , she suffered from pain and she could partially bear weight and had extensive evaluation in the ER with CT scan of the head and neck were negative for fractures however left hip X-ray showed left femur neck fracture and she was admitted to the hospital under ortho and medicine on consult. Review of Systems Constitutional: Reports weakness, Denies anorexia, Denies chronic headaches Eyes: denies blurred vision, denies bulging eye, denies decreased vision Ears: bilateral: decreased hearing Ears, nose, mouth and throat: Denies dysphagia, Denies neck lump Cardiovascular: Denies claudication, Denies decreased exercise tolerance, Denies lightheadedness, Denies rapid heart beat, Denies shortness of breath, Denies syncope Respiratory: Reports sleep apnea, Denies congestion, Denies cough with sputum, Denies snoring, Denies wheezing Gastrointestinal: Denies abdominal pain, Denies bloating, Denies heartburn, Denies melena, Denies nausea, Denies vomiting Genitourinary: Denies dysuria, Denies hematuria Menstruation: Reports postmenopausal Musculoskeletal: Reports fractures, Reports gait dysfunction Musculoskeletal: bilateral: hip pain, hip stiffness, hip swelling, absent: ankle pain, ankle stiffness, ankle swelling, elbow pain, elbow stiffness, elbow swelling, foot pain, foot stiffness, foot swelling, hand pain, hand stiffness, hand swelling, knee pain, knee stiffness, knee swelling, shoulder pain, shoulder stiffness, shoulder swelling, wrist pain, wrist stiffness, wrist swelling Integumentary: Denies pruritus, Denies rash Neurological: Reports balance difficulties, Reports gait dysfunction, Reports memory loss, Reports spasticity, Reports weakness Psychiatric: Denies anxiety, Denies depression Endocrine: Denies fatigue, Denies weight change Past Medical History Past Medical History: GERD/Reflux, Hearing Disorder / Deafness, Memory Impairment, Neurologic Disorder, Osteoarthritis (OA), Syncope, Thyroid Disorder Additional Past Medical History / Comment(s): Current UTI, PARKINSONS, orthostatic hypotension, balance issues, dysautonomia, falls, past intracranial hemorrhage rt fall, overactive bladder, [place] bilaterally, arthritis in hands, back, chronic back pain, n/t bilateral hands, cataracts bilaterally, hypothyroidism, goiter post thyroidectomy. History of Any Multi-Drug Resistant Organisms: None Reported Past Surgical History: Bladder Surgery, Hernia Repair, Hysterectomy, Joint Replacement, Tubal Ligation Additional Past Surgical History / Comment(s): Jean-Paul inguinal hernias repair 2016,JEAN-PAUL TOTAL KNEES, UMBILICAL HERNIA, PARTIAL THYROIDECTOMY, cystocele/ rectocele, hysterectomy 01/02/2017, colonoscopy, sinus polypectomy, L wrist ganglion cyst removal. Past Anesthesia/Blood Transfusion Reactions: Previous Problems w/ Anesthesia Additional Past Anesthesia/Blood Transfusion Reaction / Comm: STATES KNEE REPLACEMENT MAR 2010 SHE WAS "DELERIOUS ". KNEE REPLACEMENT FEB 2011 HER BLOOD PRESSURE DROPPED AND SHE WAS IN BED FOR 5 DAYS. Past Psychological History: Anxiety, Depression Smoking Status: Never smoker Past Alcohol Use History: None Reported Past Drug Use History: None Reported - Past Family History Sister(s) Family Medical History: Cancer Additional Family Medical History / Comment(s): skin cancer Mother Family Medical History: Diabetes Mellitus, Hypertension, Renal Disease Additional Family Medical History / Comment(s): Mother had an enlarged heart. She of renal failure at the age of 73 yrs. Father Family Medical History: Pneumonia Additional Family Medical History / Comment(s): Father of pneumonia a the age of 73 yrs. Daughter(s) Family Medical History: No Reported History Son(s) Family Medical History: No Reported History Medications and Allergies Home Medications Medication Instructions Recorded Confirmed Type Carbidopa-Levodopa 25-100 mg 0.5 tab PO DAILY@0700 08/20/15 02/06/18 History [Sinemet 25-100 mg] Levothyroxine Sodium [Synthroid] 88 mcg PO DAILY@0700 08/20/15 02/06/18 History Fludrocortisone [Florinef] 0.2 mg PO DAILY@0900 03/08/17 02/06/18 History Carbidopa/Levodopa [Sinemet CR 1 tab PO BID@0700,1300 09/06/17 02/06/18 History 50-200 mg] Ergocalciferol (Vitamin D2) 50,000 unit PO SA 09/06/17 02/06/18 History [Vitamin D2] Ferrous Sulfate [Feosol] 325 mg PO DAILY@1300 09/06/17 02/06/18 History Fludrocortisone [Florinef] 0.1 mg PO HS@1700 09/06/17 02/06/18 History Oxybutynin Chloride [Ditropan] 5 mg PO BID@0700,1700 09/06/17 02/06/18 History Potassium Chloride [Klor-Con 20] 20 meq PO Q48H 09/06/17 02/06/18 History Carbidopa-Levodopa 25-100 mg 1 tab PO HS PRN 02/06/18 02/06/18 History [Sinemet 25-100] Donepezil HCl [Aricept] 5 mg PO HS@1700 02/06/18 02/06/18 History Droxidopa [Northera] 200 mg PO TID@0700,1300,1700 02/06/18 02/06/18 History Fluorometholone 0.1% Ophth Cindy 1 drops BOTH EYES TID 02/06/18 02/06/18 History [Fml] Allergies Allergy/AdvReac Type Severity Reaction Status Date / Time hydromorphone [From Dilaudid] AdvReac Intermediate poss low Verified 02/06/18 23 :43 b/p,confusion post operatively Physical Exam Vitals: Vital Signs Temp Pulse Pulse Resp BP BP Pulse Ox 02/07/18 00:09 98.5 F 69 16 162/78 96 02/06/18 23:39 98.7 F 69 18 159/74 95 02/06/18 21:25 75 18 149/87 97 02/06/18 20:02 97.1 F L 60 18 167/84 97 02/06/18 17:49 60 02/06/18 17:32 55 L 18 180/83 98 02/06/18 13:46 97.5 F L 78 20 181/83 98 Intake and Output 02/06/18 02/06/18 02/07/18 14:59 22:59 06:59 Other: Voiding Method Toilet Bedside Commode Bedpan Diaper # Voids 3 Weight 49.895 kg - Constitutional General appearance: no acute distress - EENT Eyes: anicteric sclerae, EOMI, PERRLA, no ptosis, no scleral icterus, normal appearance ENT: NA/AT, normal oropharynx, no thrush Ears: bilateral: normal - Neck Neck: no lymphadenopathy, normal ROM, no rigidity, no stridor, no thyromegaly Carotids: bilateral: upstroke normal Thyroid: bilateral: normal size - Respiratory Respiratory: bilateral: diminished, negative: dullness, rales, rhonchi, wheezing , prolonged expiration - Cardiovascular Rhythm: regular Heart sounds: normal: S1, S2 Abnormal Heart Sounds: systolic murmur, no S3 Gallop - Gastrointestinal General gastrointestinal: normal bowel sounds, soft, no splenomegaly, no tenderness, no umbilical hernia, no ventral hernia - Integumentary Integumentary: normal, normal turgor - Neurologic Neurologic: CNII-XII intact - Musculoskeletal Musculoskeletal: generalized weakness Results CBC & Chem 7: 02/06/18 17:57 02/06/18 17:57 Labs: Abnormal Lab Results - Last 24 Hours (Table) 02/06/18 02/06/18 Range/Units 17:57 17:57 WBC 11.7 H (3.8-10.6) k/uL Plt Count 73 L (150-450) k/uL Monocytes # (Manual) 1.52 H (0-1.0) k/uL Basophils # (Manual) 0.23 H (0-0.2) k/uL BUN 19 H (7-17) mg/dL Assessment and Plan Assessment: Assessment and plan: 1. S/P Fall with left femur neck fracture. 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 we will continue to monitor. 3. 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 we will continue with Florinef 0.1 mg orally at bedtime and 0.2 mg orally daily and please avoid anticholinergic medications. we will discontinue Oxybutynin. 4. Hypothyrodism. we will continue with synthroid 88 mcg orally daily. 5. Vascular dementia. we will continue with Aricept 5 mg orally at bedtime. 6. Osteoarthritis. will continue with tylenol. 7. Parkinson disease. we will continue with current carbidopa-Levodopa. 8. DVT prophylaxis. hold off heparin till repeating cbc. 9. GI prophylaxis. will start Protonix 40 mg orally daily. 10. Thanks for the consult we will follow with you.
[2018-02-07] MEDS: DONEPEZIL 5 MG TAB PO SCH (15:25)
[2018-02-07] MEDS ORDERED: IV FLUID CONTINUATION 1,000 ML IV ONE (16:11)
[2018-02-07] MEDS ORDERED: ceFAZolin 2,000 MG in DEXTROSE/WATER 1 50ML.BAG IVPB STA (16:12)
[2018-02-07] MEDS ORDERED: ceFAZolin IN SWFI 2 GM/20 ML SYRINGE IVP STA (16:16)
[2018-02-07] MEDS ORDERED: MORPHINE SULFATE 2 MG/ML SYRINGE IV PRN ×4 (16:44)
[2018-02-07] MEDS ORDERED: NALOXONE 0.4 MG/ML 1 ML VIAL IV PRN (16:44)
[2018-02-07] MEDS ORDERED: MAGNESIUM HYDROXIDE 2,400 MG/10 ML CUP PO PRN (16:44)
[2018-02-07] MEDS ORDERED: SODIUM CHLORIDE 0.9% 50 ML with ceFAZolin 2,000 MG IV ONE ×2 (17:26)
--- NOTE | 2018-02-07 17:52 | P.OP ---
Date of Procedure: 02/07/18 Preoperative Diagnosis: Subcapital fracture left hip Postoperative Diagnosis: Subcapital fracture left hip Procedure(s) Performed: Left hip hemiarthroplasty Implants: Iniguez and nephew Polarstem size 2 standard Iniguez & Nephew tandem unipolar, 46 mm Iniguez & Nephew tandem unipolar 12/14 taper sleeve, -3 mm All components were press-fit. Anesthesia: spinal Surgeon: Len Alejandra Shank Taper #1: Andreia Leggett Estimated Blood Loss (ml): 100 Pathology: other (Femoral head) Condition: stable Disposition: PACU Indications for Procedure: This is a 77-year-old female that slipped and fell and landed onto her left hip. She sustained a subcapital fracture of her left hip. After discussing the surgical and nonsurgical treatment options with her and her family at length , I recommended a left hip hemiarthroplasty. Informed consent was obtained. Operative Findings: The findings are consistent with a displaced subcapital fracture of the left hip. Description of Procedure: Patient was seen and evaluated in the preoperative area, consent was reviewed and the operative site was marked with a skin marker. Patient was then brought to the operating room and given 2 g of Ancef intravenously. A spinal anesthetic was administered by the anesthesia department. Patient was then placed in a lateral decubitus position and held with a Montral hip positioner. The bony prominences were well-padded and an axillary roll was placed. The hip was then prepped and draped in the usual sterile fashion. A universal timeout was then performed which confirmed the patient's name, surgical site, ALLERGIES, and procedure. A standard anterolateral approach the hip was performed. Skin and subcutaneous tissues were sharply incised with an incision centered over the tip of the greater trochanter. The incision was carefully dissected down to the fascia. The fascia was then split in line with skin incision and a Charnley retractor was gently placed. The abductors were then identified, and the anterior one third of the abductors were released off the trochanter and one large sleeve. The fracture hematoma was evacuated and the proximal femur was exposed by externally rotating the femur. The fracture site was readily visualized. Next , using an osteotomy guide, the proximal femur was osteotomized at the appropriate level of the above the lesser trochanter. This bone was then removed. Attention was then turned to the femoral head. Using a corkscrew, the femoral head was removed from the acetabulum without incident. The acetabulum was inspected, and found to have no significant arthrosis. Femoral head was then measured. Attention was then redirected to the femur. Proximal femur was re-exposed and a box osteotome was used to lateralize the proximal femur. A tube bender hand was then used to locate the femoral canal. Sequential broaching was then performed to the appropriate size. The calcar was then planed and trial head and neck were placed. The hip was then gently reduced. Leg lengths were checked and found to be equal. Hip was then taken through a full range of motion was stable throughout. The hip was then gently dislocated with the aid of a bone hook. The trial head and neck were then removed. The femoral broach was then inspected and found to have a secure fit. The broach was then removed. The hip was then copiously irrigated with antibiotic solution with a pulse lavage. Components were then opened and the femoral stem was then impacted into the proximal femur. The trunnion was cleaned and dried, and the femoral head and neck were then impacted. Hip was again gently reduced. Again leg lengths were checked and found to be equal, and the hip was taken through a full range of motion and found to be stable. The hip was again irrigated with pulsatile lavage, then followed by the Irrrisept solution. The abductors were then repaired through drill holes to the bone to the greater trochanter, utilizing #5 Ethibond suture. Next the fascia was repaired with #2 strata fix suture. The subcutaneous tissue was then repaired with 3-0 Vicryl. The subcuticular tissue was then repaired with 3-0 strata fix suture. Skin was then closed with Dermabond tape. A sterile dressing was then applied and the patient was transported to the recovery room in stable condition. Shank Taper KYLE Boateng was required due to the complexity of surgery the need for skilled optometrist assistant. She assisted with positioning the patient , draping the patient, retraction during the surgery, and closure of the wound.
[2018-02-07] MEDS: SODIUM CHLORIDE 0.9% 1,000 ML IV SCH (20:02)
[2018-02-07] MEDS: SENNOSIDES-DOCUSATE SODIUM 1 EACH TAB PO SCH (20:34)
[2018-02-07 21:00] LABS: Appearance,Urine Turbid (Clear); Bacteria,Urine Rare /hpf; Bilirubin,Urine Negative (Negative); Blood,Urine Moderate (Negative); Budding Yeast,Urine Many /hpf; Color,Urine Yellow; Glucose,Urine (UA) Negative (Negative); Ketones,Urine 1+ (Negative); Leukocyte Esterase,Urine Large (Negative); Mucus,Urine Occasional /hpf; Nitrite,Urine Negative (Negative); PH, Urine 6.5 (5.0-8.0); Protein,Urine 1+ (Negative); RBC,Urine 124 /hpf (0-5); Specific Gravity,Urine 1.018 (1.001-1.035); Urobilinogen,Urine <2.0 mg/dL (<2.0)
[2018-02-07] MEDS ORDERED: CARBIDOPA-LEVODOPA 25-100 MG 1 EACH TAB PO PRN (21:00)
--- NOTE | 2018-02-07 21:11 | XR ---
left hip single view: there is a new left hip prosthesis in anatomic position. impression: no complicating process seen.
[2018-02-07] MEDS: ceFAZolin IN SWFI 2 GM/20 ML SYRINGE IVP SCH (23:27)
[2018-02-08] MEDS: CARBIDOPA-LEVODOPA 25-100 MG 1 EACH TAB PO SCH (08:07)
[2018-02-08] MEDS: CARBIDOPA-LEVODOPA ER 50-200MG 1 EACH TABLET.ER PO SCH ×2 (08:08→12:55)
[2018-02-08] MEDS: PANTOPRAZOLE 40 MG TABLET PO SCH (08:09)
[2018-02-08] MEDS: DROXIDOPA 200 MG PO SCH ×3 (08:09→18:24)
[2018-02-08] MEDS: LEVOTHYROXINE 88 MCG TAB PO SCH (08:09)
[2018-02-08] MEDS: FLUDROCORTISONE 0.1 MG TAB PO SCH ×2 (08:09→16:27)
[2018-02-08] MEDS: RIVAROXABAN 10 MG TAB PO SCH (08:11)
--- NOTE | 2018-02-08 08:26 | P.PN ---
Subjective Progress Note Date: 02/08/18 This is a 77-year-old female who is status post left hip hemiarthroplasty. This is postoperative day #1. Patient is seen and evaluated at bedside. Patient has a past medical history significant for dementia and is a poor historian. Per nursing staff, the patient has been doing well. There is no family present in the room. Objective - Vital Signs Vital signs: Vital Signs Temp 98.5 F 02/08/18 06:54 Pulse 90 02/08/18 06:54 Resp 16 02/08/18 06:54 BP 144/69 02/08/18 06:54 Pulse Ox 96 02/08/18 06:54 Intake & Output 02/07/18 02/08/18 02/08/18 18:59 06:59 18:59 Intake Total 700 395 Output Total 650 425 Balance 50 -30 Intake: IV 700 Intake, IV Titration 195 Amount Sodium Chloride 0.9% 1, 195 000 ml @ 65 mls/hr IV . [id number] [facility] Rx#:[id number] Oral 200 Output: Urine 550 425 Estimated Blood Loss 100 Other: Voiding Method Indwelling Catheter Indwelling Catheter - Exam Vital signs are stable. Patient is in no acute distress and lying comfortably in bed. Calf is soft and nontender to palpation. Dressing is clean, dry, and intact. Patient has full foot and ankle motion without pain or difficulty. Neurovascular status and circulatory status are intact. - Labs CBC & Chem 7: 02/06/18 17:57 02/06/18 17:57 Labs: Abnormal Lab Results - Last 24 Hours (Table) 02/07/18 Range/Units 19:40 Urine Appearance Turbid H (Clear) Urine Protein 1+ H (Negative) Urine Ketones 1+ H (Negative) Urine Blood Moderate H (Negative) Ur Leukocyte Esterase Large H (Negative) Urine RBC 124 H (0-5) /hpf Urine WBC >182 H (0-5) /hpf Urine Bacteria Rare H (None) /hpf Urine Mucus Occasional H (None) /hpf Urine Yeast (Budding) Many H (None) /hpf Assessment and Plan Assessment: Parkinson's Hypothyroidism GERD (1) Fall Current Visit: Yes Status: Acute Code(s): W19.XXXA - UNSPECIFIED FALL, INITIAL ENCOUNTER SNOMED Code(s): 2779187 (2) Left hip pain Current Visit: Yes Status: Acute Code(s): M25.552 - PAIN IN LEFT HIP SNOMED Code(s): 01505569 (3) Femoral neck fracture Current Visit: Yes Status: Acute Code(s): S72.009A - FRACTURE OF UNSP PART OF NECK OF UNSP FEMUR, INIT SNOMED Code(s): 4773099 Plan: Continue routine postop care. Continue hip precautions with abductor pillow. Continue anticoagulation with Xarelto. Weightbearing as tolerated with a walker. Leave dressing in place for 10 days. Appreciate input from medicine. Possible discharge to rehab tomorrow.
[2018-02-08] MEDS: ceFAZolin IN SWFI 2 GM/20 ML SYRINGE IVP SCH (08:53)
[2018-02-08 09:23] LABS: ALT 17 U/L (9-52); AST 21 U/L (14-36); Albumin 3.2 g/dL (3.5-5.0); Alkaline Phosphatase 75 U/L (38-126); Anion Gap 9 mmol/L; Blood Urea Nitrogen 16 mg/dL (7-17); Calcium 8.3 mg/dL (8.4-10.2); Carbon Dioxide 24 mmol/L (22-30); Chloride 106 mmol/L (98-107); Glucose 112 mg/dL (74-99); Potassium 2.8 mmol/L (3.5-5.1); Sodium 139 mmol/L (137-145); Total Protein 5.8 g/dL (6.3-8.2)
[2018-02-08 09:41] LABS: HCT 33.2 % (34.0-46.0); HGB 11.3 gm/dL (11.4-16.0); MCH 29.7 pg (25.0-35.0); MCHC 33.9 g/dL (31.0-37.0); MCV 87.4 fL (80.0-100.0); Mean Platelet Volume 9.4; RDW 14.6 % (11.5-15.5); WBC 21.7 k/uL (3.8-10.6)
[2018-02-08 09:43] LABS: Platelet Count 71 k/uL (150-450)
[2018-02-08] MEDS: FLUOROMETHOLONE 0.1% OPHTH DROPS 5 ML BTL BOTH EYES SCH ×4 (10:04→21:58)
[2018-02-08] MEDS: POTASSIUM CHLORIDE ER 20 MEQ TAB.ER PO SCH ×2 (10:05→12:54)
[2018-02-08 10:24] LABS: Band Neutrophils % 2 %; Lymphocytes # (M) 0.65 k/uL (1.0-4.8); Monocytes # (M) 3.91 k/uL (0-1.0); Neutrophils % (M) 78 %; Nucleated Red Blood Cells 0 /100 WBC (0-0); Total Cells Counted 200
[2018-02-08 10:25] LABS: Poikilocytosis (M) Present
[2018-02-08] MEDS: FERROUS SULFATE 325 MG TAB PO SCH (12:55)
--- NOTE | 2018-02-08 13:01 | P.PN ---
Subjective Progress Note Date: 02/08/18 This is a 77 years old very pleasant female patient of Dr. Petersen , Patient has past medical history of reflux, Parkinson disease, osteoarthritis , syncope, hypothyroidism, patient presented to the Emergency department at [facility] after a fall she sustained at the half-way were she was trying to walk with using her walker, and unfortunately she lost her balance and landed on her left side , she suffered from pain and she could partially bear weight and had extensive evaluation in the ER with CT scan of the head and neck were negative for fractures however left hip X-ray showed left femur neck fracture and she was admitted to the hospital under ortho and medicine on consult. 02/08: Patient underwent successful left hip hemiarthroplasty yesterday afternoon. Patient has had no postop complications. Vital signs are stable, patient has been afebrile. He is on Xarelto for DVT prophylaxis. His dressing is to be on for 10 days and plan is for discharge to rehab anticipated for tomorrow. Patient is to be weightbearing as tolerated. Physical therapy will start working with the patient today when she is more alert. Urinalysis came back turbid, leukoesterase large, wbc's greater than 182, bacteria rare. Patient will be started on ceftriaxone for UTI. Patient is lethargic this morning most likely secondary to medications from surgery. Sal catheter remains in place Review Of Systems: Unable to obtain due to mental status. Objective - Vital Signs Vital signs: Vital Signs Temp 98.5 F 02/08/18 06:54 Pulse 90 02/08/18 06:54 Resp 16 02/08/18 06:54 BP 144/69 02/08/18 06:54 Pulse Ox 96 02/08/18 06:54 Intake & Output 02/07/18 02/08/18 02/08/18 18:59 06:59 18:59 Intake Total 700 395 Output Total 650 425 Balance 50 -30 Intake: IV 700 Intake, IV Titration 195 Amount Sodium Chloride 0.9% 1, 195 000 ml @ 65 mls/hr IV . [id number] Rx#:[id number] Oral 200 Output: Urine 550 425 Estimated Blood Loss 100 Other: Voiding Method Indwelling Catheter Indwelling Catheter - Exam General appearance: no acute distress, patient falls back to sleep easily - EENT Eyes: anicteric sclerae, EOMI, PERRLA, no ptosis, no scleral icterus, normal appearance ENT: NA/AT, normal oropharynx, no thrush Ears: bilateral: normal - Neck Neck: no lymphadenopathy, normal ROM, no rigidity, no stridor, no thyromegaly Carotids: bilateral: upstroke normal Thyroid: bilateral: normal size - Respiratory Respiratory: bilateral: diminished, negative: dullness, rales, rhonchi, wheezing , prolonged expiration - Cardiovascular Rhythm: regular Heart sounds: normal: S1, S2 Abnormal Heart Sounds: systolic murmur, no S3 Gallop - Gastrointestinal General gastrointestinal: normal bowel sounds, soft, no splenomegaly, no tenderness, no umbilical hernia, no ventral hernia - Integumentary Integumentary: normal, normal turgor - Neurologic Neurologic: CNII-XII intact - Musculoskeletal Musculoskeletal: generalized weakness - Labs CBC & Chem 7: 02/08/18 07:45 02/08/18 07:45 Labs: Abnormal Lab Results - Last 24 Hours (Table) 02/07/18 Range/Units 19:40 Urine Appearance Turbid H (Clear) Urine Protein 1+ H (Negative) Urine Ketones 1+ H (Negative) Urine Blood Moderate H (Negative) Ur Leukocyte Esterase Large H (Negative) Urine RBC 124 H (0-5) /hpf Urine WBC >182 H (0-5) /hpf Urine Bacteria Rare H (None) /hpf Urine Mucus Occasional H (None) /hpf Urine Yeast (Budding) Many H (None) /hpf Assessment and Plan Plan: 1. S/P Fall with left femur neck fracture status post left hemiarthroplasty, PT/ OT, weightbearing as tolerated. Xarelto is on for DVT prophylaxis. Incentive spirometry to reduce incidence of atelectasis and hospital-acquired pneumonia. 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 we will continue to monitor. 3. 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 we will continue with Florinef 0.1 mg orally at bedtime and 0.2 mg orally daily and please avoid anticholinergic medications. we will discontinue Oxybutynin. Sal in place 4. Hypothyrodism. we will continue with synthroid 88 mcg orally daily. 5. Vascular dementia. we will continue with Aricept 5 mg orally at bedtime. 6. Osteoarthritis. will continue with tylenol. 7. Parkinson disease. we will continue with current carbidopa-Levodopa. 8. DVT prophylaxis. hold off heparin till repeating cbc. 9. GI prophylaxis. will start Protonix 40 mg orally daily. Discharge plan: on Monday Impression and plan of care have been directed as dictated by the signing physician. Shawanda Virk nurse practitioner acting as scribe for signing physician.
[2018-02-08] MEDS: SODIUM CHLORIDE 0.9% 1,000 ML IV SCH ×3 (15:14→23:56)
[2018-02-08] MEDS: ACETAMINOPHEN TAB 325 MG TAB PO PRN ×2 (16:24→21:56)
[2018-02-08] MEDS: DONEPEZIL 5 MG TAB PO SCH (16:25)
[2018-02-08] MEDS: SENNOSIDES-DOCUSATE SODIUM 1 EACH TAB PO SCH ×2 (21:57→22:06)
[2018-02-09] MEDS: SODIUM CHLORIDE 0.9% 1,000 ML IV SCH ×3 (06:55→23:51)
[2018-02-09] MEDS: DROXIDOPA 200 MG PO SCH ×3 (06:56→15:52)
--- NOTE | 2018-02-09 08:29 | P.DS ---
Providers Date of admission: 02/06/18 23:14 Attending physician: Len Alejandra Consults: 02/06/18 18:40 Consult Physician Stat Consulting Provider: Lisa Quezada Consult Reason/Comments: medical management Do you want consulting provider notified?: Yes Primary care physician: Jose Petersen - Discharge Diagnosis(es) (1) Fall Current Visit: Yes Status: Acute (2) Left hip pain Current Visit: Yes Status: Acute (3) Femoral neck fracture Current Visit: Yes Status: Acute Hospital Course: This is a 77-year-old female who sustained a fracture of the left femoral neck after a fall. The patient presented for evaluation in the emergency room and was admitted for further evaluation. After discussion and consideration patient elected to proceed with left hip hemiarthroplasty. The patient is seen preoperatively by Dr. Alejandra and medically cleared for surgery by internal medicine. Patient is admitted to [facility] on 02/06/2018 and left hip hemiarthroplasty is performed on 02/07/2018. The procedures performed without complication or sequelae. The patient is doing well postoperatively. Labs and vital signs are stable on day of discharge. On day of discharge patient's hip incision is healing well. There is minimal erythema. There is no drainage noted at this time. There is minimal soft tissue swelling to the hip and thigh. Patient has full foot and ankle motion without difficulty or pain. Neurovascular status to the left lower extremity is intact. Patient is discharged to rehab in good condition. Please see med rec for accurate list of home medications. Patient Condition at Discharge: Good Plan - Discharge Summary New Discharge Prescriptions: No Action Levothyroxine Sodium [Synthroid] 88 mcg PO DAILY@0700 Carbidopa-Levodopa 25-100 mg [Sinemet 25-100 mg] 0.5 tab PO DAILY@0700 Fludrocortisone [Florinef] 0.2 mg PO DAILY@0900 Potassium Chloride [Klor-Con 20] 20 meq PO Q48H Oxybutynin Chloride [Ditropan] 5 mg PO BID@0700,1700 Ferrous Sulfate [Feosol] 325 mg PO DAILY@1300 Fludrocortisone [Florinef] 0.1 mg PO HS@1700 Carbidopa/Levodopa [Sinemet CR 50-200 mg] 1 tab PO BID@0700,1300 Ergocalciferol (Vitamin D2) [Vitamin D2] 50,000 unit PO SA Droxidopa [Northera] 200 mg PO TID@0700,1300,1700 Fluorometholone 0.1% Ophth Cindy [Fml] 1 drops BOTH EYES TID Donepezil HCl [Aricept] 5 mg PO HS@1700 Carbidopa-Levodopa 25-100 mg [Sinemet 25-100] 1 tab PO HS PRN PRN Reason: PARKINSONS Discharge Medication List Carbidopa-Levodopa 25-100 mg [Sinemet 25-100 mg] 0.5 tab PO DAILY@0700 08/20/15 [History] Levothyroxine Sodium [Synthroid] 88 mcg PO DAILY@0700 08/20/15 [History] Fludrocortisone [Florinef] 0.2 mg PO DAILY@0900 03/08/17 [History] Carbidopa/Levodopa [Sinemet CR 50-200 mg] 1 tab PO BID@0700,1300 09/06/17 [ History] Ergocalciferol (Vitamin D2) [Vitamin D2] 50,000 unit PO SA 09/06/17 [History] Ferrous Sulfate [Feosol] 325 mg PO DAILY@1300 09/06/17 [History] Fludrocortisone [Florinef] 0.1 mg PO HS@1700 09/06/17 [History] Oxybutynin Chloride [Ditropan] 5 mg PO BID@0700,1700 09/06/17 [History] Potassium Chloride [Klor-Con 20] 20 meq PO Q48H 09/06/17 [History] Carbidopa-Levodopa 25-100 mg [Sinemet 25-100] 1 tab PO HS PRN 02/06/18 [History] Donepezil HCl [Aricept] 5 mg PO HS@1700 02/06/18 [History] Droxidopa [Northera] 200 mg PO TID@0700,1300,1700 02/06/18 [History] Fluorometholone 0.1% Ophth Cindy [Fml] 1 drops BOTH EYES TID 02/06/18 [History] Follow up Appointment(s)/Referral(s): To [facility], [NON-STAFF] - As Needed Jose Petersen DO [Primary Care Provider] - 1-2 days Patient Instructions/Handouts: Total Hip Replacement (DC)
[2018-02-09 08:46] LABS: Calcium 8.6 mg/dL (8.4-10.2); Potassium 3.9 mmol/L (3.5-5.1)
[2018-02-09] MEDS: FLUOROMETHOLONE 0.1% OPHTH DROPS 5 ML BTL BOTH EYES SCH ×3 (08:59→22:54)
[2018-02-09] MEDS: RIVAROXABAN 10 MG TAB PO SCH (09:01)
[2018-02-09] MEDS: CARBIDOPA-LEVODOPA 25-100 MG 1 EACH TAB PO SCH (09:01)
[2018-02-09] MEDS: PANTOPRAZOLE 40 MG TABLET PO SCH (09:01)
[2018-02-09] MEDS: LEVOTHYROXINE 88 MCG TAB PO SCH (09:01)
[2018-02-09] MEDS: FLUDROCORTISONE 0.1 MG TAB PO SCH ×2 (09:02→16:01)
[2018-02-09] MEDS: CARBIDOPA-LEVODOPA ER 50-200MG 1 EACH TABLET.ER PO SCH ×2 (09:03→13:47)
[2018-02-09 09:07] LABS: HCT 28.2 % (34.0-46.0); MCH 30.6 pg (25.0-35.0); MCHC 34.2 g/dL (31.0-37.0); MCV 89.3 fL (80.0-100.0); Mean Platelet Volume 8.6; RBC 3.16 m/uL (3.80-5.40); RDW 15.1 % (11.5-15.5)
[2018-02-09 09:13] LABS: Platelet Count 61 k/uL (150-450)
[2018-02-09 09:14] LABS: HGB 9.7 gm/dL (11.4-16.0)
[2018-02-09] MEDS ORDERED: SODIUM CHLORIDE 0.9% 500 ML 500 ML IV ONE (10:28)
--- NOTE | 2018-02-09 12:55 | P.PN ---
Subjective Progress Note Date: 02/09/18 This is a 77 years old very pleasant female patient of Dr. Petersen , Patient has past medical history of reflux, Parkinson disease, osteoarthritis , syncope, hypothyroidism, patient presented to the Emergency department at [facility] after a fall she sustained at the long-term were she was trying to walk with using her walker, and unfortunately she lost her balance and landed on her left side , she suffered from pain and she could partially bear weight and had extensive evaluation in the ER with CT scan of the head and neck were negative for fractures however left hip X-ray showed left femur neck fracture and she was admitted to the hospital under ortho and medicine on consult. 02/08: Patient underwent successful left hip hemiarthroplasty yesterday afternoon. Patient has had no postop complications. Vital signs are stable, patient has been afebrile. He is on Xarelto for DVT prophylaxis. His dressing is to be on for 10 days and plan is for discharge to rehab anticipated for tomorrow. Patient is to be weightbearing as tolerated. Physical therapy will start working with the patient today when she is more alert. Urinalysis came back turbid, leukoesterase large, wbc's greater than 182, bacteria rare. Patient will be started on ceftriaxone for UTI. Patient is lethargic this morning most likely secondary to medications from surgery. Sal catheter remains in place 02/09: Patient has been cleared for discharge by orthopedics but we would like to keep the patient here until tomorrow as she is still somewhat lethargic from yesterday and has not 8 and only a few bites. Her vital signs are stable, pulse ox 96% on room air. White count has been elevated. She has been on ceftriaxone for UTI. Urine culture report is pending. Her pain seems to be controlled at this time. We have asked for Sal catheter to be removed in the morning. Patient will then be scheduled for discharge to [facility] tomorrow. We have done medication reconciliation and included Ceftin although this may need to be adjusted as urine culture has not been finalized. Review Of Systems: Unable to obtain due to mental status/dementia. Objective - Vital Signs Vital signs: Vital Signs Temp 98.8 F 02/09/18 00:30 Pulse 85 02/09/18 00:30 Resp 16 02/09/18 00:30 BP 121/71 02/09/18 00:30 Pulse Ox 97 02/09/18 00:30 Intake & Output 02/08/18 02/08/18 02/09/18 06:59 18:59 06:59 Intake Total 395 820 590 Output Total 425 0 600 Balance -30 820 -10 Intake: Intake, IV Titration 195 620 Amount Sodium Chloride 0.9% 1, 520 000 ml @ 100 mls/hr IV . Q10H [facility] Rx#:[id number] Sodium Chloride 0.9% 1, 195 000 ml @ 65 mls/hr IV . [id number] [facility] Rx#:[id number] cefTRIAXone 1,000 mg In 100 Sodium Chloride 0.9% 50 ml @ 100 mls/hr IVPB Q24HR [facility] Rx#:[id number] Oral 200 200 590 Output: Urine 425 600 Uretheral (Sal) 300 Stool 0 Other: Voiding Method Indwelling Catheter Indwelling Catheter Indwelling Catheter - Exam General appearance: no acute distress, patient sitting up in a chair at the bedside. Patient is more alert today. - EENT Eyes: anicteric sclerae, EOMI, PERRLA, no ptosis, no scleral icterus, normal appearance ENT: NA/AT, normal oropharynx, no thrush Ears: bilateral: normal - Neck Neck: no lymphadenopathy, normal ROM, no rigidity, no stridor, no thyromegaly Carotids: bilateral: upstroke normal Thyroid: bilateral: normal size - Respiratory Respiratory: bilateral: diminished, negative: dullness, rales, rhonchi, wheezing , prolonged expiration - Cardiovascular Rhythm: regular Heart sounds: normal: S1, S2 Abnormal Heart Sounds: systolic murmur, no S3 Gallop - Gastrointestinal General gastrointestinal: normal bowel sounds, soft, no splenomegaly, no tenderness, no umbilical hernia, no ventral hernia - Integumentary Integumentary: normal, normal turgor - Neurologic Neurologic: CNII-XII intact - Musculoskeletal Musculoskeletal: generalized weakness - Labs CBC & Chem 7: 02/09/18 07:26 02/09/18 07:26 Labs: Abnormal Lab Results - Last 24 Hours (Table) 02/08/18 02/08/18 Range/Units 07:45 07:45 WBC 21.7 H (3.8-10.6) k/uL Hgb 11.3 L (11.4-16.0) gm/dL Hct 33.2 L (34.0-46.0) % Plt Count 71 L (150-450) k/uL Neutrophils # (Manual) 17.30 H (1.3-7.7) k/uL Lymphocytes # (Manual) 0.65 L (1.0-4.8) k/uL Monocytes # (Manual) 3.91 H (0-1.0) k/uL Potassium 2.8 L (3.5-5.1) mmol/L Glucose 112 H (74-99) mg/dL Calcium 8.3 L (8.4-10.2) mg/dL Total Protein 5.8 L (6.3-8.2) g/dL Albumin 3.2 L (3.5-5.0) g/dL Microbiology - Last 24 Hours (Table) 02/07/18 19:40 Urine Culture - Preliminary Urine,Voided Assessment and Plan Plan: 1. S/P Fall with left femur neck fracture status post left hemiarthroplasty, PT/ OT, weightbearing as tolerated. Xarelto is on for DVT prophylaxis. Incentive spirometry to reduce incidence of atelectasis and hospital-acquired pneumonia. 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 we will continue to monitor. 3. 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 we will continue with Florinef 0.1 mg orally at bedtime and 0.2 mg orally daily and please avoid anticholinergic medications. we will discontinue Oxybutynin. Sal in place 4. Hypothyrodism. we will continue with synthroid 88 mcg orally daily. 5. Vascular dementia. we will continue with Aricept 5 mg orally at bedtime. 6. Osteoarthritis. will continue with tylenol. 7. Parkinson disease. we will continue with current carbidopa-Levodopa. 8. DVT prophylaxis. hold off heparin till repeating cbc. 9. GI prophylaxis. will start Protonix 40 mg orally daily. 10. Metabolic encephalopathy from anesthesia and pain medications. 11. Urinary tract infection, present on admission. Patient is on Rocephin. We have put through Ceftin to be taken at [facility] pending results of urine culture. Discharge plan: [facility] on Monday Impression and plan of care have been directed as dictated by the signing physician. Shawanda Virk nurse practitioner acting as scribe for signing physician.
[2018-02-09 13:26] VITALS: BMI 20.7
[2018-02-09] MEDS: FERROUS SULFATE 325 MG TAB PO SCH (13:47)
[2018-02-09] MEDS: DONEPEZIL 5 MG TAB PO SCH (16:01)
[2018-02-09] MEDS: SENNOSIDES-DOCUSATE SODIUM 1 EACH TAB PO SCH (22:54)
[2018-02-09] MEDS: ACETAMINOPHEN TAB 325 MG TAB PO PRN (23:51)
[2018-02-10] MEDS ORDERED: ACETAMINOPHEN IV (For NPO) 1,000 MG in EMPTY BAG 1 BAG IVPB SCH (00:45)
[2018-02-10] MEDS: SODIUM CHLORIDE 0.9% 1,000 ML IV SCH ×2 (01:14→21:08)
[2018-02-10] MEDS ORDERED: ACETAMINOPHEN IV (For NPO) 1,000 MG in EMPTY BAG 1 BAG IVPB PRN (05:58)
[2018-02-10] MEDS: FLUOROMETHOLONE 0.1% OPHTH DROPS 5 ML BTL BOTH EYES SCH ×3 (08:01→21:16)
[2018-02-10] MEDS: FLUDROCORTISONE 0.1 MG TAB PO SCH ×2 (08:01→16:21)
[2018-02-10] MEDS: CARBIDOPA-LEVODOPA 25-100 MG 1 EACH TAB PO SCH (08:04)
[2018-02-10] MEDS: CARBIDOPA-LEVODOPA ER 50-200MG 1 EACH TABLET.ER PO SCH ×2 (08:04→13:04)
[2018-02-10] MEDS: RIVAROXABAN 10 MG TAB PO SCH (08:05)
[2018-02-10] MEDS: LEVOTHYROXINE 88 MCG TAB PO SCH (08:05)
[2018-02-10] MEDS: PANTOPRAZOLE 40 MG TABLET PO SCH (08:05)
[2018-02-10] MEDS: FERROUS SULFATE 325 MG TAB PO SCH (08:05)
[2018-02-10] MEDS: DROXIDOPA 200 MG PO SCH ×3 (08:12→17:51)
[2018-02-10] MEDS ORDERED: ERGOCALCIFEROL 50,000 UNIT CAP PO SCH (09:00)
--- NOTE | 2018-02-10 12:43 | P.PN ---
Subjective Progress Note Date: 02/10/18 Principal diagnosis: Left femur fracture Patient spiked low-grade temperature at 100.1 last night but her white blood count went up to 24,000 this morning. at the bedside who stated that the patient seems to be at baseline mental status where she is alert oriented and following simple commands at baseline dementia. Patient with decreased oral intake reporting some pain on the left hip area. Patient is poor historian Objective - Vital Signs Vital signs: Vital Signs Temp 99.3 F 02/10/18 02:00 Pulse 92 02/10/18 00:00 Resp 14 02/10/18 00:00 BP 150/76 02/10/18 00:00 Pulse Ox 98 02/10/18 00:00 Intake & Output 02/09/18 02/10/18 02/10/18 18:59 06:59 18:59 Intake Total 500 1500 Output Total 300 Balance 500 1200 Weight 49.895 kg Intake: IV 500 Sodium Chloride 0.9% 500 500 ml 500 ml @ 999 mls/hr IV .Q31M [facility] Rx#:[id number] Intake, IV Titration 1500 Amount ACETAMINOPHEN IV (For NPO 400 ) 1,000 mg In Empty Bag 1 bag @ 400 mls/hr IVPB Q6HR [facility] Rx#:[id number] Sodium Chloride 0.9% 1, 1100 000 ml @ 100 mls/hr IV . Q10H [facility] Rx#:[id number] Output: Urine 300 Other: Voiding Method Indwelling Catheter Indwelling Catheter Indwelling Catheter - Exam Gen.: in stated age, no acute distress Heart: Normal S1-S2 Lungs: Clear to auscultation bilaterally Abdomen: Soft, no tenderness, positive bowel sounds in all 4 quadrant no guarding or rebound Skin: No new rash Psych: Alert and oriented 3 Neuro: No focal deficit Left hip area Posta for dressing in place no drainage noted mild tenderness to palpation on physical exam - Labs CBC & Chem 7: 02/09/18 07:26 02/09/18 07:26 Labs: Microbiology - Last 24 Hours (Table) 02/07/18 19:40 Urine Culture - Final Urine,Voided Enterobacter cloacae Assessment and Plan Assessment: 1. Low-grade fever. 2. Severe leukocytosis. 3. Acute blood loss anemia. 4. Chronic thrombocytopenia. 5. Recent hypokalemia. 6. Left femur neck fracture status post left hemiarthroplasty. 7. Orthostatic hypotension. 8. Parkinson disease. 9. Dementia. 10. Hypothyroidism. 11. Urinary tract infection on Rocephin. I ordered urine and blood cultures to be done last night and I would like to consult infectious disease for further evaluation will continue with Rocephin at this point monitor vital signs closely and repeat blood work in the morning plan discussed with patient's and nursing staff at the bedside and we will follow-up closely and her general condition. No obvious source of infection at this point and patient without any bowel movements in the last 12 hours
[2018-02-10] MEDS: ACETAMINOPHEN TAB 325 MG TAB PO PRN ×2 (15:29→21:08)
[2018-02-10] MEDS ORDERED: MD COMMUNICATION TO PHARMACY 1 EACH MISC PO PRN (16:13)
[2018-02-10] MEDS: DONEPEZIL 5 MG TAB PO SCH (16:21)
[2018-02-10] MEDS: FLUCONAZOLE 100 MG TAB PO SCH (16:21)
[2018-02-10] MEDS: SENNOSIDES-DOCUSATE SODIUM 1 EACH TAB PO SCH (21:08)
--- NOTE | 2018-02-10 23:02 | P.CONS ---
History of Present Illness - Reason for Consult Consult date: 02/10/18 - Chief Complaint Fall - History of Present Illness 77-year-old woman who has progressive decline of her status with dementia was receiving some dementia training at the [facility]. Usually that she had up to walk and was utilizing her walker and suddenly fell resulting in the subcapital left hip fracture. She consequently has been taken to the operative room and the left hemiarthroplasty has been performed. It is related that she is known to Dr. Curiel because of her frequent and recurrent urinary tract infections. She hasn't treated with courses of antibiotic therapy. She was placed on a somewhat protracted course of antibiotics with ciprofloxacin. However she has evidence of significant refractory hypotension has been placed on several agents. Recently she's been in an experimental trial was having some improvement however due to her illnesses is no longer in the trial. Florinef is being utilized. It isn't there is a significant drug drug interaction with the fluoroquinolones and Florinef. Because we has been stopped. She had she was treated with a course of intravenous antibiotic therapy but again has recurrence of her urinary tract infection with discomfort and urinary frequency and some left flank pain. He does not know that she is having any fevers or chills but apparently the was present relates that she often does not have significant symptoms except for some altered mental status and discomfort. Review of Systems 77-year-old woman limited historian is quite helpful HEENT:Denies headache or acute visual change. Denies sinus or mouth discomforts. Denies neck stiffness or pain. Denies significant oral cavity pain. Denies difficulty on swallowing. Lungs: Denies significant shortness of breath, cough, sputum production, or hemoptysis. Cardiovascular: Denies significant shortness of breath, chest pain, chest wall pain, orthopnea, dyspnea on exertion, syncope Gastrointestinal:Denies nausea, vomiting, diarrhea, constipation, hematemesis, melena, hematochezia. No no significant change of bowel habit noticed. Musculoskeletal: denies significant myalgias or arthralgias. No new joint swelling. Denies new back pain. Skin: No rash or breakdown Neuro: Denies headache, has dementia, was receiving some dementia training which he suffered her fall. relates that she has not been having significant or frequent falls before this event Psychiatric: Anxiety and poor memory Endocrine: Fatigue has been slightly losing weight over time. Past Medical History Past Medical History: GERD/Reflux, Hearing Disorder / Deafness, Memory Impairment, Neurologic Disorder, Osteoarthritis (OA), Syncope, Thyroid Disorder Additional Past Medical History / Comment(s): Current UTI, PARKINSONS, orthostatic hypotension, balance issues, dysautonomia, falls, past intracranial hemorrhage rt fall, overactive bladder, MINTO bilaterally, arthritis in hands, back, chronic back pain, n/t bilateral hands, cataracts bilaterally, hypothyroidism, goiter post thyroidectomy. History of Any Multi-Drug Resistant Organisms: None Reported Past Surgical History: Bladder Surgery, Hernia Repair, Hysterectomy, Joint Replacement, Tubal Ligation Additional Past Surgical History / Comment(s): Deirdre inguinal hernias repair - 2016,DEIRDRE TOTAL KNEES, UMBILICAL HERNIA, PARTIAL THYROIDECTOMY, cystocele/ rectocele, hysterectomy 01/02/2017, colonoscopy, sinus polypectomy, L wrist ganglion cyst removal. Past Anesthesia/Blood Transfusion Reactions: Previous Problems w/ Anesthesia Additional Past Anesthesia/Blood Transfusion Reaction / Comm: STATES KNEE REPLACEMENT MAR 2010 SHE WAS "DELERIOUS ". KNEE REPLACEMENT FEB 2011 HER BLOOD PRESSURE DROPPED AND SHE WAS IN BED FOR 5 DAYS. Past Psychological History: Anxiety, Depression Additional Psychological History / Comment(s): usually resides with her . Retired. No service. No international travel. No animals in the home. No current tobacco or alcohol use Smoking Status: Never smoker Past Alcohol Use History: None Reported Past Drug Use History: None Reported - Past Family History Sister(s) Family Medical History: Cancer Additional Family Medical History / Comment(s): skin cancer Mother Family Medical History: Diabetes Mellitus, Hypertension, Renal Disease Additional Family Medical History / Comment(s): Mother had an enlarged heart. She of renal failure at the age of 73 yrs. Father Family Medical History: Pneumonia Additional Family Medical History / Comment(s): Father of pneumonia a the age of 73 yrs. Daughter(s) Family Medical History: No Reported History Son(s) Family Medical History: No Reported History Medications and Allergies Home Medications and Allergies Comment(s): Current Medications Acetaminophen (Tylenol Tab) 325 mg PO Q6HR PRN PRN Reason: Fever and/ or MILD Pain Last Admin: 02/10/18 21:08 Dose: 325 mg Carbidopa/Levodopa (Sinemet 25-100) 0.5 each PO DAILY@0700 [facility] Last Admin: 02/10/18 08:04 Dose: 0.5 each Carbidopa/Levodopa (Sinemet 25-100) 1 each PO HS PRN PRN Reason: PARKINSONS Carbidopa/Levodopa (Sinemet Er 50-200) 1 each PO BID@0700,1300 [facility] Last Admin: 02/10/18 13:04 Dose: 1 each Donepezil HCl (Aricept) 5 mg PO HS@1700 [facility] Last Admin: 02/10/18 16:21 Dose: 5 mg Ergocalciferol (Vitamin D2) 50,000 unit PO SA [facility] Last Admin: 02/10/18 08:05 Dose: 50,000 unit Ferrous Sulfate (Feosol) 325 mg PO DAILY@1300 [facility] Last Admin: 02/10/18 08:05 Dose: 325 mg Fluconazole (Diflucan) 100 mg PO DAILY [facility] Last Admin: 02/10/18 16:21 Dose: 100 mg Fludrocortisone Acetate (Florinef) 0.1 mg PO HS@1700 [facility] Last Admin: 02/10/18 16:21 Dose: 0.1 mg Fludrocortisone Acetate (Florinef) 0.2 mg PO DAILY@0900 [facility] Last Admin: 02/10/18 08:01 Dose: 0.2 mg Fluorometholone (Fml) 1 drops BOTH EYES TID [facility] Last Admin: 02/10/18 21:16 Dose: Not Given Sodium Chloride (Saline 0.9%) 1,000 mls @ 100 mls/hr IV .Q10H [facility] Last Admin: 02/10/18 21:08 Dose: 100 mls/hr Acetaminophen 1,000 mg/ IV (Solution) 100 mls @ 400 mls/hr IVPB Q6HR PRN PRN Reason: Fever and/ or Pain Stop: 02/11/18 00:14 Ceftriaxone Sodium 2,000 mg/ (Sodium Chloride) 100 mls @ 100 mls/hr IVPB Q24HR [facility] Levothyroxine Sodium (Synthroid) 88 mcg PO DAILY@0700 [facility] Last Admin: 02/10/18 08:05 Dose: 88 mcg Magnesium Hydroxide (Milk Of Magnesia) 2,400 mg PO DAILY PRN PRN Reason: Constipation Morphine Sulfate (Morphine Sulfate (Inj)) 0.5 mg IV Q3HR PRN PRN Reason: Pain Scale 1 to 3 Morphine Sulfate (Morphine Sulfate (Inj)) 1 mg IV Q3HR PRN PRN Reason: Pain Scale 4 to 5 Morphine Sulfate (Morphine Sulfate (Inj)) 1.5 mg IV Q3HR PRN PRN Reason: Pain Scale 6 to 7 Morphine Sulfate (Morphine Sulfate (Inj)) 2 mg IV Q3HR PRN PRN Reason: Pain Scale 8 to 10 Naloxone HCl (Narcan) 0.2 mg IV Q2M PRN PRN Reason: Opioid Reversal Non-Formulary Medication (Droxidopa [Northera]) 200 mg PO TID@0700,1300,1700 [facility] Last Admin: 02/10/18 17:51 Dose: Not Given Pantoprazole Sodium (Protonix) 40 mg PO AC-BRKFST [facility] Last Admin: 02/10/18 08:05 Dose: 40 mg Rivaroxaban (Xarelto) 10 mg PO DAILY [facility] Stop: 03/15/18 09:01 Last Admin: 02/10/18 08:05 Dose: 10 mg Senna/Docusate Sodium (Senokot-S) 2 each PO HS [facility] Last Admin: 02/10/18 21:08 Dose: 2 each Tramadol HCl (Ultram) 50 mg PO Q6HR PRN PRN Reason: MODERATE Pain Last Admin: 02/07/18 22:44 Dose: 50 mg Home Medications Medication Instructions Recorded Confirmed Type Carbidopa-Levodopa 25-100 mg 0.5 tab PO DAILY@0700 08/20/15 02/06/18 History [Sinemet 25-100 mg] Levothyroxine Sodium [Synthroid] 88 mcg PO DAILY@0700 08/20/15 02/06/18 History Fludrocortisone [Florinef] 0.2 mg PO DAILY@0900 03/08/17 02/06/18 History Carbidopa/Levodopa [Sinemet CR 1 tab PO BID@0700,1300 09/06/17 02/06/18 History 50-200 mg] Ergocalciferol (Vitamin D2) 50,000 unit PO SA 09/06/17 02/06/18 History [Vitamin D2] Ferrous Sulfate [Iron (65 MG 325 mg PO DAILY@1300 09/06/17 02/06/18 History Elemental)] Fludrocortisone [Florinef] 0.1 mg PO HS@1700 09/06/17 02/06/18 History Potassium Chloride [Klor-Con 20] 20 meq PO Q48H 09/06/17 02/06/18 History Carbidopa-Levodopa 25-100 mg 1 tab PO HS PRN 02/06/18 02/06/18 History [Sinemet 25-100 mg] Donepezil HCl [Aricept] 5 mg PO HS@1700 02/06/18 02/06/18 History Droxidopa [Northera] 200 mg PO TID@0700,1300,1700 02/06/18 02/06/18 History Fluorometholone 0.1% Ophth Cindy 1 drops BOTH EYES TID 02/06/18 02/06/18 History [Fml] Acetaminophen Tab [Tylenol Tab] 1 - 2 tab PO Q8H PRN #90 tablet 02/09/18 Rx Cefuroxime [Ceftin] 250 mg PO BID #20 tablet 02/09/18 Rx Magnesium Hydroxide [Milk of 2,400 mg PO DAILY PRN ml 02/09/18 Rx Magnesia Concentrate] Pantoprazole [Protonix] 40 mg PO AC-BRKFST tablet. 02/09/18 Rx Rivaroxaban [Xarelto] 10 mg PO DAILY #30 tab 02/09/18 Rx Sennosides [Senokot] 1 tab PO BID #60 tablet 02/09/18 Rx traMADol HCl [Ultram] 50 mg PO Q6H PRN #28 tab 02/09/18 Rx Allergies Allergy/AdvReac Type Severity Reaction Status Date / Time hydromorphone [From Dilaudid] AdvReac Intermediate poss low Verified 02/06/18 23 :43 b/p,confusion post operatively Physical Exam Vitals: Vital Signs Temp Pulse Pulse Resp BP Pulse Ox 02/10/18 20:06 99.6 F 72 17 140/76 97 02/10/18 14:21 98.3 F 68 16 137/70 98 02/10/18 02:00 99.3 F 02/10/18 00:00 100.1 F H 92 14 150/76 98 Intake and Output 02/10/18 02/10/18 02/10/18 06:59 14:59 22:59 Intake Total 1200 1217 1010 Output Total 300 Balance 900 1217 1010 Intake: Intake, IV Titration 1200 800 100 Amount ACETAMINOPHEN IV (For NPO 400 ) 1,000 mg In Empty Bag 1 bag @ 400 mls/hr IVPB Q6HR [facility] Rx#:[id number] Sodium Chloride 0.9% 1, 800 800 100 000 ml @ 100 mls/hr IV . Q10H [facility] Rx#:[id number] Oral 417 910 Output: Urine 300 Other: Voiding Method Indwelling Catheter Indwelling Catheter Indwelling Catheter Pleasant 77-year-old woman who is comfortable at this time despite her hip surgery. Is quite a poor historian HEENT: Anicteric conjunctiva are pink and moist nasal mucosa grossly intact without significant lesions, there is no thrush. Poor dentition Neck: The neck is supple without significant lymphadenopathy or thyromegaly. Lungs: Good bilateral air entry without significant crackles or wheezing. There is no significant bronchial sounds. There is no egophony or dullness. Heart: Regular rate and rhythm with an audible S1-S2, no S3 no S4. There is no significant murmur click or rub, PMI was nondisplaced. Abdomen: Positive bowel sounds soft and nontender without palpable masses or organomegaly. There was no guarding or rebound. Extremities: The upper extremities have excellent pulses they are symmetric, no significant petechiae or telangiectasia. No splinter hemorrhages were noted. The lower extremity reveals evidence of the surgical wound to the left hip is without significant drainage at this time. Peripheral pulses are palpable and there is evidence of bilateral lower extremity edema. The skin is otherwise without rash or breakdown Neuro: Awake alert oriented to person is able to relate the name of her and daughter but otherwise is quite poor historian. As she speaks the continuously corrects her because of her wrong data. Results CBC & Chem 7: 02/09/18 07:26 02/09/18 07:26 Labs: Microbiology - Last 24 Hours (Table) 02/07/18 19:40 Urine Culture - Final Urine,Voided Enterobacter cloacae Laboratory Results WBC 22.0 k/uL (3.8-10.6) H 02/09/18 07:26 RBC 3.16 m/uL (3.80-5.40) L 02/09/18 07:26 Hgb 9.7 gm/dL (11.4-16.0) L D 02/09/18 07:26 Hct 28.2 % (34.0-46.0) L 02/09/18 07:26 MCV 89.3 fL (80.0-100.0) 02/09/18 07:26 MCH 30.6 pg (25.0-35.0) 02/09/18 07:26 MCHC 34.2 g/dL (31.0-37.0) 02/09/18 07:26 RDW 15.1 % (11.5-15.5) 02/09/18 07:26 Plt Count 61 k/uL (150-450) L 02/09/18 07:26 Neutrophils % (Manual) 78 % 02/08/18 07:45 Band Neutrophils % 2 % 02/08/18 07:45 Lymphocytes % (Manual) 3 % 02/08/18 07:45 Monocytes % (Manual) 18 % 02/08/18 07:45 Basophils % (Manual) 2 % 02/06/18 17:57 Neutrophils # (Manual) 17.30 k/uL (1.3-7.7) H 02/08/18 07:45 Lymphocytes # (Manual) 0.65 k/uL (1.0-4.8) L 02/08/18 07:45 Monocytes # (Manual) 3.91 k/uL (0-1.0) H 02/08/18 07:45 Basophils # (Manual) 0.23 k/uL (0-0.2) H 02/06/18 17:57 Nucleated RBCs 0 /100 WBC (0-0) 02/08/18 07:45 Manual Slide Review Performed 02/06/18 17:57 Poikilocytosis (manual Present 02/08/18 07:45 PT 10.1 sec (9.0-12.0) 02/06/18 19:27 INR 1.0 (<1.2) 02/06/18 19:27 Sodium 139 mmol/L (137-145) 02/09/18 07:26 Potassium 3.9 mmol/L (3.5-5.1) 02/09/18 07:26 Chloride 110 mmol/L (98-107) H 02/09/18 07:26 Carbon Dioxide 22 mmol/L (22-30) 02/09/18 07:26 Anion Gap 7 mmol/L 02/09/18 07:26 BUN 23 mg/dL (7-17) H 02/09/18 07:26 Creatinine 0.79 mg/dL (0.52-1.04) 02/09/18 07:26 Est GFR (CKD-EPI)AfAm 83 (>60 ml/min/1.73 sqM) 02/09/18 07:26 Est GFR (CKD-EPI)NonAf 72 (>60 ml/min/1.73 sqM) 02/09/18 07:26 Glucose 110 mg/dL (74-99) H 02/09/18 07:26 Calcium 8.6 mg/dL (8.4-10.2) 02/09/18 07:26 Total Bilirubin 1.0 mg/dL (0.2-1.3) 02/08/18 07:45 AST 21 U/L (14-36) 02/08/18 07:45 ALT 17 U/L (9-52) 02/08/18 07:45 Alkaline Phosphatase 75 U/L (38-126) 02/08/18 07:45 Total Protein 5.8 g/dL (6.3-8.2) L 02/08/18 07:45 Albumin 3.2 g/dL (3.5-5.0) L 02/08/18 07:45 Urine Color Yellow 02/07/18 19:40 Urine Appearance Turbid (Clear) H 02/07/18 19:40 Urine pH 6.5 (5.0-8.0) 02/07/18 19:40 Ur Specific Baskin 1.018 (1.001-1.035) 02/07/18 19:40 Urine Protein 1+ (Negative) H 02/07/18 19:40 Urine Glucose (UA) Negative (Negative) 02/07/18 19:40 Urine Ketones 1+ (Negative) H 02/07/18 19:40 Urine Blood Moderate (Negative) H 02/07/18 19:40 Urine Nitrite Negative (Negative) 02/07/18 19:40 Urine Bilirubin Negative (Negative) 02/07/18 19:40 Urine Urobilinogen <2.0 mg/dL (<2.0) 02/07/18 19:40 Ur Leukocyte Esterase Large (Negative) H 02/07/18 19:40 Urine RBC 124 /hpf (0-5) H 02/07/18 19:40 Urine WBC >182 /hpf (0-5) H 02/07/18 19:40 Urine Bacteria Rare /hpf (None) H 02/07/18 19:40 Urine Mucus Occasional /hpf (None) H 02/07/18 19:40 Urine Yeast (Budding) Many /hpf (None) H 02/07/18 19:40 Blood Type O Positive 02/07/18 12:22 Blood Type Recheck No 02/07/18 12:22 Antibody Screen NEGATIVE 02/07/18 12:22 Spec Expiration Date 02/10/2018232102/07/18 12:22 Microbiology 02/07/18 19:40 Urine,Voided Urine Culture - Final Enterobacter cloacae Assessment and Plan (1) Femoral neck fracture Current Visit: Yes Status: Acute Code(s): S72.009A - FRACTURE OF UNSP PART OF NECK OF UNSP FEMUR, INIT SNOMED Code(s): 5656565 (2) Fall Current Visit: Yes Status: Acute Code(s): W19.XXXA - UNSPECIFIED FALL, INITIAL ENCOUNTER SNOMED Code(s): 5313312 (3) Infection caused by Enterobacter cloacae Narrative/Plan: 77-year-old female who has a history of progressive dementia who was admitted dementia training class when she suffered a fall utilizing her walker. Resulted in the left hip fracture that is now repaired through a left hemiarthroplasty. She will be discharge and heading to the extended care facility to receive her rehab. The patient has evidence of Enterobacter urinary tract infection. It is resistant to many agents but susceptible to the fluoroquinolones. However is noted she is on Florinef for her hypotension. With this she cannot have further quinolone therapy. Fortunately the Enterobacter susceptible to ceftriaxone and hopefully can have a midline catheter placed for a two-week course of intravenous antibiotic therapy with Rocephin. There is evidence also of the yeast in the urine which is likely aj and constantly fluconazole was added 100 mg orally per day. This also be given for the 2 week timeframe. The family's questions are answered and she' ll follow off the end of her antibiotic therapy. Current Visit: Yes Status: Acute Code(s): A49.8 - OTHER BACTERIAL INFECTIONS OF UNSPECIFIED SITE SNOMED Code(s): 160390110
[2018-02-11] MEDS: FLUCONAZOLE 100 MG TAB PO SCH (08:30)
[2018-02-11] MEDS: FLUDROCORTISONE 0.1 MG TAB PO SCH ×2 (08:30→17:51)
[2018-02-11] MEDS: PANTOPRAZOLE 40 MG TABLET PO SCH (08:30)
[2018-02-11] MEDS: RIVAROXABAN 10 MG TAB PO SCH (08:31)
[2018-02-11] MEDS: ACETAMINOPHEN TAB 325 MG TAB PO PRN (08:31)
[2018-02-11] MEDS: CARBIDOPA-LEVODOPA ER 50-200MG 1 EACH TABLET.ER PO SCH ×2 (08:31→12:38)
[2018-02-11] MEDS: CARBIDOPA-LEVODOPA 25-100 MG 1 EACH TAB PO SCH (08:31)
[2018-02-11] MEDS: LEVOTHYROXINE 88 MCG TAB PO SCH (08:31)
[2018-02-11] MEDS: FERROUS SULFATE 325 MG TAB PO SCH (08:32)
--- NOTE | 2018-02-11 10:16 | P.PN ---
Subjective Progress Note Date: 02/11/18 Principal diagnosis: Status post left hip hemiarthroplasty This is a 77 year-old female post left hip hemiarthroplasty. This is post-op day 4. The patient was evaluated at the bedside today with her present. The patient denies nausea, vomiting, abdominal pain, shortness of breath, and chest pain this morning. She states her pain is controlled at this time. The patient has not been out of bed much since surgery. She has been evaluated by Dr. Bates for low-grade fevers and increased white count. She was found to have a resistant bacteria in her urine and Dr. Bates is recommending a PICC line to be placed in her to begin Rocephin for 2 weeks. We are awaiting rehab placement to [facility] when cleared medically. Objective - Vital Signs Vital signs: Vital Signs Temp 99.6 F 02/10/18 20:06 Pulse 72 02/10/18 20:06 Resp 17 02/11/18 01:09 BP 140/76 02/10/18 20:06 Pulse Ox 97 02/10/18 20:06 Intake & Output 02/10/18 02/11/18 02/11/18 18:59 06:59 18:59 Intake Total 1337 2230 200 Output Total 1200 Balance 1337 1030 200 Intake: Intake, IV Titration 800 900 Amount Sodium Chloride 0.9% 1, 800 900 000 ml @ 100 mls/hr IV . Q10H [facility] Rx#:[id number] Oral 537 1330 200 Output: Urine 1200 Other: Voiding Method Indwelling Catheter Indwelling Catheter # Voids 1 - Exam The patient does not appear in acute distress. Alert and orientated x3. Dressing is clean dry and intact. No erythema or active drainage. Calf is soft and nontender. Good foot and ankle motion without difficulty. Sensation and circulatory status is intact. - Labs CBC & Chem 7: 02/09/18 07:26 02/09/18 07:26 Labs: Microbiology - Last 24 Hours (Table) 02/07/18 19:40 Urine Culture - Final Urine,Voided Enterobacter cloacae Assessment and Plan (1) Fall Current Visit: Yes Status: Acute Code(s): W19.XXXA - UNSPECIFIED FALL, INITIAL ENCOUNTER SNOMED Code(s): 0947361 (2) Femoral neck fracture Current Visit: Yes Status: Acute Code(s): S72.009A - FRACTURE OF UNSP PART OF NECK OF UNSP FEMUR, INIT SNOMED Code(s): 5827378 (3) Status post hip hemiarthroplasty Current Visit: Yes Status: Acute Code(s): Z96.649 - PRESENCE OF UNSPECIFIED ARTIFICIAL HIP JOINT SNOMED Code(s): 060482708 (4) Infection caused by Enterobacter cloacae Current Visit: Yes Status: Acute Code(s): A49.8 - OTHER BACTERIAL INFECTIONS OF UNSPECIFIED SITE SNOMED Code(s): 315319956 Plan: 1. Continue pain control 2. Anticoagulation with Xarelto 3. Continue physical therapy. 4. Anticipate discharge to [facility] when cleared medically
[2018-02-11] MEDS: cefTRIAXone 2,000 MG in SODIUM CHLORIDE 0.9% 100 ML IVPB SCH (12:33)
[2018-02-11] MEDS: DROXIDOPA 200 MG PO SCH ×3 (12:34→20:16)
[2018-02-11] MEDS: traMADol 50 MG TAB PO PRN (12:38)
[2018-02-11] MEDS: FLUOROMETHOLONE 0.1% OPHTH DROPS 5 ML BTL BOTH EYES SCH ×3 (12:40→21:53)
--- NOTE | 2018-02-11 15:28 | P.PN ---
Subjective Progress Note Date: 02/11/18 Principal diagnosis: Left femur fracture Fever has subsided patient was seen by infectious disease yesterday at the bedside all his concerns and questions addressed. Patient seems to be improved since yesterday where she is more alert and awake and following commands complaining of not being able to sleep during the. Patient with decreased oral intake reporting some pain on the left hip area. Patient is poor historian Objective - Vital Signs Vital signs: Vital Signs Temp 98.3 F 02/11/18 14:45 Pulse 74 02/11/18 14:45 Resp 16 02/11/18 14:45 BP 152/73 02/11/18 14:45 Pulse Ox 97 02/11/18 14:45 Intake & Output 02/10/18 02/11/18 02/11/18 18:59 06:59 18:59 Intake Total 1337 2230 300 Output Total 1200 Balance 1337 1030 300 Intake: Intake, IV Titration 800 900 Amount Sodium Chloride 0.9% 1, 800 900 000 ml @ 100 mls/hr IV . Q10H [facility] Rx#:[id number] Oral 537 1330 300 Output: Urine 1200 Other: Voiding Method Indwelling Catheter Indwelling Catheter # Voids 1 - Exam Gen.: in stated age, no acute distress Heart: Normal S1-S2 Lungs: Clear to auscultation bilaterally Abdomen: Soft, no tenderness, positive bowel sounds in all 4 quadrant no guarding or rebound Skin: No new rash Psych: Alert and oriented 3 Neuro: No focal deficit Left hip area Posta for dressing in place no drainage noted mild tenderness to palpation on physical exam - Labs CBC & Chem 7: 02/09/18 07:26 02/09/18 07:26 Assessment and Plan Assessment: 1. Low-grade fever. 2. Severe leukocytosis. 3. Acute blood loss anemia. 4. Chronic thrombocytopenia. 5. Recent hypokalemia. 6. Left femur neck fracture status post left hemiarthroplasty. 7. Orthostatic hypotension. 8. Parkinson disease. 9. Dementia. 10. Hypothyroidism. 11. Urinary tract infection on Rocephin. Urine culture was showing enterococcus patient on appropriate antibiotics regimen seems to be responding well to current treatment we will have physical and occupational therapy evaluated the patient and consider discharging tomorrow morning to a half-way facility plan discussed with patient and her in the presence of nursing staff
[2018-02-11] MEDS: DONEPEZIL 5 MG TAB PO SCH (17:50)
[2018-02-11] MEDS: SODIUM CHLORIDE 0.9% 1,000 ML IV SCH ×3 (17:55→21:54)
[2018-02-11] MEDS: SENNOSIDES-DOCUSATE SODIUM 1 EACH TAB PO SCH (21:53)
[2018-02-12 08:26] VITALS: BP 158/79; PULSE 79; RESP 17; TEMP 97.3
[2018-02-12] MEDS: ACETAMINOPHEN TAB 325 MG TAB PO PRN ×2 (09:20→15:57)
[2018-02-12] MEDS: FLUDROCORTISONE 0.1 MG TAB PO SCH (09:21)
[2018-02-12] MEDS: LEVOTHYROXINE 88 MCG TAB PO SCH (09:21)
[2018-02-12] MEDS: CARBIDOPA-LEVODOPA 25-100 MG 1 EACH TAB PO SCH (09:22)
[2018-02-12] MEDS: PANTOPRAZOLE 40 MG TABLET PO SCH (09:22)
[2018-02-12] MEDS: CARBIDOPA-LEVODOPA ER 50-200MG 1 EACH TABLET.ER PO SCH ×2 (09:22→15:57)
[2018-02-12] MEDS: RIVAROXABAN 10 MG TAB PO SCH (09:23)
[2018-02-12] MEDS: FLUCONAZOLE 100 MG TAB PO SCH (09:23)
[2018-02-12] MEDS: FERROUS SULFATE 325 MG TAB PO SCH (09:23)
[2018-02-12] MEDS: cefTRIAXone 2,000 MG in SODIUM CHLORIDE 0.9% 100 ML IVPB SCH (09:25)
[2018-02-12] MEDS: FLUOROMETHOLONE 0.1% OPHTH DROPS 5 ML BTL BOTH EYES SCH (09:25)
--- NOTE | 2018-02-12 09:26 | P.DS ---
Providers Date of admission: 02/06/18 23:14 Expected date of discharge: 02/12/18 Attending physician: Len Alejandra Consults: 02/06/18 18:40 Consult Physician Stat Consulting Provider: Lisa Quezada Consult Reason/Comments: medical management Do you want consulting provider notified?: Yes 02/10/18 10:34 Consult Physician Urgent Consulting Provider: Paulo Wu Consult Reason/Comments: infection Do you want consulting provider notified?: Yes Primary care physician: Jose Petersen - Malia Diagnosis(es) (1) Fall Current Visit: Yes Status: Acute (2) Left hip pain Current Visit: Yes Status: Acute (3) Femoral neck fracture Current Visit: Yes Status: Acute Hospital Course: This is a 77-year-old female who sustained a fracture of the left femoral neck after a fall. The patient presented for evaluation in the emergency room and was admitted for further evaluation. After discussion and consideration patient elected to proceed with left hip hemiarthroplasty. The patient is seen preoperatively by Dr. Alejandra and medically cleared for surgery by internal medicine. Patient is admitted to [facility] on 02/06/2018 and left hip hemiarthroplasty is performed on 02/07/2018. The procedures performed without complication or sequelae. The patient is doing well postoperatively. Labs and vital signs are stable on day of discharge. Patient was evaluated by infectious disease for urinary tract infection resistant to multiple bacteria. Patient did have a PICC line placed for treatment with IV antibiotics determined by infectious disease. On day of discharge patient's hip incision is healing well. There is minimal erythema. There is no drainage noted at this time. There is minimal soft tissue swelling to the hip and thigh. Patient has full foot and ankle motion without difficulty or pain. Neurovascular status to the left lower extremity is intact. Patient is discharged to rehab in good condition. Please see med rec for accurate list of home medications. Patient Condition at Discharge: Good Plan - Discharge Summary New Discharge Prescriptions: New Acetaminophen Tab [Tylenol Tab] 1 - 2 tab PO Q8H PRN #90 tablet PRN Reason: Pain Rivaroxaban [Xarelto] 10 mg PO DAILY #30 tab Sennosides [Senokot] 1 tab PO BID #60 tablet traMADol HCl [Ultram] 50 mg PO Q6H PRN #28 tab PRN Reason: Pain Cefuroxime [Ceftin] 250 mg PO BID #20 tablet Magnesium Hydroxide [Milk of Magnesia Concentrate] 2,400 mg PO DAILY PRN ml PRN Reason: Constipation Pantoprazole [Protonix] 40 mg PO AC-BRKFST tablet.dr Continue Levothyroxine Sodium [Synthroid] 88 mcg PO DAILY@0700 Carbidopa-Levodopa 25-100 mg [Sinemet 25-100 mg] 0.5 tab PO DAILY@0700 Fludrocortisone [Florinef] 0.2 mg PO DAILY@0900 Potassium Chloride [Klor-Con 20] 20 meq PO Q48H Ferrous Sulfate [Iron (65 MG Elemental)] 325 mg PO DAILY@1300 Fludrocortisone [Florinef] 0.1 mg PO HS@1700 Carbidopa/Levodopa [Sinemet CR 50-200 mg] 1 tab PO BID@0700,1300 Ergocalciferol (Vitamin D2) [Vitamin D2] 50,000 unit PO SA Droxidopa [Northera] 200 mg PO TID@0700,1300,1700 Fluorometholone 0.1% Ophth Cindy [Fml] 1 drops BOTH EYES TID Donepezil HCl [Aricept] 5 mg PO HS@1700 Carbidopa-Levodopa 25-100 mg [Sinemet 25-100 mg] 1 tab PO HS PRN PRN Reason: PARKINSONS Discontinued Oxybutynin Chloride [Ditropan] 5 mg PO BID@0700,1700 Discharge Medication List Carbidopa-Levodopa 25-100 mg [Sinemet 25-100 mg] 0.5 tab PO DAILY@0700 08/20/15 [History] Levothyroxine Sodium [Synthroid] 88 mcg PO DAILY@0700 08/20/15 [History] Fludrocortisone [Florinef] 0.2 mg PO DAILY@0900 03/08/17 [History] Carbidopa/Levodopa [Sinemet CR 50-200 mg] 1 tab PO BID@0700,1300 09/06/17 [ History] Ergocalciferol (Vitamin D2) [Vitamin D2] 50,000 unit PO SA 09/06/17 [History] Ferrous Sulfate [Iron (65 MG Elemental)] 325 mg PO DAILY@1300 09/06/17 [History] Fludrocortisone [Florinef] 0.1 mg PO HS@1700 09/06/17 [History] Potassium Chloride [Klor-Con 20] 20 meq PO Q48H 09/06/17 [History] Carbidopa-Levodopa 25-100 mg [Sinemet 25-100 mg] 1 tab PO HS PRN 02/06/18 [ History] Donepezil HCl [Aricept] 5 mg PO HS@1700 02/06/18 [History] Droxidopa [Northera] 200 mg PO TID@0700,1300,1700 02/06/18 [History] Fluorometholone 0.1% Ophth Cindy [Fml] 1 drops BOTH EYES TID 02/06/18 [History] Acetaminophen Tab [Tylenol Tab] 1 - 2 tab PO Q8H PRN #90 tablet 02/09/18 [Rx] Cefuroxime [Ceftin] 250 mg PO BID #20 tablet 02/09/18 [Rx] Magnesium Hydroxide [Milk of Magnesia Concentrate] 2,400 mg PO DAILY PRN ml [Rx] Pantoprazole [Protonix] 40 mg PO AC-BRKFST tablet. 02/09/18 [Rx] Rivaroxaban [Xarelto] 10 mg PO DAILY #30 tab 02/09/18 [Rx] Sennosides [Senokot] 1 tab PO BID #60 tablet 02/09/18 [Rx] traMADol HCl [Ultram] 50 mg PO Q6H PRN #28 tab 02/09/18 [Rx] Follow up Appointment(s)/Referral(s): To [facility] [NON-STAFF] - As Needed Jose Petersen DO [Primary Care Provider] - 1-2 days Len Alejandra DO [Doctor of Osteopathic Medicine] - 02/26/18 2:45 pm Patient Instructions/Handouts: Total Hip Replacement (DC) Activity/Diet/Wound Care/Special Instructions: Weightbearing as tolerated with walker. Continue use of abductor pillow for 6 weeks postoperatively. Leave dressing intact. Dressing may be removed by nurse on 01/17/2018. May shower with dressing on. Follow-up with [facility] in 2 weeks, please call with any questions or concerns [phone]. Discharge Disposition: TRANSFER TO SNF/ECF
[2018-02-12] MEDS: DROXIDOPA 200 MG PO SCH ×2 (12:11→15:55)
--- NOTE | 2018-02-12 12:25 | P.PN ---
<Shawanda Virk A - Last Filed: 02/12/18 12:19> Subjective Progress Note Date: 02/12/18 This is a 77 years old very pleasant female patient of Dr. Petersen , Patient has past medical history of reflux, Parkinson disease, osteoarthritis , syncope, hypothyroidism, patient presented to the Emergency department at [facility] a [facility] [place] [facility] [place] she was [place] to walk with using her walker, and unfortunately she lost her balance and landed on her left side , she suffered from pain and she could partially bear weight and had extensive evaluation in the ER with CT scan of the head and neck were negative for fractures however left hip X-ray showed left femur neck fracture and she was admitted to the hospital under ortho and medicine on consult. 02/08: Patient underwent successful left hip hemiarthroplasty yesterday afternoon. Patient has had no postop complications. Vital signs are stable, patient has been afebrile. He is on Xarelto for DVT prophylaxis. His dressing is to be on for 10 days and plan is for discharge to rehab anticipated for tomorrow. Patient is to be weightbearing as tolerated. Physical therapy will start working with the patient today when she is more alert. Urinalysis came back turbid, leukoesterase large, wbc's greater than 182, bacteria rare. Patient will be started on ceftriaxone for UTI. Patient is lethargic this morning most likely secondary to medications from surgery. Sal catheter remains in place 02/09: Patient has been cleared for discharge by orthopedics but we would like to keep the patient here until tomorrow as she is still somewhat lethargic from yesterday and has not 8 and only a few bites. Her vital signs are stable, pulse ox 96% on room air. White count has been elevated. She has been on ceftriaxone for UTI. Urine culture report is pending. Her pain seems to be controlled at this time. We have asked for Sal catheter to be removed in the morning. Patient will then be scheduled for discharge to [facility] tomorrow. We have done medication reconciliation and included Ceftin although this may need to be adjusted as urine culture has not been finalized. 02/12: Patient was seen by Dr. Bates over the weekend with recommendations for Rocephin for 2 weeks and also fluconazole. Urine culture was positive for Enterobacter correlation multidrug resistant. Patient is scheduled for mid line placement today. Anticipate discharge to [facility] later today. She is more alert but confused. Sal was removed yesterday and has been able to void. Medication reconciliation completed. Patient is cleared for discharge to [facility] by medicine. Patient will be followed by Dr. Quezada. Review of systems: unable to obtain due to confusion. Objective - Vital Signs Vital signs: Vital Signs Temp 97.3 F L 02/12/18 07:30 Pulse 79 02/12/18 07:30 Resp 17 02/12/18 07:30 BP 158/79 02/12/18 07:30 Pulse Ox 97 02/12/18 07:30 Intake & Output 02/11/18 02/12/18 02/12/18 18:59 06:59 18:59 Intake Total 1370 920 400 Output Total 1450 Balance -80 920 400 Intake: Intake, IV Titration 950 620 Amount Sodium Chloride 0.9% 1, 850 620 000 ml @ 100 mls/hr IV . Q10H [facility] Rx#:[id number] cefTRIAXone 1,000 mg In 100 Sodium Chloride 0.9% 50 ml @ 100 mls/hr IVPB Q24HR [facility] Rx#:[id number] Oral 420 300 400 Output: Urine 1450 Uretheral (Sal) 700 Other: Voiding Method Bedpan Bedpan Diaper Diaper Incontinent Incontinent # Voids 1 2 # Bowel Movements 1 - Exam General appearance: no acute distress, patient sitting up in a recliner at the bedside. Patient is more alert today. - EENT Eyes: anicteric sclerae, EOMI, PERRLA, no ptosis, no scleral icterus, normal appearance ENT: NA/AT, normal oropharynx, no thrush Ears: bilateral: normal - Neck Neck: no lymphadenopathy, normal ROM, no rigidity, no stridor, no thyromegaly Carotids: bilateral: upstroke normal Thyroid: bilateral: normal size - Respiratory Respiratory: bilateral: diminished, negative: dullness, rales, rhonchi, wheezing , prolonged expiration - Cardiovascular Rhythm: regular Heart sounds: normal: S1, S2 Abnormal Heart Sounds: systolic murmur, no S3 Gallop - Gastrointestinal General gastrointestinal: normal bowel sounds, soft, no splenomegaly, no tenderness, no umbilical hernia, no ventral hernia - Integumentary Integumentary: normal, normal turgor - Neurologic Neurologic: CNII-XII intact - Musculoskeletal Musculoskeletal: generalized weakness - Labs CBC & Chem 7: 02/09/18 07:26 02/09/18 07:26 Assessment and Plan Plan: 1. S/P Fall with left femur neck fracture status post left hemiarthroplasty, PT/ OT, weightbearing as tolerated. Xarelto is on for DVT prophylaxis. Incentive spirometry to reduce incidence of atelectasis and hospital-acquired pneumonia. 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 we will continue to monitor. 3. 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 we will continue with Florinef 0.1 mg orally at bedtime and 0.2 mg orally daily and please avoid anticholinergic medications. we will discontinue Oxybutynin. Sal discontinued. 4. Hypothyrodism. we will continue with synthroid 88 mcg orally daily. 5. Vascular dementia. we will continue with Aricept 5 mg orally at bedtime. 6. Osteoarthritis. will continue with tylenol. 7. Parkinson disease. we will continue with current carbidopa-Levodopa. 8. DVT prophylaxis. hold off heparin till repeating cbc. 9. GI prophylaxis. will start Protonix 40 mg orally daily. 10. Metabolic encephalopathy from anesthesia and pain medications. 11. MDR Enterobacter urinary tract infection, present on admission. Patient is on Rocephin. Dr. Bates has recommended Rocephin and fluconazole for 2 weeks. Discharge plan: [facility] under the care of Dr. Quezada. Impression and plan of care have been directed as dictated by the signing physician. Shawanda Virk nurse practitioner acting as scribe for signing physician. <Ilana Yun - Last Filed: 02/12/18 15:53> Subjective Add to final diagnosis 1 osteoporosis with current fracture 2. Recurrent falls 3. Debility with impaired gait and balance present prior to admission Objective - Vital Signs Vital signs: Vital Signs Temp 97.3 F L 02/12/18 07:30 Pulse 79 02/12/18 07:30 Resp 17 02/12/18 07:30 BP 158/79 02/12/18 07:30 Pulse Ox 97 02/12/18 07:30 Intake & Output 02/11/18 02/12/18 02/12/18 18:59 06:59 18:59 Intake Total 1370 920 400 Output Total 1450 Balance -80 920 400 Intake: Intake, IV Titration 950 620 Amount Sodium Chloride 0.9% 1, 850 620 000 ml @ 100 mls/hr IV . Q10H [facility] Rx#:[id number] cefTRIAXone 1,000 mg In 100 Sodium Chloride 0.9% 50 ml @ 100 mls/hr IVPB Q24HR [facility] Rx#:[id number] Oral 420 300 400 Output: Urine 1450 Uretheral (Sal) 700 Other: Voiding Method Bedpan Bedpan Diaper Diaper Incontinent Incontinent # Voids 1 2 # Bowel Movements 1 - Labs CBC & Chem 7: 02/09/18 07:26 02/09/18 07:26
--- NOTE | 2018-02-12 19:50 | P.PN ---
Subjective Progress Note Date: 02/12/18 77-year-old woman who has progressive decline of her status with dementia was receiving some dementia training at the [facility]. Usually that she had up to walk and was utilizing her walker and suddenly fell resulting in the subcapital left hip fracture. She consequently has been taken to the operative room and the left hemiarthroplasty has been performed. It is related that she is known to Dr. Curiel because of her frequent and recurrent urinary tract infections. She hasn't treated with courses of antibiotic therapy. She was placed on a somewhat protracted course of antibiotics with ciprofloxacin. However she has evidence of significant refractory hypotension has been placed on several agents. Recently she's been in an experimental trial was having some improvement however due to her illnesses is no longer in the trial. Florinef is being utilized. It isn't there is a significant drug drug interaction with the fluoroquinolones and Florinef. Because we has been stopped. She had she was treated with a course of intravenous antibiotic therapy but again has recurrence of her urinary tract infection with discomfort and urinary frequency and some left flank pain. He does not know that she is having any fevers or chills but apparently the was present relates that she often does not have significant symptoms except for some altered mental status and discomfort. 02/12/2018 patient has improved and is ready for transfer to the rehab facility. The 's questions were answered. Objective - Vital Signs Vital signs: Vital Signs Temp 97.3 F L 02/12/18 07:30 Pulse 79 02/12/18 07:30 Resp 17 02/12/18 07:30 BP 158/79 02/12/18 07:30 Pulse Ox 97 02/12/18 07:30 Intake & Output 02/12/18 02/12/18 02/13/18 06:59 18:59 06:59 Intake Total 920 400 Balance 920 400 Intake: Intake, IV Titration 620 Amount Sodium Chloride 0.9% 1, 620 000 ml @ 100 mls/hr IV . Q10H [facility] Rx#:[id number] Oral 300 400 Other: Voiding Method Bedpan Bedpan Diaper Diaper Incontinent Incontinent # Voids 2 - Exam Pleasant 77-year-old woman who is comfortable at this time despite her hip surgery. Is quite a poor historian HEENT: Anicteric conjunctiva are pink and moist nasal mucosa grossly intact without significant lesions, there is no thrush. Poor dentition Neck: The neck is supple without significant lymphadenopathy or thyromegaly. Lungs: Good bilateral air entry without significant crackles or wheezing. There is no significant bronchial sounds. There is no egophony or dullness. Heart: Regular rate and rhythm with an audible S1-S2, no S3 no S4. There is no significant murmur click or rub, PMI was nondisplaced. Abdomen: Positive bowel sounds soft and nontender without palpable masses or organomegaly. There was no guarding or rebound. Extremities: The upper extremities have excellent pulses they are symmetric, no significant petechiae or telangiectasia. No splinter hemorrhages were noted. The lower extremity reveals evidence of the surgical wound to the left hip is without significant drainage at this time. Peripheral pulses are palpable and there is evidence of bilateral lower extremity edema. The skin is otherwise without rash or breakdown Neuro: Awake alert oriented to person is able answer simple questions is anxious about her transfer. - Labs CBC & Chem 7: 02/09/18 07:26 02/09/18 07:26 Labs: Laboratory Results WBC 22.0 k/uL (3.8-10.6) H 02/09/18 07:26 RBC 3.16 m/uL (3.80-5.40) L 02/09/18 07:26 Hgb 9.7 gm/dL (11.4-16.0) L D 02/09/18 07:26 Hct 28.2 % (34.0-46.0) L 02/09/18 07:26 MCV 89.3 fL (80.0-100.0) 02/09/18 07:26 MCH 30.6 pg (25.0-35.0) 02/09/18 07:26 MCHC 34.2 g/dL (31.0-37.0) 02/09/18 07:26 RDW 15.1 % (11.5-15.5) 02/09/18 07:26 Plt Count 61 k/uL (150-450) L 02/09/18 07:26 Neutrophils % (Manual) 78 % 02/08/18 07:45 Band Neutrophils % 2 % 02/08/18 07:45 Lymphocytes % (Manual) 3 % 02/08/18 07:45 Monocytes % (Manual) 18 % 02/08/18 07:45 Basophils % (Manual) 2 % 02/06/18 17:57 Neutrophils # (Manual) 17.30 k/uL (1.3-7.7) H 02/08/18 07:45 Lymphocytes # (Manual) 0.65 k/uL (1.0-4.8) L 02/08/18 07:45 Monocytes # (Manual) 3.91 k/uL (0-1.0) H 02/08/18 07:45 Basophils # (Manual) 0.23 k/uL (0-0.2) H 02/06/18 17:57 Nucleated RBCs 0 /100 WBC (0-0) 02/08/18 07:45 Manual Slide Review Performed 02/06/18 17:57 Poikilocytosis (manual Present 02/08/18 07:45 PT 10.1 sec (9.0-12.0) 02/06/18 19:27 INR 1.0 (<1.2) 02/06/18 19:27 Sodium 139 mmol/L (137-145) 02/09/18 07:26 Potassium 3.9 mmol/L (3.5-5.1) 02/09/18 07:26 Chloride 110 mmol/L (98-107) H 02/09/18 07:26 Carbon Dioxide 22 mmol/L (22-30) 02/09/18 07:26 Anion Gap 7 mmol/L 02/09/18 07:26 BUN 23 mg/dL (7-17) H 02/09/18 07:26 Creatinine 0.79 mg/dL (0.52-1.04) 02/09/18 07:26 Est GFR (CKD-EPI)AfAm 83 (>60 ml/min/1.73 sqM) 02/09/18 07:26 Est GFR (CKD-EPI)NonAf 72 (>60 ml/min/1.73 sqM) 02/09/18 07:26 Glucose 110 mg/dL (74-99) H 02/09/18 07:26 Calcium 8.6 mg/dL (8.4-10.2) 02/09/18 07:26 Total Bilirubin 1.0 mg/dL (0.2-1.3) 02/08/18 07:45 AST 21 U/L (14-36) 02/08/18 07:45 ALT 17 U/L (9-52) 02/08/18 07:45 Alkaline Phosphatase 75 U/L (38-126) 02/08/18 07:45 Total Protein 5.8 g/dL (6.3-8.2) L 02/08/18 07:45 Albumin 3.2 g/dL (3.5-5.0) L 02/08/18 07:45 Urine Color Yellow 02/07/18 19:40 Urine Appearance Turbid (Clear) H 02/07/18 19:40 Urine pH 6.5 (5.0-8.0) 02/07/18 19:40 Ur Specific [place] 1.018 (1.001-1.035) 02/07/18 19:40 Urine Protein 1+ (Negative) H 02/07/18 19:40 Urine Glucose (UA) Negative (Negative) 02/07/18 19:40 Urine Ketones 1+ (Negative) H 02/07/18 19:40 Urine Blood Moderate (Negative) H 02/07/18 19:40 Urine Nitrite Negative (Negative) 02/07/18 19:40 Urine Bilirubin Negative (Negative) 02/07/18 19:40 Urine Urobilinogen <2.0 mg/dL (<2.0) 02/07/18 19:40 Ur Leukocyte Esterase Large (Negative) H 02/07/18 19:40 Urine RBC 124 /hpf (0-5) H 02/07/18 19:40 Urine WBC >182 /hpf (0-5) H 02/07/18 19:40 Urine Bacteria Rare /hpf (None) H 02/07/18 19:40 Urine Mucus Occasional /hpf (None) H 02/07/18 19:40 Urine Yeast (Budding) Many /hpf (None) H 02/07/18 19:40 Blood Type O Positive 02/07/18 12:22 Blood Type Recheck No 02/07/18 12:22 Antibody Screen NEGATIVE 02/07/18 12:22 Spec Expiration Date 02/10/2018232102/07/18 12:22 Microbiology 02/07/18 19:40 Urine,Voided Urine Culture - Final Enterobacter cloacae Assessment and Plan (1) Femoral neck fracture Status: Acute Code(s): S72.009A - FRACTURE OF UNSP PART OF NECK OF UNSP FEMUR , INIT SNOMED Code(s): 9267837 (2) Fall Status: Acute Code(s): W19.XXXA - UNSPECIFIED FALL, INITIAL ENCOUNTER SNOMED Code(s): 0242395 (3) Infection caused by Enterobacter cloacae Narrative/Plan: 77-year-old female who has a history of progressive dementia who was admitted dementia training class when she suffered a fall utilizing her walker. Resulted in the left hip fracture that is now repaired through a left hemiarthroplasty. She will be discharge and heading to the extended care facility to receive her rehab. The patient has evidence of Enterobacter urinary tract infection. It is resistant to many agents but susceptible to the fluoroquinolones. However is noted she is on Florinef for her hypotension. With this she cannot have further quinolone therapy. Fortunately the Enterobacter susceptible to ceftriaxone and hopefully can have a midline catheter placed for a two-week course of intravenous antibiotic therapy with Rocephin. There is evidence also of the yeast in the urine which is likely aj and constantly fluconazole was added 100 mg orally per day. This also be given for the 2 week timeframe. The family's questions are answered and she' ll follow up the end of her antibiotic therapy. 02/12/2018 patient is ready for transfer to rehab facility. IV access is in place and she received 2 weeks of ceftriaxone. Will also fluconazole for the same timeframe. At the completion of her anti-microbial therapy will then need urinary acidification to lower her urine pH which may help prevent further infections. Status: Acute Code(s): A49.8 - OTHER BACTERIAL INFECTIONS OF UNSPECIFIED SITE SNOMED Code(s): 632778376
== END 2018-02-12 16:20 | DRG 469 ==
LOC: EC 13:44 → 4SSUR 23:14
PROVIDERS: ADMIT Orthopaedic Surgery; ATTEND Orthopaedic Surgery
PROC: 0SRS01A Replacement of Left Hip Joint, Femoral Surface with Metal Synthetic Substitute, Uncemented, Open Approach (ICD-10-PCS; principal; 2018-02-07 17:00)
DX: S72.012A Unspecified intracapsular fracture of left femur, initial encounter for closed fracture (principal); G92 Toxic encephalopathy; D69.3 Immune thrombocytopenic purpura; N39.0 Urinary tract infection, site not specified; D62 Acute posthemorrhagic anemia; G20 Parkinson's disease; F01.50 Vascular dementia, unspecified severity, without behavioral disturbance, psychotic disturbance, mood disturbance, and anxiety; G90.9 Disorder of the autonomic nervous system, unspecified; B96.89 Other specified bacterial agents as the cause of diseases classified elsewhere; T41.205A Adverse effect of unspecified general anesthetics, initial encounter; E87.6 Hypokalemia; K21.9 Gastro-esophageal reflux disease without esophagitis; E89.0 Postprocedural hypothyroidism; I95.1 Orthostatic hypotension; G90.1 Familial dysautonomia [Riley-Day]; M19.042 Primary osteoarthritis, left hand; M19.041 Primary osteoarthritis, right hand; N32.81 Overactive bladder; M81.0 Age-related osteoporosis without current pathological fracture; G89.29 Other chronic pain; M54.9 Dorsalgia, unspecified; R29.6 Repeated falls; H26.9 Unspecified cataract; H91.90 Unspecified hearing loss, unspecified ear; Z16.24 Resistance to multiple antibiotics; Z79.890 Hormone replacement therapy; Z79.52 Long term (current) use of systemic steroids; Z79.899 Other long term (current) drug therapy; Z96.653 Presence of artificial knee joint, bilateral; Z87.440 Personal history of urinary (tract) infections; Z90.710 Acquired absence of both cervix and uterus; Z86.59 Personal history of other mental and behavioral disorders; Z98.51 Tubal ligation status; Z88.5 Allergy status to narcotic agent; Y92.129 Unspecified place in nursing home as the place of occurrence of the external cause; W01.198A Fall on same level from slipping, tripping and stumbling with subsequent striking against other object, initial encounter; Z80.8 Family history of malignant neoplasm of other organs or systems; Z83.3 Family history of diabetes mellitus; Z82.49 Family history of ischemic heart disease and other diseases of the circulatory system; Z84.1 Family history of disorders of kidney and ureter; Z83.6 Family history of other diseases of the respiratory system
CPT/HCPCS: 36415; 36569; 70450; 71046; 72125; 72170; 73501; 73521; 76937; 77001; 80048; 80053; 81001; 85025; 85027; 85610; 86850; 86900; 86901; 87077; 87086; 87186; 88305; 88311; 93005; 99285

== ENCOUNTER → 2018-04-03 | Outpatient (CLI) | payer MEDICARE, OTHER ==
[2018-04-03 13:34] LABS: Amorphous Sediment,Urine Rare /hpf; Appearance,Urine Cloudy (Clear); Bacteria,Urine Rare /hpf; Bilirubin,Urine Negative (Negative); Blood,Urine Negative (Negative); Color,Urine Yellow; Glucose,Urine (UA) Negative (Negative); Hyaline Casts,Urine 1 /lpf (0-2); Ketones,Urine Negative (Negative); Leukocyte Esterase,Urine Large (Negative); Mucus,Urine Rare /hpf; Nitrite,Urine Positive (Negative); Protein,Urine Negative (Negative); RBC,Urine 2 /hpf (0-5); Squamous Epithelial Cell,Urine <1 /hpf (0-4); Urobilinogen,Urine <2.0 mg/dL (<2.0); WBC,Urine 28 /hpf (0-5)
[2018-04-03 13:39] LABS: Anisocytosis Slight; HCT 29.8 % (34.0-46.0); HGB 9.8 gm/dL (11.4-16.0); MCH 29.2 pg (25.0-35.0); MCHC 32.8 g/dL (31.0-37.0); MCV 88.9 fL (80.0-100.0); Mean Platelet Volume 8.5; Platelet Count 152 k/uL (150-450); RBC 3.35 m/uL (3.80-5.40); RDW 17.1 % (11.5-15.5); WBC 14.3 k/uL (3.8-10.6)
[2018-04-03 14:33] LABS: Lymphocytes # (M) 1.72 k/uL (1.0-4.8); Neutrophils # (M) 10.58 k/uL (1.3-7.7); Neutrophils % (M) 74 %; Nucleated Red Blood Cells 0 /100 WBC (0-0); Total Cells Counted 100
[2018-04-03 21:44] LABS: Anion Gap 8.7 mmol/L (4.00-12.00); Calcium 8.4 mg/dL (8.7-10.3); Carbon Dioxide 25.3 mmol/L (21.6-31.8); Potassium 3.6 mmol/L (3.5-5.5)
== END | disposition home or self-care (01) ==
LOC: LABWHC1 12:17
PROVIDERS: ATTEND Psychiatry & Neurology Neurology
DX: N39.0 Urinary tract infection, site not specified (principal); I95.1 Orthostatic hypotension; G20 Parkinson's disease; R29.6 Repeated falls
CPT/HCPCS: 36415; 80048; 81001; 85025; 87077; 87086; 87186

== ENCOUNTER → 2018-05-03 | Outpatient (CLI) | payer MEDICARE, OTHER ==
[2018-05-03 15:17] LABS: Appearance,Urine Cloudy (Clear); Bilirubin,Urine Negative (Negative); Blood,Urine Small (Negative); Color,Urine Yellow; Glucose,Urine (UA) Negative (Negative); Ketones,Urine Negative (Negative); Leukocyte Esterase,Urine Large (Negative); Mucus,Urine Few /hpf; Nitrite,Urine Negative (Negative); PH, Urine 6.5 (5.0-8.0); Protein,Urine 1+ (Negative); Specific Gravity,Urine 1.015 (1.001-1.035); Urobilinogen,Urine <2.0 mg/dL (<2.0); WBC,Urine >182 /hpf (0-5)
[2018-05-03 19:18] LABS: Anion Gap 8.8 mmol/L (4.00-12.00); Carbon Dioxide 28.2 mmol/L (21.6-31.8); Potassium 3.5 mmol/L (3.5-5.5)
== END | disposition home or self-care (01) ==
LOC: LABWHC1 14:29
PROVIDERS: ATTEND Psychiatry & Neurology Neurology
DX: G31.84 Mild cognitive impairment of uncertain or unknown etiology (principal); R44.1 Visual hallucinations; N39.0 Urinary tract infection, site not specified
CPT/HCPCS: 36415; 80048; 81001; 87077; 87086; 87186

== ENCOUNTER → 2018-06-05 | Outpatient (CLI) | payer MEDICARE, OTHER ==
--- NOTE | 2018-06-06 08:06 | XR ---
EXAMINATION TYPE: XR elbow complete RT DATE OF EXAM: 06/05/2018 CLINICAL HISTORY: Pain after fall injury TECHNIQUE: Frontal, lateral and oblique images of the right elbow are obtained. COMPARISON: None FINDINGS: Exam noted suboptimal as there is poor positioning on AP and oblique projections. Both proj ections essentially look fairly identical. There is 5 mm well-corticated ossific fragment from the la teral epicondyle of distal humerus. There is mild to moderate ulnohumeral articulation spurring. Ther e is suspected overlying clothing material making evaluation suboptimal causing lucent artifact. Ther e are no abnormal fat pad signs or definitive lucent lines to suggest acute intra-articular fracture. IMPRESSION: As above. No convincing evidence of acute fracture. Suspect old avulsion fracture lateral epicondyles at site of flexor tendon origin, correlate clinically. Mild to moderate ulnohumeral dege nerative change noted.
== END ==
LOC: RADXRMAIN 16:12
PROVIDERS: ATTEND Family Medicine
DX: M25.521 Pain in right elbow (principal)

== ENCOUNTER → 2018-06-12 | Outpatient (CLI) | payer MEDICARE, OTHER ==
--- NOTE | 2018-06-12 13:29 | BD ---
EXAMINATION TYPE: Axial Bone Density DATE OF EXAM: 06/12/2018 COMPARISON: 2004 CLINICAL HISTORY: post menopausal without hormone replacement therapy Height: 5' Weight: 115 FRAX RISK QUESTIONS: History of Fracture in Adulthood: y Secondary Osteoporosis: RISK FACTORS HISTORY OF: Hip Fracture (Left): y When: 2018 Surgery to Hip(/left): partial hip When: 2018 Active: n Postmenopausal woman: Frequent falls: y Poor Health: y MEDICATIONS: Thyroid Medications: Which medication: Synthroid How Lon years Additional Medications: see list Additional History: EXAM MEASUREMENTS: Bone mineral densitometry was performed using the [facility]. Bone mineral density as measured about the Lumbar spine is: ----- L1-L4(G/cm2): 1.344 T Score Values are as follows: ----- L2: -0.1 ----- L3: 2.8 ----- L4: 3.8 ----- L1-L4:1.4 Bone mineral density has: Increased 16.7% since study of: 02/15/2005 Bone mineral density about the R hip (g/cm2): 0.747 T Score values are as follows: -----R Neck: -2.1 -----R Total: -2.2 Bone mineral density has: Decreased -23.8% since study of: 02/15/2005 IMPRESSION: Osteopenia (T Score between -2.5 and -1). There is slightly increased risk of fracture and the patient may be considered for treatment. Re-Screen 2-5 years. NOTE: T-SCORE=SD OF THE YOUNG ADULT MEAN.
== END | disposition home or self-care (01) ==
LOC: RADBDWWP 09:43
PROVIDERS: ATTEND Family Medicine
DX: M85.851 Other specified disorders of bone density and structure, right thigh (principal); Z78.0 Asymptomatic menopausal state
CPT/HCPCS: 77080

== ENCOUNTER → 2018-08-24 | Outpatient (CLI) | payer MEDICARE, OTHER ==
[2018-08-24 16:20] LABS: Anisocytosis Slight; HGB 11.4 gm/dL (11.4-16.0); MCH 29.6 pg (25.0-35.0); MCHC 34.4 g/dL (31.0-37.0); MCV 85.9 fL (80.0-100.0); Mean Platelet Volume 8.9; Platelet Count 117 k/uL (150-450); RBC 3.84 m/uL (3.80-5.40); RDW 16.1 % (11.5-15.5); WBC 17.8 k/uL (3.8-10.6)
[2018-08-24 16:36] LABS: Band Neutrophils % 3 %; Basophils # (M) 0.18 k/uL (0-0.2); Lymphocytes # (M) 1.42 k/uL (1.0-4.8); Monocytes # (M) 2.14 k/uL (0-1.0); Neutrophils % (M) 76 %; Nucleated Red Blood Cells 0 /100 WBC (0-0); Total Cells Counted 100
[2018-08-24 21:48] LABS: Erythrocyte Sedimentation Rate 20 mm/hr (0-20)
[2018-08-24 23:30] LABS: RNP 0.2 AI
[2018-08-24 23:35] LABS: C Reactive Protein 2.2 mg/dL (0.0-0.8)
== END | disposition home or self-care (01) ==
LOC: LABWHC1 15:17
PROVIDERS: ATTEND Ophthalmology
DX: H53.8 Other visual disturbances (principal)
CPT/HCPCS: 36415; 83519; 84439; 84443; 84481; 85025; 85652; 86038; 86140; 86235

== ENCOUNTER 2018-08-25 15:21 | Emergency (ER) | payer MEDICARE, OTHER ==
[2018-08-25] MEDS ORDERED: SODIUM CHLORIDE 0.9% 1,000 ML IV STA (16:03)
--- NOTE | 2018-08-25 16:13 | ED ---
General Adult HPI - General Chief complaint: Extremity Injury, Upper Stated complaint: fall/shoulder pain Time Seen by Provider: 08/25/18 15:53 Source: patient, family, RN notes reviewed, old records reviewed Mode of arrival: wheelchair Limitations: no limitations - History of Present Illness Initial comments: 78-year-old female patient presents to ED after sustaining a mechanical fall. Patient was that she was in the kitchen when she turned around quickly and bent over falling on her left shoulder. Patient was that she did hear a crunch and had some pain in her left shoulder region. Patient also reports that she has some pain in her left humerus region. Patient denies any trauma to head or neck. Patient has secondary complaint of pain in her fifth digit of her right hand. Patient reports that yesterday she suffered a similar fall, also did not have any head trauma or any other injuries. Patient was that she has had some pain in her right fifth digit last 2 days. Patient also complains of some mild waxing and waning abdominal pain which is been ongoing for approximately 2 months. Patient states that she has some fullness and some pain in her left lower quadrant as well as right lower quadrant region. Patient is a this is not significantly worse today, however she does wish to have this evaluated as well. Patient denies any chest pain or shortness of breath. Patient denies any headache or change in vision. Denies all other complaints. Pt denies any use of blood thinners. Systemic: Pt denies fatigue, myalgia, fever/chills, rash. Pt denies weakness, night sweats, weight loss. Neuro: Pt denies headache, visual disturbances, syncope or pre-syncope. HEENT: Pt denies ocular discharge or irritation, otalgia, rhinorrhea, pharyngitis or notable lymphadenopathy. Cardiopulmonary: Pt denies chest pain, SOB, heart palpitations, dyspnea on exertion. Abdominal/GI: Pt denies n/v/d. : Pt denies dysuria, burning w/ urination, frequency/urgency. Denies new onset urinary or bowel incontinence. MSK: Pt denies myalgia, loss of strength or function in extremities. Neuro: Pt denies new onset weakness, paresthesias. - Related Data Home Medications Medication Instructions Recorded Confirmed Carbidopa-Levodopa 25-100 mg 0.5 tab PO DAILY@0700 08/20/15 02/06/18 [Sinemet 25-100 mg] Levothyroxine Sodium [Synthroid] 88 mcg PO DAILY@0700 08/20/15 02/06/18 Fludrocortisone [Florinef] 0.2 mg PO DAILY@0900 03/08/17 02/06/18 Carbidopa/Levodopa [Sinemet CR 1 tab PO BID@0700,1300 09/06/17 02/06/18 50-200 mg] Ergocalciferol (Vitamin D2) 50,000 unit PO SA 09/06/17 02/06/18 [Vitamin D2] Ferrous Sulfate [Iron (65 MG 325 mg PO DAILY@1300 09/06/17 02/06/18 Elemental)] Fludrocortisone [Florinef] 0.1 mg PO HS@1700 09/06/17 02/06/18 Potassium Chloride [Klor-Con 20] 20 meq PO Q48H 09/06/17 02/06/18 Donepezil HCl [Aricept] 5 mg PO HS@1700 02/06/18 02/06/18 Droxidopa [Northera] 200 mg PO TID@0700,1300,1700 02/06/18 02/06/18 Fluorometholone 0.1% Ophth Cindy 1 drops BOTH EYES TID 02/06/18 02/06/18 [Fml] Previous Rx's Medication Instructions Recorded Acetaminophen Tab [Tylenol Tab] 1 - 2 tab PO Q8H PRN #90 tablet 02/09/18 Magnesium Hydroxide [Milk of 2,400 mg PO DAILY PRN ml 02/09/18 Magnesia Concentrate] Pantoprazole [Protonix] 40 mg PO AC-BRKFST tablet. 02/09/18 Rivaroxaban [Xarelto] 10 mg PO DAILY #30 tab 02/09/18 Sennosides [Senokot] 1 tab PO BID #60 tablet 02/09/18 traMADol HCl [Ultram] 50 mg PO Q6H PRN #28 tab 02/09/18 Fluconazole [Diflucan] 100 mg PO DAILY #14 tablet 02/12/18 cefTRIAXone [Rocephin] 2,000 mg IVPB Q24HR #14 vial 02/12/18 Allergies Allergy/AdvReac Type Severity Reaction Status Date / Time hydromorphone [From Dilaudid] AdvReac Intermediate poss low Verified 02/06/18 23:43 b/p,confusion post operatively Review of Systems ROS Statement: Those systems with pertinent positive or pertinent negative responses have been documented in the HPI. ROS Other: All systems not noted in ROS Statement are negative. Past Medical History Past Medical History: GERD/Reflux, Hearing Disorder / Deafness, Memory Impairment, Neurologic Disorder, Osteoarthritis (OA), Syncope, Thyroid Disorder Additional Past Medical History / Comment(s): Current UTI, [place], orthostatic hypotension, balance issues, dysautonomia, falls, past intracranial hemorrhage rt fall, overactive bladder, [place] bilaterally, arthritis in hands, back, chronic back pain, n/t bilateral hands, cataracts bilaterally, hypothyroidism, goiter post thyroidectomy. History of Any Multi-Drug Resistant Organisms: None Reported Past Surgical History: Bladder Surgery, Hernia Repair, Hysterectomy, Joint Replacement, Tubal Ligation Additional Past Surgical History / Comment(s): Deirdre inguinal hernias repair 2016,DEIRDRE TOTAL KNEES, UMBILICAL HERNIA, PARTIAL THYROIDECTOMY, cystocele/rectocele, hysterectomy 01/02/2017, colonoscopy, sinus polypectomy, L wrist ganglion cyst removal. Past Anesthesia/Blood Transfusion Reactions: Previous Problems w/ Anesthesia Additional Past Anesthesia/Blood Transfusion Reaction / Comment(s): STATES KNEE REPLACEMENT MAR 2010 SHE WAS "DELERIOUS ". KNEE REPLACEMENT FEB 2011 HER BLOOD PRESSURE DROPPED AND SHE WAS IN BED FOR 5 DAYS. Past Psychological History: Anxiety, Depression Smoking Status: Never smoker Past Alcohol Use History: None Reported Past Drug Use History: None Reported - Past Family History Sister(s) Family Medical History: Cancer Additional Family Medical History / Comment(s): skin cancer Mother Family Medical History: Diabetes Mellitus, Hypertension, Renal Disease Additional Family Medical History / Comment(s): Mother had an enlarged heart. She of renal failure at the age of 73 yrs. Father Family Medical History: Pneumonia Additional Family Medical History / Comment(s): Father of pneumonia a the age of 73 yrs. Daughter(s) Family Medical History: No Reported History Son(s) Family Medical History: No Reported History General Exam - General Exam Comments Initial Comments: Constitutional: NAD, AOX3, Pt has pleasant affect. HEENT: NC/AT, trachea midline, neck supple, no lymphadenopathy. Posterior pharynx non erythematous, without exudates. External ears appear normal, without discharge. Mucous membranes moist. Eyes PERRLA, EOM intact. There is no scleral icterus. No pallor noted. Cardiopulmonary: RRR, no murmurs, rubs or gallops, no JVD noted. Lungs CTAB in anterior and posterior ken. No peripheral edema. Abdominal exam: Abdomen soft and non-distended. Abdomen mildly tender to palpation in left lower quadrant, right lower quadrant region. No guarding no rigidity. Bowel sounds active in LLQ. No hepatosplenomegaly. No ecchymosis Neuro: CN II-XII intact. No nuchal rigidity. No cervical spinal tenderness. MSK: Left shoulder and humerus mildly tender to palpation. No ecchymoses. Sensation, radial pulse intact. ROMlimited secondary to pain. Full active range of motion of fifth digit of right hand. No posterior calf tenderness bilaterally, homans sign negative bilaterally. Posterior tibialis and radial pulse +2 bilaterally. Sensation intact in upper and lower extremities. Full active ROM in upper and lower extremities, 5/5 stregnth. Limitations: no limitations Course Vital Signs 08/25/18 08/25/18 08/25/18 15:46 16:14 18:55 Temperature 97.8 F Pulse Rate 54 L 48 L 58 L Respiratory 18 16 16 Rate Blood Pressure 170/77 194/83 O2 Sat by Pulse 97 97 97 Oximetry Medical Decision Making - Medical Decision Making 78-year-old female patient presents to ED after sustaining a mechanical fall. Patient was that she was in the kitchen when she turned around quickly and bent over falling on her left shoulder. Patient was that she did hear a crunch and had some pain in her left shoulder region. Patient also reports that she has some pain in her left humerus region. Patient denies any trauma to head or neck. Patient has secondary complaint of pain in her fifth digit of her right h and. Patient reports that yesterday she suffered a similar fall, also did not have any head trauma or any other injuries. Patient was that she has had some pain in her right fifth digit last 2 days. Patient also complains of some mild waxing and waning abdominal pain which is been ongoing for approximately 2 months. Patient states that she has some fullness and some pain in her left lower quadrant as well as right lower quadrant region. Patient is a this is not significantly worse today, however she does wish to have this evaluated as well. Patient denies any chest pain or shortness of breath. Patient denies any headache or change in vision. Denies all other complaints. Pt denies any use of blood thinners. Patient will signs initially displayed mild hypertension, mild cardiac area. Resolved. Vital signs within acceptable limits. Physical exam displayed: Abdomen mildly tender to palpation in left lower quadrant, right lower quadrant region. No guarding no rigidity. Left shoulder and humerus mildly tender to palpation. No ecchymoses. Sensation, radial pulse intact. ROMlimited secondary to pain. Full active range of motion of fifth digit of right hand. CN II-XII intact. No nuchal rigidity. No cervical spinal tenderness. Abdomen tender investigations reveal non-impressive CBC. CMP revealed mild hypokalemia. Patient potassium supplemented. Troponin negative. EKG revealed sinus bradycardia. Heart rate 73 at discharge. Plain film of shoulder, humerus, hand x-ray did not display any acute pathology. CT and felt some display any acute process. She'll be discharged outpatient follow-up with primary care provider. Patient return if condition worsens. Case discussed with Dr. Noble. - Lab Data Result diagrams: 08/25/18 16:49 08/25/18 16:49 Lab Results 08/25/18 08/25/18 08/25/18 Range/Units 16:49 16:49 16:49 WBC 13.7 H (3.8-10.6) k/uL RBC 3.52 L (3.80-5.40) m/uL Hgb 10.4 L (11.4-16.0) gm/dL Hct 30.2 L (34.0-46.0) % MCV 85.8 (80.0-100.0) fL MCH 29.4 (25.0-35.0) pg MCHC 34.3 (31.0-37.0) g/dL RDW 16.5 H (11.5-15.5) % Plt Count 96 L (150-450) k/uL Neutrophils % (Manual) 72 % Lymphocytes % (Manual) 16 % Monocytes % (Manual) 11 % Basophils % (Manual) 1 % Neutrophils # (Manual) 9.86 H (1.3-7.7) k/uL Lymphocytes # (Manual) 2.19 (1.0-4.8) k/uL Monocytes # (Manual) 1.51 H (0-1.0) k/uL Basophils # (Manual) 0.14 (0-0.2) k/uL Nucleated RBCs 0 (0-0) /100 WBC Manual Slide Review Performed Hypochromasia (manual) Present Poikilocytosis (manual Present Anisocytosis Slight Sodium 139 (137-145) mmol/L Potassium 3.2 L (3.5-5.1) mmol/L Chloride 103 (98-107) mmol/L Carbon Dioxide 31 H (22-30) mmol/L Anion Gap 5 mmol/L BUN 26 H (7-17) mg/dL Creatinine 0.68 (0.52-1.04) mg/dL Est GFR (CKD-EPI)AfAm >90 (>60 ml/min/1.73 sqM) Est GFR (CKD-EPI)NonAf 83 (>60 ml/min/1.73 sqM) Glucose 88 (74-99) mg/dL Calcium 8.6 (8.4-10.2) mg/dL Magnesium (1.6-2.3) mg/dL Total Bilirubin 0.6 (0.2-1.3) mg/dL AST 14 (14-36) U/L ALT 8 L (9-52) U/L Alkaline Phosphatase 85 (38-126) U/L Troponin I <0.012 (0.000-0.034) ng/mL Total Protein 6.1 L (6.3-8.2) g/dL Albumin 3.7 (3.5-5.0) g/dL Lipase (23-300) U/L 08/25/18 08/25/18 Range/Units 16:49 16:49 WBC (3.8-10.6) k/uL RBC (3.80-5.40) m/uL Hgb (11.4-16.0) gm/dL Hct (34.0-46.0) % MCV (80.0-100.0) fL MCH (25.0-35.0) pg MCHC (31.0-37.0) g/dL RDW (11.5-15.5) % Plt Count (150-450) k/uL Neutrophils % (Manual) % Lymphocytes % (Manual) % Monocytes % (Manual) % Basophils % (Manual) % Neutrophils # (Manual) (1.3-7.7) k/uL Lymphocytes # (Manual) (1.0-4.8) k/uL Monocytes # (Manual) (0-1.0) k/uL Basophils # (Manual) (0-0.2) k/uL Nucleated RBCs (0-0) /100 WBC Manual Slide Review Hypochromasia (manual) Poikilocytosis (manual Anisocytosis Sodium (137-145) mmol/L Potassium (3.5-5.1) mmol/L Chloride (98-107) mmol/L Carbon Dioxide (22-30) mmol/L Anion Gap mmol/L BUN (7-17) mg/dL Creatinine (0.52-1.04) mg/dL Est GFR (CKD-EPI)AfAm (>60 ml/min/1.73 sqM) Est GFR (CKD-EPI)NonAf (>60 ml/min/1.73 sqM) Glucose (74-99) mg/dL Calcium (8.4-10.2) mg/dL Magnesium 2.0 (1.6-2.3) mg/dL Total Bilirubin (0.2-1.3) mg/dL AST (14-36) U/L ALT (9-52) U/L Alkaline Phosphatase (38-126) U/L Troponin I (0.000-0.034) ng/mL Total Protein (6.3-8.2) g/dL Albumin (3.5-5.0) g/dL Lipase 39 (23-300) U/L Disposition Clinical Impression: Fall Disposition: HOME SELF-CARE Condition: Stable Instructions (If sedation given, give patient instructions): Fall Prevention for Older Adults (ED) Additional Instructions: Patient to adhere to previously discussed treatment plan and will take medication(s) as directed. Patient to follow up with PCP in 1-2 days. Patient to return to ED if symptoms do not improve. Follow-up with primary care provider in 1-2 days. Return here patient worsens anyway. Follow-up with orthopedic consult if pain in shoulder continues. Is patient prescribed a controlled substance at d/c from ED?: No Referrals: Jose Petersen DO [Primary Care Provider] - 1-2 days Elder Basilio MD [Medical Doctor] - 1-2 days
[2018-08-25 17:12] LABS: ALT 8 U/L (9-52); AST 14 U/L (14-36); Albumin 3.7 g/dL (3.5-5.0); Alkaline Phosphatase 85 U/L (38-126); Anion Gap 5 mmol/L; Blood Urea Nitrogen 26 mg/dL (7-17); Calcium 8.6 mg/dL (8.4-10.2); Carbon Dioxide 31 mmol/L (22-30); Chloride 103 mmol/L (98-107); Glucose 88 mg/dL (74-99); Potassium 3.2 mmol/L (3.5-5.1); Sodium 139 mmol/L (137-145); Total Bilirubin 0.6 mg/dL (0.2-1.3); Total Protein 6.1 g/dL (6.3-8.2)
[2018-08-25 17:15] LABS: Anisocytosis Slight; HCT 30.2 % (34.0-46.0); HGB 10.4 gm/dL (11.4-16.0); MCH 29.4 pg (25.0-35.0); MCHC 34.3 g/dL (31.0-37.0); MCV 85.8 fL (80.0-100.0); Mean Platelet Volume 9.4; RBC 3.52 m/uL (3.80-5.40); RDW 16.5 % (11.5-15.5); WBC 13.7 k/uL (3.8-10.6)
[2018-08-25 18:17] LABS: Basophils # (M) 0.14 k/uL (0-0.2); Lymphocytes # (M) 2.19 k/uL (1.0-4.8); Monocytes # (M) 1.51 k/uL (0-1.0); Neutrophils # (M) 9.86 k/uL (1.3-7.7); Neutrophils % (M) 72 %; Nucleated Red Blood Cells 0 /100 WBC (0-0); Total Cells Counted 100
[2018-08-25 18:18] LABS: Hypochromasia (M) Present; Platelet Count 96 k/uL (150-450); Poikilocytosis (M) Present
[2018-08-25] MEDS ORDERED: POTASSIUM CHLORIDE ER 20 MEQ TAB.ER PO STA (18:23)
--- NOTE | 2018-08-25 18:44 | CT ---
EXAMINATION TYPE: CT abdomen pelvis w con DATE OF EXAM: 08/25/2018 HISTORY: Abdominal pain. CT DLP: 668.5mGycm Automated Exposure Control for Dose Reduction was Utilized. CONTRAST: CT scan of the abdomen and pelvis is performed with IV Contrast, patient injected with 100ml mL of Is ovue 300. COMPARISON: CT abdomen and pelvis August 18, 2017 FINDINGS: LUNG BASES: Dependent atelectasis is present. There is additional linear scarring and/or atelectasis in both bases posteriorly. There is elevated right hemidiaphragm with cardiomegaly and coronary arter y calcification LIVER/GB: There are few simple appearing thin-walled cysts scattered throughout the liver. Cholecyste ctomy clips are present. PANCREAS: No significant abnormality is seen. SPLEEN: No significant abnormality is seen. ADRENALS: No significant abnormality is seen. KIDNEYS: No significant abnormality is seen. BOWEL: Evaluation of bowel is suboptimal secondary to lack of enteric contrast. There is no suspiciou s small or large bowel dilatation. There are diverticula in the left and sigmoid colon without CT carlos dence for acute diverticulitis. UTERUS/ADNEXA: Uterus is surgically absent or markedly atrophic. Suspect fairly stable 1.5 cm right a dnexal cystic lesion axial image 66. This is an abnormal finding in postmenopausal female. Further no nemergent workup advised it has not been performed as was noted on prior CT. LYMPH NODES: No greater than 1cm abdominal or pelvic lymph nodes are appreciated. OSSEOUS STRUCTURES: Moderate to severe multilevel disc space narrowing and vacuum disc phenomenon is present. There is levoconvex scoliosis centered in the upper lumbar spine. Metallic hardware from lef t hip arthroplasty causes streak artifact limiting evaluation of pelvic structures. OTHER: There is moderate atherosclerotic change of aorta extending into branch vessels. IMPRESSION: No significant new or acute finding is seen to account for patient's clinical symptoms.
--- NOTE | 2018-08-25 18:57 | XR ---
EXAMINATION TYPE: XR shoulder complete LT, XR humerus LT DATE OF EXAM: 08/25/2018 CLINICAL HISTORY: Pain after fall injury. TECHNIQUE: Three views of the left shoulder are obtained. 2 views left humerus are acquired. COMPARISON: None. FINDINGS: Mineralization is seen which is noted to a radiograph sensitivity. There is no acute fract ure/dislocation evident in the left shoulder. There is mild to moderate narrowing at acromioclavicula r joint. Glenohumeral joint is maintained. The visualized ribs are intact and unremarkable. Images of left humerus show no acute fracture or dislocation distally. Visualized portion of left elb ow joint is within normal limits. Overlying soft tissue is unremarkable. IMPRESSION: There is no acute fracture or dislocation in the left humerus or shoulder.
--- NOTE | 2018-08-25 18:59 | XR ---
EXAMINATION TYPE: XR hand complete RT DATE OF EXAM: 08/25/2018 CLINICAL HISTORY: Right hand pain after fall injury. TECHNIQUE: Frontal, lateral and oblique images of the right hand are obtained. COMPARISON: Right hand x-ray from 2016. FINDINGS: Demineralization is present. No acute fracture or dislocation is seen. There is moderate na rrowing and spurring throughout the phalanges redemonstrated most prominent at the PIP joints but als o seen at second and third DIP joints. There is involvement radial dorsal aspect first interphalangea l joint redemonstrated with spurring and narrowing. Peripheral IV catheter overlies dorsum of the wri st. IMPRESSION: There is no acute fracture or dislocation in the right hand. No significant change from prior x-ray.
[2018-08-25 19:58] VITALS: BP 167/87; PULSE 60; RESP 18; TEMP 97.6
== END 2018-08-25 19:56 | disposition home or self-care (01) ==
LOC: EC 15:21
DX: S49.92XA Unspecified injury of left shoulder and upper arm, initial encounter (principal); E87.6 Hypokalemia; R10.31 Right lower quadrant pain; R10.32 Left lower quadrant pain; R00.0 Tachycardia, unspecified; G20 Parkinson's disease; E03.9 Hypothyroidism, unspecified; M19.90 Unspecified osteoarthritis, unspecified site; Z96.653 Presence of artificial knee joint, bilateral; Z90.710 Acquired absence of both cervix and uterus; Z98.51 Tubal ligation status; Z79.890 Hormone replacement therapy; Z79.52 Long term (current) use of systemic steroids; Z79.899 Other long term (current) drug therapy; Z88.5 Allergy status to narcotic agent; W19.XXXA Unspecified fall, initial encounter; Y92.000 Kitchen of unspecified non-institutional (private) residence as the place of occurrence of the external cause
CPT/HCPCS: 36415; 93005; 80053; 83690; 83735; 84484; 85025; 73030; 73060; 73130; 74177; 99284; 96360; Q9967

== ENCOUNTER 2018-11-30 16:08 | Inpatient (IN) | payer MEDICARE, OTHER ==
[2018-11-30] MEDS ORDERED: SODIUM CHLORIDE 0.9% 1,000 ML IV STA (16:49)
[2018-11-30] MEDS ORDERED: MECLIZINE 12.5 MG TAB PO STA (16:58)
[2018-11-30 17:01] LABS: Glucose,Whole Blood 102 mg/dL (75-99)
[2018-11-30 17:15] LABS: ALT <6 U/L (9-52); AST 19 U/L (14-36); African American GFR (CKD) 71 (>60 ml/min/1.73 sqM); Albumin 3.5 g/dL (3.5-5.0); Alkaline Phosphatase 71 U/L (38-126); Anion Gap 12 mmol/L; Blood Urea Nitrogen 32 mg/dL (7-17); Calcium 8.2 mg/dL (8.4-10.2); Carbon Dioxide 25 mmol/L (22-30); Chloride 102 mmol/L (98-107); Creatine Kinase 25 U/L (30-135); Glucose 108 mg/dL (74-99); Sodium 139 mmol/L (137-145); Total Bilirubin 0.7 mg/dL (0.2-1.3); Total Protein 6.3 g/dL (6.3-8.2)
[2018-11-30 17:34] LABS: Anisocytosis Slight; HCT 29.3 % (34.0-46.0); HGB 10.1 gm/dL (11.4-16.0); MCH 30.4 pg (25.0-35.0); MCHC 34.5 g/dL (31.0-37.0); MCV 88.1 fL (80.0-100.0); Mean Platelet Volume 9.7; Platelet Count 101 k/uL (150-450); RBC 3.33 m/uL (3.80-5.40); RDW 16.2 % (11.5-15.5); WBC 32.4 k/uL (3.8-10.6)
--- NOTE | 2018-11-30 17:51 | XR ---
EXAMINATION TYPE: XR chest 2V DATE OF EXAM: 11/30/2018 COMPARISON: 10/30/2018 HISTORY: Weakness TECHNIQUE: Frontal and lateral views of the chest are obtained. FINDINGS: Heart is normal. There is minimal atelectasis at the right lung base. There is no heart fa ilure. There are no hilar masses. There is some osteopenia. IMPRESSION: Mild subsegmental atelectasis or scarring at the right lung base unchanged. No heart sadie lure seen.
[2018-11-30 17:57] LABS: Anisocytosis (M) Present; Lymphocytes # (M) 3.56 k/uL (1.0-4.8); Monocytes # (M) 5.83 k/uL (0-1.0); Neutrophils % (M) 71 %; Nucleated Red Blood Cells 0 /100 WBC (0-0); Polychromasia Present; Reactive Lymphocytes Present; Total Cells Counted 100
--- NOTE | 2018-11-30 18:16 | CT ---
EXAMINATION TYPE: CT abdomen pelvis w con DATE OF EXAM: 11/30/2018 COMPARISON: 08/25/2018 HISTORY: Left sided abdominal pain with diarrhea. CT DLP: 781.3 mGycm Automated exposure control for dose reduction was used. TECHNIQUE: Helical acquisition of images was performed from the lung bases through the pelvis. CONTRAST: Performed without Oral Contrast and with IV Contrast, patient injected with 100 mL of Isovue 300. FINDINGS: There is some atelectasis at the lung bases. Heart is enlarged. There are multiple hepatic cysts that measure up to 2 cm. Bile ducts are not dilated. Spleen is intact. Stomach is intact. Gallbladder taty ears normal. There is no evidence of a pancreatic mass. There is a 1 cm cyst in the tail of the pancr eas. There is pancreatic atrophy. There is no adrenal mass. Kidneys show satisfactory contrast opacification. There is no hydronephrosi s. Ureters are not dilated. Abdominal aorta is atheromatous. There is no retroperitoneal adenopathy. There is left hip prosthesis. Bladder distends smoothly. There is no sign of a pelvic mass. There is no free fluid in the pelvis. There is some wall thickening and fat stranding around the proximal sigm oid colon. There are multiple sigmoid diverticula. There is no sign of free air. There is no ascites. There are spondylotic changes in the lumbar spine. There is mild thoracolumbar levoscoliosis. There is no evidence of a thickened appendix. IMPRESSION: THERE ARE MULTIPLE HEPATIC CYSTS UNCHANGED. WALL THICKENING AND SURROUNDING MESENTERIC EDEMA INVOLVING THE PROXIMAL SIGMOID COLON CONSISTENT WITH DIVERTICULITIS THAT IS A CHANGE COMPARED TO OLD EXAM. NO ABSCESS. MULTILEVEL LUMBAR SPONDYLOSIS AND LEVOSCOLIOSIS UNCHANGED.
--- NOTE | 2018-11-30 18:42 | ED ---
Abdominal Pain HPI - General Chief Complaint: Abdominal Pain Stated Complaint: abdominal pain/diarrhea Source: patient, EMS Mode of arrival: EMS Limitations: no limitations - History of Present Illness Initial Comments: The patient is an 78-year-old female with past medical history of Parkinson's disease who presents to the emergency department with reported generalized weakness. Her is at bedside and provides majority of the history. He states that the patient has had worsening weakness over the past several days. Today he took his to a doctor's appointment. They grabbed something for lunch and then returned home. He states that the patient had difficulty getting out of the car. He states that he had to assist her and carry her. She then ended up having a large bowel movement all over herself. placed her on the toilet was attempting to clean her up. He states at that time she was unresponsive. He reports "it was as if she was looking right through me". EMS was then called to bring the patient to the emergency department. I do attempt to get a history from the patient. She does report to suprapubic abdominal pain. This is chronic for her as she does have recurrent urinary tract infections. She denies any additional abdominal pain. Reports to brown stools recently. Denies any melanotic stools or hematochezia. She denies any rectal pain. Family reports to a poor by mouth intake. States that this will occasionally happening she'll get very dehydrated requiring hospital admission. Recently she has had very poor intake. No recent medication changes. She took all of her medications today to include her steroids. The patient did not injure herself with her syncopal episode. She denies any chest pain or shortness of breath. She does admit to increased frequency of urination. states she normally uses a wheelchair to get around. When she is hydrated she is able to ambulate with a walker. Denies any back or flank pain. No lower extremity edema. There are no other alleviating, precipitating or mod ifying factors - Related Data Home Medications Medication Instructions Recorded Confirmed Carbidopa-Levodopa 25-100 mg 0.5 tab PO DAILY@69908/20/15 11/30/18 [Sinemet 25-100 mg] Levothyroxine Sodium [Synthroid] 88 mcg PO DAILY@69908/20/15 11/30/18 Fludrocortisone [Florinef] 0.2 mg PO DAILY@0700 03/08/17 11/30/18 Carbidopa/Levodopa [Sinemet CR 1 tab PO BID@0700,1300 09/06/17 11/30/18 50-200 mg] Ergocalciferol (Vitamin D2) 50,000 unit PO SA 09/06/17 11/30/18 [Vitamin D2] Fludrocortisone [Florinef] 0.1 mg PO DAILY@1700 09/06/17 11/30/18 Potassium Chloride [Klor-Con 20] 20 meq PO Q48H 09/06/17 11/30/18 Donepezil HCl [Aricept] 5 mg PO HS@2100 02/06/18 11/30/18 Droxidopa [Northera] 200 mg PO TID@0700,1300,1700 02/06/18 11/30/18 Carbidopa/Levodopa [Sinemet 25-100 0.5 tab PO DAILY@1700 PRN 11/30/18 11/30/18 mg] Cranberry Fruit Extract [Cranberry] 500 mg PO DAILY@1300 11/30/18 11/30/18 L.acidoph,Paracasei, B.lactis 1 cap PO HS 11/30/18 11/30/18 [Probiotic] Oxybutynin Chloride [Ditropan] 5 mg PO DAILY@0700 11/30/18 11/30/18 buPROPion HCL [Wellbutrin SR] 150 mg PO DAILY@0700 11/30/18 11/30/18 Allergies Allergy/AdvReac Type Severity Reaction Status Date / Time levofloxacin [From Levaquin] Allergy Unknown Verified 11/30/18 17:08 hydromorphone [From Dilaudid] AdvReac Intermediate poss low Verified 11/30/18 16:11 b/p,confusion post operatively Review of Systems ROS Statement: Those systems with pertinent positive or pertinent negative responses have been documented in the HPI. ROS Other: All systems not noted in ROS Statement are negative. Past Medical History Past Medical History: GERD/Reflux, Hearing Disorder / Deafness, Memory Impairm ent, Neurologic Disorder, Osteoarthritis (OA), Syncope, Thyroid Disorder Additional Past Medical History / Comment(s): Current UTI, PARKINSONS, orthostatic hypotension, balance issues, dysautonomia, falls, past intracranial hemorrhage rt fall, overactive bladder, [place] bilaterally, arthritis in hands, back, chronic back pain, n/t bilateral hands, cataracts bilaterally, hypot hyroidism, goiter post thyroidectomy. History of Any Multi-Drug Resistant Organisms: None Reported Past Surgical History: Bladder Surgery, Hernia Repair, Hysterectomy, Joint Replacement, Tubal Ligation Additional Past Surgical History / Comment(s): Jean-Paul inguinal hernias repair - 2016,JEAN-PAUL TOTAL KNEES, UMBILICAL HERNIA, PARTIAL THYROIDECTOMY, cystocele/rectocele, hysterectomy 01/02/2017, colonoscopy, sinus polypectomy, L wrist ganglion cyst removal. Past Anesthesia/Blood Transfusion Reactions: Previous Problems w/ Anesthesia Additional Past Anesthesia/Blood Transfusion Reaction / Comment(s): STATES KNEE REPLACEMENT MAR 2010 SHE WAS "DELERIOUS ". KNEE REPLACEMENT FEB 2011 HER BLOOD PRESSURE DROPPED AND SHE WAS IN BED FOR 5 DAYS. Past Psychological History: Anxiety, Depression Smoking Status: Never smoker Past Alcohol Use History: None Reported Past Drug Use History: None Reported - Past Family History Sister(s) Family Medical History: Cancer Additional Family Medical History / Comment(s): skin cancer Mother Family Medical History: Diabetes Mellitus, Hypertension, Renal Disease Additional Family Medical History / Comment(s): Mother had an enlarged heart. She of renal failure at the age of 73 yrs. Father Family Medical History: Pneumonia Additional Family Medical History / Comment(s): Father of pneumonia a the age of 73 yrs. Daughter(s) Family Medical History: No Reported History Son(s) Family Medical History: No Reported History General Exam Limitations: no limitations General appearance: alert, cachectic Eye exam: Present: normal appearance, PERRL Pupils: Present: normal accommodation ENT exam: Present: mucous membranes dry Neck exam: Present: normal inspection. Absent: tenderness, meningismus Respiratory exam: Present: normal lung sounds bilaterally Cardiovascular Exam: Present: regular rate, normal rhythm GI/Abdominal exam: Present: soft, tenderness, normal bowel sounds. Absent: guarding, rebound, rigid Rectal exam: Present: normal inspection Extremities exam: Present: normal capillary refill. Absent: pedal edema, calf tenderness Back exam: Present: normal inspection, full ROM Neurological exam: Present: alert, other (oriented to self) Psychiatric exam: Present: flat affect Skin exam: Present: warm, dry, intact Course Vital Signs 11/30/18 11/30/18 16:09 18:35 Temperature 97.8 F Pulse Rate 67 74 Respiratory 18 18 Rate Blood Pressure 138/71 154/73 O2 Sat by Pulse 97 98 Oximetry Medical Decision Making - Medical Decision Making Upon arrival the patient is placed in room 26. She is hooked up to continuous pulse ox and cardiac monitoring. A thorough history of physical exam is performed. The patient's abdomen is non-peritoneal. Peripheral IV is es tablished the patient is given a liter bolus of 0.9% normal saline. She is then given 50 mL per hour. Laboratory studies were conducted. The patient's white blood cell count is 32,400. Hemoglobin of 10.1. Platelets are 101. Lactic acid is 2.7. Potassium is 3.0. BUN is elevated at 32. Chest x-ray is performed which demonstrates left basilar atelectasis. A CT of the patient's abdomen and pelvis is performed which demonstrates acute sigmoid diverticulitis. Because of the patient's markedly elevated white blood cell count I did draw blood cultures. I then initiated the patient on Zosyn. I replace the patient's potassium. Lactic acid will be rechecked. I did recommend admission to the hospital for which the patient and her family did agree. I admitted the patient to Dr. Moscoso. I called and discussed the case with him and he did request that I consult Dr. Lamas. These orders are placed. The patient is reevaluated and her abdomen remains non-peritoneal. The patient was transported to the floor in stable condition - Lab Data Result diagrams: 12/02/18 08:11 12/03/18 15:39 Lab Results 11/30/18 11/30/18 11/30/18 Range/Units 17:00 17:00 17:00 WBC 32.4 H (3.8-10.6) k/uL RBC 3.33 L (3.80-5.40) m/uL Hgb 10.1 L (11.4-16.0) gm/dL Hct 29.3 L (34.0-46.0) % MCV 88.1 (80.0-100.0) fL MCH 30.4 (25.0-35.0) pg MCHC 34.5 (31.0-37.0) g/dL RDW 16.2 H (11.5-15.5) % Plt Count 101 L (150-450) k/uL Neutrophils % (Manual) 71 % Lymphocytes % (Manual) 11 % Monocytes % (Manual) 18 % Neutrophils # (Manual) 23.00 H (1.3-7.7) k/uL Lymphocytes # (Manual) 3.56 (1.0-4.8) k/uL Monocytes # (Manual) 5.83 H (0-1.0) k/uL Nucleated RBCs 0 (0-0) /100 WBC Manual Slide Review Performed Reactive Lymphocytes Present Polychromasia Present Anisocytosis Slight Anisocytosis (manual) Present Sodium 139 (137-145) mmol/L Potassium 3.0 L (3.5-5.1) mmol/L Chloride 102 (98-107) mmol/L Carbon Dioxide 25 (22-30) mmol/L Anion Gap 12 mmol/L BUN 32 H (7-17) mg/dL Creatinine 0.89 (0.52-1.04) mg/dL Est GFR (CKD-EPI)AfAm 71 (>60 ml/min/1.73 sqM) Est GFR (CKD-EPI)NonAf 61 (>60 ml/min/1.73 sqM) Glucose 108 H (74-99) mg/dL POC Glucose (mg/dL) (75-99) mg/dL POC Glu Certified [employer]atings Inspector ID Lactic Ac Sepsis Rflx Plasma Lactic Acid Juan 2.7 H* (0.7-2.0) mmol/L Calcium 8.2 L (8.4-10.2) mg/dL Total Bilirubin 0.7 (0.2-1.3) mg/dL AST 19 (14-36) U/L ALT <6 L (9-52) U/L Alkaline Phosphatase 71 (38-126) U/L Creatine Kinase 25 L (30-135) U/L Total Protein 6.3 (6.3-8.2) g/dL Albumin 3.5 (3.5-5.0) g/dL 11/30/18 11/30/18 Range/Units 17:00 17:25 WBC (3.8-10.6) k/uL RBC (3.80-5.40) m/uL Hgb (11.4-16.0) gm/dL Hct (34.0-46.0) % MCV (80.0-100.0) fL MCH (25.0-35.0) pg MCHC (31.0-37.0) g/dL RDW (11.5-15.5) % Plt Count (150-450) k/uL Neutrophils % (Manual) % Lymphocytes % (Manual) % Monocytes % (Manual) % Neutrophils # (Manual) (1.3-7.7) k/uL Lymphocytes # (Manual) (1.0-4.8) k/uL Monocytes # (Manual) (0-1.0) k/uL Nucleated RBCs (0-0) /100 WBC Manual Slide Review Reactive Lymphocytes Polychromasia Anisocytosis Anisocytosis (manual) Sodium (137-145) mmol/L Potassium (3.5-5.1) mmol/L Chloride (98-107) mmol/L Carbon Dioxide (22-30) mmol/L Anion Gap mmol/L BUN (7-17) mg/dL Creatinine (0.52-1.04) mg/dL Est GFR (CKD-EPI)AfAm (>60 ml/min/1.73 sqM) Est GFR (CKD-EPI)NonAf (>60 ml/min/1.73 sqM) Glucose (74-99) mg/dL POC Glucose (mg/dL) 102 H (75-99) mg/dL POC Glu Certified Coatings Inspector ID Manas Kaur Lactic Ac Sepsis Rflx Y Plasma Lactic Acid Juan (0.7-2.0) mmol/L Calcium (8.4-10.2) mg/dL Total Bilirubin (0.2-1.3) mg/dL AST (14-36) U/L ALT (9-52) U/L Alkaline Phosphatase (38-126) U/L Creatine Kinase (30-135) U/L Total Protein (6.3-8.2) g/dL Albumin (3.5-5.0) g/dL - EKG Data EKG Comments: EKG demonstrates a normal sinus rhythm with a ventricular rate of 66. TX interval 132. QRS 82. QTC of 444. There are no acute ST segment elevations or depressions concerning for ischemic changes Disposition Clinical Impression: Abdominal pain, Diarrhea, Sigmoid diverticulitis, Leukocytosis Disposition: ADMITTED IP TO THIS HOSP Condition: Serious Is patient prescribed a controlled substance at d/c from ED?: No Decision to Admit Reason: Admit from EC Decision Date: 11/30/18 Decision Time: 19:26
[2018-11-30] MEDS ORDERED: PIPERACILLIN-TAZOBACTAM 3.375 GM in SODIUM CHLORIDE 0.9% 100 ML IVPB STA (18:48)
[2018-11-30] MEDS ORDERED: NALOXONE 0.4 MG/ML 1 ML VIAL IV PRN (19:27)
[2018-11-30] MEDS ORDERED: SODIUM CHLORIDE 0.9% 1,000 ML IV SCH (19:30)
[2018-11-30] MEDS ORDERED: POTASSIUM CHLORIDE ER 20 MEQ TAB.ER PO STA (19:42)
[2018-11-30 22:19] VITALS: BMI 21.1
[2018-11-30] MEDS: LACTOBACILLUS ACIDOPH & BULGAR 1 EACH PACKET PO SCH (23:06)
[2018-11-30] MEDS: DONEPEZIL 5 MG TAB PO SCH (23:06)
[2018-12-01] MEDS: PIPERACILLIN-TAZOBACTAM 3.375 GM in SODIUM CHLORIDE 0.9% 100 ML IVPB SCH ×3 (03:42→20:51)
[2018-12-01] MEDS: OXYBUTYNIN CHLORIDE 5 MG TAB PO SCH (05:59)
[2018-12-01] MEDS: LEVOTHYROXINE 88 MCG TAB PO SCH (05:59)
[2018-12-01] MEDS: CARBIDOPA-LEVODOPA 25-100 MG 1 EACH TAB PO SCH (05:59)
[2018-12-01] MEDS: buPROPion SR 150 MG TABLET.ER PO SCH (06:00)
[2018-12-01] MEDS: CARBIDOPA-LEVODOPA ER 50-200MG 1 EACH TABLET.ER PO SCH ×2 (06:01→13:08)
[2018-12-01] MEDS: FLUDROCORTISONE 0.1 MG TAB PO SCH ×2 (06:02→16:57)
[2018-12-01 06:17] LABS: HCT 28.3 % (34.0-46.0); HGB 9.5 gm/dL (11.4-16.0); MCH 29.4 pg (25.0-35.0); MCHC 33.6 g/dL (31.0-37.0); MCV 87.3 fL (80.0-100.0); Mean Platelet Volume 9.1; RBC 3.25 m/uL (3.80-5.40); RDW 15.4 % (11.5-15.5); WBC 19.4 k/uL (3.8-10.6)
[2018-12-01 06:23] LABS: African American GFR (CKD) >90 (>60 ml/min/1.73 sqM); Anion Gap 8 mmol/L; Blood Urea Nitrogen 23 mg/dL (7-17); Carbon Dioxide 25 mmol/L (22-30); Chloride 107 mmol/L (98-107); Glucose 67 mg/dL (74-99); Potassium 3.5 mmol/L (3.5-5.1); Sodium 140 mmol/L (137-145)
[2018-12-01] MEDS: DROXIDOPA 200 MG PO SCH ×3 (06:57→16:58)
[2018-12-01 07:18] LABS: Band Neutrophils % 1 %; Lymphocytes # (M) 0.78 k/uL (1.0-4.8); Monocytes # (M) 2.33 k/uL (0-1.0); Neutrophils % (M) 83 %; Nucleated Red Blood Cells 0 /100 WBC (0-0); Total Cells Counted 100
[2018-12-01 07:20] LABS: Platelet Count 86 k/uL (150-450)
[2018-12-01] MEDS ORDERED: ERGOCALCIFEROL 50,000 UNIT CAP PO SCH (09:00)
--- NOTE | 2018-12-01 09:48 | P.GSCN ---
History of Present Illness Consult date: 12/01/18 History of present illness: 78-year-old female presented to the emergency department with her with complaints of generalized weakness. Prior to her presentation, the patient did have a large bowel movement and according to her was somewhat unresponsive. She also was complaining of abdominal pain. According to her , she also has had recent poor oral intake. There is no evidence of blood in her stool. The patient and the patient's deny any melanotic stool or hematochezia. Currently, she is resting comfortably in bed. She herself is a poor historian and states that she has had a colonoscopy, however does not recall when this was. She denies any nausea or vomiting. She states that she has had multiple bowel movements since she has been admitted. She states her abdominal pain has improved. Review of Systems All systems: negative Past Medical History Past Medical History: GERD/Reflux, Hearing Disorder / Deafness, Memory Impairment, Neurologic Disorder, Osteoarthritis (OA), Syncope, Thyroid Disorder Additional Past Medical History / Comment(s): Current UTI, [place]IN[place]S, orthostatic hypotension, balance issues, dysautonomia, falls, past intracranial hemorrhage rt fall, overactive bladder, [place] bilaterally, arthritis in hands, back, chronic back pain, n/t bilateral hands, cataracts bilaterally, hypothyroidism, goiter post thyroidectomy. History of Any Multi-Drug Resistant Organisms: None Reported Past Surgical History: Bladder Surgery, Hernia Repair, Hysterectomy, Joint Replacement, Tubal Ligation Additional Past Surgical History / Comment(s): Jean-Paul inguinal hernias repair - 2016,JEAN-PAUL TOTAL KNEES, UMBILICAL HERNIA, PARTIAL THYROIDECTOMY, cystocele/rectocele, hysterectomy 01/02/2017, colonoscopy, sinus polypectomy, L wrist ganglion cyst removal. Past Anesthesia/Blood Transfusion Reactions: Previous Problems w/ Anesthesia Additional Past Anesthesia/Blood Transfusion Reaction / Comm: STATES KNEE REPLACEMENT MAR 2010 SHE WAS "DELERIOUS ". KNEE REPLACEMENT FEB 2011 HER BLOOD PRESSURE DROPPED AND SHE WAS IN BED FOR 5 DAYS. Past Psychological History: Anxiety, Depression Smoking Status: Never smoker Past Alcohol Use History: None Reported Past Drug Use History: None Reported - Past Family History Sister(s) Family Medical History: Cancer Additional Family Medical History / Comment(s): skin cancer Mother Family Medical History: Diabetes Mellitus, Hypertension, Renal Disease Additional Family Medical History / Comment(s): Mother had an enlarged heart. She of renal failure at the age of 73 yrs. Father Family Medical History: Pneumonia Additional Family Medical History / Comment(s): Father of pneumonia a the age of 73 yrs. Daughter(s) Family Medical History: No Reported History Son(s) Family Medical History: No Reported History Medications and Allergies Home Medications Medication Instructions Recorded Confirmed Type Carbidopa-Levodopa 25-100 mg 0.5 tab PO DAILY@0700 08/20/15 11/30/18 History [Sinemet 25-100 mg] Levothyroxine Sodium [Synthroid] 88 mcg PO DAILY@0700 08/20/15 11/30/18 History Fludrocortisone [Florinef] 0.2 mg PO DAILY@0700 03/08/17 11/30/18 History Carbidopa/Levodopa [Sinemet CR 1 tab PO BID@0700,1300 09/06/17 11/30/18 History 50-200 mg] Ergocalciferol (Vitamin D2) 50,000 unit PO SA 09/06/17 11/30/18 History [Vitamin D2] Fludrocortisone [Florinef] 0.1 mg PO DAILY@1700 09/06/17 11/30/18 History Potassium Chloride [Klor-Con 20] 20 meq PO Q48H 09/06/17 11/30/18 History Donepezil HCl [Aricept] 5 mg PO HS@2100 02/06/18 11/30/18 History Droxidopa [Northera] 200 mg PO TID@0700,1300,1700 02/06/18 11/30/18 History Carbidopa/Levodopa [Sinemet 25-100 0.5 tab PO DAILY@1700 PRN 11/30/18 11/30/18 History mg] Cranberry Fruit Extract [Cranberry] 500 mg PO DAILY@1300 11/30/18 11/30/18 History L.acidoph,Paracasei, B.lactis 1 cap PO HS 11/30/18 11/30/18 History [Probiotic] Oxybutynin Chloride [Ditropan] 5 mg PO DAILY@0700 11/30/18 11/30/18 History buPROPion HCL [Wellbutrin SR] 150 mg PO DAILY@0700 11/30/18 11/30/18 History Allergies Allergy/AdvReac Type Severity Reaction Status Date / Time levofloxacin [From Levaquin] Allergy Unknown Verified 11/30/18 17:08 hydromorphone [From Dilaudid] AdvReac Intermediate poss low Verified 11/30/18 16:11 b/p,confusion post operatively Surgical - Exam Osteopathic Statement: *. No significant issues noted on an osteopathic structural exam other than those noted in the History and Physical/Consult. Vital Signs Temp Pulse Resp BP Pulse Ox 97.8 F 67 18 138/71 97 11/30/18 16:09 11/30/18 16:09 11/30/18 16:11/30/18 16:11/30/18 16:09 - General well developed - Eyes PERRL - ENT no hearing loss - Neck trachea midline - Respiratory No difficulty with respiration - Abdomen Soft, tender to palpation in left lower quadrant, nondistended, no rebound, no guarding - Psychiatric Somewhat confused Results - Labs 12/01/18 05:28 12/01/18 05:28 Abnormal Lab Results - Last 24 Hours (Table) 11/30/18 11/30/18 11/30/18 Range/Units 17:00 17:00 17:00 WBC 32.4 H (3.8-10.6) k/uL RBC 3.33 L (3.80-5.40) m/uL Hgb 10.1 L (11.4-16.0) gm/dL Hct 29.3 L (34.0-46.0) % RDW 16.2 H (11.5-15.5) % Plt Count 101 L (150-450) k/uL Neutrophils # (Manual) 23.00 H (1.3-7.7) k/uL Lymphocytes # (Manual) (1.0-4.8) k/uL Monocytes # (Manual) 5.83 H (0-1.0) k/uL Potassium 3.0 L (3.5-5.1) mmol/L BUN 32 H (7-17) mg/dL Glucose 108 H (74-99) mg/dL POC Glucose (mg/dL) (75-99) mg/dL Plasma Lactic Acid Juan 2.7 H* (0.7-2.0) mmol/L Calcium 8.2 L (8.4-10.2) mg/dL ALT <6 L (9-52) U/L Creatine Kinase 25 L (30-135) U/L 11/30/18 12/01/18 12/01/18 Range/Units 17:00 05:28 05:28 WBC 19.4 H (3.8-10.6) k/uL RBC 3.25 L (3.80-5.40) m/uL Hgb 9.5 L (11.4-16.0) gm/dL Hct 28.3 L (34.0-46.0) % RDW (11.5-15.5) % Plt Count 86 L (150-450) k/uL Neutrophils # (Manual) 16.20 H (1.3-7.7) k/uL Lymphocytes # (Manual) 0.78 L (1.0-4.8) k/uL Monocytes # (Manual) 2.33 H (0-1.0) k/uL Potassium (3.5-5.1) mmol/L BUN 23 H (7-17) mg/dL Glucose 67 L (74-99) mg/dL POC Glucose (mg/dL) 102 H (75-99) mg/dL Plasma Lactic Acid Juan (0.7-2.0) mmol/L Calcium 8.0 L (8.4-10.2) mg/dL ALT (9-52) U/L Creatine Kinase (30-135) U/L Diabetes panel 11/30/18 12/01/18 Range/Units 17:00 05:28 Sodium 139 140 (137-145) mmol/L Potassium 3.0 L 3.5 (3.5-5.1) mmol/L Chloride 102 107 (98-107) mmol/L Carbon Dioxide 25 25 (22-30) mmol/L BUN 32 H 23 H (7-17) mg/dL Creatinine 0.89 0.73 (0.52-1.04) mg/dL Glucose 108 H 67 L (74-99) mg/dL Calcium 8.2 L 8.0 L (8.4-10.2) mg/dL AST 19 (14-36) U/L ALT <6 L (9-52) U/L Alkaline Phosphatase 71 (38-126) U/L Total Protein 6.3 (6.3-8.2) g/dL Albumin 3.5 (3.5-5.0) g/dL Calcium panel 11/30/18 12/01/18 Range/Units 17:00 05:28 Calcium 8.2 L 8.0 L (8.4-10.2) mg/dL Albumin 3.5 (3.5-5.0) g/dL Pituitary panel 11/30/18 12/01/18 Range/Units 17:00 05:28 Sodium 139 140 (137-145) mmol/L Potassium 3.0 L 3.5 (3.5-5.1) mmol/L Chloride 102 107 (98-107) mmol/L Carbon Dioxide 25 25 (22-30) mmol/L BUN 32 H 23 H (7-17) mg/dL Creatinine 0.89 0.73 (0.52-1.04) mg/dL Glucose 108 H 67 L (74-99) mg/dL Calcium 8.2 L 8.0 L (8.4-10.2) mg/dL Adrenal panel 11/30/18 12/01/18 Range/Units 17:00 05:28 Sodium 139 140 (137-145) mmol/L Potassium 3.0 L 3.5 (3.5-5.1) mmol/L Chloride 102 107 (98-107) mmol/L Carbon Dioxide 25 25 (22-30) mmol/L BUN 32 H 23 H (7-17) mg/dL Creatinine 0.89 0.73 (0.52-1.04) mg/dL Glucose 108 H 67 L (74-99) mg/dL Calcium 8.2 L 8.0 L (8.4-10.2) mg/dL Total Bilirubin 0.7 (0.2-1.3) mg/dL AST 19 (14-36) U/L ALT <6 L (9-52) U/L Alkaline Phosphatase 71 (38-126) U/L Total Protein 6.3 (6.3-8.2) g/dL Albumin 3.5 (3.5-5.0) g/dL - Imaging CT scan - abdomen: report reviewed, image reviewed CT scan - pelvis: report reviewed, image reviewed Assessment and Plan (1) Colitis Narrative/Plan: 78-year-old female with colitis - Patient did have a significant leukocytosis greater than 30 on admission. This has decreased with antibiotics to 19.4 today. Lactic acidosis has also resolved. The patient also does have a pending C. diff assay. I do agree with obtaining a sample due to the extreme leukocytosis. I have continue the patient on a full liquid diet at this point due to her continued abdominal pain and picture of colitis on CT of the abdomen and pelvis. I would recommend continued antibiotics. At this point, there is no plan for acute surgical intervention, however we will continue to monitor the patient for any acute surgical changes. Thank you for this consultation, I look forward in providing in this patient's c are. Current Visit: Yes Status: Acute Code(s): K52.9 - NONINFECTIVE GASTROENTERITIS AND COLITIS, UNSPECIFIED SNOMED Code(s): 91585748
[2018-12-01 10:03] LABS: Calcium 7.9 mg/dL (8.4-10.2); Potassium 3.3 mmol/L (3.5-5.1)
[2018-12-01 10:28] LABS: Anisocytosis Slight; HCT 27.1 % (34.0-46.0); HGB 9.2 gm/dL (11.4-16.0); MCH 30.1 pg (25.0-35.0); MCHC 34.1 g/dL (31.0-37.0); MCV 88.4 fL (80.0-100.0); Mean Platelet Volume 9.3; RBC 3.06 m/uL (3.80-5.40); RDW 16.1 % (11.5-15.5); WBC 17.4 k/uL (3.8-10.6)
[2018-12-01 10:39] LABS: Platelet Count 91 k/uL (150-450)
[2018-12-01] MEDS ORDERED: POTASSIUM CHLORIDE ER 20 MEQ TAB.ER PO STA (11:49)
[2018-12-01 12:57] LABS: Appearance,Urine Cloudy (Clear); Bacteria,Urine Rare /hpf; Bilirubin,Urine Negative (Negative); Blood,Urine Trace (Negative); Color,Urine Yellow; Glucose,Urine (UA) Negative (Negative); Ketones,Urine Negative (Negative); Leukocyte Esterase,Urine Large (Negative); Mucus,Urine Rare /hpf; Nitrite,Urine Positive (Negative); Protein,Urine 1+ (Negative); RBC,Urine 71 /hpf (0-5); Specific Gravity,Urine 1.027 (1.001-1.035); Urobilinogen,Urine <2.0 mg/dL (<2.0); WBC,Urine >182 /hpf (0-5)
[2018-12-01] MEDS ORDERED: NON-FORMULARY DRUG (Cranberry Fruit Extract [Cranberry] 500 MG) PO SCH (13:00)
[2018-12-01 13:06] LABS: Band Neutrophils % 1 %; Lymphocytes # (M) 2.09 k/uL (1.0-4.8); Monocytes # (M) 2.09 k/uL (0-1.0); Neutrophils % (M) 75 %; Nucleated Red Blood Cells 0 /100 WBC (0-0); Total Cells Counted 100
--- NOTE | 2018-12-01 13:17 | P.HPIM ---
History of Present Illness H&P Date: 12/01/18 Chief Complaint: Abdominal pain This is a 78-year-old female patient of Dr. Petersen with past medical history of gastroesphageal reflux, Parkinson disease, osteoarthritis, syncope, hypothyroidism, orthostatic hypotension. Patient complains of generalized weakness worsening over the past several days. Patient apparently had a large bowel movement and then after that she was unresponsive. EMS was brought into [facility] emergency center for evaluation. She was complaining of suprapubic abdominal pain and there was concern for recurrent urinary tract infection. She was afebrile, blood pressure 138/71, heart rate 67, pulse ox 97% on room air. She had significant leukocytosis of 32.4 and lactic acid 2.7, hemoglobin 10.1, platelet count 101, blood sugar 108. Potassium 3.0 and was replaced in the emergency center. CAT scan of the abdomen and pelvis revealed acute diverticulitis and patient was started on Zosyn and consult requested with Dr. Lamas. Review of Systems Constitutional: Reports fatigue, Reports lethargy, Reports malaise, Reports poor appetite, Reports weakness, Denies chills, Denies fever Ears, nose, mouth and throat: Denies dysphagia, Denies nasal congestion, Denies nasal discharge, Denies vertigo Cardiovascular: Reports chest pain, Denies dyspnea on exertion, Denies edema, Denies leg edema, Denies lightheadedness, Denies syncope Respiratory: Denies cough, Denies cough with sputum, Denies dyspnea, Denies excessive sputum, Denies hemoptysis, Denies home oxygen, Denies wheezing Gastrointestinal: Reports abdominal pain, Reports diarrhea, Reports loss of appetite, Reports nausea Genitourinary: Denies difficulty voiding, Denies dysuria Musculoskeletal: Denies frequent falls, Denies gait dysfunction, Denies muscle weakness, Denies myalgias Integumentary: Denies pruritus, Denies rash, Denies wounds Neurological: Denies change in mentation, Denies numbness, Denies seizures, Denies weakness Psychiatric: Denies anxiety, Denies depression Endocrine: Denies fatigue, Denies weight change Past Medical History Past Medical History: GERD/Reflux, Hearing Disorder / Deafness, Memory Impairment, Neurologic Disorder, Osteoarthritis (OA), Syncope, Thyroid Disorder Additional Past Medical History / Comment(s): Current UTI, PARKINSONS, orthostatic hypotension, balance issues, dysautonomia, falls, past intracranial hemorrhage rt fall, overactive bladder, FOND DU LAC bilaterally, arthritis in hands, back, chronic back pain, n/t bilateral hands, cataracts bilaterally, hypothyroidism, goiter post thyroidectomy. History of Any Multi-Drug Resistant Organisms: None Reported Past Surgical History: Bladder Surgery, Hernia Repair, Hysterectomy, Joint Replacement, Tubal Ligation Additional Past Surgical History / Comment(s): Deirdre inguinal hernias repair 2016,DEIRDRE TOTAL KNEES, UMBILICAL HERNIA, PARTIAL THYROIDECTOMY, cystocele/rectocele, hysterectomy 01/02/2017, colonoscopy, sinus polypectomy, L wrist ganglion cyst removal. Past Anesthesia/Blood Transfusion Reactions: Previous Problems w/ Anesthesia Additional Past Anesthesia/Blood Transfusion Reaction / Comment(s): STATES KNEE REPLACEMENT MAR 2010 SHE WAS "DELERIOUS ". KNEE REPLACEMENT FEB 2011 HER BLOOD PRESSURE DROPPED AND SHE WAS IN BED FOR 5 DAYS. Past Psychological History: Anxiety, Depression Smoking Status: Never smoker Past Alcohol Use History: None Reported Past Drug Use History: None Reported - Past Family History Sister(s) Family Medical History: Cancer Additional Family Medical History / Comment(s): skin cancer Mother Family Medical History: Diabetes Mellitus, Hypertension, Renal Disease Additional Family Medical History / Comment(s): Mother had an enlarged heart. She of renal failure at the age of 73 yrs. Father Family Medical History: Pneumonia Additional Family Medical History / Comment(s): Father of pneumonia a the age of 73 yrs. Daughter(s) Family Medical History: No Reported History Son(s) Family Medical History: No Reported History Medications and Allergies Home Medications Medication Instructions Recorded Confirmed Type Carbidopa-Levodopa 25-100 mg 0.5 tab PO DAILY@0700 08/20/15 11/30/18 History [Sinemet 25-100 mg] Levothyroxine Sodium [Synthroid] 88 mcg PO DAILY@0700 08/20/15 11/30/18 History Fludrocortisone [Florinef] 0.2 mg PO DAILY@0700 03/08/17 11/30/18 History Carbidopa/Levodopa [Sinemet CR 1 tab PO BID@0700,1300 09/06/17 11/30/18 History 50-200 mg] Ergocalciferol (Vitamin D2) 50,000 unit PO SA 09/06/17 11/30/18 History [Vitamin D2] Fludrocortisone [Florinef] 0.1 mg PO DAILY@1700 09/06/17 11/30/18 History Potassium Chloride [Klor-Con 20] 20 meq PO Q48H 09/06/17 11/30/18 History Donepezil HCl [Aricept] 5 mg PO HS@2100 02/06/18 11/30/18 History Droxidopa [Northera] 200 mg PO TID@0700,1300,1700 02/06/18 11/30/18 History Carbidopa/Levodopa [Sinemet 25-100 0.5 tab PO DAILY@1700 PRN 11/30/18 11/30/18 History mg] Cranberry Fruit Extract [Cranberry] 500 mg PO DAILY@1300 11/30/18 11/30/18 History L.acidoph,Paracasei, B.lactis 1 cap PO HS 11/30/18 11/30/18 History [Probiotic] Oxybutynin Chloride [Ditropan] 5 mg PO DAILY@0700 11/30/18 11/30/18 History buPROPion HCL [Wellbutrin SR] 150 mg PO DAILY@0700 11/30/18 11/30/18 History Allergies Allergy/AdvReac Type Severity Reaction Status Date / Time levofloxacin [From Levaquin] Allergy Unknown Verified 11/30/18 17:08 hydromorphone [From Dilaudid] AdvReac Intermediate poss low Verified 11/30/18 16:11 b/p,confusion post operatively Physical Exam Vitals: Vital Signs Temp Pulse Pulse Resp BP BP Pulse Ox 12/01/18 05:00 97.5 F L 65 18 165/75 97 12/01/18 00:00 18 11/30/18 21:00 97.1 F L 53 L 18 161/72 97 11/30/18 18:35 74 18 154/73 98 11/30/18 16:09 97.8 F 67 18 138/71 97 Intake and Output 11/30/18 12/01/18 12/01/18 22:59 06:59 14:59 Intake Total 1160 250 Balance 1160 250 Intake: Amount of Fluid Infused ( 1100 ml) Intake, IV Titration 60 Amount Sodium Chloride 0.9% 1, 60 000 ml @ 50 mls/hr IV . Q20H HECTOR Rx#:[id number] Oral 250 Other: Voiding Method Bedpan Diaper Incontinent # Voids 2 Weight 50.802 kg - Constitutional General appearance: no acute distress - EENT Eyes: anicteric sclerae, EOMI, PERRLA, no ptosis, no scleral icterus, normal appearance ENT: NA/AT, normal oropharynx, no thrush Ears: bilateral: normal - Neck Neck: no lymphadenopathy, normal ROM, no rigidity, no stridor, no thyromegaly Carotids: bilateral: upstroke normal Thyroid: bilateral: normal size - Respiratory Respiratory: bilateral: diminished, negative: dullness, rales, rhonchi, wheezing, prolonged expiration - Cardiovascular Rhythm: regular Heart sounds: normal: S1, S2 Abnormal Heart Sounds: systolic murmur, no S3 Gallop - Gastrointestinal General gastrointestinal: normal bowel sounds, soft, no splenomegaly, tenderness left lower quadrant, no umbilical hernia, no ventral hernia - Integumentary Integumentary: normal, normal turgor - Neurologic Neurologic: CNII-XII intact - Musculoskeletal Musculoskeletal: generalized weakness Results CBC & Chem 7: 12/01/18 09:29 12/01/18 09:29 Labs: Abnormal Lab Results - Last 24 Hours (Table) 11/30/18 11/30/18 11/30/18 Range/Units 17:00 17:00 17:00 WBC 32.4 H (3.8-10.6) k/uL RBC 3.33 L (3.80-5.40) m/uL Hgb 10.1 L (11.4-16.0) gm/dL Hct 29.3 L (34.0-46.0) % RDW 16.2 H (11.5-15.5) % Plt Count 101 L (150-450) k/uL Neutrophils # (Manual) 23.00 H (1.3-7.7) k/uL Lymphocytes # (Manual) (1.0-4.8) k/uL Monocytes # (Manual) 5.83 H (0-1.0) k/uL Potassium 3.0 L (3.5-5.1) mmol/L BUN 32 H (7-17) mg/dL Glucose 108 H (74-99) mg/dL POC Glucose (mg/dL) (75-99) mg/dL Plasma Lactic Acid Juan 2.7 H* (0.7-2.0) mmol/L Calcium 8.2 L (8.4-10.2) mg/dL ALT <6 L (9-52) U/L Creatine Kinase 25 L (30-135) U/L 11/30/18 12/01/18 12/01/18 Range/Units 17:00 05:28 05:28 WBC 19.4 H (3.8-10.6) k/uL RBC 3.25 L (3.80-5.40) m/uL Hgb 9.5 L (11.4-16.0) gm/dL Hct 28.3 L (34.0-46.0) % RDW (11.5-15.5) % Plt Count 86 L (150-450) k/uL Neutrophils # (Manual) 16.20 H (1.3-7.7) k/uL Lymphocytes # (Manual) 0.78 L (1.0-4.8) k/uL Monocytes # (Manual) 2.33 H (0-1.0) k/uL Potassium (3.5-5.1) mmol/L BUN 23 H (7-17) mg/dL Glucose 67 L (74-99) mg/dL POC Glucose (mg/dL) 102 H (75-99) mg/dL Plasma Lactic Acid Juan (0.7-2.0) mmol/L Calcium 8.0 L (8.4-10.2) mg/dL ALT (9-52) U/L Creatine Kinase (30-135) U/L 12/01/18 Range/Units 09:29 WBC (3.8-10.6) k/uL RBC (3.80-5.40) m/uL Hgb (11.4-16.0) gm/dL Hct (34.0-46.0) % RDW (11.5-15.5) % Plt Count (150-450) k/uL Neutrophils # (Manual) (1.3-7.7) k/uL Lymphocytes # (Manual) (1.0-4.8) k/uL Monocytes # (Manual) (0-1.0) k/uL Potassium 3.3 L (3.5-5.1) mmol/L BUN 19 H (7-17) mg/dL Glucose 112 H (74-99) mg/dL POC Glucose (mg/dL) (75-99) mg/dL Plasma Lactic Acid Juan (0.7-2.0) mmol/L Calcium 7.9 L (8.4-10.2) mg/dL ALT (9-52) U/L Creatine Kinase (30-135) U/L Thrombosis Risk Factor Assmnt - DVT/VTE Prophylaxis DVT/VTE Prophylaxis: Pharmacologic Prophylaxis ordered Assessment and Plan Plan: 1. Acute diverticulitis with leukocytosis, lactic acidosis. Consult with Dr. Cydney teixeira. Continue Zosyn, IV fluids of 0.9 normal saline at 75 mL per hour. 2. 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 3. 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 Continue with Florinef 0.1 mg orally at 1700 and 0.2 mg orally daily, Droxidopa 3 times daily, brought from home. 4. Hypothyrodism. Cntinue synthroid 88 mcg orally daily. 5. Vascular dementia. Continue with Aricept 5 mg orally at bedtime. 6. Osteoarthritis, generalized stable. 7. Parkinson disease. Continue with current carbidopa-Levodopa. 8. DVT prophylaxis. Lovenox subcu daily. 9. GI prophylaxis. will start Protonix 40 mg orally daily. Patient will be admitted to the hospital for a minimum of 2 nights stay Discharge plan: To be determined. PT and OT ordered. Impression and plan of care have been directed as dictated by the signing physician. Shawanda Virk nurse practitioner acting as scribe for signing physician.
[2018-12-01] MEDS: SODIUM CHLORIDE 0.9% 1,000 ML IV SCH (16:13)
[2018-12-01] MEDS ORDERED: CARBIDOPA-LEVODOPA 25-100 MG 1 EACH TAB PO PRN (17:00)
[2018-12-01] MEDS: DONEPEZIL 5 MG TAB PO SCH (20:51)
[2018-12-01] MEDS: LACTOBACILLUS ACIDOPH & BULGAR 1 EACH PACKET PO SCH (20:51)
--- NOTE | 2018-12-01 23:25 | P.CONS ---
History of Present Illness - Reason for Consult Consult date: 12/01/18 - Chief Complaint weakness and abdominal pain - History of Present Illness 78 -year-old woman presents to the emergency center with the history of increasing weakness abdominal pain which was worsening and suprapubic pain worrisome for ongoing or recurrent urinary tract infection. The patient does have a known history of multiple bouts of urinary tract infection is treated on several events in the past. The patient does have a history of the right hip fracture after which she's never had a good recovery of her mental status and functional status. She's never regained her prior fracture status, she's had some ongoing weakness difficulty with gait and has never regained her prior level of mental function. Review of Systems with patient's mental status all the res is somewhat questionable but HEENT:Denies headache or acute visual change. Denies sinus or mouth discomforts. Denies neck stiffness or pain. Denies significant oral cavity pain. Denies difficulty on swallowing. Lungs: Denies significant shortness of breath, cough, sputum production, or hemoptysis. Cardiovascular: Denies significant shortness of breath, chest pain, chest wall p ain, orthopnea, dyspnea on exertion, syncope Gastrointestinal:Denies nausea, vomiting, diarrhea, constipation, hematemesis, melena, hematochezia. No no significant change of bowel habit noticed. Musculoskeletal: denies significant myalgias or arthralgias. No new joint swelling. Denies new back pain. Skin: Denies new rash or lesions. No new ulcers or wounds are related.. Neuro: Denies headache or visual change. Denies any new onset weakness or difficulty with ambulation. Denies falls or seizures. Psychiatric:chronic anxiety Endocrine: progressive fatigue has had weight loss Past Medical History Past Medical History: GERD/Reflux, Hearing Disorder / Deafness, Memory Impairment, Neurologic Disorder, Osteoarthritis (OA), Syncope, Thyroid Disorder Additional Past Medical History / Comment(s): Current UTI, PARKINSONS, orthostatic hypotension, balance issues, dysautonomia, falls, past intracranial hemorrhage rt fall, overactive bladder, ANDREAFSKI bilaterally, arthritis in hands, back, chronic back pain, n/t bilateral hands, cataracts bilaterally, hypothyroidism, goiter post thyroidectomy. History of Any Multi-Drug Resistant Organisms: None Reported Past Surgical History: Bladder Surgery, Hernia Repair, Hysterectomy, Joint Replacement, Tubal Ligation Additional Past Surgical History / Comment(s): Jean-Paul inguinal hernias repair - 2016,JEAN-PAUL TOTAL KNEES, UMBILICAL HERNIA, PARTIAL THYROIDECTOMY, cystocele/rectocele, hysterectomy 01/02/2017, colonoscopy, sinus polypectomy, L wrist ganglion cyst removal. Past Anesthesia/Blood Transfusion Reactions: Previous Problems w/ Anesthesia Additional Past Anesthesia/Blood Transfusion Reaction / Comm: STATES KNEE REPLACEMENT MAR 2010 SHE WAS "DELERIOUS ". KNEE REPLACEMENT FEB 2011 HER BLOOD PRESSURE DROPPED AND SHE WAS IN BED FOR 5 DAYS. Past Psychological History: Anxiety, Depression Additional Psychological History / Comment(s): . Lives in the family home with her . no tobacco use. No history of alcohol or drug use. No animals at this time. No travel history Smoking Status: Never smoker Past Alcohol Use History: None Reported Past Drug Use History: None Reported - Past Family History Sister(s) Family Medical History: Cancer Additional Family Medical History / Comment(s): skin cancer Mother Family Medical History: Diabetes Mellitus, Hypertension, Renal Disease Additional Family Medical History / Comment(s): Mother had an enlarged heart. She of renal failure at the age of 73 yrs. Father Family Medical History: Pneumonia Additional Family Medical History / Comment(s): Father of pneumonia a the age of 73 yrs. Daughter(s) Family Medical History: No Reported History Son(s) Family Medical History: No Reported History Medications and Allergies Home Medications and Allergies Comment(s): Current Medications Acetaminophen (Tylenol Tab) 650 mg PO Q6HR PRN PRN Reason: Fever and/ or Pain Bupropion HCl (Wellbutrin Sr) 150 mg PO DAILY@0700 [facility] Last Admin: 12/01/18 06:00 Dose: 150 mg Documented by: Carbidopa/Levodopa (Sinemet Er 50-200) 1 each PO BID@0700,1300 [facility] Last Admin: 12/01/18 13:08 Dose: 1 each Documented by: Carbidopa/Levodopa (Sinemet 25-100) 0.5 each PO DAILY@1700 PRN PRN Reason: PARKINSONS SYMPTOMS Carbidopa/Levodopa (Sinemet 25-100) 0.5 each PO DAILY@0700 [facility] Last Admin: 12/01/18 05:59 Dose: 0.5 each Documented by: Donepezil HCl (Aricept) 5 mg PO HS@2100 [facility] Last Admin: 12/01/18 20:51 Dose: 5 mg Documented by: Enoxaparin Sodium (Lovenox) 40 mg SQ DAILY [facility] Ergocalciferol (Vitamin D2) 50,000 unit PO SA [facility] Last Admin: 12/01/18 09:41 Dose: 50,000 unit Documented by: Fludrocortisone Acetate (Florinef) 0.1 mg PO DAILY@1700 [facility] Last Admin: 12/01/18 16:57 Dose: 0.1 mg Documented by: Fludrocortisone Acetate (Florinef) 0.2 mg PO DAILY@0700 [facility] Last Admin: 12/01/18 06:02 Dose: 0.2 mg Documented by: Piperacillin Sod/Tazobactam (Sod 3.375 gm/ Sodium Chloride) 100 mls @ 25 mls/hr IVPB Q8H [facility] Last Admin: 12/01/18 20:51 Dose: 25 mls/hr Documented by: Sodium Chloride (Saline 0.9%) 1,000 mls @ 75 mls/hr IV .[id number] [facility] Last Admin: 12/01/18 16:13 Dose: 75 mls/hr Documented by: Lactobacillus Acidoph/Bulgaricus (Lactinex) 1 each PO HS [facility] Last Admin: 12/01/18 20:51 Dose: 1 each Documented by: Levothyroxine Sodium (Synthroid) 88 mcg PO DAILY@0700 [facility] Last Admin: 12/01/18 05:59 Dose: 88 mcg Documented by: Naloxone HCl (Narcan) 0.2 mg IV Q2M PRN PRN Reason: Opioid Reversal Non-Formulary Medication (Droxidopa [Northera]) 200 mg PO TID@0700,1300,1700 [facility] Last Admin: 12/01/18 16:58 Dose: 200 mg Documented by: Oxybutynin Chloride (Ditropan) 5 mg PO DAILY@0700 [facility] Last Admin: 12/01/18 05:59 Dose: 5 mg Documented by: Pantoprazole Sodium (Protonix) 40 mg IVP DAILY [facility] Potassium Chloride (K-Dur 20) 20 meq PO Q48H [facility] Home Medications Medication Instructions Recorded Confirmed Type Carbidopa-Levodopa 25-100 mg 0.5 tab PO DAILY@0700 08/20/15 11/30/18 History [Sinemet 25-100 mg] Levothyroxine Sodium [Synthroid] 88 mcg PO DAILY@0700 08/20/15 11/30/18 History Fludrocortisone [Florinef] 0.2 mg PO DAILY@0700 03/08/17 11/30/18 History Carbidopa/Levodopa [Sinemet CR 1 tab PO BID@0700,1300 09/06/17 11/30/18 History 50-200 mg] Ergocalciferol (Vitamin D2) 50,000 unit PO SA 09/06/17 11/30/18 History [Vitamin D2] Fludrocortisone [Florinef] 0.1 mg PO DAILY@1700 09/06/17 11/30/18 History Potassium Chloride [Klor-Con 20] 20 meq PO Q48H 09/06/17 11/30/18 History Donepezil HCl [Aricept] 5 mg PO HS@2100 02/06/18 11/30/18 History Droxidopa [Northera] 200 mg PO TID@0700,1300,1700 02/06/18 11/30/18 History Carbidopa/Levodopa [Sinemet 25-100 0.5 tab PO DAILY@1700 PRN 11/30/18 11/30/18 History mg] Cranberry Fruit Extract [Cranberry] 500 mg PO DAILY@1300 11/30/18 11/30/18 History L.acidoph,Paracasei, B.lactis 1 cap PO HS 11/30/18 11/30/18 History [Probiotic] Oxybutynin Chloride [Ditropan] 5 mg PO DAILY@0700 11/30/18 11/30/18 History buPROPion HCL [Wellbutrin SR] 150 mg PO DAILY@0700 11/30/18 11/30/18 History Allergies Allergy/AdvReac Type Severity Reaction Status Date / Time levofloxacin [From Levaquin] Allergy Unknown Verified 11/30/18 17:08 hydromorphone [From Dilaudid] AdvReac Intermediate poss low Verified 11/30/18 16:11 b/p,confusion post operatively Physical Exam Vitals: Vital Signs Temp Pulse Resp BP Pulse Ox 12/01/18 11:59 98.9 F 66 16 160/69 97 12/01/18 05:00 97.5 F L 65 18 165/75 97 12/01/18 00:00 18 Intake and Output 12/01/18 12/01/18 12/01/18 06:59 14:59 22:59 Intake Total 250 Balance 250 Intake: Oral 250 Other: Voiding Method Bedpan Bedpan Diaper Diaper Incontinent Incontinent # Voids 2 1 2 Weight 50.802 kg 78 -year-old woman who is of a thin build HEENT: Anicteric conjunctiva are pink and moist nasal mucosa grossly intact without significant lesions, there is no thrush.denture Neck: The neck is supple without significant lymphadenopathy or thyromegaly. Lungs:symmetrical bilateral air entry rare expirator no bronchial sounds or dullness or Heart: Regular rate and rhythm with an audible S1-S2,positive S4 There is no significant murmur click or rub, PMI was nondisplaced. Abdomen: Positive bowel sounds soft some generalized abdominal pain mostly in the lower quadrants without rigidity Extremities: The upper extremities have excellent pulses they are symmetric, no significant petechiae or telangiectasia. No splinter hemorrhages were noted. The lower extremities are free from significant edema. The peripheral pulses were 2+ and symmetric.he fracture site to the hip is well Neuro: she is awake alert answers to her name. does not follow commands very well, possible relates that she is still more confused than usual Results CBC & Chem 7: 12/01/18 09:29 12/01/18 09:29 Labs: Abnormal Lab Results - Last 24 Hours (Table) 12/01/18 12/01/18 12/01/18 Range/Units 05:28 05:28 09:29 WBC 19.4 H 17.4 H (3.8-10.6) k/uL RBC 3.25 L 3.06 L (3.80-5.40) m/uL Hgb 9.5 L 9.2 L (11.4-16.0) gm/dL Hct 28.3 L 27.1 L (34.0-46.0) % RDW 16.1 H (11.5-15.5) % Plt Count 86 L 91 L (150-450) k/uL Neutrophils # (Manual) 16.20 H 13.20 H (1.3-7.7) k/uL Lymphocytes # (Manual) 0.78 L (1.0-4.8) k/uL Monocytes # (Manual) 2.33 H 2.09 H (0-1.0) k/uL Potassium (3.5-5.1) mmol/L BUN 23 H (7-17) mg/dL Glucose 67 L (74-99) mg/dL Calcium 8.0 L (8.4-10.2) mg/dL Urine Appearance (Clear) Urine Protein (Negative) Urine Blood (Negative) Urine Nitrite (Negative) Ur Leukocyte Esterase (Negative) Urine RBC (0-5) /hpf Urine WBC (0-5) /hpf Urine WBC Clumps (None) /hpf Urine Bacteria (None) /hpf Urine Mucus (None) /hpf 12/01/18 12/01/18 Range/Units 09:29 11:12 WBC (3.8-10.6) k/uL RBC (3.80-5.40) m/uL Hgb (11.4-16.0) gm/dL Hct (34.0-46.0) % RDW (11.5-15.5) % Plt Count (150-450) k/uL Neutrophils # (Manual) (1.3-7.7) k/uL Lymphocytes # (Manual) (1.0-4.8) k/uL Monocytes # (Manual) (0-1.0) k/uL Potassium 3.3 L (3.5-5.1) mmol/L BUN 19 H (7-17) mg/dL Glucose 112 H (74-99) mg/dL Calcium 7.9 L (8.4-10.2) mg/dL Urine Appearance Cloudy H (Clear) Urine Protein 1+ H (Negative) Urine Blood Trace H (Negative) Urine Nitrite Positive H (Negative) Ur Leukocyte Esterase Large H (Negative) Urine RBC 71 H (0-5) /hpf Urine WBC >182 H (0-5) /hpf Urine WBC Clumps Occasional H (None) /hpf Urine Bacteria Rare H (None) /hpf Urine Mucus Rare H (None) /hpf Laboratory Results WBC 17.4 k/uL (3.8-10.6) H 12/01/18 09:29 RBC 3.06 m/uL (3.80-5.40) L 12/01/18 09:29 Hgb 9.2 gm/dL (11.4-16.0) L 12/01/18 09:29 Hct 27.1 % (34.0-46.0) L 12/01/18 09:29 MCV 88.4 fL (80.0-100.0) 12/01/18 09: MCH 30.1 pg (25.0-35.0) 12/01/18 09:29 MCHC 34.1 g/dL (31.0-37.0) 12/01/18 09:29 RDW 16.1 % (11.5-15.5) H 12/01/18 09:29 Plt Count 91 k/uL (150-450) L 12/01/18 09:29 Neutrophils % (Manual) 75 % 12/01/18 09: Band Neutrophils % 1 % 12/01/18 09: Lymphocytes % (Manual) 12 % 12/01/18 09:29 Monocytes % (Manual) 12 % 12/01/18 09:29 Neutrophils # (Manual) 13.20 k/uL (1.3-7.7) H 12/01/18 09:29 Lymphocytes # (Manual) 2.09 k/uL (1.0-4.8) 12/01/18 09:29 Monocytes # (Manual) 2.09 k/uL (0-1.0) H 12/01/18 09:29 Nucleated RBCs 0 /100 WBC (0-0) 12/01/18 09:29 Manual Slide Review Performed 12/01/18 09:29 Reactive Lymphocytes Present 11/30/18 17:00 RBC Morphology Normal 12/01/18 09:29 Polychromasia Present 11/30/18 17:00 Anisocytosis Slight 12/01/18 09:29 Anisocytosis (manual) Present 11/30/18 17:00 Sodium 140 mmol/L (137-145) 12/01/18 09:29 Potassium 3.3 mmol/L (3.5-5.1) L 12/01/18 09:29 Chloride 106 mmol/L (98-107) 12/01/18 09:29 Carbon Dioxide 27 mmol/L (22-30) 12/01/18 09:29 Anion Gap 7 mmol/L 12/01/18 09:29 BUN 19 mg/dL (7-17) H 12/01/18 09:29 Creatinine 0.78 mg/dL (0.52-1.04) 12/01/18 09:29 Est GFR (CKD-EPI)AfAm 83 (>60 ml/min/1.73 sqM) 12/01/18 09:29 Est GFR (CKD-EPI)NonAf 72 (>60 ml/min/1.73 sqM) 12/01/18 09:29 Glucose 112 mg/dL (74-99) H 12/01/18 09:29 POC Glucose (mg/dL) 102 mg/dL (75-99) H 11/30/18 17:00 POC Glu Electrical Control Assembler ID Manas Kaur 11/30/18 17:00 Lactic Ac Sepsis Rflx Y 11/30/18 17:25 Plasma Lactic Acid Juan 1.0 mmol/L (0.7-2.0) 11/30/18 21:05 Calcium 7.9 mg/dL (8.4-10.2) L 12/01/18 09:29 Total Bilirubin 0.7 mg/dL (0.2-1.3) 11/30/18 17:00 AST 19 U/L (14-36) 11/30/18 17:00 ALT <6 U/L (9-52) L 11/30/18 17:00 Alkaline Phosphatase 71 U/L (38-126) 11/30/18 17:00 Creatine Kinase 25 U/L (30-135) L 11/30/18 17:00 Total Protein 6.3 g/dL (6.3-8.2) 11/30/18 17:00 Albumin 3.5 g/dL (3.5-5.0) 11/30/18 17:00 Urine Color Yellow 12/01/18 11:12 Urine Appearance Cloudy (Clear) H 12/01/18 11:12 Urine pH 6.0 (5.0-8.0) 12/01/18 11:12 Ur Specific Fields 1.027 (1.001-1.035) 12/01/18 11:12 Urine Protein 1+ (Negative) H 12/01/18 11:12 Urine Glucose (UA) Negative (Negative) 12/01/18 11:12 Urine Ketones Negative (Negative) 12/01/18 11:12 Urine Blood Trace (Negative) H 12/01/18 11:12 Urine Nitrite Positive (Negative) H 12/01/18 11:12 Urine Bilirubin Negative (Negative) 12/01/18 11:12 Urine Urobilinogen <2.0 mg/dL (<2.0) 12/01/18 11:12 Ur Leukocyte Esterase Large (Negative) H 12/01/18 11:12 Urine RBC 71 /hpf (0-5) H 12/01/18 11:12 Urine WBC >182 /hpf (0-5) H 12/01/18 11:12 Urine WBC Clumps Occasional /hpf (None) H 12/01/18 11:12 Urine Bacteria Rare /hpf (None) H 12/01/18 11:12 Urine Mucus Rare /hpf (None) H 12/01/18 11:12 Microbiology 12/01/18 11:12 Urine,Voided Urine Culture - Preliminary Assessment and Plan (1) Abdominal pain Current Visit: Yes Status: Acute Code(s): R10.9 - UNSPECIFIED ABDOMINAL PAIN SNOMED Code(s): 29477705 (2) Diverticulitis large intestine Narrative/Plan: 78-year-old woman who has a history of Parkinson's disease who is been having increasing difficulties with her dementia likely related to this that has progressively worsened since her repair of her hip fracture. Otherwise relates at home she started to feel weak was not eating well and had abdominal pain and constantly was brought to hostel. Computed tomography scan shows evidence of diverticulitis with some colitis. Urinalysis is also abnormal and likely has urinary tract infection also. Antibiotic therapy was Zosyn has been initiated which would give coverage for both the diverticulitis as well as urinary tract infection based on recent culture that shows evidence of the Proteus species. Antibiotic therapy will be further evaluated as cultures become available. Surgery has seen and there is no need for surgical intervention at this time. However there is been discussion for possible colonoscopy. The interobserver have a significant conversation regarding the overall plan of care. A colonoscopy. Helpful but she'll be done if he would be willing to have the patient undergo an extensive surgical procedure if significant abnormalities are found at the time of the colonoscopy. He will discuss this with the surgeon at reevaluation. Current Visit: Yes Status: Acute Code(s): K57.32 - DVTRCLI OF LG INT W/O PERFORATION OR ABSCESS W/O BLEEDING SNOMED Code(s): 1595506 (3) Sepsis due to gram-negative UTI Current Visit: Yes Status: Acute Code(s): A41.50 - GRAM-NEGATIVE SEPSIS, UNSPECIFIED; N39.0 - URINARY TRACT INFECTION, SITE NOT SPECIFIED SNOMED Code(s): 301380553
[2018-12-02] MEDS: PIPERACILLIN-TAZOBACTAM 3.375 GM in SODIUM CHLORIDE 0.9% 100 ML IVPB SCH ×3 (04:36→20:31)
[2018-12-02] MEDS: SODIUM CHLORIDE 0.9% 1,000 ML IV SCH ×2 (04:36→12:04)
[2018-12-02] MEDS: LEVOTHYROXINE 88 MCG TAB PO SCH (08:20)
[2018-12-02] MEDS: CARBIDOPA-LEVODOPA ER 50-200MG 1 EACH TABLET.ER PO SCH ×2 (08:20→12:03)
[2018-12-02] MEDS: POTASSIUM CHLORIDE ER 20 MEQ TAB.ER PO SCH ×4 (08:20→13:56)
[2018-12-02] MEDS: OXYBUTYNIN CHLORIDE 5 MG TAB PO SCH (08:20)
[2018-12-02] MEDS: CARBIDOPA-LEVODOPA 25-100 MG 1 EACH TAB PO SCH (08:20)
[2018-12-02] MEDS: FLUDROCORTISONE 0.1 MG TAB PO SCH ×2 (08:20→17:02)
[2018-12-02] MEDS: buPROPion SR 150 MG TABLET.ER PO SCH (08:21)
[2018-12-02] MEDS: ENOXAPARIN 40 MG/0.4 ML SYRINGE SQ SCH (08:21)
[2018-12-02 08:48] LABS: Anisocytosis Slight; HCT 32.3 % (34.0-46.0); HGB 10.7 gm/dL (11.4-16.0); MCH 29.3 pg (25.0-35.0); MCV 88.8 fL (80.0-100.0); Mean Platelet Volume 9.3; RBC 3.63 m/uL (3.80-5.40); RDW 16.1 % (11.5-15.5); WBC 15.5 k/uL (3.8-10.6)
[2018-12-02 08:57] LABS: Platelet Count 89 k/uL (150-450)
[2018-12-02] MEDS ORDERED: PANTOPRAZOLE 40 MG/10 ML VIAL IVP SCH (09:00)
[2018-12-02 09:03] LABS: ALT 9 U/L (9-52); AST 15 U/L (14-36); African American GFR (CKD) >90 (>60 ml/min/1.73 sqM); Albumin 3.4 g/dL (3.5-5.0); Alkaline Phosphatase 83 U/L (38-126); Anion Gap 7 mmol/L; Blood Urea Nitrogen 10 mg/dL (7-17); Carbon Dioxide 31 mmol/L (22-30); Chloride 105 mmol/L (98-107); Glucose 116 mg/dL (74-99); Potassium 2.9 mmol/L (3.5-5.1); Sodium 143 mmol/L (137-145); Total Bilirubin 0.6 mg/dL (0.2-1.3); Total Protein 6.2 g/dL (6.3-8.2)
[2018-12-02] MEDS ORDERED: POTASSIUM CHLORIDE ER 20 MEQ TAB.ER PO SCH (10:00)
[2018-12-02] MEDS: DROXIDOPA 200 MG PO SCH ×3 (10:12→17:03)
--- NOTE | 2018-12-02 10:14 | P.PN ---
Subjective Progress Note Date: 12/02/18 Patient seen and examined at bedside. States abdominal pain is improving. Denies nausea vomiting. States she is having bowel function. Objective - Vital Signs Vital signs: Vital Signs Temp 98.5 F 12/02/18 07:00 Pulse 58 L 12/02/18 07:00 Resp 20 12/02/18 07:00 BP 178/89 12/02/18 07:00 Pulse Ox 97 12/02/18 07:00 Intake & Output 12/01/18 12/02/18 12/02/18 18:59 06:59 18:59 Weight 50.802 kg Other: Voiding Method Bedpan Bedpan Diaper Diaper Incontinent Incontinent # Voids 2 2 3 - Constitutional General appearance: Present: cooperative, no acute distress - Respiratory Details: No difficulty with respiration - Gastrointestinal Gastrointestinal Comment(s): Soft, some mild tenderness to palpation in the left lower quadrant, nondistended, no rebound or guarding - Musculoskeletal Musculoskeletal: Present: generalized weakness - Labs CBC & Chem 7: 12/02/18 08:11 12/02/18 08:11 Labs: Abnormal Lab Results - Last 24 Hours (Table) 12/01/18 12/01/18 12/02/18 Range/Units 09:29 11:12 08:11 WBC 17.4 H 15.5 H (3.8-10.6) k/uL RBC 3.06 L 3.63 L (3.80-5.40) m/uL Hgb 9.2 L 10.7 L (11.4-16.0) gm/dL Hct 27.1 L 32.3 L (34.0-46.0) % RDW 16.1 H 16.1 H (11.5-15.5) % Plt Count 91 L 89 L (150-450) k/uL Neutrophils # (Manual) 13.20 H (1.3-7.7) k/uL Monocytes # (Manual) 2.09 H (0-1.0) k/uL Potassium (3.5-5.1) mmol/L Carbon Dioxide (22-30) mmol/L Glucose (74-99) mg/dL Calcium (8.4-10.2) mg/dL Total Protein (6.3-8.2) g/dL Albumin (3.5-5.0) g/dL Urine Appearance Cloudy H (Clear) Urine Protein 1+ H (Negative) Urine Blood Trace H (Negative) Urine Nitrite Positive H (Negative) Ur Leukocyte Esterase Large H (Negative) Urine RBC 71 H (0-5) /hpf Urine WBC >182 H (0-5) /hpf Urine WBC Clumps Occasional H (None) /hpf Urine Bacteria Rare H (None) /hpf Urine Mucus Rare H (None) /hpf 12/02/18 Range/Units 08:11 WBC (3.8-10.6) k/uL RBC (3.80-5.40) m/uL Hgb (11.4-16.0) gm/dL Hct (34.0-46.0) % RDW (11.5-15.5) % Plt Count (150-450) k/uL Neutrophils # (Manual) (1.3-7.7) k/uL Monocytes # (Manual) (0-1.0) k/uL Potassium 2.9 L (3.5-5.1) mmol/L Carbon Dioxide 31 H (22-30) mmol/L Glucose 116 H (74-99) mg/dL Calcium 8.0 L (8.4-10.2) mg/dL Total Protein 6.2 L (6.3-8.2) g/dL Albumin 3.4 L (3.5-5.0) g/dL Urine Appearance (Clear) Urine Protein (Negative) Urine Blood (Negative) Urine Nitrite (Negative) Ur Leukocyte Esterase (Negative) Urine RBC (0-5) /hpf Urine WBC (0-5) /hpf Urine WBC Clumps (None) /hpf Urine Bacteria (None) /hpf Urine Mucus (None) /hpf Microbiology - Last 24 Hours (Table) 12/01/18 05:28 Blood Culture - Preliminary Blood No Growth after 24 hours 12/01/18 11:12 Urine Culture - Preliminary Urine,Voided Assessment and Plan (1) Colitis Narrative/Plan: 78-year-old female with colitis - Leukocytosis improving - Pain improving - Okay to advance diet to soft diet - Continue antibiotics per infectious disease recommendations - No plan for acute surgical intervention at this time Current Visit: Yes Status: Acute Code(s): K52.9 - NONINFECTIVE GASTROENTER ITIS AND COLITIS, UNSPECIFIED SNOMED Code(s): 06584410
--- NOTE | 2018-12-02 11:21 | P.PN ---
Subjective Progress Note Date: 12/02/18 This is a 78-year-old female patient of Dr. Petersen with past medical history of gastroesphageal reflux, Parkinson disease, osteoarthritis, syncope, hypothyroidism, orthostatic hypotension. Patient complains of generalized weakness worsening over the past several days. Patient apparently had a large bowel movement and then after that she was unresponsive. EMS was brought into [facility] emergency center for evaluation. She was complaining of suprapubic abdominal pain and there was concern for recurrent urinary tract infection. She was afebrile, blood pressure 138/71, heart rate 67, pulse ox 97% on room air. She had significant leukocytosis of 32.4 and lactic acid 2.7, hemoglobin 10.1, platelet count 101, blood sugar 108. Potassium 3.0 and was replaced in the emergency center. CAT scan of the abdomen and pelvis revealed acute diverticulitis and patient was started on Zosyn and consult requested with Dr. Lamas. 12/02: Yesterday afternoon, urinalysis came back positive for urinary tract infection and consult was added for Dr. Bates for he sees her in the outpatient setting and has been monitoring her. Patient did have an appointment for follow-up of this following week. The patient has been seen by Dr. Bates recommends continuing Zosyn for both UTI and diverticulitis. White count is improved to 15.5, hemoglobin is 10.7 and platelet count is 89. Potassium is down to 2.9, CO2 31, BUN 10 and creatinine 0.63. Blood culture showing no growth at 24 hours. Urine culture is preliminary. Patient has been afebrile, heart rate 58, blood pressure 178/89, pulse ox 97% on room air. Potassium will be replaced. The patient has not had a bowel movement since admission. She denies any abdominal pain. Objective - Vital Signs Vital signs: Vital Signs Temp 98.5 F 12/02/18 07:00 Pulse 58 L 12/02/18 07:00 Resp 20 12/02/18 07:00 BP 178/89 12/02/18 07:00 Pulse Ox 97 12/02/18 07:00 Intake & Output 12/01/18 12/02/18 12/02/18 18:59 06:59 18:59 Weight 50.802 kg Other: Voiding Method Bedpan Bedpan Diaper Diaper Incontinent Incontinent # Voids 2 2 - Exam Review of Systems Constitutional: Reports fatigue, Reports lethargy, Reports malaise, Reports poor appetite, Reports weakness, Denies chills, Denies fever Ears, nose, mouth and throat: Denies dysphagia, Denies nasal congestion, Denies nasal discharge, Denies vertigo Cardiovascular: Reports chest pain, Denies dyspnea on exertion, Denies edema, Denies leg edema, Denies lightheadedness, Denies syncope Respiratory: Denies cough, Denies cough with sputum, Denies dyspnea, Denies excessive sputum, Denies hemoptysis, Denies home oxygen, Denies wheezing Gastrointestinal: Denies abdominal pain, Reports diarrhea, Reports loss of appetite, denies nausea Genitourinary: Denies difficulty voiding, Denies dysuria Musculoskeletal: Denies frequent falls, reports gait dysfunction, Denies muscle weakness, Denies myalgias Integumentary: Denies pruritus, Denies rash, Denies wounds Neurological: Denies change in mentation, Denies numbness, Denies seizures, Denies weakness Psychiatric: Denies anxiety, Denies depression Endocrine: Denies fatigue, Denies weight change - Constitutional General appearance: no acute distress - EENT Eyes: anicteric sclerae, EOMI, PERRLA, no ptosis, no scleral icterus, normal appearance ENT: NA/AT, normal oropharynx, no thrush Ears: bilateral: normal - Neck Neck: no lymphadenopathy, normal ROM, no rigidity, no stridor, no thyromegaly Carotids: bilateral: upstroke normal Thyroid: bilateral: normal size - Respiratory Respiratory: bilateral: diminished, negative: dullness, rales, rhonchi, wheezing, prolonged expiration - Cardiovascular Rhythm: regular Heart sounds: normal: S1, S2 Abnormal Heart Sounds: systolic murmur, no S3 Gallop - Gastrointestinal General gastrointestinal: normal bowel sounds, soft, no splenomegaly, tenderness left lower quadrant, no umbilical hernia, no ventral hernia - Integumentary Integumentary: normal, normal turgor - Neurologic Neurologic: CNII-XII intact - Musculoskeletal Musculoskeletal: generalized weakness - Labs CBC & Chem 7: 12/02/18 08:11 12/02/18 08:11 Labs: Abnormal Lab Results - Last 24 Hours (Table) 12/01/18 12/01/18 12/01/18 Range/Units 09:29 09:29 11:12 WBC 17.4 H (3.8-10.6) k/uL RBC 3.06 L (3.80-5.40) m/uL Hgb 9.2 L (11.4-16.0) gm/dL Hct 27.1 L (34.0-46.0) % RDW 16.1 H (11.5-15.5) % Plt Count 91 L (150-450) k/uL Neutrophils # (Manual) 13.20 H (1.3-7.7) k/uL Monocytes # (Manual) 2.09 H (0-1.0) k/uL Potassium 3.3 L (3.5-5.1) mmol/L BUN 19 H (7-17) mg/dL Glucose 112 H (74-99) mg/dL Calcium 7.9 L (8.4-10.2) mg/dL Urine Appearance Cloudy H (Clear) Urine Protein 1+ H (Negative) Urine Blood Trace H (Negative) Urine Nitrite Positive H (Negative) Ur Leukocyte Esterase Large H (Negative) Urine RBC 71 H (0-5) /hpf Urine WBC >182 H (0-5) /hpf Urine WBC Clumps Occasional H (None) /hpf Urine Bacteria Rare H (None) /hpf Urine Mucus Rare H (None) /hpf 12/02/18 Range/Units 08:11 WBC 15.5 H (3.8-10.6) k/uL RBC 3.63 L (3.80-5.40) m/uL Hgb 10.7 L (11.4-16.0) gm/dL Hct 32.3 L (34.0-46.0) % RDW 16.1 H (11.5-15.5) % Plt Count 89 L (150-450) k/uL Neutrophils # (Manual) (1.3-7.7) k/uL Monocytes # (Manual) (0-1.0) k/uL Potassium (3.5-5.1) mmol/L BUN (7-17) mg/dL Glucose (74-99) mg/dL Calcium (8.4-10.2) mg/dL Urine Appearance (Clear) Urine Protein (Negative) Urine Blood (Negative) Urine Nitrite (Negative) Ur Leukocyte Esterase (Negative) Urine RBC (0-5) /hpf Urine WBC (0-5) /hpf Urine WBC Clumps (None) /hpf Urine Bacteria (None) /hpf Urine Mucus (None) /hpf Microbiology - Last 24 Hours (Table) 12/01/18 05:28 Blood Culture - Preliminary Blood No Growth after 24 hours 12/01/18 11:12 Urine Culture - Preliminary Urine,Voided Assessment and Plan Plan: 1. Acute diverticulitis with leukocytosis, lactic acidosis. Consult with Dr. Lamas appreciated. Continue Zosyn, IV fluids of 0.9 normal saline at 75 mL per hour. 2. Acute UTI, present on admission. Consult with Dr. Bates appreciated. Continue Zosyn. 3. 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 3. 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 Continue with Florinef 0.1 mg orally at 1700 and 0.2 mg orally daily, Droxidopa 3 times daily, brought from home. 4. Hypothyrodism. Cntinue synthroid 88 mcg orally daily. 5. Vascular dementia. Continue with Aricept 5 mg orally at bedtime. 6. Osteoarthritis, generalized stable. 7. Parkinson disease. Continue with current carbidopa-Levodopa. 8. DVT prophylaxis. Lovenox subcu daily. 9. GI prophylaxis. will start Protonix 40 mg orally daily. 10. Hypokalemia. Replacement. Discharge plan: To be determined. PT and OT ordered. Impression and plan of care have been directed as dictated by the signing physician. Shawanda Virk nurse practitioner acting as scribe for signing physician.
[2018-12-02] MEDS: DONEPEZIL 5 MG TAB PO SCH (20:31)
[2018-12-02] MEDS: LACTOBACILLUS ACIDOPH & BULGAR 1 EACH PACKET PO SCH (20:31)
[2018-12-03] MEDS: PIPERACILLIN-TAZOBACTAM 3.375 GM in SODIUM CHLORIDE 0.9% 100 ML IVPB SCH ×3 (04:29→21:45)
[2018-12-03] MEDS: SODIUM CHLORIDE 0.9% 1,000 ML IV SCH ×2 (04:30→18:02)
[2018-12-03] MEDS: OXYBUTYNIN CHLORIDE 5 MG TAB PO SCH (05:10)
[2018-12-03] MEDS: LEVOTHYROXINE 88 MCG TAB PO SCH (05:10)
[2018-12-03] MEDS: CARBIDOPA-LEVODOPA 25-100 MG 1 EACH TAB PO SCH (05:10)
[2018-12-03] MEDS: DROXIDOPA 200 MG PO SCH ×3 (05:20→17:01)
[2018-12-03] MEDS: CARBIDOPA-LEVODOPA ER 50-200MG 1 EACH TABLET.ER PO SCH ×2 (05:58→12:10)
[2018-12-03] MEDS: buPROPion SR 150 MG TABLET.ER PO SCH (05:59)
[2018-12-03] MEDS: FLUDROCORTISONE 0.1 MG TAB PO SCH ×2 (05:59→18:01)
[2018-12-03] MEDS: PANTOPRAZOLE 40 MG TABLET PO SCH (07:43)
[2018-12-03] MEDS: ENOXAPARIN 40 MG/0.4 ML SYRINGE SQ SCH (07:43)
[2018-12-03 11:37] LABS: Calcium 8.9 mg/dL (8.4-10.2); Potassium 3.1 mmol/L (3.5-5.1)
--- NOTE | 2018-12-03 11:41 | CDI ---
Documentation Clarification Form Date: 12/03/2018 11:31:22 AM From: Karen MastJULISA, CCDS Admit Date: 11/30/2018 7:53:00 PM Patient Name: Shy Lacey Visit Number: [id number] Discharge Date: ATTENTION: The Clinical Documentation Specialists (CDI) and [facility] Coding Staff appreciate your assistance in clarifying documentation. Please respond to the clarification below the line at the bottom and electronically sign. The CDI & [facility] Coding staff will review the response and follow-up if needed. Please note: Queries are made part of the Legal Health Record. If you have any questions, please contact the author of this message via ITS. Dr. Stacy Moscoso or Dr. Juan Pablo Monique: Per the Infectious Disease Consult: "Urinalysis is also abnormal and likely has urinary tract infection also. Antibiotic therapy Zosyn has been initiated which would give coverage for both the diverticulitis as well as urinary tract infection based on recent culture that shows evidence of the Proteus species.... IMP: Sepsis due to gram-negative UTI." History/Risk Factors: Recurrent UTIs, Parkinson's disease, frequent falls, Orthostatic hypotension, Vascular dementia, OA, Chronic thrombocytopenia. Clinical Indicators: Presented to the ED after becoming unresponsive at home with large BM. Diagnosed with acute sigmoid diverticulitis & recurrent UTI. WBC: 32.4^ Lactic acid: 2.7^^ - (1.0) Blood cultures: preliminary negative Urine culture: preliminary gram neg bacilli Vitals signs on admission: T 97.8 - 97.1*; P 67 - supine 53*; BP 38/71, PO 97 RA Treatment: IV fluid bolus, IV Zosyn, IV fluid rate 50. ID & Surgical consult. In your professional opinion, please clarify if these findings signify one of the following conditions, whether the condition is POA, and cause, if known: o Sepsis ruled out xo Sepsis ruled in, please specify cause and organism if known o Severe Sepsis o Other, please specify o Unable to determine Present on Admission ox Yes o No (Last Revision: June 2017) MTDD
[2018-12-03] MEDS: POTASSIUM CHLORIDE ER 20 MEQ TAB.ER PO SCH ×3 (11:54→14:11)
--- NOTE | 2018-12-03 15:41 | P.PN ---
Subjective Progress Note Date: 12/03/18 This is a 78-year-old female patient of Dr. Petersen with past medical history of gastroesphageal reflux, Parkinson disease, osteoarthritis, syncope, hypothyroidism, orthostatic hypotension. Patient complains of generalized weakness worsening over the past several days. Patient apparently had a large bowel movement and then after that she was unresponsive. EMS was brought into [facility] emergency center for evaluation. She was complaining of suprapubic abdominal pain and there was concern for recurrent urinary tract infection. She was afebrile, blood pressure 138/71, heart rate 67, pulse ox 97% on room air. She had significant leukocytosis of 32.4 and lactic acid 2.7, hemoglobin 10.1, platelet count 101, blood sugar 108. Potassium 3.0 and was replaced in the emergency center. CAT scan of the abdomen and pelvis revealed acute diverticulitis and patient was started on Zosyn and consult requested with Dr. Lamas. 12/02: Yesterday afternoon, urinalysis came back positive for urinary tract infection and consult was added for Dr. Bates for he sees her in the outpatient setting and has been monitoring her. Patient did have an appointment for follow-up of this following week. The patient has been seen by Dr. Bates recommends continuing Zosyn for both UTI and diverticulitis. White count is improved to 15.5, hemoglobin is 10.7 and platelet count is 89. Potassium is down to 2.9, CO2 31, BUN 10 and creatinine 0.63. Blood culture showing no growth at 24 hours. Urine culture is preliminary. Patient has been afebrile, heart rate 58, blood pressure 178/89, pulse ox 97% on room air. Potassium will be replaced. The patient has not had a bowel movement since admission. She denies any abdominal pain. 12/03: Patient is found sitting up in chair. Her states that she has been very weak at home and unable to do PT and they feel it's related to her not eating very much. Patient denies any abdominal pain at this time. No nausea or vomiting. The patient has not had a bowel movement. Patient has been afebrile, heart rate 73, blood pressure 135/77, pulse ox 97% on room air. Repeat lab work reveals sodium 146, potassium 3.1, chloride 109, CO2 25, blood sugar 152. Potassium has been replaced with 60 mEq and we will check a magnesium level. Repeat lab work in the morning. The patient will be seen today by physical therapy. Objective - Vital Signs Vital signs: Vital Signs Temp 97.9 F 12/03/18 13:06 Pulse 73 12/03/18 13:06 Resp 16 12/03/18 13:06 BP 135/77 12/03/18 13:06 Pulse Ox 97 12/03/18 13:06 Intake & Output 12/02/18 12/03/18 12/03/18 18:59 06:59 18:59 Intake Total 700 Balance 700 Intake: IV 700 Piperacillin-Tazobactam 3 100 .375 gm In Sodium Chloride 0.9% 100 ml @ 25 mls/hr IVPB Q8H [facility] Rx#: [id number] Sodium Chloride 0.9% 1, 600 000 ml @ 75 mls/hr IV . [id number] [facility] Rx#:[id number] Other: # Voids 1 7 1 # Bowel Movements 0 1 - Exam Review of Systems Constitutional: Reports fatigue, Reports lethargy, Reports malaise, Reports poor appetite, Reports weakness, Denies chills, Denies fever Ears, nose, mouth and throat: Denies dysphagia, Denies vertigo Cardiovascular: Reports chest pain, Denies dyspnea on exertion, Denies edema, Denies leg edema, Denies lightheadedness, Denies syncope Respiratory: Denies cough, Denies cough with sputum, Denies dyspnea, Denies excessive sputum, Denies hemoptysis, Denies home oxygen, Denies wheezing Gastrointestinal: Denies abdominal pain, Reports diarrhea, Reports loss of appetite, denies nausea Genitourinary: Denies difficulty voiding, Denies dysuria Musculoskeletal: Denies frequent falls, reports gait dysfunction, Denies muscle weakness, Denies myalgias Integumentary: Denies pruritus, Denies rash, Denies wounds Neurological: Denies change in mentation, Denies numbness, Denies seizures, Denies weakness Psychiatric: Denies anxiety, Denies depression Endocrine: Denies fatigue, Denies weight change - Constitutional General appearance: no acute distress, patient sitting up in a chair. is at bedside. - EENT Eyes: anicteric sclerae, EOMI, PERRLA, no ptosis, no scleral icterus, normal appearance ENT: NA/AT, normal oropharynx, no thrush Ears: bilateral: normal - Neck Neck: no lymphadenopathy, normal ROM, no rigidity, no stridor, no thyromegaly Carotids: bilateral: upstroke normal Thyroid: bilateral: normal size - Respiratory Respiratory: bilateral: diminished, negative: dullness, rales, rhonchi, wheezing, prolonged expiration - Cardiovascular Rhythm: regular Heart sounds: normal: S1, S2 Abnormal Heart Sounds: systolic murmur, no S3 Gallop - Gastrointestinal General gastrointestinal: normal bowel sounds, soft, no splenomegaly, tenderness left lower quadrant, no umbilical hernia, no ventral hernia - Integumentary Integumentary: normal, normal turgor - Neurologic Neurologic: CNII-XII intact - Musculoskeletal Musculoskeletal: generalized weakness - Labs CBC & Chem 7: 12/02/18 08:11 12/03/18 09:07 Labs: Abnormal Lab Results - Last 24 Hours (Table) 12/03/18 Range/Units 09:07 Sodium 146 H (137-145) mmol/L Potassium 3.1 L (3.5-5.1) mmol/L Chloride 109 H (98-107) mmol/L Glucose 152 H (74-99) mg/dL Microbiology - Last 24 Hours (Table) 12/01/18 05:28 Blood Culture - Preliminary Blood No Growth after 48 hours 12/01/18 11:12 Urine Culture - Preliminary Urine,Voided Gram Neg Bacilli Assessment and Plan Plan: 1. Acute diverticulitis with leukocytosis, lactic acidosis. Consult with Dr. Lamas appreciated. Continue Zosyn, IV fluids of 0.9 normal saline at 75 mL per hour. 2. Acute UTI, present on admission. Consult with Dr. Bates appreciated. Continue Zosyn. 3. 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 3. 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 Continue with Florinef 0.1 mg orally at 1700 and 0.2 mg orally daily, Droxidopa 3 times daily, brought from home. 4. Hypothyrodism. Cntinue synthroid 88 mcg orally daily. 5. Vascular dementia. Continue with Aricept 5 mg orally at bedtime. 6. Osteoarthritis, generalized stable. 7. Parkinson disease. Continue with current carbidopa-Levodopa. 8. DVT prophylaxis. Lovenox subcu daily. 9. GI prophylaxis. will start Protonix 40 mg orally daily. 10. Hypokalemia. Replacement. Check magnesium level. Discharge plan: Most likely home with [facility]. PT and OT Kishore Archuleta and B. Impression and plan of care have been directed as dictated by the signing physician. Shawanda Virk nurse practitioner acting as scribe for signing physician.
[2018-12-03 16:17] LABS: Magnesium 1.7 mg/dL (1.6-2.3); Potassium 3.8 mmol/L (3.5-5.1)
[2018-12-03] MEDS: LACTOBACILLUS ACIDOPH & BULGAR 1 EACH PACKET PO SCH (21:47)
[2018-12-03] MEDS: DONEPEZIL 5 MG TAB PO SCH (23:52)
[2018-12-04] MEDS: ACETAMINOPHEN TAB 325 MG TAB PO PRN ×2 (05:11→13:52)
[2018-12-04] MEDS: PIPERACILLIN-TAZOBACTAM 3.375 GM in SODIUM CHLORIDE 0.9% 100 ML IVPB SCH (05:11)
[2018-12-04] MEDS: LEVOTHYROXINE 88 MCG TAB PO SCH (05:48)
[2018-12-04] MEDS: OXYBUTYNIN CHLORIDE 5 MG TAB PO SCH (05:48)
[2018-12-04] MEDS: POTASSIUM CHLORIDE ER 20 MEQ TAB.ER PO SCH (05:48)
[2018-12-04] MEDS: CARBIDOPA-LEVODOPA 25-100 MG 1 EACH TAB PO SCH (05:49)
[2018-12-04] MEDS: CARBIDOPA-LEVODOPA ER 50-200MG 1 EACH TABLET.ER PO SCH ×2 (05:49→13:51)
[2018-12-04] MEDS: FLUDROCORTISONE 0.1 MG TAB PO SCH ×2 (05:51→17:07)
[2018-12-04] MEDS: buPROPion SR 150 MG TABLET.ER PO SCH (05:51)
[2018-12-04] MEDS: PANTOPRAZOLE 40 MG TABLET PO SCH (07:58)
[2018-12-04] MEDS: SODIUM CHLORIDE 0.9% 1,000 ML IV SCH (07:59)
[2018-12-04] MEDS: DROXIDOPA 200 MG PO SCH ×3 (07:59→17:06)
[2018-12-04] MEDS: ENOXAPARIN 40 MG/0.4 ML SYRINGE SQ SCH (08:00)
[2018-12-04 08:39] LABS: Albumin 3.3 g/dL (3.5-5.0); Calcium 8.4 mg/dL (8.4-10.2); Potassium 3.4 mmol/L (3.5-5.1); Total Bilirubin 0.5 mg/dL (0.2-1.3); Total Protein 6.2 g/dL (6.3-8.2)
[2018-12-04 09:00] LABS: Anisocytosis Slight; HCT 32.9 % (34.0-46.0); HGB 11.1 gm/dL (11.4-16.0); MCH 30.2 pg (25.0-35.0); MCHC 33.6 g/dL (31.0-37.0); MCV 89.8 fL (80.0-100.0); Mean Platelet Volume 9.5; RBC 3.66 m/uL (3.80-5.40); RDW 16.9 % (11.5-15.5)
[2018-12-04 09:01] LABS: Platelet Count 92 k/uL (150-450)
[2018-12-04] MEDS: MEROPENEM 1 GM in SODIUM CHLORIDE 0.9% 100 ML IVPB SCH ×2 (10:09→20:17)
[2018-12-04] MEDS ORDERED: POTASSIUM CHLORIDE ER 20 MEQ TAB.ER PO STA (10:09)
[2018-12-04 11:16] LABS: Lymphocytes # (M) 1.56 k/uL (1.0-4.8); Monocytes # (M) 1.56 k/uL (0-1.0); Neutrophils % (M) 76 %; Nucleated Red Blood Cells 0 /100 WBC (0-0); Total Cells Counted 100
[2018-12-04 11:23] LABS: Poikilocytosis (M) Present
--- NOTE | 2018-12-04 13:50 | P.DS ---
Providers Date of admission: 11/30/18 19:53 Expected date of discharge: 12/04/18 Attending physician: Stacy Moscoso Consults: 11/30/18 19:39 Consult Physician Urgent Consulting Provider: Sagar Lamas Consult Reason/Comments: acute diverticulitis, PCP request Do you want consulting provider notified?: Yes 12/01/18 13:27 Consult Physician Routine Consulting Provider: Juan Pablo Bates Consult Reason/Comments: recurrent UTI, has appt 12/05, adm for diverticulitis Do you want consulting provider notified?: Yes Primary care physician: Jose [facility] Course: This is a 78-year-old female patient of Dr. Petersen with past medical history of gastroesphageal reflux, Parkinson disease, osteoarthritis, syncope, hypothyroidism, orthostatic hypotension. Patient complains of generalized weakness worsening over the past several days. Patient apparently had a large bowel movement and then after that she was unresponsive. EMS was brought into [facility] emergency center for evaluation. She was complaining of suprapubic abdominal pain and there was concern for recurrent urinary tract infection. She was afebrile, blood pressure 138/71, heart rate 67, pulse ox 97% on room air. She had significant leukocytosis of 32.4 and lactic acid 2.7, hemoglobin 10.1, platelet count 101, blood sugar 108. Potassium 3.0 and was replaced in the emergency center. CAT scan of the abdomen and pelvis revealed acute diverticulitis and patient was started on Zosyn and consult requested with Dr. Lamas. 12/02: Yesterday afternoon, urinalysis came back positive for urinary tract infection and consult was added for Dr. Bates for he sees her in the outpatient setting and has been monitoring her. Patient did have an appointment for follow-up of this following week. The patient has been seen by Dr. Bates recommends continuing Zosyn for both UTI and diverticulitis. White count is improved to 15.5, hemoglobin is 10.7 and platelet count is 89. Potassium is down to 2.9, CO2 31, BUN 10 and creatinine 0.63. Blood culture showing no growth at 24 hours. Urine culture is preliminary. Patient has been afebrile, heart rate 58, blood pressure 178/89, pulse ox 97% on room air. Potassium will be replaced. The patient has not had a bowel movement since admission. She denies any abdominal pain. 12/03: Patient is found sitting up in chair. Her states that she has been very weak at home and unable to do PT and they feel it's related to her not eating very much. Patient denies any abdominal pain at this time. No nausea or vomiting. The patient has not had a bowel movement. Patient has been afebrile, heart rate 73, blood pressure 135/77, pulse ox 97% on room air. Repeat lab work reveals sodium 146, potassium 3.1, chloride 109, CO2 25, blood sugar 152. Potassium has been replaced with 60 mEq and we will check a magnesium level. Repeat lab work in the morning. The patient will be seen today by physical therapy. 12/04: Urine culture returned positive for multidrug-resistant Enterobacter. Dr. Bates has changed her antibiotics to meropenem. Midline has been ordered for today. A repeat potassium is 3.4 and additional 40 mEq will be given today. Magnesium level I.7. White count is improved to 13, hemoglobin 11.1, platelet count 92. Patient has been afebrile, heart rate 63-91, blood pressure 112/67, pulse ox 94% on room air. Patient did have a bowel movement yesterday. IV fluids will be discontinued. Patient denies having any burning or pain with urination. She is incontinent. Patient was being prepared for discharge to home when patient stated that she did not want to go home. Arrangements have been made for patient to go to [facility] today. Dr. Bates is recommended meropenem for 14 days. Patient will be transferred to [facility] once all arrangements are completed. Discharge diagnoses: 1. Acute diverticulitis with leukocytosis, lactic acidosis. 2. Acute Enterobacter UTI, present on admission. 3. 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 4. 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 5. Hypothyrodism. 6. Vascular dementia. 7. Osteoarthritis, generalized stable. 8. Parkinson disease. 9. Hypokalemia. Discharge plan: [facility] Impression and plan of care have been directed as dictated by the signing physic ian. Shawanda Virk nurse practitioner acting as scribe for signing physician. Patient Condition at Discharge: Serious Plan - Discharge Summary New Discharge Prescriptions: New Meropenem [Merrem] 1 gm IVPB Q12H #28 vial Acetaminophen Tab [Tylenol] 650 mg PO Q6HR PRN tab PRN Reason: Fever And/ Or Pain Continue Levothyroxine Sodium [Synthroid] 88 mcg PO DAILY@0700 Carbidopa-Levodopa 25-100 mg [Sinemet 25-100 mg] 0.5 tab PO DAILY@0700 Fludrocortisone [Florinef] 0.2 mg PO DAILY@0700 Fludrocortisone [Florinef] 0.1 mg PO DAILY@1700 Carbidopa/Levodopa [Sinemet CR 50-200 mg] 1 tab PO BID@0700,1300 Ergocalciferol (Vitamin D2) [Vitamin D2] 50,000 unit PO SA Droxidopa [Northera] 200 mg PO TID@0700,1300,1700 Donepezil HCl [Aricept] 5 mg PO HS@2100 L.acidoph,Paracasei, B.lactis [Probiotic] 1 cap PO HS buPROPion HCL [Wellbutrin SR] 150 mg PO DAILY@0700 Oxybutynin Chloride [Ditropan] 5 mg PO DAILY@0700 Carbidopa/Levodopa [Sinemet 25-100 mg] 0.5 tab PO DAILY@1700 PRN PRN Reason: PARKINSONS [employer]MPTOMS Cranberry Fruit Extract [Cranberry] 500 mg PO DAILY@1300 Changed Potassium Chloride [Klor-Con 20] 20 meq PO DAILY #0 Discharge Medication List Carbidopa-Levodopa 25-100 mg [Sinemet 25-100 mg] 0.5 tab PO DAILY@0700 08/20/15 [History] Levothyroxine Sodium [Synthroid] 88 mcg PO DAILY@0700 08/20/15 [History] Fludrocortisone [Florinef] 0.2 mg PO DAILY@0700 03/08/17 [History] Carbidopa/Levodopa [Sinemet CR 50-200 mg] 1 tab PO BID@0700,1300 09/06/17 [History] Ergocalciferol (Vitamin D2) [Vitamin D2] 50,000 unit PO SA 09/06/17 [History] Fludrocortisone [Florinef] 0.1 mg PO DAILY@1700 09/06/17 [History] Donepezil HCl [Aricept] 5 mg PO HS@2100 02/06/18 [History] Droxidopa [Northera] 200 mg PO TID@0700,1300,1700 02/06/18 [History] Carbidopa/Levodopa [Sinemet 25-100 mg] 0.5 tab PO DAILY@1700 PRN 11/30/18 [History] Cranberry Fruit Extract [Cranberry] 500 mg PO DAILY@1300 11/30/18 [History] L.acidoph,Paracasei, B.lactis [Probiotic] 1 cap PO HS 11/30/18 [History] Oxybutynin Chloride [Ditropan] 5 mg PO DAILY@0700 11/30/18 [History] buPROPion HCL [Wellbutrin SR] 150 mg PO DAILY@0700 11/30/18 [History] Acetaminophen Tab [Tylenol] 650 mg PO Q6HR PRN tab 12/04/18 [Rx] Meropenem [Merrem] 1 gm IVPB Q12H #28 vial 12/04/18 [Rx] Potassium Chloride [Klor-Con 20] 20 meq PO DAILY #0 12/04/18 [Rx] Follow up Appointment(s)/Referral(s): [facility], [NON-STAFF] - Jose Petersen DO [Primary Care Provider] - 1 Week (After discharge from [facility]) Discharge Disposition: TRANSFER TO SNF/ECF
[2018-12-04] MEDS: NYSTATIN 100,000 UNIT/ML SUSP 500,000 UNIT/5 ML CUP PO SCH ×3 (14:52→20:17)
[2018-12-04 15:21] VITALS: TEMP 97.9
[2018-12-04] MEDS: LACTOBACILLUS ACIDOPH & BULGAR 1 EACH PACKET PO SCH (20:17)
[2018-12-04] MEDS: DONEPEZIL 5 MG TAB PO SCH (20:17)
--- NOTE | 2018-12-04 22:47 | P.PN ---
Subjective Progress Note Date: 12/04/18 78 -year-old woman presents to the emergency center with the history of increasing weakness abdominal pain which was worsening and suprapubic pain worrisome for ongoing or recurrent urinary tract infection. The patient does have a known history of multiple bouts of urinary tract infection is treated on several events in the past. The patient does have a history of the right hip fracture after which she's never had a good recovery of her mental status and functional status. She's never regained her prior fracture status, she's had some ongoing weakness difficulty with gait and has never regained her prior level of mental function. 12/04/2018 the patient's family is present. Possible relates that she is giving up her will to live and just wants to . She is ill with the diverticulitis in the drug-resistant Enterobacter infection of her urine and antibiotic therapy has been transitioned to meropenem. This is discussed with the discharge team and the care facility that she will be transferred to [place] except this antibiotic. IV access was requested in this plan is discussed with the family. Objective - Vital Signs Vital signs: Vital Signs Temp 97.9 F 12/04/18 13:48 Pulse 70 12/04/18 13:48 Resp 18 12/04/18 13:48 BP 160/72 12/04/18 17:13 Pulse Ox 98 12/04/18 13:48 Intake & Output 12/04/18 12/04/18 12/05/18 06:59 18:59 06:59 Intake Total 540 Balance 540 Weight 50.802 kg Intake: Oral 540 Other: Voiding Method Bedpan Bedpan Bedpan Diaper Diaper Diaper Incontinent Incontinent Incontinent # Voids 2 2 - Exam 78 -year-old woman who is of a thin build HEENT: Anicteric conjunctiva are pink and moist nasal mucosa grossly intact without significant lesions, there is no thrush.denture Neck: The neck is supple without significant lymphadenopathy or thyromegaly. Lungs:symmetrical bilateral air entry rare expirator no bronchial sounds or dullness or Heart: Regular rate and rhythm with an audible S1-S2,positive S4 There is no significant murmur click or rub, PMI was nondisplaced. Abdomen: Positive bowel sounds soft some generalized abdominal pain mostly in the lower quadrants without rigidity Extremities: The upper extremities have excellent pulses they are symmetric, no significant petechiae or telangiectasia. No splinter hemorrhages were noted. The lower extremities are free from significant edema. The peripheral pulses were 2+ and symmetric.he fracture site to the hip is well Neuro: she is awake alert answers to her name. does not follow commands very well, possible relates that she is still more confused than usual - Labs CBC & Chem 7: 12/04/18 08:07 12/04/18 08:07 Labs: Abnormal Lab Results - Last 24 Hours (Table) 12/04/18 12/04/18 Range/Units 08:07 08:07 WBC 13.0 H (3.8-10.6) k/uL RBC 3.66 L (3.80-5.40) m/uL Hgb 11.1 L (11.4-16.0) gm/dL Hct 32.9 L (34.0-46.0) % RDW 16.9 H (11.5-15.5) % Plt Count 92 L (150-450) k/uL Neutrophils # (Manual) 9.88 H (1.3-7.7) k/uL Monocytes # (Manual) 1.56 H (0-1.0) k/uL Potassium 3.4 L (3.5-5.1) mmol/L BUN 21 H (7-17) mg/dL Glucose 131 H (74-99) mg/dL Total Protein 6.2 L (6.3-8.2) g/dL Albumin 3.3 L (3.5-5.0) g/dL Microbiology - Last 24 Hours (Table) 12/01/18 05:28 Blood Culture - Preliminary Blood No Growth after 72 hours 12/01/18 11:12 Urine Culture - Final Urine,Voided Enterobacter cloacae Laboratory Results WBC 13.0 k/uL (3.8-10.6) H 12/04/18 08:07 RBC 3.66 m/uL (3.80-5.40) L 12/04/18 08:07 Hgb 11.1 gm/dL (11.4-16.0) L 12/04/18 08:07 Hct 32.9 % (34.0-46.0) L 12/04/18 08:07 MCV 89.8 fL (80.0-100.0) 12/04/18 08:07 MCH 30.2 pg (25.0-35.0) 12/04/18 08:07 MCHC 33.6 g/dL (31.0-37.0) 12/04/18 08:07 RDW 16.9 % (11.5-15.5) H 12/04/18 08:07 Plt Count 92 k/uL (150-450) L 12/04/18 08:07 Neutrophils % (Manual) 76 % 12/04/18 08:07 Band Neutrophils % 1 % 12/01/18 09:29 Lymphocytes % (Manual) 12 % 12/04/18 08:07 Monocytes % (Manual) 12 % 12/04/18 08:07 Neutrophils # (Manual) 9.88 k/uL (1.3-7.7) H 12/04/18 08:07 Lymphocytes # (Manual) 1.56 k/uL (1.0-4.8) 12/04/18 08:07 Monocytes # (Manual) 1.56 k/uL (0-1.0) H 12/04/18 08:07 Nucleated RBCs 0 /100 WBC (0-0) 12/04/18 08:07 Manual Slide Review Performed 12/04/18 08:07 Reactive Lymphocytes Present 11/30/18 17:00 RBC Morphology Normal 12/01/18 09:29 Polychromasia Present 11/30/18 17:00 Poikilocytosis (manual Present 12/04/18 08:07 Anisocytosis Slight 12/04/18 08:07 Anisocytosis (manual) Present 11/30/18 17:00 Sodium 142 mmol/L (137-145) 12/04/18 08:07 Potassium 3.4 mmol/L (3.5-5.1) L 12/04/18 08:07 Chloride 107 mmol/L (98-107) 12/04/18 08:07 Carbon Dioxide 25 mmol/L (22-30) 12/04/18 08:07 Anion Gap 10 mmol/L 12/04/18 08:07 BUN 21 mg/dL (7-17) H 12/04/18 08:07 Creatinine 0.80 mg/dL (0.52-1.04) 12/04/18 08:07 Est GFR (CKD-EPI)AfAm 81 (>60 ml/min/1.73 sqM) 12/04/18 08:07 Est GFR (CKD-EPI)NonAf 70 (>60 ml/min/1.73 sqM) 12/04/18 08:07 Glucose 131 mg/dL (74-99) H 12/04/18 08:07 POC Glucose (mg/dL) 102 mg/dL (75-99) H 11/30/18 17:00 POC Glu [employer] ID Manas Kaur 11/30/18 17:00 Lactic Ac Sepsis Rflx Y 11/30/18 17:25 Plasma Lactic Acid Juan 1.0 mmol/L (0.7-2.0) 11/30/18 21:05 Calcium 8.4 mg/dL (8.4-10.2) 12/04/18 08:07 Magnesium 1.7 mg/dL (1.6-2.3) 12/03/18 15:39 Total Bilirubin 0.5 mg/dL (0.2-1.3) 12/04/18 08:07 AST 16 U/L (14-36) 12/04/18 08:07 ALT 10 U/L (9-52) 12/04/18 08:07 Alkaline Phosphatase 63 U/L (38-126) 12/04/18 08:07 Creatine Kinase 25 U/L (30-135) L 11/30/18 17:00 Total Protein 6.2 g/dL (6.3-8.2) L 12/04/18 08:07 Albumin 3.3 g/dL (3.5-5.0) L 12/04/18 08:07 Urine Color Yellow 12/01/18 11:12 Urine Appearance Cloudy (Clear) H 12/01/18 11:12 Urine pH 6.0 (5.0-8.0) 12/01/18 11:12 Ur Specific [place] 1.027 (1.001-1.035) 12/01/18 11:12 Urine Protein 1+ (Negative) H 12/01/18 11:12 Urine Glucose (UA) Negative (Negative) 12/01/18 11:12 Urine Ketones Negative (Negative) 12/01/18 11:12 Urine Blood Trace (Negative) H 12/01/18 11:12 Urine Nitrite Positive (Negative) H 12/01/18 11:12 Urine Bilirubin Negative (Negative) 12/01/18 11:12 Urine Urobilinogen <2.0 mg/dL (<2.0) 12/01/18 11:12 Ur Leukocyte Esterase Large (Negative) H 12/01/18 11:12 Urine RBC 71 /hpf (0-5) H 12/01/18 11:12 Urine WBC >182 /hpf (0-5) H 12/01/18 11:12 Urine WBC Clumps Occasional /hpf (None) H 12/01/18 11:12 Urine Bacteria Rare /hpf (None) H 12/01/18 11:12 Urine Mucus Rare /hpf (None) H 12/01/18 11:12 Microbiology 12/01/18 05:28 Blood Blood Culture - Preliminary No Growth after 72 hours 12/01/18 11:12 Urine,Voided Urine Culture - Final Enterobacter cloacae Assessment and Plan (1) Abdominal pain Current Visit: Yes Status: Acute Code(s): R10.9 - UNSPECIFIED ABDOMINAL PAIN SNOMED Code(s): 75726806 (2) Diverticulitis large intestine Narrative/Plan: 78-year-old woman who has a history of Parkinson's disease who is been having increasing difficulties with her dementia likely related to this that has progressively worsened since her repair of her hip fracture. Otherwise relates at home she started to feel weak was not eating well and had abdominal pain and constantly was brought to hostel. Computed tomography scan shows evidence of diverticulitis with some colitis. Urinalysis is also abnormal and likely has urinary tract infection also. Antibiotic therapy was Zosyn has been initiated which would give coverage for both the diverticulitis as well as urinary tract infection based on recent culture that shows evidence of the Proteus species. Antibiotic therapy will be further evaluated as cultures become available. Surgery has seen and there is no need for surgical intervention at this time. However there is been discussion for possible colonoscopy. The interobserver have a significant conversation regarding the overall plan of care. A colonoscopy. Helpful but she'll be done if he would be willing to have the patient undergo an extensive surgical procedure if significant abnormalities are found at the time of the colonoscopy. He will discuss this with the surgeon at reevaluation. 12/05/2018 the patient continues to feel very poorly. There is evidence of the diverticulitis in the Enterobacter urinary tract infection. Antibiotic therapy as transitioned to meropenem and will plan in 2 weeks at the extended care facility. The family has changed her status to DO NOT RESUSCITATE and will work with the team at the extended care facility as to the next set of plans. Hopefully with treatment of her infection she will have improvement of her mentation and hopefully we will get back to home to the care of the family. If she continues to fail we will consider hospice. Current Visit: Yes Status: Acute Code(s): K57.32 - DVTRCLI OF LG INT W/O PERFORATION OR ABSCESS W/O BLEEDING SNOMED Code(s): 6687346 (3) Sepsis due to gram-negative UTI Current Visit: Yes Status: Acute Code(s): A41.50 - GRAM-NEGATIVE SEPSIS, UNSPECIFIED; N39.0 - URINARY TRACT INFECTION, SITE NOT SPECIFIED SNOMED Code(s ): 801924381
[2018-12-04 23:27] VITALS: RESP 20
[2018-12-05] MEDS: DROXIDOPA 200 MG PO SCH ×3 (05:07→12:59)
[2018-12-05] MEDS: LEVOTHYROXINE 88 MCG TAB PO SCH (05:36)
[2018-12-05] MEDS: CARBIDOPA-LEVODOPA 25-100 MG 1 EACH TAB PO SCH (05:36)
[2018-12-05] MEDS: CARBIDOPA-LEVODOPA ER 50-200MG 1 EACH TABLET.ER PO SCH ×2 (05:36→13:02)
[2018-12-05] MEDS: OXYBUTYNIN CHLORIDE 5 MG TAB PO SCH (05:36)
[2018-12-05] MEDS: buPROPion SR 150 MG TABLET.ER PO SCH (05:36)
[2018-12-05] MEDS: FLUDROCORTISONE 0.1 MG TAB PO SCH (05:48)
[2018-12-05 06:15] VITALS: PULSE 61
[2018-12-05 08:07] VITALS: BP 99/59
[2018-12-05] MEDS: PANTOPRAZOLE 40 MG TABLET PO SCH (08:09)
[2018-12-05] MEDS: NYSTATIN 100,000 UNIT/ML SUSP 500,000 UNIT/5 ML CUP PO SCH ×2 (08:10→13:02)
[2018-12-05] MEDS: MEROPENEM 1 GM in SODIUM CHLORIDE 0.9% 100 ML IVPB SCH (08:10)
[2018-12-05] MEDS: ENOXAPARIN 40 MG/0.4 ML SYRINGE SQ SCH (08:10)
--- NOTE | 2018-12-05 12:40 | P.PN ---
Subjective Progress Note Date: 12/04/18 This is a 78-year-old female patient of Dr. Petersen with past medical history of gastroesphageal reflux, Parkinson disease, osteoarthritis, syncope, hypothyroidism, orthostatic hypotension. Patient complains of generalized weakness worsening over the past several days. Patient apparently had a large bowel movement and then after that she was unresponsive. EMS was brought into [facility] emergency center for evaluation. She was complaining of suprapubic abdominal pain and there was concern for recurrent urinary tract infection. She was afebrile, blood pressure 138/71, heart rate 67, pulse ox 97% on room air. She had significant leukocytosis of 32.4 and lactic acid 2.7, hemoglobin 10.1, platelet count 101, blood sugar 108. Potassium 3.0 and was replaced in the emergency center. CAT scan of the abdomen and pelvis revealed acute diverticulitis and patient was started on Zosyn and consult requested with Dr. Lamas. 12/02: Yesterday afternoon, urinalysis came back positive for urinary tract infection and consult was added for Dr. Bates for he sees her in the outpatient setting and has been monitoring her. Patient did have an appointment for follow-up of this following week. The patient has been seen by Dr. Bates recommends continuing Zosyn for both UTI and diverticulitis. White count is improved to 15.5, hemoglobin is 10.7 and platelet count is 89. Potassium is down to 2.9, CO2 31, BUN 10 and creatinine 0.63. Blood culture showing no growth at 24 hours. Urine culture is preliminary. Patient has been afebrile, heart rate 58, blood pressure 178/89, pulse ox 97% on room air. Potassium will be replaced. The patient has not had a bowel movement since admission. She denies any abdominal pain. 12/03: Patient is found sitting up in chair. Her states that she has been very weak at home and unable to do PT and they feel it's related to her not eating very much. Patient denies any abdominal pain at this time. No nausea or vomiting. The patient has not had a bowel movement. Patient has been afebrile, heart rate 73, blood pressure 135/77, pulse ox 97% on room air. Repeat lab work reveals sodium 146, potassium 3.1, chloride 109, CO2 25, blood sugar 152. Potassium has been replaced with 60 mEq and we will check a magnesium level. Repeat lab work in the morning. The patient will be seen today by physical therapy. 12/04: Urine culture returned positive for multidrug-resistant Enterobacter. Dr. Bates has changed her antibiotics to meropenem. Midline has been ordered for today. A repeat potassium is 3.4 and additional 40 mEq will be given today. Magnesium level I.7. White count is improved to 13, hemoglobin 11.1, platelet count 92. Patient has been afebrile, heart rate 63-91, blood pressure 112/67, pulse ox 94% on room air. Patient did have a bowel movement yesterday. IV fluids will be discontinued. Patient denies having any burning or pain with urination. She is incontinent. Patient was being prepared for discharge to home when patient stated that she did not want to go home. Arrangements have been made for patient to go to [facility] today. Dr. Bates is recommended meropenem for 14 days. Patient will be transferred to [facility] once all arrangements are completed. Objective - Vital Signs Vital signs: Vital Signs Temp 97.6 F 12/04/18 05:10 Pulse 63 12/04/18 05:10 Resp 20 12/04/18 05:10 BP 112/67 12/04/18 07:57 Pulse Ox 94 L 12/04/18 05:10 Intake & Output 12/03/18 12/04/18 12/04/18 18:59 06:59 18:59 Weight 50.802 kg Other: Voiding Method Bedpan Bedpan Diaper Diaper Incontinent Incontinent # Voids 1 2 # Bowel Movements 1 - Exam Review of Systems Constitutional: Reports fatigue-improving, Reports lethargy, Reports malaise, Reports poor appetite, Reports weakness, Denies chills, Denies fever Ears, nose, mouth and throat: Denies dysphagia, Denies vertigo Cardiovascular: Reports chest pain, Denies dyspnea on exertion, Denies edema, D enies leg edema, Denies lightheadedness, Denies syncope Respiratory: Denies cough, Denies cough with sputum, Denies dyspnea, Denies excessive sputum, Denies hemoptysis, Denies home oxygen, Denies wheezing Gastrointestinal: Denies abdominal pain, Reports diarrhea, Reports loss of appetite, denies nausea Genitourinary: Denies difficulty voiding, Denies dysuria Musculoskeletal: Denies frequent falls, reports gait dysfunction, Denies muscle weakness, Denies myalgias Integumentary: Denies pruritus, Denies rash, Denies wounds Neurological: Denies change in mentation, Denies numbness, Denies seizures, Denies weakness Psychiatric: Denies anxiety, Denies depression Endocrine: Denies fatigue, Denies weight change - Constitutional General appearance: no acute distress, patient sitting up in a chair and appears to be comfortable. is at bedside. - EENT Eyes: anicteric sclerae, EOMI, PERRLA, no ptosis, no scleral icterus, normal appearance ENT: NA/AT, normal oropharynx, no thrush Ears: bilateral: normal - Neck Neck: no lymphadenopathy, normal ROM, no rigidity, no stridor, no thyromegaly Carotids: bilateral: upstroke normal Thyroid: bilateral: normal size - Respiratory Respiratory: bilateral: diminished, negative: dullness, rales, rhonchi, wheezing, prolonged expiration - Cardiovascular Rhythm: regular Heart sounds: normal: S1, S2 Abnormal Heart Sounds: systolic murmur, no S3 Gallop - Gastrointestinal General gastrointestinal: normal bowel sounds, soft, no splenomegaly, tenderness left lower quadrant, no umbilical hernia, no ventral hernia - Integumentary Integumentary: normal, normal turgor - Neurologic Neurologic: CNII-XII intact - Musculoskeletal Musculoskeletal: generalized weakness - Labs CBC & Chem 7: 12/04/18 08:07 12/04/18 08:07 Labs: Abnormal Lab Results - Last 24 Hours (Table) 12/04/18 12/04/18 Range/Units 08:07 08:07 WBC 13.0 H (3.8-10.6) k/uL RBC 3.66 L (3.80-5.40) m/uL Hgb 11.1 L (11.4-16.0) gm/dL Hct 32.9 L (34.0-46.0) % RDW 16.9 H (11.5-15.5) % Plt Count 92 L (150-450) k/uL Neutrophils # (Manual) 9.88 H (1.3-7.7) k/uL Monocytes # (Manual) 1.56 H (0-1.0) k/uL Potassium 3.4 L (3.5-5.1) mmol/L BUN 21 H (7-17) mg/dL Glucose 131 H (74-99) mg/dL Total Protein 6.2 L (6.3-8.2) g/dL Albumin 3.3 L (3.5-5.0) g/dL Microbiology - Last 24 Hours (Table) 12/01/18 05:28 Blood Culture - Preliminary Blood No Growth after 72 hours 12/01/18 11:12 Urine Culture - Final Urine,Voided Enterobacter cloacae Assessment and Plan Plan: 1. Acute diverticulitis with leukocytosis, lactic acidosis. Consult with Dr. Lamas appreciated. Zosyn changed to meropenem, IV fluids discontinued. 2. Acute UTI, present on admission. Consult with Dr. Bates appreciated. Zosyn changed to meropenem. 3. 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 3. 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 Continue with Florinef 0.1 mg orally at 1700 and 0.2 mg orally daily, Droxidopa 3 times daily, brought from home. 4. Hypothyrodism. Cntinue synthroid 88 mcg orally daily. 5. Vascular dementia. Continue with Aricept 5 mg orally at bedtime. 6. Osteoarthritis, generalized stable. 7. Parkinson disease. Continue with current carbidopa-Levodopa. 8. DVT prophylaxis. Lovenox subcu daily. 9. GI prophylaxis. will start Protonix 40 mg orally daily. 10. Hypokalemia. Replacement. Check magnesium level. Discharge plan: [facility] once arrangements are completed. Impression and plan of care have been directed as dictated by the signing physician. Shawanda Virk nurse practitioner acting as scribe for signing physician.
== END 2018-12-05 13:06 | DRG 872 ==
LOC: EC 16:08 → 4MS4W 19:53
PROVIDERS: ADMIT Internal Medicine; ATTEND Internal Medicine
PROC: B54BZZA Ultrasonography of Right Lower Extremity Veins, Guidance (ICD-10-PCS; principal; 2018-12-04 15:00)
PROC: 05HB33Z Insertion of Infusion Device into Right Basilic Vein, Percutaneous Approach (ICD-10-PCS; principal; 2018-12-04 15:00)
DX: A41.9 Sepsis, unspecified organism (principal); K57.32 Diverticulitis of large intestine without perforation or abscess without bleeding; E87.2 Acidosis; N39.0 Urinary tract infection, site not specified; G20 Parkinson's disease; E87.6 Hypokalemia; K52.9 Noninfective gastroenteritis and colitis, unspecified; K21.9 Gastro-esophageal reflux disease without esophagitis; N32.81 Overactive bladder; I95.1 Orthostatic hypotension; E89.0 Postprocedural hypothyroidism; H91.90 Unspecified hearing loss, unspecified ear; M54.9 Dorsalgia, unspecified; M19.90 Unspecified osteoarthritis, unspecified site; Z66 Do not resuscitate; G89.29 Other chronic pain; H26.9 Unspecified cataract; G90.1 Familial dysautonomia [Riley-Day]; G90.9 Disorder of the autonomic nervous system, unspecified; F01.50 Vascular dementia, unspecified severity, without behavioral disturbance, psychotic disturbance, mood disturbance, and anxiety; F41.9 Anxiety disorder, unspecified; E86.0 Dehydration; D69.6 Thrombocytopenia, unspecified; Z16.24 Resistance to multiple antibiotics; Z96.659 Presence of unspecified artificial knee joint; Z96.1 Presence of intraocular lens; F32.9 Major depressive disorder, single episode, unspecified; Z96.653 Presence of artificial knee joint, bilateral; Z90.710 Acquired absence of both cervix and uterus; Z79.890 Hormone replacement therapy; Z79.899 Other long term (current) drug therapy; Z87.440 Personal history of urinary (tract) infections; Z80.8 Family history of malignant neoplasm of other organs or systems; Z83.3 Family history of diabetes mellitus; Z82.49 Family history of ischemic heart disease and other diseases of the circulatory system; Z79.52 Long term (current) use of systemic steroids; Z88.1 Allergy status to other antibiotic agents; Z88.5 Allergy status to narcotic agent; Z98.42 Cataract extraction status, left eye; Z98.41 Cataract extraction status, right eye; Z98.51 Tubal ligation status; Z98.890 Other specified postprocedural states
CPT/HCPCS: 36410; 36415; 71046; 74177; 76937; 80048; 80053; 81001; 82550; 83605; 83735; 84132; 85025; 85027; 87040; 87077; 87086; 87186; 93005; 96361; 96365; 99285

== ENCOUNTER 2019-02-06 02:37 | Inpatient (IN) | payer MEDICARE, OTHER ==
[2019-02-06 04:09] LABS: ALT 12 U/L (9-52); AST 16 U/L (14-36); African American GFR (CKD) >90 (>60 ml/min/1.73 sqM); Albumin 3.5 g/dL (3.5-5.0); Alkaline Phosphatase 84 U/L (38-126); Amylase <30 U/L (30-110); Anion Gap 9 mmol/L; Blood Urea Nitrogen 28 mg/dL (7-17); Calcium 8.6 mg/dL (8.4-10.2); Carbon Dioxide 24 mmol/L (22-30); Chloride 108 mmol/L (98-107); Glucose 84 mg/dL (74-99); Potassium 3.7 mmol/L (3.5-5.1); Sodium 141 mmol/L (137-145); Total Bilirubin 0.4 mg/dL (0.2-1.3); Total Protein 6.3 g/dL (6.3-8.2)
[2019-02-06 04:43] LABS: HCT 29.4 % (34.0-46.0); HGB 10.1 gm/dL (11.4-16.0); MCH 30.2 pg (25.0-35.0); MCHC 34.4 g/dL (31.0-37.0); MCV 87.8 fL (80.0-100.0); Mean Platelet Volume 8.3; RBC 3.35 m/uL (3.80-5.40); RDW 15.3 % (11.5-15.5); WBC 21.3 k/uL (3.8-10.6)
[2019-02-06 05:32] LABS: Basophils # (M) 0.21 k/uL (0-0.2); Lymphocytes # (M) 0.85 k/uL (1.0-4.8); Monocytes # (M) 2.98 k/uL (0-1.0); Neutrophils # (M) 17.25 k/uL (1.3-7.7); Neutrophils % (M) 81 %; Nucleated Red Blood Cells 0 /100 WBC (0-0); Total Cells Counted 100
[2019-02-06 05:34] LABS: Platelet Count 98 k/uL (150-450)
[2019-02-06 06:14] LABS: Appearance,Urine Cloudy (Clear); Bacteria,Urine Many /hpf; Bilirubin,Urine Negative (Negative); Blood,Urine Negative (Negative); Color,Urine Yellow; Glucose,Urine (UA) Negative (Negative); Hyaline Casts,Urine 8 /lpf (0-2); Ketones,Urine Negative (Negative); Leukocyte Esterase,Urine Large (Negative); Mucus,Urine Rare /hpf; Nitrite,Urine Negative (Negative); Protein,Urine 1+ (Negative); RBC,Urine 3 /hpf (0-5); Specific Gravity,Urine 1.019 (1.001-1.035); Urobilinogen,Urine <2.0 mg/dL (<2.0); WBC,Urine >182 /hpf (0-5)
[2019-02-06] MEDS ORDERED: MEROPENEM 1 GM in SODIUM CHLORIDE 0.9% 100 ML IVPB STA (06:49)
[2019-02-06] MEDS ORDERED: NALOXONE 0.4 MG/ML 1 ML VIAL IV PRN (06:56)
[2019-02-06] MEDS ORDERED: CARBIDOPA-LEVODOPA 25-100 MG 1 EACH TAB PO PRN (07:00)
[2019-02-06] MEDS ORDERED: DROXIDOPA PO SCH (07:00)
[2019-02-06] MEDS: SODIUM CHLORIDE 0.9% 1,000 ML IV SCH (07:15)
[2019-02-06] MEDS: FAMOTIDINE 20 MG TAB PO SCH ×3 (07:17→20:40)
[2019-02-06] MEDS: buPROPion SR 150 MG TABLET.ER PO SCH (08:21)
[2019-02-06] MEDS: CARBIDOPA-LEVODOPA 25-100 MG 1 EACH TAB PO SCH (08:22)
[2019-02-06] MEDS: FLUDROCORTISONE 0.1 MG TAB PO SCH ×2 (08:24→16:47)
[2019-02-06] MEDS: LEVOTHYROXINE 88 MCG TAB PO SCH (08:26)
[2019-02-06] MEDS: OXYBUTYNIN CHLORIDE 5 MG TAB PO SCH (08:27)
[2019-02-06] MEDS: CARBIDOPA-LEVODOPA ER 50-200MG 1 EACH TABLET.ER PO SCH ×2 (09:58→12:24)
--- NOTE | 2019-02-06 11:53 | P.HPIM ---
History of Present Illness H&P Date: 02/06/19 This is a 78-year-old female patient of Dr. Petersen with past medical history of gastroesphageal reflux, Parkinson disease, osteoarthritis, syncope, hypothyroidism, orthostatic hypotension and recurrent urinary tract infections. Patient was recently hospitalized in November of this year and discharged to [facility] with IV meropenem for Enterobacter multidrug resistant UTI. Patient was discharged to home in December. Patient complains of burning with urination for a few days and apparently presented with abdominal pain although is now complaining of chest pain all over. She does have chest wall tenderness. Her last bowel movement was a couple days ago. The patient was taking Ceftin as an outpatient is unclear how long she has been on this but she states it has been quite a while. Patient came into [facility] emergency center for evaluation. Patient was found to be afebrile, blood pressure 175/83, heart rate 76, pulse ox 90% on 2 L nasal cannula. WBC 21.3, hemoglobin 10.1, platelet count 98, BUN 28 creatinine 0.7, liver function tests within normal limits. Urinalysis cloudy, leukoesterase large, RBCs 3, WBC greater than 182, WBC clumps many, bacteria many. Patient was started on meropenem based on previous cultures and [facility] Urine culture, blood culture and EKG have been ordered. Review of Systems Constitutional: Reports fatigue, Reports lethargy, Reports malaise, Reports poor appetite, Reports weakness, Denies chills, Denies fever Ears, nose, mouth and throat: Denies dysphagia, Denies nasal congestion, Denies nasal discharge, Denies vertigo Cardiovascular: Reports chest pain, Denies dyspnea on exertion, Denies edema, Denies leg edema, Denies lightheadedness, Denies syncope Respiratory: Denies cough, Denies cough with sputum, Denies dyspnea, Denies excessive sputum, Denies hemoptysis, Denies home oxygen, Denies wheezing Gastrointestinal: Reports abdominal pain, denies diarrhea, denies loss of appetite, denies nausea Genitourinary: Denies difficulty voiding, reports dysuria Musculoskeletal: Denies frequent falls, Denies gait dysfunction, Denies muscle weakness, Denies myalgias Integumentary: Denies pruritus, Denies rash, Denies wounds Neurological: Denies change in mentation, Denies numbness, Denies seizures, Denies weakness Psychiatric: Denies anxiety, Denies depression Endocrine: Denies fatigue, Denies weight change Past Medical History Past Medical History: Dementia, GERD/Reflux, Hearing Disorder / Deafness, Memory Impairment, Neurologic Disorder, Osteoarthritis (OA), Syncope, Thyroid Disorder Additional Past Medical History / Comment(s): Parikinsons disease, dysautonomia/falls, past intracranial hemmorhage d/t fall, numbness/tingling bilateral hands at times, vascular dementia, orthostatic hypotension, recurrent UTIs, UTI with sepsis, incontinence of urine/stool at times, diverticulitis, generalized arthritis, chronic back pain, hypothyroid, goiter post partial thyroidectomy, thrombocytopenia, hypokalemia History of Any Multi-Drug Resistant Organisms: CRE, VRE Date of last positivie culture/infection: 03/02/18 VRE MDRO Source:: Urine-CRE; Urine VRE Past Surgical History: Bladder Surgery, Hernia Repair, Hysterectomy, Joint Replacement, Tubal Ligation Additional Past Surgical History / Comment(s): R partial hip replacement d/t fracture, bilateral total knee arthroplasties, L wrist ganglion cyst removal, partial thyroidectomy, cystocele/rectocele repairs, colonoscopy, sinus polypectomy, bilateral inguinal hernia repairs, umbilical hernia repair, bilateral cataract removals, midline IV. Past Anesthesia/Blood Transfusion Reactions: Previous Problems w/ Anesthesia Additional Past Anesthesia/Blood Transfusion Reaction / Comment(s): STATES KNEE REPLACEMENT MAR 2010 SHE WAS "DELERIOUS ". KNEE REPLACEMENT FEB 2011 HER BLOOD PRESSURE DROPPED AND SHE WAS IN BED FOR 5 DAYS. Smoking Status: Never smoker - Past Family History Sister(s) Family Medical History: Cancer Additional Family Medical History / Comment(s): skin cancer Mother Family Medical History: Diabetes Mellitus, Hypertension, Renal Disease Additional Family Medical History / Comment(s): Mother had an enlarged heart. She of renal failure at the age of 73 yrs. Father Family Medical History: Pneumonia Additional Family Medical History / Comment(s): Father of pneumonia a the age of 73 yrs. Daughter(s) Family Medical History: No Reported History Son(s) Family Medical History: No Reported History Medications and Allergies Home Medications Medication Instructions Recorded Confirmed Type Carbidopa-Levodopa 25-100 mg 0.5 tab PO DAILY@0700 08/20/15 02/06/19 History [Sinemet 25-100 mg] Levothyroxine Sodium [Synthroid] 88 mcg PO DAILY@0700 08/20/15 02/06/19 History Fludrocortisone [Florinef] 0.2 mg PO DAILY@0700 03/08/17 02/06/19 History Carbidopa/Levodopa [Sinemet CR 1 tab PO BID@0700,1300 09/06/17 02/06/19 History 50-200 mg] Ergocalciferol (Vitamin D2) 50,000 unit PO SA@0700 09/06/17 02/06/19 History [Vitamin D2] Fludrocortisone [Florinef] 0.1 mg PO DAILY@1700 09/06/17 02/06/19 History Donepezil HCl [Aricept] 5 mg PO HS@2100 02/06/18 02/06/19 History Carbidopa/Levodopa [Sinemet 25-100 1 tab PO HS PRN 11/30/18 02/06/19 History mg] Cranberry Fruit Extract [Cranberry] 500 mg PO DAILY@1300 11/30/18 02/06/19 History L.acidoph,Paracasei, B.lactis 1 cap PO DAILY@1300 11/30/18 02/06/19 History [Probiotic] Oxybutynin Chloride [Ditropan] 5 mg PO DAILY@0700 11/30/18 02/06/19 History buPROPion HCL [Wellbutrin SR] 150 mg PO DAILY@0700 11/30/18 02/06/19 History Cefuroxime [Ceftin] 250 mg PO BID@0700,1700 02/06/19 02/06/19 History Droxidopa [Northera] 400 mg PO TID@0700,1300,1700 02/06/19 02/06/19 History Potassium Chloride [Klor-Con 20] 20 meq PO Q48H 02/06/19 02/06/19 History Allergies Allergy/AdvReac Type Severity Reaction Status Date / Time levofloxacin [From Levaquin] Allergy Unknown Verified 02/06/19 07:28 hydromorphone [From Dilaudid] AdvReac Intermediate poss low Verified 02/06/19 07:28 b/p,confusion post operatively Physical Exam Vitals: Vital Signs Temp Pulse Resp BP Pulse Ox 02/06/19 09:42 98.0 F 76 16 175/83 99 02/06/19 08:11 84 16 179/87 98 02/06/19 02:52 98.0 F 81 20 125/60 95 Intake and Output 02/05/19 02/06/19 02/06/19 22:59 06:59 14:59 Other: Voiding Method Diaper Weight 48.988 kg - Constitutional General appearance: no acute distress, resting in bed - EENT Eyes: anicteric sclerae, EOMI, PERRLA, no ptosis, no scleral icterus, normal appearance ENT: NA/AT, normal oropharynx, no thrush Ears: bilateral: normal - Neck Neck: no lymphadenopathy, normal ROM, no rigidity, no stridor, no thyromegaly Carotids: bilateral: upstroke normal Thyroid: bilateral: normal size - Respiratory Respiratory: bilateral: diminished, negative: dullness, rales, rhonchi, wheezing, prolonged expiration - Cardiovascular Rhythm: regular Heart sounds: normal: S1, S2 Abnormal Heart Sounds: systolic murmur, no S3 Gallop Chest wall tenderness - Gastrointestinal General gastrointestinal: normal bowel sounds, soft, no splenomegaly, tenderness lower abdomen no umbilical hernia, no ventral hernia - Integumentary Integumentary: normal, normal turgor - Neurologic Neurologic: CNII-XII intact, oriented to person and place - Musculoskeletal Musculoskeletal: generalized weakness Results CBC & Chem 7: 02/06/19 03:45 02/06/19 03:45 Labs: Abnormal Lab Results - Last 24 Hours (Table) 02/06/19 02/06/19 02/06/19 Range/Units 03:45 03:45 06:03 WBC 21.3 H (3.8-10.6) k/uL RBC 3.35 L (3.80-5.40) m/uL Hgb 10.1 L (11.4-16.0) gm/dL Hct 29.4 L (34.0-46.0) % Plt Count 98 L (150-450) k/uL Neutrophils # (Manual) 17.25 H (1.3-7.7) k/uL Lymphocytes # (Manual) 0.85 L (1.0-4.8) k/uL Monocytes # (Manual) 2.98 H (0-1.0) k/uL Basophils # (Manual) 0.21 H (0-0.2) k/uL Chloride 108 H (98-107) mmol/L BUN 28 H (7-17) mg/dL Amylase <30 L (30-110) U/L Urine Appearance Cloudy H (Clear) Urine Protein 1+ H (Negative) Ur Leukocyte Esterase Large H (Negative) Urine WBC >182 H (0-5) /hpf Urine WBC Clumps Many H (None) /hpf Urine Bacteria Many H (None) /hpf Hyaline Casts 8 H (0-2) /lpf Urine Mucus Rare H (None) /hpf Thrombosis Risk Factor Assmnt - DVT/VTE Prophylaxis DVT/VTE Prophylaxis: Pharmacologic Prophylaxis ordered - Choose All That Apply Any of the Below Risk Factors Present?: Yes Each Factor Represents 1 point: Medical pt on bed rest Other Risk Factors: Yes Each Risk Factor Represents 3 Points: Age 75 years or older Other congenital or acquired thrombophilia - If yes, enter type in comment: No Thrombosis Risk Factor Assessment Total Risk Factor Score: 4 Thrombosis Risk Factor Assessment Level: Moderate Risk Assessment and Plan Plan: 1. Acute UTI and sepsis. Patient started on Zosyn. Consult with Dr. Bates diverticulitis with leukocytosis, lactic acidosis. 2. 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 3. 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 Continue with Florinef 0.1 mg orally at 1700 and 0.2 mg orally daily, Droxidopa 3 times daily, brought from home. 4. Hypothyrodism. Continue synthroid 88 mcg orally daily. 5. Vascular dementia. Continue with Aricept 5 mg orally at bedtime. 6. Osteoarthritis, generalized stable. 7. Parkinson disease. Continue with current carbidopa-Levodopa. 8. DVT prophylaxis. Lovenox subcu daily. 9. GI prophylaxis. Pepcid. Patient will be admitted to the hospital for a minimum of 2 nights stay Discharge plan: To be determined. PT and OT ordered. Patient was recently at [facility] for subacute rehab. Impression and plan of care have been directed as dictated by the signing physician. Shawanda Virk nurse practitioner acting as scribe for signing physician.
--- NOTE | 2019-02-06 11:59 | P.CONS ---
History of Present Illness - Reason for Consult Consult date: 02/06/19 Urinary tract infection - History of Present Illness This is a 78-year-old female patient well-known to ID service as she has had ongoing problems with urinary tract infections. She also has past medical history of gastroesphageal reflux, Parkinson disease, osteoarthritis, syncope, hypothyroidism, orthostatic hypotension. Patient was recently hospitalized in November of this year and discharged to [facility] with IV meropenem for Enterobacter multidrug resistant UTI. Patient was discharged to home in December. Patient complains of burning with urination for a few days and apparently presented with abdominal pain and concern for constipation although is now complaining of chest pain all over. She does have chest wall tenderness. Her last bowel movement was a couple days ago. The patient was taking Ceftin as an outpatient is unclear how long she has been on this but she states it has been quite a while. Patient came into [facility] emergency center for evaluation. Patient was found to be afebrile, blood pressure 175/83, heart rate 76, pulse ox 90% on 2 L nasal cannula. WBC 21.3, hemoglobin 10.1, platelet count 98, BUN 28 creatinine 0.7, liver function tests within normal limits. Urinalysis cloudy, leukoesterase large, RBCs 3, WBC greater than 182, WBC clumps many, bacteria many. Patient was started on meropenem based on previous cultures and admitted to the [facility] floor. Urine culture, blood culture and EKG have been ordered. Review of Systems Constitutional: Reports fatigue, Reports lethargy, Reports malaise, Reports poor appetite, Reports weakness, Denies chills, Denies fever Ears, nose, mouth and throat: Denies dysphagia, Denies nasal congestion, Denies nasal discharge, Denies vertigo Cardiovascular: Reports chest pain, Denies dyspnea on exertion, Denies edema, Denies leg edema, Denies lightheadedness, Denies syncope Respiratory: Denies cough, Denies cough with sputum, Denies dyspnea, Denies excessive sputum, Denies hemoptysis, Denies home oxygen, Denies wheezing Gastrointestinal: Reports abdominal pain, denies diarrhea, denies loss of appetite, denies nausea Genitourinary: Denies difficulty voiding, reports dysuria Musculoskeletal: Denies frequent falls, Denies gait dysfunction, Denies muscle weakness, Denies myalgias Integumentary: Denies pruritus, Denies rash, Denies wounds Neurological: Denies change in mentation, Denies numbness, Denies seizures, Denies weakness Psychiatric: Denies anxiety, Denies depression Endocrine: Denies fatigue, Denies weight change Past Medical History Past Medical History: Dementia, GERD/Reflux, Hearing Disorder / Deafness, Memory Impairment, Neurologic Disorder, Osteoarthritis (OA), Syncope, Thyroid Disorder Additional Past Medical History / Comment(s): Parikinsons disease, dysautonomia/falls, past intracranial hemmorhage d/t fall, numbness/tingling bilateral hands at times, vascular dementia, orthostatic hypotension, recurrent UTIs, UTI with sepsis, incontinence of urine/stool at times, diverticulitis, generalized arthritis, chronic back pain, hypothyroid, goiter post partial thyroidectomy, thrombocytopenia, hypokalemia History of Any Multi-Drug Resistant Organisms: CRE, 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 Past Anesthesia/Blood Transfusion Reactions: Previous Problems w/ Anesthesia Additional Past Anesthesia/Blood Transfusion Reaction / Comm: STATES KNEE REPLACEMENT MAR 2010 SHE WAS "DELERIOUS ". KNEE REPLACEMENT FEB 2011 HER BLOOD PRESSURE DROPPED AND SHE WAS IN BED FOR 5 DAYS. Smoking Status: Never smoker - Past Family History Sister(s) Family Medical History: Cancer Additional Family Medical History / Comment(s): skin cancer Mother Family Medical History: Diabetes Mellitus, Hypertension, Renal Disease Additional Family Medical History / Comment(s): Mother had an enlarged heart. She of renal failure at the age of 73 yrs. Father Family Medical History: Pneumonia Additional Family Medical History / Comment(s): Father of pneumonia a the age of 73 yrs. Daughter(s) Family Medical History: No Reported History Son(s) Family Medical History: No Reported History Medications and Allergies Home Medications Medication Instructions Recorded Confirmed Type Carbidopa-Levodopa 25-100 mg 0.5 tab PO DAILY@0700 08/20/15 02/06/19 History [Sinemet 25-100 mg] Levothyroxine Sodium [Synthroid] 88 mcg PO DAILY@0700 08/20/15 02/06/19 History Fludrocortisone [Florinef] 0.2 mg PO DAILY@0700 03/08/17 02/06/19 History Carbidopa/Levodopa [Sinemet CR 1 tab PO BID@0700,1300 09/06/17 02/06/19 History 50-200 mg] Ergocalciferol (Vitamin D2) 50,000 unit PO SA@0700 09/06/17 02/06/19 History [Vitamin D2] Fludrocortisone [Florinef] 0.1 mg PO DAILY@1700 09/06/17 02/06/19 History Donepezil HCl [Aricept] 5 mg PO HS@2100 02/06/18 02/06/19 History Carbidopa/Levodopa [Sinemet 25-100 1 tab PO HS PRN 11/30/18 02/06/19 History mg] Cranberry Fruit Extract [Cranberry] 500 mg PO DAILY@1300 11/30/18 02/06/19 History L.acidoph,Paracasei, B.lactis 1 cap PO DAILY@1300 11/30/18 02/06/19 History [Probiotic] Oxybutynin Chloride [Ditropan] 5 mg PO DAILY@0700 11/30/18 02/06/19 History buPROPion HCL [Wellbutrin SR] 150 mg PO DAILY@0700 11/30/18 02/06/19 History Cefuroxime [Ceftin] 250 mg PO BID@0700,1700 02/06/19 02/06/19 History Droxidopa [Northera] 400 mg PO TID@0700,1300,1700 02/06/19 02/06/19 History Potassium Chloride [Klor-Con 20] 20 meq PO Q48H 02/06/19 02/06/19 History Allergies Allergy/AdvReac Type Severity Reaction Status Date / Time levofloxacin [From Levaquin] Allergy Unknown Verified 02/06/19 07:28 hydromorphone [From Dilaudid] AdvReac Intermediate poss low Verified 02/06/19 07:28 b/p,confusion post operatively Physical Exam Vitals: Vital Signs Temp Pulse Resp BP Pulse Ox 02/06/19 09:42 98.0 F 76 16 175/83 99 02/06/19 08:11 84 16 179/87 98 02/06/19 02:52 98.0 F 81 20 125/60 95 Intake and Output 02/05/19 02/06/19 02/06/19 22:59 06:59 14:59 Other: Voiding Method Diaper # Voids 1 Weight 48.988 kg - Constitutional General appearance: no acute distress, resting in bed - EENT Eyes: anicteric sclerae, EOMI, PERRLA, no ptosis, no scleral icterus, normal appearance ENT: NA/AT, normal oropharynx, no thrush Ears: bilateral: normal - Neck Neck: no lymphadenopathy, normal ROM, no rigidity, no stridor, no thyromegaly Carotids: bilateral: upstroke normal Thyroid: bilateral: normal size - Respiratory Respiratory: bilateral: diminished, negative: dullness, rales, rhonchi, wheezing, prolonged expiration - Cardiovascular Rhythm: regular Heart sounds: normal: S1, S2 Abnormal Heart Sounds: systolic murmur, no S3 Gallop Chest wall tenderness - Gastrointestinal General gastrointestinal: normal bowel sounds, soft, no splenomegaly, tenderness lower abdomen no umbilical hernia, no ventral hernia - Integumentary Integumentary: normal, normal turgor - Neurologic Neurologic: CNII-XII intact, oriented to person and place - Musculoskeletal Musculoskeletal: generalized weakness Results Results: Laboratory Results WBC 21.3 k/uL (3.8-10.6) H 02/06/19 03:45 RBC 3.35 m/uL (3.80-5.40) L 02/06/19 03:45 Hgb 10.1 gm/dL (11.4-16.0) L 02/06/19 03:45 Hct 29.4 % (34.0-46.0) L 02/06/19 03:45 MCV 87.8 fL (80.0-100.0) 02/06/19 03:45 MCH 30.2 pg (25.0-35.0) 02/06/19 03:45 MCHC 34.4 g/dL (31.0-37.0) 02/06/19 03:45 RDW 15.3 % (11.5-15.5) 02/06/19 03:45 Plt Count 98 k/uL (150-450) L 02/06/19 03:45 Neutrophils % (Manual) 81 % 02/06/19 03:45 Lymphocytes % (Manual) 4 % 02/06/19 03:45 Monocytes % (Manual) 14 % 02/06/19 03:45 Basophils % (Manual) 1 % 02/06/19 03:45 Neutrophils # (Manual) 17.25 k/uL (1.3-7.7) H 02/06/19 03:45 Lymphocytes # (Manual) 0.85 k/uL (1.0-4.8) L 02/06/19 03:45 Monocytes # (Manual) 2.98 k/uL (0-1.0) H 02/06/19 03:45 Basophils # (Manual) 0.21 k/uL (0-0.2) H 02/06/19 03:45 Nucleated RBCs 0 /100 WBC (0-0) 02/06/19 03:45 Manual Slide Review Performed 02/06/19 03:45 Sodium 141 mmol/L (137-145) 02/06/19 03:45 Potassium 3.7 mmol/L (3.5-5.1) 02/06/19 03:45 Chloride 108 mmol/L (98-107) H 02/06/19 03:45 Carbon Dioxide 24 mmol/L (22-30) 02/06/19 03:45 Anion Gap 9 mmol/L 02/06/19 03:45 BUN 28 mg/dL (7-17) H 02/06/19 03:45 Creatinine 0.70 mg/dL (0.52-1.04) 02/06/19 03:45 Est GFR (CKD-EPI)AfAm >90 (>60 ml/min/1.73 sqM) 02/06/19 03:45 Est GFR (CKD-EPI)NonAf 82 (>60 ml/min/1.73 sqM) 02/06/19 03:45 Glucose 84 mg/dL (74-99) 02/06/19 03:45 Calcium 8.6 mg/dL (8.4-10.2) 02/06/19 03:45 Total Bilirubin 0.4 mg/dL (0.2-1.3) 02/06/19 03:45 AST 16 U/L (14-36) 02/06/19 03:45 ALT 12 U/L (9-52) 02/06/19 03:45 Alkaline Phosphatase 84 U/L (38-126) 02/06/19 03:45 Total Protein 6.3 g/dL (6.3-8.2) 02/06/19 03:45 Albumin 3.5 g/dL (3.5-5.0) 02/06/19 03:45 Amylase <30 U/L (30-110) L 02/06/19 03:45 Lipase 31 U/L (23-300) 02/06/19 03:45 Urine Color Yellow 02/06/19 06:03 Urine Appearance Cloudy (Clear) H 02/06/19 06:03 Urine pH 6.0 (5.0-8.0) 02/06/19 06:03 Ur Specific [place] 1.019 (1.001-1.035) 02/06/19 06:03 Urine Protein 1+ (Negative) H 02/06/19 06:03 Urine Glucose (UA) Negative (Negative) 02/06/19 06:03 Urine Ketones Negative (Negative) 02/06/19 06:03 Urine Blood Negative (Negative) 02/06/19 06:03 Urine Nitrite Negative (Negative) 02/06/19 06:03 Urine Bilirubin Negative (Negative) 02/06/19 06:03 Urine Urobilinogen <2.0 mg/dL (<2.0) 02/06/19 06:03 Ur Leukocyte Esterase Large (Negative) H 02/06/19 06:03 Urine RBC 3 /hpf (0-5) 02/06/19 06:03 Urine WBC >182 /hpf (0-5) H 02/06/19 06:03 Urine WBC Clumps Many /hpf (None) H 02/06/19 06:03 Urine Bacteria Many /hpf (None) H 02/06/19 06:03 Hyaline Casts 8 /lpf (0-2) H 02/06/19 06:03 Urine Mucus Rare /hpf (None) H 02/06/19 06:03 CBC & Chem 7: 02/06/19 03:45 02/06/19 03:45 Labs: Abnormal Lab Results - Last 24 Hours (Table) 02/06/19 02/06/19 02/06/19 Range/Units 03:45 03:45 06:03 WBC 21.3 H (3.8-10.6) k/uL RBC 3.35 L (3.80-5.40) m/uL Hgb 10.1 L (11.4-16.0) gm/dL Hct 29.4 L (34.0-46.0) % Plt Count 98 L (150-450) k/uL Neutrophils # (Manual) 17.25 H (1.3-7.7) k/uL Lymphocytes # (Manual) 0.85 L (1.0-4.8) k/uL Monocytes # (Manual) 2.98 H (0-1.0) k/uL Basophils # (Manual) 0.21 H (0-0.2) k/uL Chloride 108 H (98-107) mmol/L BUN 28 H (7-17) mg/dL Amylase <30 L (30-110) U/L Urine Appearance Cloudy H (Clear) Urine Protein 1+ H (Negative) Ur Leukocyte Esterase Large H (Negative) Urine WBC >182 H (0-5) /hpf Urine WBC Clumps Many H (None) /hpf Urine Bacteria Many H (None) /hpf Hyaline Casts 8 H (0-2) /lpf Urine Mucus Rare H (None) /hpf Assessment and Plan Plan: This is an 78-year-old female patient well-known to ID service as she has been treated in the past for multidrug resistant urinary tract infections. She now presents with weakness, leukocytosis with sepsis and UTI. Urine culture and blood culture are in progress. Patient has been started on meropenem. Continue supportive care. Most likely patient will require subacute rehab for IV antibiotics. Continue supportive care. Further recommendations as patient progresses. The above dictated assessment and findings were discussed with Dr. Bates. The impression and plan of care have been directed as dictated. Shawanda Virk nurse practitioner acting as scribe for Dr. Bates.
[2019-02-06] MEDS: LACTOBACILLUS ACIDOPH & BULGAR 1 EACH PACKET PO SCH (12:24)
[2019-02-06] MEDS: NORTHERA PO SCH ×2 (12:25→16:47)
[2019-02-06] MEDS ORDERED: ACETAMINOPHEN TAB 325 MG TAB PO PRN (15:26)
[2019-02-06] MEDS ORDERED: MEROPENEM 1 GM in SODIUM CHLORIDE 0.9% 100 ML IVPB SCH (16:00)
[2019-02-06] MEDS: DONEPEZIL 5 MG TAB PO SCH (20:40)
--- NOTE | 2019-02-06 22:33 | P.CON ---
Consult Note - . Consult date: 02/06/19 Assessment/Plan:: This is a 78-year-old female patient well-known to ID service as she has had ongoing problems with urinary tract infections. She also has past medical history of gastroesphageal reflux, Parkinson disease, osteoarthritis, syncope, hypothyroidism, orthostatic hypotension. Patient was recently hospitalized in November of this year and discharged to [facility] with IV meropenem for Enterobacter multidrug resistant UTI. Patient was discharged to home in December. Patient complains of burning with urination for a few days and apparently presented with abdominal pain and concern for constipation although is now complaining of chest pain all over. She does have chest wall tenderness. Her last bowel movement was a couple days ago. The patient was taking Ceftin as an outpatient is unclear how long she has been on this but she states it has been quite a while. Patient came into [facility] emergency center for evaluation. Patient was found to be afebrile, blood pressure 175/83, heart rate 76, pulse ox 90% on 2 L nasal cannula. WBC 21.3, hemoglobin 10.1, platelet count 98, BUN 28 creatinine 0.7, liver function tests within normal limits. Urinalysis cloudy, leukoesterase large, RBCs 3, WBC greater than 182, WBC clumps many, bacteria many. Patient was started on meropenem based on previous cultures and admitted to the [facility] floor. Urine culture, blood culture and EKG have been ordered. Please see the consult note as dictated by nurse practitioner Shawanda Krausebarbra. The patient's is present. He has primary caregiver in the home setting with some assistance from the daughter and granddaughter. She is profoundly debilitated provides excellent care for her in the home setting. She however has recurrent urinary infections and is again admitted with fever and leukocytosis feeling very poorly. The patient is related to pain in the suprapubic area before coming to Hospital, she has urinary incontinence and urinary frequency that her baseline. However she became ill with the family brought her to hospital. As noted urinalysis is markedly abnormal and urine culture is pending. The current culture will help determine the plan at discharge, she needs intravenous antibiotic therapy she will go back to rehab to receive that. For now we will alter antibiotic therapy to Rocephin based on the most recent urine culture treating only the gram-negative pathogens that have been frequently present. The patient does have evidence of a significant cystocele and has been evaluated in the past. Apparently she is a candidate for a pessary ring but there has been some difficulties. We'll inquire with urology who is here in the past if this is an option. If so ideally be measured and fitted during this stay, overall goal is to try to reduce the frequency of her urinary infections. The family's questions are answered and will provide follow-up. I agree with evaluation, assessment and plan as dictated by nurse practitioner Mrs. Shawanda Virk.
[2019-02-07] MEDS: OXYBUTYNIN CHLORIDE 5 MG TAB PO SCH (06:07)
[2019-02-07] MEDS: FLUDROCORTISONE 0.1 MG TAB PO SCH ×2 (06:07→18:06)
[2019-02-07] MEDS: buPROPion SR 150 MG TABLET.ER PO SCH (06:07)
[2019-02-07] MEDS: LEVOTHYROXINE 88 MCG TAB PO SCH (06:07)
[2019-02-07] MEDS: CARBIDOPA-LEVODOPA 25-100 MG 1 EACH TAB PO SCH (06:07)
[2019-02-07] MEDS: NORTHERA PO SCH ×3 (06:08→18:07)
[2019-02-07] MEDS: CARBIDOPA-LEVODOPA ER 50-200MG 1 EACH TABLET.ER PO SCH ×2 (06:08→13:39)
[2019-02-07] MEDS: SODIUM CHLORIDE 0.9% 1,000 ML IV SCH (06:14)
[2019-02-07] MEDS: FAMOTIDINE 20 MG TAB PO SCH ×2 (08:28→19:57)
[2019-02-07] MEDS: LACTOBACILLUS ACIDOPH & BULGAR 1 EACH PACKET PO SCH (13:35)
--- NOTE | 2019-02-07 14:22 | P.PN ---
Subjective Progress Note Date: 02/07/19 This is a 78-year-old female patient of Dr. Petersen with past medical history of gastroesphageal reflux, Parkinson disease, osteoarthritis, syncope, hypothyroidism, orthostatic hypotension and recurrent urinary tract infections. Patient was recently hospitalized in November of this year and discharged to [facility] with IV meropenem for Enterobacter multidrug resistant UTI. Patient was discharged to home in December. Patient complains of burning with urination for a few days and apparently presented with abdominal pain although is now complaining of chest pain all over. She does have chest wall tenderness. Her last bowel movement was a couple days ago. The patient was taking Ceftin as an outpatient is unclear how long she has been on this but she states it has been quite a while. Patient came into [facility] emergency center for evaluation. Patient was found to be afebrile, blood pressure 175/83, heart rate 76, pulse ox 90% on 2 L nasal cannula. WBC 21.3, hemoglobin 10.1, platelet count 98, BUN 28 creatinine 0.7, liver function tests within normal limits. Urinalysis cloudy, leukoesterase large, RBCs 3, WBC greater than 182, WBC clumps many, bacteria many. Patient was started on meropenem based on previous cultures and [facility]. Urine culture, blood culture and EKG have been ordered. 02/07: The patient has been seen by Dr. Bates and antibiotics have been changed to Rocephin. Patient has seen Dr. Tatum in the past and has a known cystocele. Dr. Bates mentions the patient may be candidate for pessary ring. We will ask for consultation with urology. Patient does have an appointment coming up March 21. Discussed discharge planning with the patient and her . Plan is to return home unless patient needs IV antibiotics which is not covered in the home setting for her. Patient states that she is feeling a little bit better today from yesterday. PT and OT are in place. Patient has been afebrile, blood pressure 167/76, pulse ox 94% on room air, heart rate 85. Urine culture and blood culture pending. Review of Systems Constitutional: Reports fatigue, Reports lethargy, Reports malaise, Reports poor appetite, Reports weakness, Denies chills, Denies fever Ears, nose, mouth and throat: Denies dysphagia, Denies nasal congestion, Denies nasal discharge, Denies vertigo Cardiovascular: Reports chest pain, Denies dyspnea on exertion, Denies edema, Denies leg edema, Denies lightheadedness, Denies syncope Respiratory: Denies cough, Denies cough with sputum, Denies dyspnea, Denies exce ssive sputum, Denies hemoptysis, Denies home oxygen, Denies wheezing Gastrointestinal: Reports abdominal pain, denies diarrhea, denies loss of appetite, denies nausea Genitourinary: Denies difficulty voiding, reports dysuria Musculoskeletal: Denies frequent falls, Denies gait dysfunction, Denies muscle weakness, Denies myalgias Integumentary: Denies pruritus, Denies rash, Denies wounds Neurological: Denies change in mentation, Denies numbness, Denies seizures, Denies weakness Psychiatric: Denies anxiety, Denies depression Endocrine: Denies fatigue, Denies weight change Objective - Vital Signs Vital signs: Vital Signs Temp 98.0 F 02/07/19 09:46 Pulse 83 02/07/19 09:46 Resp 12 02/07/19 09:46 BP 132/64 02/07/19 09:46 Pulse Ox 95 02/07/19 09:46 Intake & Output 02/06/19 02/07/19 02/07/19 18:59 06:59 18:59 Output Total 450 Balance -450 Output: Urine 450 Other: Voiding Method Diaper Diaper Incontinent # Voids 1 1 - Exam - Constitutional General appearance: Frail-appearing 78-year-old female, no acute distress, resting in chair. is at bedside. - EENT Eyes: anicteric sclerae, EOMI, PERRLA, no ptosis, no scleral icterus, normal appearance ENT: NA/AT, normal oropharynx, no thrush Ears: bilateral: normal - Neck Neck: no lymphadenopathy, normal ROM, no rigidity, no stridor, no thyromegaly Carotids: bilateral: upstroke normal Thyroid: bilateral: normal size - Respiratory Respiratory: bilateral: diminished, negative: dullness, rales, rhonchi, whe ezing, prolonged expiration - Cardiovascular Rhythm: regular Heart sounds: normal: S1, S2 Abnormal Heart Sounds: systolic murmur, no S3 Gallop - Gastrointestinal General gastrointestinal: normal bowel sounds, soft, no splenomegaly, tenderness lower abdomen no umbilical hernia, no ventral hernia - Integumentary Integumentary: normal, normal turgor - Neurologic Neurologic: CNII-XII intact, oriented to person and place - Musculoskeletal Musculoskeletal: generalized weakness - Labs CBC & Chem 7: 02/06/19 03:45 02/06/19 03:45 Labs: Microbiology - Last 24 Hours (Table) 02/06/19 06:03 Urine Culture - Preliminary Urine,Clean Catch Assessment and Plan Plan: 1. Acute UTI and sepsis with generalized weakness, leukocytosis. Consult with Dr. Bates. Antibiotics changed to Rocephin. Await urine and blood culture reports. 2. 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 3. 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 Continue with Florinef 0.1 mg orally at 1700 and 0.2 mg orally daily, Droxidopa 3 times daily, brought from home. 4. Hypothyrodism. Continue synthroid 88 mcg orally daily. 5. Vascular dementia. Continue with Aricept 5 mg orally at bedtime. 6. Osteoarthritis, generalized stable. 7. Parkinson disease. Continue with current carbidopa-Levodopa. 8. DVT prophylaxis. Lovenox subcu daily. 9. GI prophylaxis. Pepcid. Discharge plan: To be determined. PT and OT ordered. Patient was recently at [facility] for subacute rehab. Impression and plan of care have been directed as dictated by the signing physician. Shawanda Virk nurse practitioner acting as scribe for signing physician.
[2019-02-07 16:03] VITALS: BMI 19.7
[2019-02-07] MEDS: DONEPEZIL 5 MG TAB PO SCH (19:57)
--- NOTE | 2019-02-07 20:33 | P.GSCN ---
History of Present Illness Consult date: 02/07/19 Reason for Consult: Recurrent urinary tract infections and incontinence History of present illness: The patient is an 78-year-old female admitted through the emergency room for evaluation of abdominal pain and dysuria. According to her her pain was initially in the right flank but at times was also located in suprapubic area and epigastric region. She was afebrile and had no history of fever or chills at home. When seen in the emergency room her WBC was 21,300. Urinalysis suggested a urinary tract infection. The patient was admitted for further evaluation. She is currently receiving ceftriaxone. She has a history of recu rrent urinary tract infections and had received IV antibiotic at least once this fall. According to her records she had a Proteus vulgaris infection in 10/12, Enterobacter cloaca infection in 12/13, Enterococcus faecalis infection later in 12/13, Klebsiella pneumonia in early 01/12 and Klebsiella pneumonia and enterococcus later in 01/12. She apparently had been on Ceftin prior to admission. CTscan of the abdomen and pelvis in 08/2018 did not show evidence of a renal calculus. The bladder was somewhat distended at that time. The patient is well known to me but I have not seen her in 1 year. She has a long history of recurrent urinary tract infections and periodic urge incontinence. She has a history of uterine prolapse coupled with a cystocele and rectocele and underwent vaginal hysterectomy with perineorraphy for treatment in 01/10. When I last saw her in 01/11 postvoid residual was 163 cc. She has been taking oxybutynin 5 mg in the morning and at that time had no daytime incontinence. 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 At the present time the patient has worsening incontinence and is wearing depends 24 hours a day. She has chronic constipation with a bowel movement every few days. Her says that he has manually disimpacted her on several occasions. Review of Systems - Constitutional Reports fatigue, Denies chills, Denies fever - Gastrointestinal Reports as per HPI - Genitourinary Genitourinary: Reports as per HPI Past Medical History Past Medical History: Dementia, GERD/Reflux, Hearing Disorder / Deafness, Memory Impairment, Neurologic Disorder, Osteoarthritis (OA), Syncope, Thyroid Disorder Additional Past Medical History / Comment(s): Parikinsons disease, dysautonomia/falls, past intracranial hemmorhage d/t fall, numbness/tingling bilateral hands at times, vascular dementia, orthostatic hypotension, recurrent UTIs, UTI with sepsis, incontinence of urine/stool at times, diverticulitis, generalized arthritis, chronic back pain, hypothyroid, goiter post partial thyroidectomy, thrombocytopenia, hypokalemia History of Any Multi-Drug Resistant Organisms: CRE, 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 Past Anesthesia/Blood Transfusion Reactions: Previous Problems w/ Anesthesia Additional Past Anesthesia/Blood Transfusion Reaction / Comm: STATES KNEE REPLACEMENT MAR 2010 SHE WAS "DELERIOUS ". KNEE REPLACEMENT FEB 2011 HER BLOOD PRESSURE DROPPED AND SHE WAS IN BED FOR 5 DAYS. Smoking Status: Never smoker - Past Family History Sister(s) Family Medical History: Cancer Additional Family Medical History / Comment(s): skin cancer Mother Family Medical History: Diabetes Mellitus, Hypertension, Renal Disease Additional Family Medical History / Comment(s): Mother had an enlarged heart. She of renal failure at the age of 73 yrs. Father Family Medical History: Pneumonia Additional Family Medical History / Comment(s): Father of pneumonia a the age of 73 yrs. Daughter(s) Family Medical History: No Reported History Son(s) Family Medical History: No Reported History Medications and Allergies Home Medications Medication Instructions Recorded Confirmed Type Carbidopa-Levodopa 25-100 mg 0.5 tab PO DAILY@0708/20/15 02/06/19 History [Sinemet 25-100 mg] Levothyroxine Sodium [Synthroid] 88 mcg PO DAILY@0700 08/20/15 02/06/19 History Fludrocortisone [Florinef] 0.2 mg PO DAILY@0700 03/08/17 02/06/19 History Carbidopa/Levodopa [Sinemet CR 1 tab PO BID@0700,1300 09/06/17 02/06/19 History 50-200 mg] Ergocalciferol (Vitamin D2) 50,000 unit PO SA@0700 09/06/17 02/06/19 History [Vitamin D2] Fludrocortisone [Florinef] 0.1 mg PO DAILY@1700 09/06/17 02/06/19 History Donepezil HCl [Aricept] 5 mg PO HS@2100 02/06/18 02/06/19 History Carbidopa/Levodopa [Sinemet 25-100 1 tab PO HS PRN 11/30/18 02/06/19 History mg] Cranberry Fruit Extract [Cranberry] 500 mg PO DAILY@1300 11/30/18 02/06/19 History L.acidoph,Paracasei, B.lactis 1 cap PO DAILY@1300 11/30/18 02/06/19 History [Probiotic] Oxybutynin Chloride [Ditropan] 5 mg PO DAILY@0700 11/30/18 02/06/19 History buPROPion HCL [Wellbutrin SR] 150 mg PO DAILY@0700 11/30/18 02/06/19 History Cefuroxime [Ceftin] 250 mg PO BID@0700,1700 02/06/19 02/06/19 History Droxidopa [Northera] 400 mg PO TID@0700,1300,1700 02/06/19 02/06/19 History Potassium Chloride [Klor-Con 20] 20 meq PO Q48H 02/06/19 02/06/19 History Allergies Allergy/AdvReac Type Severity Reaction Status Date / Time levofloxacin [From Levaquin] Allergy Unknown Verified 02/06/19 07:28 hydromorphone [From Dilaudid] AdvReac Intermediate poss low Verified 02/06/19 07:28 b/p,confusion post operatively Surgical - Exam Vital Signs Temp Pulse Resp BP Pulse Ox 98.0 F 81 20 125/60 95 02/06/19 02:52 02/06/19 02:52 02/06/19 02:52 02/06/19 02:52 02/06/19 02:52 - General well developed, well nourished, no distress, chronically ill - ENT no hearing loss - Respiratory normal respiratory effort - Abdomen Abdomen: soft, non tender, no organomegaly - Genitourinary normal external genitalia, other (There was no definite cystocele or rectocele protrusion beyond the vaginal introitus with straining.) Results - Labs 02/06/19 03:45 02/06/19 03:45 Microbiology - Last 24 Hours (Table) 02/06/19 06:03 Urine Culture - Preliminary Urine,Clean Catch Gram Neg Bacilli 02/06/19 11:10 Blood Culture - Preliminary Blood No Growth after 24 hours 02/06/19 10:54 Blood Culture - Preliminary Blood No Growth after 24 hours Assessment and Plan (1) Chronic cystitis without hematuria Narrative/Plan: The source of the patient's recurrent urinary tract infections is not clear. She has chronic constipation which can increase the risk of infection. In the past she has not emptied her bladder completely which may also be a contributory factor. Postvoid residual will be checked but unless it is markedly elevated I would not suggest an indwelling catheter as this will also increase the risk for recurrent infections. It's unclear whether a pessary would be helpful for this patient given her previous perineorrhaphy. She had been evaluated by in the past and it might be helpful to have him reexamine her. Current Visit: Yes Status: Acute Code(s): N30.20 - OTHER CHRONIC CYSTITIS WITHOUT HEMATURIA SNOMED Code(s): 88679548
--- NOTE | 2019-02-07 23:14 | P.PN ---
Subjective Progress Note Date: 02/07/19 This is a 78-year-old female patient well-known to ID service as she has had ongoing problems with urinary tract infections. She also has past medical history of gastroesphageal reflux, Parkinson disease, osteoarthritis, syncope, hypothyroidism, orthostatic hypotension. Patient was recently ho spitalized in November of this year and discharged to [facility] with IV meropenem for Enterobacter multidrug resistant UTI. Patient was discharged to home in December. Patient complains of burning with urination for a few days and apparently presented with abdominal pain and concern for constipation although is now complaining of chest pain all over. She does have chest wall tenderness. Her last bowel movement was a couple days ago. The patient was taking Ceftin as an outpatient is unclear how long she has been on this but she states it has been quite a while. Patient came into [facility] emergency center for evaluation. Patient was found to be afebrile, blood pressure 175/83, heart rate 76, pulse ox 90% on 2 L nasal cannula. WBC 21.3, hemoglobin 10.1, platelet count 98, BUN 28 creatinine 0.7, liver function tests within normal limits. Urinalysis cloudy, leukoesterase large, RBCs 3, WBC greater than 182, WBC clumps many, bacteria many. Patient was started on meropenem based on previous cultures and admitted to the MedSurg floor. Urine culture, blood culture and EKG have been ordered. 02/07/2019 patient with little change, aware of situation of awaitng culture to finalize plan as to ECF Objective - Vital Signs Vital signs: Vital Signs Temp 98.4 F 02/07/19 20:30 Pulse 80 02/07/19 20:30 Resp 22 02/07/19 20:30 BP 161/75 02/07/19 20:30 Pulse Ox 93 L 02/07/19 20:30 Intake & Output 02/07/19 02/07/19 02/08/19 06:59 18:59 06:59 Intake Total 400 Output Total 450 200 Balance -450 200 Weight 48.988 kg Intake: Intake, IV Titration 160 Amount Sodium Chloride 0.9% 1, 160 000 ml @ 20 mls/hr IV . Q24H [facility] Rx#:[id number] Oral 240 Output: Urine 450 150 Post Void Residual 50 Other: Voiding Method Diaper Incontinent # Voids 1 1 - Exam - Constitutional General appearance: no acute distress, resting in bed - EENT Eyes: anicteric sclerae, EOMI, PERRLA, no ptosis, no scleral icterus, normal appearance ENT: NA/AT, normal oropharynx, no thrush Ears: bilateral: normal - Neck Neck: no lymphadenopathy, normal ROM, no rigidity, no stridor, no thyromegaly Carotids: bilateral: upstroke normal Thyroid: bilateral: normal size - Respiratory Respiratory: bilateral: diminished, negative: dullness, rales, rhonchi, wheezing, prolonged expiration - Cardiovascular Rhythm: regular Heart sounds: normal: S1, S2 Abnormal Heart Sounds: systolic murmur, no S3 Gallop Chest wall tenderness - Gastrointestinal General gastrointestinal: normal bowel sounds, soft, no splenomegaly, tenderness lower abdomen no umbilical hernia, no ventral hernia - Integumentary Integumentary: normal, normal turgor - Neurologic Neurologic: CNII-XII intact, oriented to person and place - Musculoskeletal Musculoskeletal: generalized weakness - Labs CBC & Chem 7: 02/06/19 03:45 02/06/19 03:45 Labs: Microbiology - Last 24 Hours (Table) 02/06/19 06:03 Urine Culture - Preliminary Urine,Clean Catch Gram Neg Bacilli 02/06/19 11:10 Blood Culture - Preliminary Blood No Growth after 24 hours 02/06/19 10:54 Blood Culture - Preliminary Blood No Growth after 24 hours Laboratory Results WBC 21.3 k/uL (3.8-10.6) H 02/06/19 03:45 RBC 3.35 m/uL (3.80-5.40) L 02/06/19 03:45 Hgb 10.1 gm/dL (11.4-16.0) L 02/06/19 03:45 Hct 29.4 % (34.0-46.0) L 02/06/19 03:45 MCV 87.8 fL (80.0-100.0) 02/06/19 03:45 MCH 30.2 pg (25.0-35.0) 02/06/19 03:45 MCHC 34.4 g/dL (31.0-37.0) 02/06/19 03:45 RDW 15.3 % (11.5-15.5) 02/06/19 03:45 Plt Count 98 k/uL (150-450) L 02/06/19 03:45 Neutrophils % (Manual) 81 % 02/06/19 03:45 Lymphocytes % (Manual) 4 % 02/06/19 03:45 Monocytes % (Manual) 14 % 02/06/19 03:45 Basophils % (Manual) 1 % 02/06/19 03:45 Neutrophils # (Manual) 17.25 k/uL (1.3-7.7) H 02/06/19 03:45 Lymphocytes # (Manual) 0.85 k/uL (1.0-4.8) L 02/06/19 03:45 Monocytes # (Manual) 2.98 k/uL (0-1.0) H 02/06/19 03:45 Basophils # (Manual) 0.21 k/uL (0-0.2) H 02/06/19 03:45 Nucleated RBCs 0 /100 WBC (0-0) 02/06/19 03:45 Manual Slide Review Performed 02/06/19 03:45 Sodium 141 mmol/L (137-145) 02/06/19 03:45 Potassium 3.7 mmol/L (3.5-5.1) 02/06/19 03:45 Chloride 108 mmol/L (98-107) H 02/06/19 03:45 Carbon Dioxide 24 mmol/L (22-30) 02/06/19 03:45 Anion Gap 9 mmol/L 02/06/19 03:45 BUN 28 mg/dL (7-17) H 02/06/19 03:45 Creatinine 0.70 mg/dL (0.52-1.04) 02/06/19 03:45 Est GFR (CKD-EPI)AfAm >90 (>60 ml/min/1.73 sqM) 02/06/19 03:45 Est GFR (CKD-EPI)NonAf 82 (>60 ml/min/1.73 sqM) 02/06/19 03:45 Glucose 84 mg/dL (74-99) 02/06/19 03:45 Calcium 8.6 mg/dL (8.4-10.2) 02/06/19 03:45 Total Bilirubin 0.4 mg/dL (0.2-1.3) 02/06/19 03:45 AST 16 U/L (14-36) 02/06/19 03:45 ALT 12 U/L (9-52) 02/06/19 03:45 Alkaline Phosphatase 84 U/L (38-126) 02/06/19 03:45 Total Protein 6.3 g/dL (6.3-8.2) 02/06/19 03:45 Albumin 3.5 g/dL (3.5-5.0) 02/06/19 03:45 Amylase <30 U/L (30-110) L 02/06/19 03:45 Lipase 31 U/L (23-300) 02/06/19 03:45 Urine Color Yellow 02/06/19 06:03 Urine Appearance Cloudy (Clear) H 02/06/19 06:03 Urine pH 6.0 (5.0-8.0) 02/06/19 06:03 Ur Specific [place] 1.019 (1.001-1.035) 02/06/19 06:03 Urine Protein 1+ (Negative) H 02/06/19 06:03 Urine Glucose (UA) Negative (Negative) 02/06/19 06:03 Urine Ketones Negative (Negative) 02/06/19 06:03 Urine Blood Negative (Negative) 02/06/19 06:03 Urine Nitrite Negative (Negative) 02/06/19 06:03 Urine Bilirubin Negative (Negative) 02/06/19 06:03 Urine Urobilinogen <2.0 mg/dL (<2.0) 02/06/19 06:03 Ur Leukocyte Esterase Large (Negative) H 02/06/19 06:03 Urine RBC 3 /hpf (0-5) 02/06/19 06:03 Urine WBC >182 /hpf (0-5) H 02/06/19 06:03 Urine WBC Clumps Many /hpf (None) H 02/06/19 06:03 Urine Bacteria Many /hpf (None) H 02/06/19 06:03 Hyaline Casts 8 /lpf (0-2) H 02/06/19 06:03 Urine Mucus Rare /hpf (None) H 02/06/19 06:03 Microbiology 02/06/19 06:03 Urine,Clean Catch Urine Culture - Preliminary Gram Neg Bacilli 02/06/19 11:10 Blood Blood Culture - Preliminary No Growth after 24 hours 02/06/19 10:54 Blood Blood Culture - Preliminary No Growth after 24 hours Assessment and Plan (1) UTI (urinary tract infection) Narrative/Plan: The patient's is present. He has primary caregiver in the home setting with some assistance from the daughter and granddaughter. She is profoundly lauren ilitated provides excellent care for her in the home setting. She however has recurrent urinary infections and is again admitted with fever and leukocytosis feeling very poorly. The patient is related to pain in the suprapubic area before coming to Hospital, she has urinary incontinence and urinary frequency that her baseline. However she became ill with the family brought her to hospital. As noted urinalysis is markedly abnormal and urine culture is pending. The current culture will help determine the plan at discharge, she needs intravenous antibiotic therapy she will go back to rehab to receive that. For now we will alter antibiotic therapy to Rocephin based on the most recent urine culture treating only the gram-negative pathogens that have been frequently present. The patient does have evidence of a significant cystocele and has been evaluated in the past. Apparently she is a candidate for a pessary ring but there has been some difficulties. We'll inquire with urology who is here in the past if this is an option. If so ideally be measured and fitted during this stay, overall goal is to try to reduce the frequency of her urinary infections. The family's questions are answered and will provide follow-up. urine culture is pending at this time which will help determine the course and need to go to the rehab facility She has been seen by urology and they are working with her miller helper to determine if she is a candidate for a pessary ring. Tolerating Rocephin well and believes her mental status is improved through the day. Current Visit: No Status: Acute Code(s): N39.0 - URINARY TRACT INFECTION, SITE NOT SPECIFIED SNOMED Code(s): 75069572 (2) Parkinson disease Current Visit: No Status: Acute Code(s): G20 - PARKINSON'S DISEASE SNOMED Code(s): 17160281 (3) Uterine prolapse Current Visit: No Status: Acute Code(s): N81.4 - UTEROVAGINAL PROLAPSE, UNSPECIFIED SNOMED Code(s): 02554114
[2019-02-08] MEDS: OXYBUTYNIN CHLORIDE 5 MG TAB PO SCH (06:02)
[2019-02-08] MEDS: CARBIDOPA-LEVODOPA 25-100 MG 1 EACH TAB PO SCH (06:02)
[2019-02-08] MEDS: NORTHERA PO SCH ×2 (06:02→12:50)
[2019-02-08] MEDS: CARBIDOPA-LEVODOPA ER 50-200MG 1 EACH TABLET.ER PO SCH ×2 (06:02→12:50)
[2019-02-08] MEDS: LEVOTHYROXINE 88 MCG TAB PO SCH (06:02)
[2019-02-08] MEDS: FLUDROCORTISONE 0.1 MG TAB PO SCH (06:03)
[2019-02-08] MEDS: buPROPion SR 150 MG TABLET.ER PO SCH (06:03)
[2019-02-08 06:49] LABS: HCT 29.8 % (34.0-46.0); HGB 10.2 gm/dL (11.4-16.0); MCH 30.7 pg (25.0-35.0); MCHC 34.3 g/dL (31.0-37.0); MCV 89.5 fL (80.0-100.0); RBC 3.33 m/uL (3.80-5.40); WBC 21.9 k/uL (3.8-10.6)
[2019-02-08 06:54] LABS: Platelet Count 90 k/uL (150-450)
[2019-02-08 07:00] LABS: African American GFR (CKD) >90 (>60 ml/min/1.73 sqM); Anion Gap 9 mmol/L; Blood Urea Nitrogen 18 mg/dL (7-17); Calcium 8.3 mg/dL (8.4-10.2); Carbon Dioxide 25 mmol/L (22-30); Chloride 109 mmol/L (98-107); Glucose 92 mg/dL (74-99); Potassium 2.8 mmol/L (3.5-5.1); Sodium 143 mmol/L (137-145)
[2019-02-08] MEDS: SODIUM CHLORIDE 0.9% 1,000 ML IV SCH (08:23)
[2019-02-08 09:33] VITALS: RESP 16
[2019-02-08] MEDS: FAMOTIDINE 20 MG TAB PO SCH (10:20)
[2019-02-08] MEDS: LACTOBACILLUS ACIDOPH & BULGAR 1 EACH PACKET PO SCH (11:59)
[2019-02-08] MEDS ORDERED: MULTIVITAMINS, THERA 1 EACH TAB PO SCH (12:00)
[2019-02-08] MEDS ORDERED: LEVOFLOXACIN 500 MG TAB PO SCH (13:00)
[2019-02-08] MEDS ORDERED: POTASSIUM CHLORIDE ER 20 MEQ TAB.ER PO STA (14:34)
--- NOTE | 2019-02-08 14:41 | P.DS ---
Providers Date of admission: 02/06/19 14:05 Expected date of discharge: 02/08/19 Attending physician: Lisa Quezada Consults: 02/06/19 06:57 Consult Physician Routine Consulting Provider: Juan Pablo Bates Consult Reason/Comments: Patient known to you. UTI Do you want consulting provider notified?: Yes 02/07/19 10:40 Consult Physician Routine Consulting Provider: Salvador Will Consult Reason/Comments: freqent UTI, cystocele, eval for pessary Do you want consulting provider notified?: Yes [facility]: This is a 78-year-old female patient of Dr. Petersen with past medical history of gastroesphageal reflux, Parkinson disease, osteoarthritis, syncope, hypothyroidism, orthostatic hypotension and recurrent urinary tract i nfections. Patient was recently hospitalized in November of this year and discharged to [facility] with IV meropenem for Enterobacter multidrug resistant UTI. Patient was discharged to home in December. Patient complains of burning with urination for a few days and apparently presented with abdominal pain although is now complaining of chest pain all over. She does have chest wall tenderness. Her last bowel movement was a couple days ago. The patient was taking Ceftin as an outpatient is unclear how long she has been on this but she states it has been quite a while. Patient came into [facility] emergency center for evaluation. Patient was found to be afebrile, blood pressure 175/83, heart rate 76, pulse ox 90% on 2 L nasal cannula. WBC 21.3, hemoglobin 10.1, platelet count 98, BUN 28 creatinine 0.7, liver function tests within normal limits. Urinalysis cloudy, leukoesterase large, RBCs 3, WBC greater than 182, WBC clumps many, bacteria many. Patient was started on meropenem based on previous cultures and admitted to the MedSur floor. Urine culture, blood culture and EKG have been ordered. 02/07: The patient has been seen by Dr. Bates and antibiotics have been changed to Rocephin. Patient has seen Dr. Tatum in the past and has a known cystocele. Dr. Bates mentions the patient may be candidate for pessary ring. We will ask for consultation with urology. Patient does have an appointment coming up March 21. Discussed discharge planning with the patient and her . Plan is to return home unless patient needs IV antibiotics which is not covered in the home setting for her. Patient states that she is feeling a little bit better today from yesterday. PT and OT are in place. Patient has been afebrile, blood pressure 167/76, pulse ox 94% on room air, heart rate 85. Urine culture and blood culture pending. 02/08: Patient has been seen by Dr. Tatum and feels the recurrent urinary tract infections could be in part due to chronic constipation. Incomplete emptiness of her bladder was also contributing factor. Residual was checked yesterday and was at 300. Patient was rechecked today for residual and was 156 mL. He did recommend follow-up with Dr. Ramirez regarding possible pessary. Urine culture obtained as an outpatient on February 05 is positive for Enterobacter cloacae and it was susceptible to Levaquin. Patient has a noted ALLERGY to Levaquin which her states Dr. Petersen's office told him about. He does not recall any reaction or why it is listed as an ALLERGY. Contacted Dr. Petersen's office and no additional information was obtained. Patient was given 1 dose of Levaquin and after 2 hours did not have any associated reaction. Patient will be discharged home today in stable condition with a prescription for Levaquin for 2 week course. Discharge diagnoses: 1. Acute UTI and sepsis with generalized weakness, leukocytosis. 2. 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 3. 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 4. Hypothyrodism. 5. Vascular dementia. 6. Osteoarthritis, generalized stable. 7. Parkinson disease. Discharge plan: Home with [facility] care, palliative care. Impression and plan of care have been directed as dictated by the signing physician. Shawanda Virk nurse practitioner acting as scribe for signing physician. Patient Condition at Discharge: Good Plan - Discharge Summary Discharge Rx Participant: No New Discharge Prescriptions: New Levofloxacin [Levaquin] 500 mg PO DAILY #14 tab Multivitamins, Thera [Multivitamin (formulary)] 1 each PO DAILY@1200 tab Mirtazapine [Remeron] 7.5 mg PO HS #30 tab Continue Levothyroxine Sodium [Synthroid] 88 mcg PO DAILY@0700 Carbidopa-Levodopa 25-100 mg [Sinemet 25-100 mg] 0.5 tab PO DAILY@0700 Fludrocortisone [Florinef] 0.2 mg PO DAILY@0700 Fludrocortisone [Florinef] 0.1 mg PO DAILY@1700 Carbidopa/Levodopa [Sinemet CR 50-200 mg] 1 tab PO BID@0700,1300 Ergocalciferol (Vitamin D2) [Vitamin D2] 50,000 unit PO SA@0700 Donepezil HCl [Aricept] 5 mg PO HS@2100 L.acidoph,Paracasei, B.lactis [Probiotic] 1 cap PO DAILY@1300 buPROPion HCL [Wellbutrin SR] 150 mg PO DAILY@0700 Oxybutynin Chloride [Ditropan] 5 mg PO DAILY@0700 Carbidopa/Levodopa [Sinemet 25-100 mg] 1 tab PO HS PRN PRN Reason: PARKINSONS SYMPTOMS Cranberry Fruit Extract [Cranberry] 500 mg PO DAILY@1300 Potassium Chloride [Klor-Con 20] 20 meq PO Q48H Droxidopa [Northera] 400 mg PO TID@0700,1300,1700 Discontinued Cefuroxime [Ceftin] 250 mg PO BID@0700,1700 Discharge Medication List Carbidopa-Levodopa 25-100 mg [Sinemet 25-100 mg] 0.5 tab PO DAILY@0700 08/20/15 [History] Levothyroxine Sodium [Synthroid] 88 mcg PO DAILY@0700 08/20/15 [History] Fludrocortisone [Florinef] 0.2 mg PO DAILY@0700 03/08/17 [History] Carbidopa/Levodopa [Sinemet CR 50-200 mg] 1 tab PO BID@0700,1300 09/06/17 [History] Ergocalciferol (Vitamin D2) [Vitamin D2] 50,000 unit PO SA@0700 09/06/17 [History] Fludrocortisone [Florinef] 0.1 mg PO DAILY@1700 09/06/17 [History] Donepezil HCl [Aricept] 5 mg PO HS@2100 02/06/18 [History] Carbidopa/Levodopa [Sinemet 25-100 mg] 1 tab PO HS PRN 11/30/18 [History] Cranberry Fruit Extract [Cranberry] 500 mg PO DAILY@1300 11/30/18 [History] L.acidoph,Paracasei, B.lactis [Probiotic] 1 cap PO DAILY@1300 11/30/18 [History] Oxybutynin Chloride [Ditropan] 5 mg PO DAILY@0700 11/30/18 [History] buPROPion HCL [Wellbutrin SR] 150 mg PO DAILY@0700 11/30/18 [History] Droxidopa [Northera] 400 mg PO TID@0700,1300,1700 02/06/19 [History] Potassium Chloride [Klor-Con 20] 20 meq PO Q48H 02/06/19 [History] Levofloxacin [Levaquin] 500 mg PO DAILY #14 tab 02/08/19 [Rx] Mirtazapine [Remeron] 7.5 mg PO HS #30 tab 02/08/19 [Rx] Multivitamins, Thera [Multivitamin (formulary)] 1 each PO DAILY@1200 tab 02/08/19 [Rx] Follow up Appointment(s)/Referral(s): Juan Pablo Bates MD [STAFF PHYSICIAN] - 2 Weeks Osman Ramirez MD [STAFF PHYSICIAN] - 2 Weeks [facility], [NON-STAFF] - (With Palliative care) Jose Petersen DO [Primary Care Provider] - 1 Week Discharge Disposition: HOME WITH HOME HEALTH SERVICES
[2019-02-08 15:03] VITALS: BP 109/54; PULSE 80; TEMP 98.7
[2019-02-08] MEDS ORDERED: MIRTAZAPINE 15 MG TAB PO SCH (21:00)
== END 2019-02-08 17:00 | disposition home health service (06) | DRG 872 ==
LOC: EC 02:37 → 4MS4W 06:56 → OBSVTOIN 14:05
PROVIDERS: ADMIT Internal Medicine; ATTEND Internal Medicine
DX: A41.9 Sepsis, unspecified organism (principal); N39.0 Urinary tract infection, site not specified; E87.2 Acidosis; Z51.5 Encounter for palliative care; G20 Parkinson's disease; F01.50 Vascular dementia, unspecified severity, without behavioral disturbance, psychotic disturbance, mood disturbance, and anxiety; G90.9 Disorder of the autonomic nervous system, unspecified; R15.9 Full incontinence of feces; D69.6 Thrombocytopenia, unspecified; G89.29 Other chronic pain; M54.9 Dorsalgia, unspecified; N30.20 Other chronic cystitis without hematuria; I95.1 Orthostatic hypotension; M15.9 Polyosteoarthritis, unspecified; K59.09 Other constipation; E89.0 Postprocedural hypothyroidism; K21.9 Gastro-esophageal reflux disease without esophagitis; N81.4 Uterovaginal prolapse, unspecified; N39.41 Urge incontinence; R33.8 Other retention of urine; H91.90 Unspecified hearing loss, unspecified ear; Z79.890 Hormone replacement therapy; Z79.52 Long term (current) use of systemic steroids; Z79.899 Other long term (current) drug therapy; Z86.19 Personal history of other infectious and parasitic diseases; Z87.440 Personal history of urinary (tract) infections; Z90.710 Acquired absence of both cervix and uterus; Z98.51 Tubal ligation status; Z96.653 Presence of artificial knee joint, bilateral; Z96.641 Presence of right artificial hip joint; Z87.19 Personal history of other diseases of the digestive system; Z98.42 Cataract extraction status, left eye; Z98.41 Cataract extraction status, right eye; Z88.1 Allergy status to other antibiotic agents; Z88.5 Allergy status to narcotic agent; Z80.8 Family history of malignant neoplasm of other organs or systems; Z83.3 Family history of diabetes mellitus; Z82.49 Family history of ischemic heart disease and other diseases of the circulatory system; Z83.6 Family history of other diseases of the respiratory system; Z84.1 Family history of disorders of kidney and ureter
CPT/HCPCS: 36415; 80048; 80053; 81001; 82150; 83690; 85025; 85027; 87040; 87077; 87086; 87186

== ENCOUNTER → 2019-02-19 | Outpatient (CLI) | payer MEDICARE, OTHER ==
--- NOTE | 2019-02-19 11:02 | XR ---
EXAMINATION TYPE: XR chest 2V, XR ribs 2 views RT DATE OF EXAM: 02/19/2019 COMPARISON: 11/30/2018 HISTORY: 78-year-old female with pain FINDINGS: Chest: Right heart margin obscured by adjacent pleural parenchymal opacity. Moderate to large right pleural effusion, new from prior exam. Left lung and pleural space remain clear. Right RIBS: No displaced right rib fracture seen. IMPRESSION: New moderate to large right pleural effusion with adjacent atelectasis and/or consolidation. No displ aced right rib fracture.
== END | disposition home or self-care (01) ==
LOC: RADXRMAIN 10:19
PROVIDERS: ATTEND Family Medicine
DX: J90 Pleural effusion, not elsewhere classified (principal); J98.11 Atelectasis; R07.82 Intercostal pain
CPT/HCPCS: 71046